=== PATIENT | female | born 1995 | race Caucasian/White ===

== ENCOUNTER 2020-03-18 20:32 | Inpatient (IN) | payer OTHER, BC, SELFPAY ==
[2020-03-18 20:38] VITALS: BP 120/93; PULSE 111; RESP 20; O2SAT 100
--- NOTE | 2020-03-18 20:57 | PC.NURSE ---
Spoke with poison control regarding the patient they recommended an EKG, APAP level and ASA. They suggested monitoring for IT SUPPORT SPECIALIST depression, seizures, agitation, slurred speech, respiratory depression, hypertension, prolonged QT. They stated the peak is in 2-6 hours and the half life is from 19-37 hours. They will fax paperwork.
[2020-03-18 21:11] LABS: Basophils Percent Auto 0.2 % (0.2-1.2); Hematocrit 41.7 % (37.0-47.0); Hemoglobin 13.6 g/dL (12.0-15.0); Immature Granulocyte Absolute 0.01 K/mm3 (0.00-0.031); Immature Granulocyte Percent A 0.2 % (0-0.5); Lymphocytes Absolute Auto 1.68 K/mm3 (0.9-3.2); Lymphocytes Percent Auto 26.3 % (18.3-44.2); Mean Corpuscular HGB Conc 32.6 g/dl (32-36); Mean Corpuscular Volume 88.9 fl (80-100); Mean Platelet Volume 9.2 fl (7.4-10.4); Monocytes Absolute Auto 0.5 K/mm3 (0.1-0.6); Monocytes Percent Auto 7.8 % (2.6-8.5); Neutrophils Absolute Auto 4.2 K/mm3 (1.3-6.7); Neutrophils Percent Auto 65.5 % (45.5-73.1); Platelet Count Result 290 k/mm3 (150-375); Red Blood Count 4.69 M/mm3 (4.2-5.4); Red Cell Distribution Width 13.2 % (11.5-14.5); White Blood Count 6.4 K/mm3 (4.5-10.0)
--- NOTE | 2020-03-18 21:13 | ECG_ITS ---
Measurements Intervals [place] Rate: 110 P: 52 TN: 117 QRS: 47 QRSD: 96 T: -29 QT: 247 QTc: 335 Interpretive Statements SINUS TACHYCARDIA WITH SHORT [place] INTERVAL INCOMPLETE RIGHT BUNDLE BRANCH BLOCK NONSPECIFIC ST & T-WAVE ABNORMALITY- ANTEROLAT/INF LEADS BASELINE ARTIFACT- I, II, AVR, AVF ABNORMAL ECG Electronically Signed On 03-19-2020 7:39:34 OPERATIONAL TEST MECHANIC by Derik aPz D.O.
[2020-03-18 21:25] LABS: Alanine Aminotransferase 12 U/L (4-35); Albumin Level 4.6 g/dL (3.5-5.1); Alkaline Phosphatase 79 U/L (38-126); Anion Gap 10 mmol/L (8-16); Aspartate Amino Transferase 19 U/L (14-36); Bilirubin,Total 0.2 mg/dL (0.2-1.3); Blood Urea Nitrogen 9 mg/dL (7-17); Calcium 9.4 mg/dL (8.4-10.2); Carbon Dioxide 23 mmol/L (22-30); Chloride 106 mmol/L (98-107); Estimated CRCL calculation 100 ml/min; Estimated Glomerular Filt Rate > 60; Glucose 89 mg/dL (65-105); Potassium 3.7 mmol/L (3.4-5.0); Sodium 139 mmol/L (137-145)
--- NOTE | 2020-03-18 21:40 | ED.PSYCH ---
HPI - Psych General Chief Complaint: Psychiatric Symptoms Stated Complaint: SI/ OD Time Seen by Provider: 03/18/20 21:27 History of Present Illness HPI Narrative: 24 yo female w/ h/ depression presents to the ED for an intentional overdose. She has been feeling more depressed for the past week. Today she decided to take 20 50 mg Clomipramine tablets at 1850 in an attempt to kill herself. On arrival to the ED she has no complaints. Related Data Home Medications Medication Instructions Recorded Confirmed Orilissa 150 mg PO DAILY 03/19/20 03/19/20 clomipramine 225 mg PO DAILY 03/19/20 03/19/20 desvenlafaxine succinate 150 mg PO DAILY 03/19/20 03/19/20 lorazepam 1 mg PO TID PRN 03/19/20 03/19/20 methylphenidate HCl [Concerta] 54 mg PO DAILY 03/19/20 03/19/20 midodrine 5 mg PO HS 03/19/20 03/19/20 midodrine 10 mg PO DAILY 03/19/20 03/19/20 norethindrone (contraceptive) 0.25 mg PO DAILY 03/19/20 03/19/20 propranolol 10 mg PO BID 03/19/20 03/19/20 quetiapine 200 mg PO HS 03/19/20 03/19/20 sertraline 100 mg PO HS 03/19/20 03/19/20 topiramate 100 mg PO BID 03/19/20 03/19/20 Allergies Allergy/AdvReac Type Severity Reaction Status Date / Time No Known Allergies Allergy Verified 03/19/20 00:07 Review of Systems Review of Systems: All systems reviewed & are unremarkable except as noted in HPI and below Constitutional: Constitutional: Denies fever(s) Cardiovascular: Cardiovascular: Denies chest pain Respiratory: Respiratory: Denies dyspnea Gastrointestinal: Gastrointestinal: Denies abdominal pain Musculoskeletal: Musculoskeletal: Denies back pain Neurologic: Reports dizziness Psychiatric: Psychiatric: Reports depression, Denies homicidal ideation and Reports suicidal ideation [facility] Past Medical History Medical History Depression Family History Family History Father Heart disease Social History Social History Smoking status: Never smoker Alcohol intake: unknown Substance use: never Substance use type: does not use Exam Const: General: healthy appearing, no acute distress and alert Orientation/consciousness: patient oriented x3 HENMT: Head: normal to inspection Eyes: Pupils: Equal, round and reactive pupils present EOM: EOMs intact bilaterally Neck: Neck: normal visual inspection and no lymphadenopathy Chest: Chest palpation & inspection: no tenderness Resp: Effort & Inspection: normal respiratory effort Auscultation: clear to auscultation bilaterally, no rales, no rhonchi and no wheezes Cardio: Jugular venous distension: no JVD Rate: tachycardic Rhythm: regular rhythm Heart sounds: no murmurs GI: Inspection: non-distended GI Palp: Yes Soft to palpation and No Tenderness to palpation present (GI) Skin: General skin exam: normal color Neuro: General: patient oriented x3, moves all extremities, no focal motor deficits and CN's II-XI intact bilaterally Cranial nerves: Yes Nystagmus not present Speech: normal speech Extrem: General: no edema Psych: Appearance: well kempt Affect: normal affect Course Vital Signs Vital signs: Vital Signs Pulse Rate 111 H 03/18/20 20:38 Respiratory Rate 20 03/18/20 20:38 Blood Pressure 120/93 H 03/18/20 20:38 Pulse Oximetry 100 03/18/20 20:38 Temperature 36.7 C 03/21/20 06:00 Pulse Rate 92 03/21/20 08:00 Respiratory Rate 21 H 03/21/20 06:00 Blood Pressure 117/73 03/21/20 06:00 Pulse Oximetry 100 03/21/20 06:00 MDM - Psych MDM Narrative Medical decision making narrative: SHe has been stable in the ED, but will require prolonged observation before she can be medically cleared. Differential Diagnosis Differential diagnosis: Likely suicidal ideation Medical Records Attestation: I reviewed the patient's medical records. Lab Data Attestation:
[2020-03-18 21:54] VITALS: BP 112/85; PULSE 101; RESP 21; O2SAT 100
[2020-03-18 22:02] LABS: Add Urine Microscopic? YES; Amorphous Sediment Urine Few; Appearance Urine Turbid (Clear); Bacteria Urine Trace /hpf; Bilirubin Urine Negative (Negative); Blood Urine Negative (Negative); Color Urine Yellow (Yellow); Glucose Urine UA Negative (Negative); Ketones Urine Negative (Negative); Leukocyte Esterase Ur Trace LEU/UL (Negative); Nitrate Urine Negative (Negative); Protein Urine Negative (Negative); Specific Grav Ur 1.018 (1.001-1.035); Squamous Epithelial Cell Urine Rare /hpf (Few); Urobilinogen Urine Negative mg/dL (<2.0)
[2020-03-18 22:06] LABS: Acetaminophen < 10 ug/mL (10-30); Ethanol < 10 mg/dL (<10); Salicylate < 1.0 mg/dL (2-20)
[2020-03-18] MEDS: SODIUM CHLORIDE 0.9% IV 1,000 ML 999 ML IV CONT (22:18)
[2020-03-18 22:21] VITALS: BP 128/91; PULSE 106; RESP 15; O2SAT 100
--- NOTE | 2020-03-18 22:54 | PC.NURSE ---
this rn spoke with poison control and gave them update
[2020-03-18 22:58] LABS: Amphetamine Screen Urine Negative (Negative); Barbiturate Screen Urine Negative (Negative); Benzodiazepines Screen Urine Negative (Negative); Cannabinoid Screen Urine Negative (Negative); Cocaine Screen Urine Negative (Negative); Methadone Screen Urine Negative (Negative); Opiate Screen Urine Negative (Negative); Phencyclidine Screen Urine Negative (Negative)
[2020-03-18 23:23] VITALS: BP 107/75; PULSE 94; RESP 23; O2SAT 100
[2020-03-18 23:32] VITALS: BP 104/71; PULSE 95; RESP 13; O2SAT 100
[2020-03-18 23:49] VITALS: BMI 31.1
[2020-03-18 23:50] VITALS: BP 112/78; PULSE 101; RESP 15; TEMP 36.1; O2SAT 100
--- NOTE | 2020-03-18 23:51 | PM.IMHP ---
H&P: HPI History of Present Illness Date/Time: 03/18/20 23:51 Chief complaint: Intentional overdose, SI Narrative: Adeline Holden is a 24 year old female who presented to the hospital with a history of an intentional overdose of her clomipramine around 7 pm. She states that she consumed #20 tabs of 50 mg of her TCA, clomipramine. She denies any nausea or vomiting tonight. She also denies any seizure like activity, shortness of breath, headache, chest pain, abdominal pain, dysuria, diarrhea, or rectal bleeding. She states that she has been depressed and that's why she wanted to hurt herself. She denies any previous suicidal ideation or attempts before. She was seen in our ER around 8:30 pm and was not given any charcoal for decontamination. Initial EKG demonstrated QRS duration of 96 ms and QTc of 312 ms. No other complaints. Review of Systems Review of Systems: All systems reviewed & are unremarkable except as noted in HPI and below PMFSH Past Medical History Medical History Depression Family History Family History Father Heart disease Social History Social History Smoking status: Never smoker Alcohol intake: unknown Substance use: never Substance use type: does not use Comments Past surgical history is reviewed and negative. Meds Home Medications and Allergies Home Medications Medication Instructions Recorded Confirmed Type clomipramine 225 mg PO DAILY 03/19/20 03/19/20 History desvenlafaxine succinate 150 mg PO DAILY 03/19/20 03/19/20 History elagolix [Orilissa] 150 mg PO DAILY 03/19/20 03/19/20 History lorazepam 1 mg PO TID PRN 03/19/20 03/19/20 History methylphenidate HCl [Concerta] 54 mg PO DAILY 03/19/20 03/19/20 History midodrine 5 mg PO HS 03/19/20 03/19/20 History midodrine 10 mg PO DAILY 03/19/20 03/19/20 History norethindrone (contraceptive) 0.25 mg PO DAILY 03/19/20 03/19/20 History propranolol 10 mg PO BID 03/19/20 03/19/20 History quetiapine 200 mg PO HS 03/19/20 03/19/20 History sertraline 100 mg PO HS 03/19/20 03/19/20 History topiramate 100 mg PO BID 03/19/20 03/19/20 History Allergies Allergy/AdvReac Type Severity Reaction Status Date / Time No Known Allergies Allergy Verified 03/19/20 00:07 Vital Signs Vital Signs - 24 hr 03/18/20 20:38 03/18/20 21:54 03/18/20 22:21 Temperature Pulse Rate 111 H 101 H 106 H Respiratory Rate 20 21 H 15 Blood Pressure 120/93 H 112/85 128/91 H Pulse Oximetry 100 100 100 03/18/20 23:23 03/18/20 23:32 03/18/20 23:50 Temperature 36.1 C L Pulse Rate 94 95 101 H Respiratory Rate 23 H 13 15 Blood Pressure 107/75 104/71 112/78 Pulse Oximetry 100 100 100 Exam Const: General: alert and awake Nutritional Appearance: well nourished Orientation/consciousness: patient oriented x3 HENMT: Head: normal to inspection General nose exam: Normal external nose present Face and sinus: normal facial exam Mouth: Yes Normal oral and palatal mucosa present and Yes oropharynx normal Eyes: Pupils: Equal, round and reactive pupils present EOM: EOMs intact bilaterally Neck: Neck: supple and no JVD Thyroid: thyroid normal Lymphatic: lymphadenopathy not noted Resp: Effort & Inspection: normal respiratory effort Auscultation: clear to auscultation bilaterally Cardio: Rate: regular rate Rhythm: regular rhythm Heart sounds: no murmurs GI: Inspection: normal to inspection Auscultation: normal bowel sounds Skin: General skin exam: normal color and no rashes or lesions noted Neuro: General: patient oriented x3 Cranial nerves: Yes CN's II-XII intact bilaterally and Yes Equal, round and reactive pupils present Speech: normal speech Motor exam (neuro): 5/5 motor strength present throughout Sensory Exam: normal sensation Extrem: General: normal to inspection and no edema Psych: Menta
--- NOTE | 2020-03-18 23:53 | ADMGEN ---
This patient, Adeline Holden, was admitted to Medical Room 254-01 on 03/18/2020 @0808. Patient/family oriented to hospital policies and general routines including ID bracelet, bed and alarms, visiting hours, pain management, procedures, bathroom and other care routines, personal items, smoking policy, room service/diet, and visiting hours. Information on how to activate the Rapid Response Team has been discussed. Patient/Family are encouraged to report perceived risks to care and to ask questions if they do not understand what they are told or what they should do.
[2020-03-19] VITALS (9 sets, daily range): BP systolic 107–116; BP diastolic 66–77; PULSE 87–101; RESP 14–20; TEMP 36.1–36.6; O2SAT 100
[2020-03-19] MEDS: SODIUM CHLORIDE 0.9% IV 1,000 ML 100 ML IV CONT ×3 (01:52→22:15)
--- NOTE | 2020-03-19 04:18 | ECG_ITS ---
Measurements Intervals [place] Rate: 94 P: 38 [place]: 119 QRS: 63 QRSD: 102 T: 16 QT: 383 QTc: 479 Interpretive Statements SINUS RHYTHM WITH SHORT [place] INTERVAL INCOMPLETE RIGHT BUNDLE BRANCH BLOCK NONSPECIFIC T-WAVE ABNORMALITY-ANT/INF LEADS BORDERLINE ECG Electronically Signed On 03-19-2020 7:42:30 LINER INSTALLER by Derik Paz D.O.
[2020-03-19] MEDS: SODIUM BICARBONATE 8.4% 50 MEQ/50 ML VIAL IV PUSH ×2 (05:26→05:38)
[2020-03-19 07:01] LABS: Anion Gap 5 mmol/L (8-16); Blood Urea Nitrogen 8 mg/dL (7-17); Calcium 8.2 mg/dL (8.4-10.2); Carbon Dioxide 26 mmol/L (22-30); Chloride 109 mmol/L (98-107); Estimated CRCL calculation 113 ml/min; Estimated Glomerular Filt Rate > 60; Glucose 93 mg/dL (65-105); Potassium 3.4 mmol/L (3.4-5.0); Sodium 140 mmol/L (137-145)
--- NOTE | 2020-03-19 12:07 | PM.IMPN ---
Progress Note: A&P Assessment and Plan (1) Intentional overdose of drug in tablet form: Code(s): T50.902A - Poisoning by unspecified drugs, medicaments and biological substances, intentional self-harm, initial encounter Status: Acute Assessment and Plan: The patient has intentionally overdosed on her TCA, clomipramine. telemetry, monitor EKG and specifically QRS duration. (2) Suicidal ideation: Code(s): R45.851 - Suicidal ideations Status: Acute Assessment and Plan: harm precautions. suicide precautions. One on One sitter. Crisis intervention tomorrow AM. (3) Depression: Qualifiers: Depression Type: unspecified Qualified Code(s): F32.9 - Major depressive disorder, single episode, unspecified Code(s): F32.9 - Major depressive disorder, single episode, unspecified Status: Chronic Assessment and Plan: Held everything except zoloft for patient. Subjective Date/time seen: 03/19/20 12:07 Interval history: Adeline Holden is a 24 year old female who presented to the hospital with a history of an intentional overdose of her clomipramine around 7 pm. She states that she consumed #20 tabs of 50 mg of her TCA, clomipramine. Pt has history of depression sees a psychiatrist in [place], Has been feeling down and was having Suicidal thoughts and took OD intentionally. No chest pain or SOB noted. No seizures noted, Continue tele and fluids today call crisis team tomorrow. Review of Systems Review of Systems: All systems reviewed & are unremarkable except as noted in HPI and below Exam Const: General: cooperative and healthy appearing; No in distress Nutritional Appearance: overweight Orientation/consciousness: oriented to person HENMT: Head: normal to inspection Resp: Effort & Inspection: no respiratory distress Auscultation: no rhonchi and no wheezes Cardio: Rate: regular rate Rhythm: regular rhythm GI: Inspection: normal to inspection GI Palp: No abdominal tenderness, No Guarding due to palpation present (GI) and No Hepatomegaly present Auscultation: normal bowel sounds Neuro: General: oriented to person Objective Data Vital Signs Vital Signs: Vital Signs - 24 hr 03/18/20 20:38 03/18/20 21:54 03/18/20 22:21 Temperature Pulse Rate 111 H 101 H 106 H Respiratory Rate 20 21 H 15 Blood Pressure 120/93 H 112/85 128/91 H Pulse Oximetry 100 100 100 03/18/20 23:23 03/18/20 23:32 03/18/20 23:50 Temperature 36.1 C L Pulse Rate 94 95 101 H Respiratory Rate 23 H 13 15 Blood Pressure 107/75 104/71 112/78 Pulse Oximetry 100 100 100 03/19/20 00:00 03/19/20 04:00 03/19/20 05:11 Temperature 36.1 C L Pulse Rate 98 90 90 Respiratory Rate 14 Blood Pressure 107/66 Pulse Oximetry 100 03/19/20 08:00 03/19/20 12:00 Temperature Pulse Rate 88 101 H Respiratory Rate 14 Blood Pressure Pulse Oximetry 100 Intake/Output Intake/Output: Intake & Output 03/16/20 03/17/20 03/18/20 03/19/20 23:59 23:59 23:59 23:59 Intake Total 290 Balance 290 Meds/Results Medications: Active Medications Generic Name Dose Route Start Last Admin Trade Name Freq PRN Reason Stop Dose Admin Sodium Chloride 1,000 mls @ 100 mls/hr 03/19/20 00:05 03/19/20 11:29 Normal Saline Iv IV CONT 100 mls/hr .Q10H [facility] Infusion Labs Labs: Laboratory Results - last 24 hr 03/18/20 03/18/20 03/18/20 20:59 20:59 20:59 WBC 6.4 RBC 4.69 Hgb 13.6 Hct 41.7 MCV 88.9 MCH 29.0 MCHC 32.6 RDW 13.2 Plt Count 290 MPV 9.2 Immature Gran % (Auto) 0.2 Neut % (Auto) 65.5 Lymph % (Auto) 26.3 [place] % (Auto) 7.8 Eos % (Auto) 0.0 Baso % (Auto) 0.2 Lymph # (Auto) 1.68 [place] # (Auto) 0.5 Eos # (Auto) 0.0 Baso # (Auto) 0.0 Abs Immat Gran (auto) 0.01 Absolute Neuts (auto) 4.2 Absolute Nucleated RBC 0.0 Nucleated RBC % 0.0 Sodium 139 Potassium 3.7 Chloride 106
[2020-03-19] MEDS: SERTRALINE HCL 50 MG TABLET 100 MG PO (20:34)
[2020-03-20] VITALS (10 sets, daily range): BP systolic 112–124; BP diastolic 77–78; PULSE 82–120; RESP 14–21; TEMP 35.9–36.8; O2SAT 97–100
[2020-03-20 05:20] LABS: Anion Gap 5 mmol/L (8-16); Blood Urea Nitrogen 8 mg/dL (7-17); Calcium 8.6 mg/dL (8.4-10.2); Carbon Dioxide 24 mmol/L (22-30); Chloride 108 mmol/L (98-107); Estimated CRCL calculation 113 ml/min; Estimated Glomerular Filt Rate > 60; Glucose 98 mg/dL (65-105); Potassium 3.8 mmol/L (3.4-5.0); Sodium 137 mmol/L (137-145)
[2020-03-20] MEDS: SODIUM CHLORIDE 0.9% IV 1,000 ML 100 ML IV CONT ×2 (08:21→18:38)
[2020-03-20] MEDS: hydrOXYzine pamoate 25 MG CAPSULE PO (09:18)
--- NOTE | 2020-03-20 11:45 | PM.IMPN ---
Progress Note: A&P Assessment and Plan (1) Intentional overdose of drug in tablet form: Code(s): T50.902A - Poisoning by unspecified drugs, medicaments and biological substances, intentional self-harm, initial encounter Status: Acute Assessment and Plan: 03/20/20 11:45 patient is a 24-year-old female with psychiatric illness and has been taking clomipramine 50mg/tab was given by her psychiatrist however patient became severely depressed and decided to end her life by taking 20 tabs of clomipramine (TCA) 03/18/20, patient took the medications about 7PM had change of heart and presented to ER for further evaluation, patient denied any associates symptoms of abdominal pain, nausea, vomiting or seizure, chest pain or palpitation, her EKG has been in normal range. Currently patient is clinically stable and has no complaint, patient is with a sitter, I believe patient will benefit going into inpatient psychiatry care, I called patient's psychiatrist spoke with his nurse practitioner and she also agrees the patient will benefit going into inpatient care, will have crisis team evaluate the patient and further recommendation to follow. (2) Depression: Qualifiers: Depression Type: unspecified Qualified Code(s): F32.9 - Major depressive disorder, single episode, unspecified Code(s): F32.9 - Major depressive disorder, single episode, unspecified Status: Chronic Assessment and Plan: Patient is seen by psychiatrist, plan is above (3) Suicidal ideation: Code(s): R45.851 - Suicidal ideations Status: Acute Assessment and Plan: Plan is above Subjective Date/time seen: 03/20/20 11:45 patient is a 24-year-old female with psychiatric illness and has been taking clomipramine 50mg/tab was given by her psychiatrist however patient became severely depressed and decided to end her life by taking 20 tabs of clomipramine (TCA) 03/18/20, patient took the medications about 7PM had change of heart and presented to ER for further evaluation, patient denied any associates symptoms of abdominal pain, nausea, vomiting or seizure, chest pain or palpitation, her EKG has been in normal range. Currently patient is clinically stable and has no complaint, patient is with a sitter, I believe patient will benefit going into inpatient psychiatry care, I called patient's psychiatrist spoke with his nurse practitioner and she also agrees the patient will benefit going into inpatient care, will have crisis team evaluate the patient and further recommendation to follow. Review of Systems Review of Systems: All systems reviewed & are unremarkable except as noted in HPI and below Exam Narrative: Exam Narrative: Patient appears depressed Patient is comfortable, NAD HEENT: eyes are clear and none icteric LUNGS:CTA HEART: RR S1S2 ABD: BS+, Soft and nontender Lower extremities: no edema SKIN: nonjaundiced Neuro: grossly intact. Objective Data Vital Signs Vital Signs: Vital Signs - 24 hr 03/19/20 12:00 03/19/20 14:39 03/19/20 16:00 Temperature 97.6 F Pulse Rate 101 H 101 H 94 Respiratory Rate 20 Blood Pressure 107/67 Pulse Oximetry 100 03/19/20 19:49 03/19/20 20:00 03/20/20 00:00 Temperature 98 F Pulse Rate 92 87 82 Respiratory Rate 16 Blood Pressure 116/77 Pulse Oximetry 100 03/20/20 04:00 03/20/20 05:36 03/20/20 08:00 Temperature 97.2 F L Pulse Rate 85 86 95 Respiratory Rate 14 Blood Pressure 117/77 Pulse Oximetry 100 03/20/20 08:01 03/20/20 08:27 Temperature 98.2 F Pulse Rate 90 104 H Respiratory Rate 20 20 Blood Pressure 112/77 Pulse Oximetry 100 100 Intake/Output Intake/Output: Intake & Output 03/17/20 03/18/20 03/19/20 03/20/20 23:59 23:59 23:59 23:59 Intake Total 3210 1400 Output Total 800 Balance 3210 600 Meds/Results Medications: Active Medications Generic Name Dose Route Start Last Admin Trade Name Freq PRN Reason
--- NOTE | 2020-03-20 14:04 | PC.NURSE ---
Spoke with [place] [facility], Ethel Balderrama, stated they anticipated no further problems with the amount of medication that she took. [place] [facility] Case #[id number]. This case is considered close.
--- NOTE | 2020-03-20 16:30 | PC.NURSE ---
Crisis Intervention Counselor assessed patient and stated that patient is no longer a threat to self and since patient has denied any intentions to harm self patient no longer needed to be on Suicide Precautions. A signed contract was signed and witnessed with Crisis Intervention Counselor and left at bedside.
[2020-03-20] MEDS: SERTRALINE HCL 50 MG TABLET 100 MG PO (21:14)
[2020-03-21] VITALS: PULSE 95
[2020-03-21 04:00] VITALS: PULSE 89
[2020-03-21] MEDS: SODIUM CHLORIDE 0.9% IV 1,000 ML 100 ML IV CONT (04:42)
[2020-03-21 06:00] VITALS: BP 117/73; PULSE 111; RESP 21; TEMP 36.7; O2SAT 100
[2020-03-21 08:00] VITALS: PULSE 92
--- NOTE | 2020-03-21 08:07 | PM.DS ---
DS: Admitting Diagnosis Admitting Diagnosis Admitting Diagnosis: Intentional overdose, SI DS: Summary Hospital Course Reason for hospitalization: Chief complaint: Intentional overdose, SI Narrative: Adeline Holden is a 24 year old female who presented to the hospital with a history of an intentional overdose of her clomipramine around 7 pm. She states that she consumed #20 tabs of 50 mg of her TCA, clomipramine. She denies any nausea or vomiting tonight. She also denies any seizure like activity, shortness of breath, headache, chest pain, abdominal pain, dysuria, diarrhea, or rectal bleeding. She states that she has been depressed and that's why she wanted to hurt herself. She denies any previous suicidal ideation or attempts before. She was seen in our ER around 8:30 pm and was not given any charcoal for decontamination. Initial EKG demonstrated QRS duration of 96 ms and QTc of 312 ms. No other complaints. Hospital Course: Patient was seen by crisis team yesterday on 03/20 and did not require inpatient psychiatry care, patient is clinically stable, patient has scheduled appointment with a psychiatrist this morning at 9:00 a.m., will discharge with her mother and patient will go to her appointment this morning, patient instructed if any symptoms get worse go to nearest emergency department Status at Discharge Functional status at discharge: independent ambulation Overall status at discharge: patient is back to baseline Time Spent with Patient Time attestation: Total time spent providing and/or coordinating discharge services: Patient was seen and examined at the time of the discharge Condition at discharge is stable Code status: Full code. Time spent preparing discharge summary, discharge medications, discussing discharge planning with porter sample case and patient is 35 minutes. Time spent: Greater than 30 minutes Exam Narrative: Exam Narrative: Patient is comfortable, NAD HEENT: eyes are clear and none icteric LUNGS:CTA HEART: RR S1S2 ABD: BS+, Soft and nontender Lower extremities: no edema SKIN: nonjaundiced Neuro: grossly intact. DS: Data Data Completed and Pending Labs on day of discharge: Labs from last 24 hours 03/21/20 04:46 SARS-CoV-2 RNA (RT-PCR) Pending Discharge Plan Discharge Attending physician on discharge: Mayelin Borja Consulting providers: Cristy Larry Rafe M. Discharging Clinician: Mayelin oBrja Patient Disposition: Home, Self-Care Activity: may shower and as tolerated Diet: regular Discharge Instructions: Patient was seen by crisis team yesterday on 03/20 and did not require inpatient psychiatry care, patient is clinically stable, patient has scheduled appointment with a psychiatrist this morning at 9:00 a.m., will discharge with her mother and patient will go to her appointment this morning, patient instructed if any symptoms get worse go to nearest emergency department Patient Instructions: Antibiotic Form Stand Alone Forms: General Discharge Information Follow-up/Referrals: Maryam,Molina Herman MD [Primary Care Provider] - Discharge Medications: Continued Orilissa 150 mg tablet 150 mg PO DAILY RF: 0 methylphenidate HCl [Concerta] 54 mg tablet extended release 24hr 54 mg PO DAILY RF: 0 propranolol 10 mg tablet 10 mg PO BID RF: 0 norethindrone (contraceptive) 0.35 mg tablet 0.25 mg PO DAILY RF: 0 topiramate 100 mg tablet 100 mg PO BID RF: 0 desvenlafaxine succinate 100 mg tablet extended release 24 hr 150 mg PO DAILY RF: 0 clomipramine 75 mg capsule 225 mg PO DAILY RF: 0 sertraline 100 mg tablet 100 mg PO HS RF: 0 quetiapine 100 mg tablet 200 mg PO HS RF: 0 lorazepam 1 mg tablet 1 mg PO TID PRN (Reason: Anxiety) RF: 0 midodrine 10 mg tablet 5 mg PO HS RF: 0 midodrine 10 mg tablet 10 mg PO DAILY RF: 0 Date of admission: 03/18/20 23:06 Primary Care Provider: Maryam,
[2020-03-21 18:52] LABS: SARS-CoV-2 RNA PCR Negative
== END 2020-03-21 08:30 | disposition home or self-care (01) | DRG 918 ==
LOC: ANHED 21:27 → ANH2MED 03-19 04:37
PROVIDERS: Admitting Provider Family Medicine; Emergency Provider Emergency Medicine; PCP Internal Medicine; Visit Provider Family Medicine
DX: T43.012A Poisoning by tricyclic antidepressants, intentional self-harm, initial encounter (principal); R45.851 Suicidal ideations; F32.9 Major depressive disorder, single episode, unspecified
CPT/HCPCS: 36415; 80048; 80053; 80307; 81001; 81025; 84443; 85025; 87635; 93005; 96360; 96361; 96374; 99285; A9270; C9803; G0378; J7030; U0003

== ENCOUNTER 2021-08-30 18:49 | Emergency (ER) | payer BC, SELFPAY ==
--- NOTE | ~2021-08-30 | XR_ITS ---
EXAMINATION: XR chest 2V Exam Date/Time: 08/30/2021 21:15 CDT HISTORY: SOB, LIGHT HEADED, NO CARDIAC HX Comparison: None available. RESULT: Lines, tubes, and devices: None. Lungs and pleura: Clear. Cardiomediastinal silhouette: Normal cardiomediastinal silhouette. Other: No acute osseous or upper abdominal finding. IMPRESSION: No acute cardiopulmonary process. Reviewed, dictated and finalized at location K.
[2021-08-30 18:53] VITALS: BP 136/84; PULSE 95; RESP 18; TEMP 36.7; O2SAT 100
--- NOTE | 2021-08-30 21:08 | ECG_ITS ---
Measurements Intervals [place] Rate: 84 P: 29 [place]: 119 QRS: 26 QRSD: 86 T: 5 QT: 361 QTc: 427 Interpretive Statements SINUS RHYTHM WITH SHORT [place] INTERVAL INCOMPLETE RIGHT BUNDLE BRANCH BLOCK BORDERLINE T WAVE ABNORMALITY- ANT/INF LEADS BASELINE ARTIFACT- III BORDERLINE ECG Electronically Signed On 08-31-2021 6:33:43 CDT by Derik Paz D.O.
--- NOTE | 2021-08-30 21:09 | ED.SOB ---
HPI - SOB/Dyspnea General Chief Complaint: Shortness of Breath/Dyspnea <Paige Merritt PA-C - Last Filed: 08/31/21 02:36> Stated Complaint: SOB <Paige Merritt PA-C - Last Filed: 08/31/21 02:36> Time Seen by Provider: 08/30/21 20:41 <Paige Merritt PA-C - Last Filed: 08/31/21 02:36> History of Present Illness HPI Narrative: Patient is a 25-year-old female with a history of POTS here for evaluation of shortness of breath for the past 2 days. Patient states she first noticed this sensation when she was driving, and she felt like she had a hard time catching her breath. Additionally notes some diffuse body aches for the past 2 days as well. 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 Denies fevers, chills, cough, chest pain, recent immobilization, syncope, family history of heart disease. Patient does use oral contraceptives. She follows with a sourcing associate at [facility] for her POTS. <Paige Merritt PA-C - Last Filed: 08/31/21 02:36> Related Data Home Medications: Home Medications Medication Instructions Recorded Confirmed Orilissa 150 mg PO DAILY 03/19/20 03/19/20 clomipramine 225 mg PO DAILY 03/19/20 03/19/20 desvenlafaxine succinate 150 mg PO DAILY 03/19/20 03/19/20 lorazepam 1 mg PO TID PRN 03/19/20 03/19/20 methylphenidate HCl [Concerta] 54 mg PO DAILY 03/19/20 03/19/20 midodrine 5 mg PO HS 03/19/20 03/19/20 midodrine 10 mg PO DAILY 03/19/20 03/19/20 norethindrone (contraceptive) 0.25 mg PO DAILY 03/19/20 03/19/20 propranolol 10 mg PO BID 03/19/20 03/19/20 quetiapine 200 mg PO HS 03/19/20 03/19/20 sertraline 100 mg PO HS 03/19/20 03/19/20 topiramate 100 mg PO BID 03/19/20 03/19/20 <Paige Merritt PA-C - Last Filed: 08/31/21 02:36> Allergies/Adverse Reactions: Allergies Allergy/AdvReac Type Severity Reaction Status Date / Time doxycycline Allergy Hives Verified 08/30/21 20:43 <Paige Merritt PA-C - Last Filed: 08/31/21 02:36> Review of Systems Review of Systems: Gen.: Reports body aches. Denies fevers or chills Eyes: Denies eye pain or visual change ENT: Denies congestion Respiratory: Reports shortness of breath. CV: Denies chest pain or palpitations GI: Denies abdominal pain nausea, emesis or diarrhea denies burning, urgency, frequency or hematuria Musculoskeletal: Denies back pain or muscle pain Neuro: Denies numbness, tingling, weakness or focal weakness Skin: Denies rash Except as documented, all other systems reviewed and negative <Paige Merritt PA-C - Last Filed: 08/31/21 02:36> All systems reviewed & are unremarkable except as noted in HPI and below <Paige Merritt PA-C - Last Filed: 08/31/21 02:36> PMFSH Past Medical History Medical History: Medical History Depression <Paige Merritt PA-C - Last Filed: 08/31/21 02:36> Family History Family History: Family History Father Heart disease <Paige Merritt PA-C - Last Filed: 08/31/21 02:36> Social History Social History: Social History Smoking status: Never smoker Alcohol intake: unknown Substance use: never Substance use type: does not use <Paige Merritt PA-C - Last Filed: 08/31/21 02:36> Exam Narrative: APPEARANCE: Well appearing, no pain in distress, well-nourished. Head: normocephalic and atraumatic. EYES: PERRLA/EOMI, conjunctivae clear NOSE: No nasal drainage EARS: External ear normal in appearance THROAT: Oropharynx is clear. Mucous membranes are moist. NECK: Supple. No adenopathy, no masses. RESPIRATORY: Airway patent, respirations nonlabored. Clear to auscultation bilaterally, no rales, rhonchi, wheezing. CARDIOVASCULAR: Regular rate and rhythm without murmurs, rubs, or gallops. ABDOMINAL: Normoactive bowel sounds. So
[2021-08-30 21:21] VITALS: BP 120/75; PULSE 82; RESP 16; O2SAT 100
[2021-08-30 21:44] LABS: Basophils Percent Auto 0.2 % (0.2-1.2); Eosinophils Absolute Auto 0.3 K/mm3 (0-0.3); Eosinophils Percent Auto 2.8 % (0-4.4); Hematocrit 41.5 % (37.0-47.0); Hemoglobin 13.1 g/dL (12.0-15.0); Immature Granulocyte Absolute 0.03 K/mm3 (0.00-0.031); Immature Granulocyte Percent A 0.3 % (0-0.5); Lymphocytes Absolute Auto 2.69 K/mm3 (0.9-3.2); Lymphocytes Percent Auto 28.6 % (18.3-44.2); Mean Corpuscular HGB Conc 31.6 g/dl (32-36); Mean Corpuscular Hemoglobin 28.5 pg (26-34); Mean Corpuscular Volume 90.4 fl (80-100); Mean Platelet Volume 9.4 fl (7.4-10.4); Monocytes Absolute Auto 0.9 K/mm3 (0.1-0.6); Monocytes Percent Auto 9.5 % (2.6-8.5); Neutrophils Absolute Auto 5.5 K/mm3 (1.3-6.7); Neutrophils Percent Auto 58.6 % (45.5-73.1); Platelet Count Result 345 k/mm3 (150-375); Red Blood Count 4.59 M/mm3 (4.2-5.4); White Blood Count 9.4 K/mm3 (4.5-10.0)
[2021-08-30 21:53] LABS: Alanine Aminotransferase 21 U/L (6-35); Albumin Level 4.4 g/dL (3.5-5.1); Alkaline Phosphatase 90 U/L (38-126); Anion Gap 8 mmol/L (8-16); Aspartate Amino Transferase 31 U/L (14-36); Bilirubin,Total 0.1 mg/dL (0.2-1.3); Blood Urea Nitrogen 10 mg/dL (7-17); Calcium 9.2 mg/dL (8.4-10.2); Carbon Dioxide 25 mmol/L (22-30); Chloride 103 mmol/L (98-107); Estimated CRCL calculation 136 ml/min; Estimated Glomerular Filt Rate > 60; Glucose 90 mg/dL (65-110); Potassium 4.1 mmol/L (3.4-5.0); Sodium 136 mmol/L (137-145)
[2021-08-30 22:04] LABS: D Dimer < 0.27 ug/mL (<0.48)
[2021-08-30 22:20] LABS: SARS-CoV-2 RNA PCR Negative
[2021-08-30 23:02] VITALS: BP 122/72; PULSE 86; RESP 18; O2SAT 100
== END 2021-08-30 23:03 | disposition home or self-care (01) ==
PROVIDERS: Physician Assistant; Emergency Provider Emergency Medicine; PCP Nurse Practitioner Family
DX: I49.8 Other specified cardiac arrhythmias (principal); Z20.822 Contact with and (suspected) exposure to COVID-19
CPT/HCPCS: 36415; 71046; 80053; 85025; 85380; 93005; 99283; C9803; U0003; U0005

== ENCOUNTER 2021-09-14 15:38 | Emergency (ER) | payer BC, SELFPAY ==
[2021-09-14 15:47] VITALS: BP 126/78; PULSE 91; RESP 16; TEMP 36.6; O2SAT 100
--- NOTE | 2021-09-14 15:54 | ED.SKABFB ---
HPI - Skin/Abscess/Foreign Bdy General Chief complaint: Skin/Abscess/Foreign Body Stated complaint: Rash Time Seen by Provider: 09/14/21 15:57 Source: patient, RN notes reviewed and old records reviewed Mode of arrival: ambulatory Limitations: no limitations History of Present Illness HPI narrative: 25 female with history of anxiety presents to the [facility] with concerns that her face was red upon waking up from a nap, flushing tight. No new foods, lotions, detergents. Has not taken anything but her normal allergy medications today. Also states that her arms were red. Has sweating underneath the N95 masks that she is wearing. No redness inflammation noted. No tongue or lip swelling. No hives noted MD complaint: rash Related Data Home Medications Medication Instructions Recorded Confirmed clomipramine 75 mg capsule 225 mg PO DAILY 03/19/20 09/14/21 elagolix 150 mg tablet (Orilissa) 150 mg PO DAILY 03/19/20 09/14/21 methylphenidate HCl 54 mg 54 mg PO DAILY 03/19/20 09/14/21 tablet,extended release 24 hr (Concerta) midodrine 10 mg tablet 5 mg PO HS 03/19/20 09/14/21 midodrine 10 mg tablet 10 mg PO BID 03/19/20 09/14/21 norethindrone (contraceptive) 0.35 0.25 mg PO DAILY 03/19/20 09/14/21 mg tablet sertraline 100 mg tablet 100 mg PO HS 03/19/20 09/14/21 topiramate 100 mg tablet 100 mg PO BID 03/19/20 09/14/21 gabapentin 100 mg capsule 1 cap PO DAILY 09/14/21 09/14/21 isotretinoin 40 mg capsule 1 cap PO DAILY 09/14/21 09/14/21 (Amnesteem) lisdexamfetamine 20 mg capsule 1 cap PO DAILY 09/14/21 09/14/21 (Vyvanse) montelukast 10 mg tablet 1 tablet PO DAILY 09/14/21 09/14/21 paroxetine HCl 20 mg tablet 1 tablet PO DAILY 09/14/21 09/14/21 propranolol 60 mg capsule,24 1 cap PO DAILY 09/14/21 09/14/21 hr,extended release quetiapine 25 mg tablet 1 tablet PO DAILY 09/14/21 09/14/21 Allergies Allergy/AdvReac Type Severity Reaction Status Date / Time doxycycline AdvReac Mild Hives Verified 09/14/21 16:11 Review of Systems Review of Systems: All systems reviewed & are unremarkable except as noted in HPI and below Constitutional: Constitutional: Reports no additional constitutional complaints, Denies chills, Denies fever(s), Denies headache(s) and Denies weakness Eyes: Eyes: Reports no additional eye complaints and Denies change in vision ENT: Reports system reviewed and no additional complaints, except as documented, Denies dysphagia, Denies dizziness, Denies headache(s), Denies nasal congestion and Denies sore throat Cardiovascular: Cardiovascular: Reports no additional cardiovascular complaints, Denies chest pain, Denies syncope and Denies dyspnea Respiratory: Respiratory: Reports no additional respiratory complaints, Denies chest congestion, Denies cough, Denies dyspnea and Denies wheezing Gastrointestinal: Gastrointestinal: Denies dysphagia Musculoskeletal: Musculoskeletal: Reports no additional musculoskeletal complaints and Denies numbness Integumentary/Breasts: Skin/Breast: Reports as per HPI and Reports erythema (Facial and forearms) Neurologic: Reports system reviewed and no additional complaints, except as documented, Denies dizziness, Denies syncope, Denies headache(s), Denies focal weakness, Denies numbness and Denies weakness Psychiatric: Psychiatric: Reports no additional psychiatric complaints Allergic/Immunologic: Allergic/Immunologic: Reports no additional allergic/immunologic complaints and Denies wheezing PMFSH Past Medical History Medical History (Updated 09/14/21 @ 16:14 by Mary Jane Peterson APRN) Depression POTS (postural orthostatic tachycardia syndrome) Family History Family History Father Heart disease Social History Social History Smoking status: Never smoker Alcohol intake: unknown Substance use: never Substance use type: does not use Comments At the ti
== END 2021-09-14 16:18 | disposition home or self-care (01) ==
PROVIDERS: Emergency Provider Nurse Practitioner; PCP Nurse Practitioner Family
DX: Z71.1 Person with feared health complaint in whom no diagnosis is made (principal); F32.A Depression, unspecified
CPT/HCPCS: 99211; G0463

== ENCOUNTER 2021-12-14 21:47 | Emergency (ER) | payer BC, SELFPAY ==
--- NOTE | 2021-12-14 22:07 | ECG_ITS ---
Measurements Intervals [place] Rate: 88 P: 61 VA: 119 QRS: 46 QRSD: 89 T: -14 QT: 361 QTc: 437 Interpretive Statements SINUS RHYTHM WITH SHORT VA INTERVAL INCOMPLETE RIGHT BUNDLE BRANCH BLOCK NONSPECIFIC ST & T-WAVE ABNORMALITY- ANTEROLAT/INF LEADS BASELINE ARTIFACT- II, III, AVF BORDERLINE ECG COMPARED TO ECG 08/30/2021 21:33:36 NO SIGNIFICANT CHANGE Electronically Signed On 12-15-2021 6:52:44 CDT by Derik Paz D.O.
[2021-12-14 22:15] VITALS: BP 121/81; PULSE 96; RESP 20; TEMP 37.2; O2SAT 100
[2021-12-14 22:31] LABS: Basophils Percent Auto 0.2 % (0.2-1.2); Eosinophils Absolute Auto 0.1 K/mm3 (0-0.3); Eosinophils Percent Auto 1.2 % (0-4.4); Hematocrit 40.1 % (37.0-47.0); Hemoglobin 12.9 g/dL (12.0-15.0); Immature Granulocyte Absolute 0.03 K/mm3 (0.00-0.031); Immature Granulocyte Percent A 0.3 % (0-0.5); Lymphocytes Percent Auto 30.5 % (18.3-44.2); Mean Corpuscular HGB Conc 32.2 g/dl (32-36); Mean Corpuscular Hemoglobin 29.5 pg (26-34); Mean Corpuscular Volume 91.8 fl (80-100); Mean Platelet Volume 9.6 fl (7.4-10.4); Monocytes Absolute Auto 0.6 K/mm3 (0.1-0.6); Monocytes Percent Auto 6.4 % (2.6-8.5); Neutrophils Absolute Auto 5.6 K/mm3 (1.3-6.7); Neutrophils Percent Auto 61.4 % (45.5-73.1); Platelet Count Result 330 k/mm3 (150-375); Red Blood Count 4.37 M/mm3 (4.2-5.4); Red Cell Distribution Width 13.3 % (11.5-14.5); White Blood Count 9.2 K/mm3 (4.5-10.0)
[2021-12-14 22:54] LABS: Alanine Aminotransferase 24 U/L (6-35); Albumin Level 4.5 g/dL (3.5-5.1); Alkaline Phosphatase 60 U/L (38-126); Anion Gap 4 mmol/L (8-16); Aspartate Amino Transferase 24 U/L (14-36); Bilirubin,Total 0.2 mg/dL (0.2-1.3); Blood Urea Nitrogen 11 mg/dL (7-17); Calcium 9.2 mg/dL (8.4-10.2); Carbon Dioxide 29 mmol/L (22-30); Chloride 100 mmol/L (98-107); Estimated CRCL calculation 111 ml/min; Estimated Glomerular Filt Rate > 60; Glucose 128 mg/dL (65-110); Potassium 3.6 mmol/L (3.4-5.0); Sodium 133 mmol/L (137-145)
[2021-12-15] VITALS (9 sets, daily range): BP systolic 105–121; BP diastolic 71–86; PULSE 60–81; RESP 11–19; O2SAT 100
[2021-12-15] MEDS: SODIUM CHLORIDE 0.9% IV 1,000 ML 999 ML IV CONT (02:54)
[2021-12-15] MEDS: KETOROLAC 30 MG/ML VIAL (*BKC) 15 MG IV PUSH (02:54)
[2021-12-15] MEDS: PROCHLORPERAZINE EDISYLATE 10 MG/2 ML VIAL IV PUSH (02:54)
[2021-12-15] MEDS: diphenhydrAMINE HCl INJ 50 MG/ML VIAL 25 MG IV PUSH (02:54)
--- NOTE | 2021-12-15 03:20 | ED.GENADULT ---
HPI - General Adult General Chief complaint: Syncope Stated complaint: Syncopal episode Time Seen by Provider: 12/15/21 02:09 History of Present Illness HPI narrative: Patient is a 26-year-old female who presents the emergency department with chief complaint of syncopal episode. The patient reports that she has history of POTS and has a syncopal episode every now and then. The patient states her last 1 was about a week ago patient reports that she had an episode today and then afterward she has been having a headache. The patient denies any focal neurological deficits reports that she has nausea with photophobia and a generalized headache. Related Data Home Medications Medication Instructions Recorded Confirmed clomipramine 75 mg capsule 225 mg PO DAILY 03/19/20 09/14/21 elagolix 150 mg tablet (Orilissa) 150 mg PO DAILY 03/19/20 09/14/21 methylphenidate HCl 54 mg 54 mg PO DAILY 03/19/20 09/14/21 tablet,extended release 24 hr (Concerta) midodrine 10 mg tablet 5 mg PO HS 03/19/20 09/14/21 midodrine 10 mg tablet 10 mg PO BID 03/19/20 09/14/21 norethindrone (contraceptive) 0.35 0.25 mg PO DAILY 03/19/20 09/14/21 mg tablet sertraline 100 mg tablet 100 mg PO HS 03/19/20 09/14/21 topiramate 100 mg tablet 100 mg PO BID 03/19/20 09/14/21 gabapentin 100 mg capsule 1 cap PO DAILY 09/14/21 09/14/21 isotretinoin 40 mg capsule 1 cap PO DAILY 09/14/21 09/14/21 (Amnesteem) lisdexamfetamine 20 mg capsule 1 cap PO DAILY 09/14/21 09/14/21 (Vyvanse) montelukast 10 mg tablet 1 tablet PO DAILY 09/14/21 09/14/21 paroxetine HCl 20 mg tablet 1 tablet PO DAILY 09/14/21 09/14/21 propranolol 60 mg capsule,24 1 cap PO DAILY 09/14/21 09/14/21 hr,extended release quetiapine 25 mg tablet 1 tablet PO DAILY 09/14/21 09/14/21 Allergies Allergy/AdvReac Type Severity Reaction Status Date / Time doxycycline AdvReac Mild Hives Verified 09/14/21 16:11 Review of Systems Review of Systems: A 10 system review of systems was completed on the patient and is negative except for what is stated in the HPI. Nursing and ancillary documentation was reviewed. [facility] Past Medical History Medical History Depression POTS (postural orthostatic tachycardia syndrome) Family History Family History Father Heart disease Social History Social History Smoking status: Never smoker Alcohol intake: unknown Substance use: never Substance use type: does not use Exam Narrative: GENERAL: Well-appearing, well-nourished, and in no acute distress. HEAD: Normocephalic, atraumatic. EYES: PERRLA and EOMI. ENT: Nares clear, no rhinorrhea or epistaxis. Mucous membranes moist. NECK: Supple. CHEST: Clear to auscultation. No respiratory distress. HEART: Regular rate and rhythm. No murmur heard. Normal peripheral pulses. ABDOMEN: Soft, nontender, nondistended, normal active bowel sounds. EXTREMITIES: Normal range of motion. No edema. SKIN: Warm, dry, no rash. NEURO: No focal deficits. Alert and oriented x3. PSYCH: Normal mood and affect. Course Course Emergency Course: EKG is sinus rhythm rate [address] elevation or ST depression Vital Signs Vital signs: Vital Signs Temperature 37.2 C 12/14/21 22:15 Pulse Rate 96 12/14/21 22:15 Respiratory Rate 20 12/14/21 22:15 Blood Pressure 121/81 12/14/21 22:15 Pulse Oximetry 100 12/14/21 22:15 Oxygen Delivery Room Air 12/14/21 22:15 Temperature 37.2 C 12/14/21 22:15 Pulse Rate 60 12/15/21 02:01 Respiratory Rate 19 12/15/21 02:01 Blood Pressure 109/77 12/15/21 02:01 Pulse Oximetry 100 12/15/21 02:01 Oxygen Delivery Room Air 12/15/21 01:20 Medical Decision Making Vital Signs Vital Signs: Vital Signs Temperature 37.2 C 12/14/21 22:15 Pulse Rate 96 12/14/21 22:15
== END 2021-12-15 03:38 | disposition home or self-care (01) ==
PROVIDERS: Emergency Provider Emergency Medicine; PCP Nurse Practitioner Family
DX: R55 Syncope and collapse (principal); R51.9 Headache, unspecified; I49.8 Other specified cardiac arrhythmias; F32.A Depression, unspecified; I45.10 Unspecified right bundle-branch block; R94.31 Abnormal electrocardiogram [ECG] [EKG]
CPT/HCPCS: 36415; 80053; 81025; 85025; 93005; 96361; 96374; 96375; 99284; J0780; J1200; J1885; J7030

== ENCOUNTER 2022-01-20 03:05 | Emergency (ER) | payer BC, SELFPAY ==
--- NOTE | ~2022-01-20 | CT_ITS ---
EXAMINATION: CT abdomen pelvis w con DATE: 01/20/2022 04:25 INDICATION: Lower abdominal pain. Nausea and vomiting. TECHNIQUE: Computed tomography (CT) of the abdomen and pelvis was performed with 100 cc Omnipaque 350 intravenous contrast. The dose-length product was 678.60 mGy-cm. Automated exposure control and iter ative reconstruction technique were employed. COMPARISON: None. FINDINGS: Lung bases are unremarkable. Heart size normal. No significant pleural or pericardial effus ion. The liver, spleen, pancreas, adrenal glands and kidneys are unremarkable. Gallbladder is present . No acute osseous abnormality. Nonobstructive bowel pattern. No significant vascular abnormality. No lymphadenopathy. No free air or free fluid. No evidence for diverticulitis. Normal low-lying appendi x. IMPRESSION: 1. No acute abdominal abnormality. Reviewed, dictated and finalized at location A.
[2022-01-20 03:18] VITALS: BP 111/70; PULSE 80; RESP 16; TEMP 36.6; O2SAT 100
--- NOTE | 2022-01-20 03:31 | ED.ABDPAIN ---
HPI - Abdominal Pain General Chief Complaint: Abdominal Pain Stated Complaint: ABD PAIN Time Seen by Provider: 01/20/22 03:09 History of Present Illness HPI narrative: This is a 26-year-old female with past medical history of depression, endometriosis, who presents emergency department complaining of lower abdominal pain. She describes the pain as sharp, 5 out of 10, associated with some nausea and one episode of nonbloody vomiting. She states pain does not radiate. She denies associated dysuria, abnormal vaginal discharge or recent trauma. Related Data Home Medications Medication Instructions Recorded Confirmed clomipramine 75 mg capsule 225 mg PO DAILY 03/19/20 09/14/21 elagolix 150 mg tablet (Orilissa) 150 mg PO DAILY 03/19/20 09/14/21 methylphenidate HCl 54 mg 54 mg PO DAILY 03/19/20 09/14/21 tablet,extended release 24 hr (Concerta) midodrine 10 mg tablet 5 mg PO HS 03/19/20 09/14/21 midodrine 10 mg tablet 10 mg PO BID 03/19/20 09/14/21 norethindrone (contraceptive) 0.35 0.25 mg PO DAILY 03/19/20 09/14/21 mg tablet sertraline 100 mg tablet 100 mg PO HS 03/19/20 09/14/21 topiramate 100 mg tablet 100 mg PO BID 03/19/20 09/14/21 gabapentin 100 mg capsule 1 cap PO DAILY 09/14/21 09/14/21 isotretinoin 40 mg capsule 1 cap PO DAILY 09/14/21 09/14/21 (Amnesteem) lisdexamfetamine 20 mg capsule 1 cap PO DAILY 09/14/21 09/14/21 (Vyvanse) montelukast 10 mg tablet 1 tablet PO DAILY 09/14/21 09/14/21 paroxetine HCl 20 mg tablet 1 tablet PO DAILY 09/14/21 09/14/21 propranolol 60 mg capsule,24 1 cap PO DAILY 09/14/21 09/14/21 hr,extended release quetiapine 25 mg tablet 1 tablet PO DAILY 09/14/21 09/14/21 Allergies Allergy/AdvReac Type Severity Reaction Status Date / Time doxycycline AdvReac Mild Hives Verified 01/20/22 03:40 Review of Systems Review of Systems: CONSTITUTIONAL: Denies fever, chills, or sweats. EYES: Denies visual changes, redness, or discharge. ENT: Denies rhinorrhea, congestion, sore throat, or otalgia. CARDIOVASCULAR: Denies chest pain, palpitations, or edema. RESPIRATORY: Denies cough or dyspnea. GASTROINTESTINAL: Abdominal pain, nausea, vomiting denies diarrhea. GENITOURINARY: Denies dysuria or hematuria. SKIN: Denies rash or itching. MUSCULOSKELETAL: Denies back pain, joint pain, or myalgia. NEUROLOGIC: Denies headache, numbness, dizziness, or weakness. PSYCHIATRIC: Denies anxiety or depression. [facility] Past Medical History Medical History Depression POTS (postural orthostatic tachycardia syndrome) Family History Family History Father Heart disease Social History Social History Smoking status: Never smoker Alcohol intake: unknown Substance use: never Substance use type: does not use Exam Narrative: GENERAL: Well-developed, well-nourished, and in no acute distress. Appears uncomfortable HEAD: Normocephalic, atraumatic. EYES: PERRLA and EOMI. ENT: Nares clear, no rhinorrhea or epistaxis. Mucous membranes moist. Oropharynx without tonsillar hypertrophy exudate or other lesions. NECK: Supple. No adenopathy or masses. No carotid bruits or JVD CHEST: Clear to auscultation. No respiratory distress. No wheezes rales or rhonchi HEART: Regular rate and rhythm. No murmur heard. Normal peripheral pulses. ABDOMEN: Soft, minimally tender to palpation in the bilateral lower abdominal quadrants without rebound, nondistended, normal active bowel sounds. No CVA tenderness to palpation EXTREMITIES: Normal range of motion. No edema. SKIN: Warm, dry, no rash. NEURO: No focal deficits. Alert and oriented x3. PSYCH: Normal mood and affect. Course Course Emergency Course: 07:05 - CT demonstrates mild proctitis and increased stool burden. Also demonstrates diverticulosis without diverticulitis or small [place]
[2022-01-20 03:39] LABS: Basophils Percent Auto 0.2 % (0.2-1.2); Eosinophils Absolute Auto 0.2 K/mm3 (0-0.3); Eosinophils Percent Auto 1.3 % (0-4.4); Hematocrit 36.9 % (37.0-47.0); Hemoglobin 11.9 g/dL (12.0-15.0); Immature Granulocyte Absolute 0.03 K/mm3 (0.00-0.031); Immature Granulocyte Percent A 0.3 % (0-0.5); Lymphocytes Absolute Auto 2.26 K/mm3 (0.9-3.2); Mean Corpuscular HGB Conc 32.2 g/dl (32-36); Mean Corpuscular Hemoglobin 29.5 pg (26-34); Mean Corpuscular Volume 91.3 fl (80-100); Mean Platelet Volume 9.4 fl (7.4-10.4); Monocytes Absolute Auto 0.7 K/mm3 (0.1-0.6); Neutrophils Absolute Auto 8.7 K/mm3 (1.3-6.7); Neutrophils Percent Auto 73.2 % (45.5-73.1); Platelet Count Result 337 k/mm3 (150-375); Red Blood Count 4.04 M/mm3 (4.2-5.4); Red Cell Distribution Width 13.3 % (11.5-14.5); White Blood Count 11.9 K/mm3 (4.5-10.0)
[2022-01-20 03:48] LABS: Add Urine Microscopic? YES; Appearance Urine Cloudy (Clear); Bacteria Urine Trace /hpf; Bilirubin Urine Negative (Negative); Blood Urine 2+ (Negative); Color Urine Amber (Yellow); Glucose Urine UA Negative (Negative); Ketones Urine Trace mg/dL (Negative); Leukocyte Esterase Ur Trace LEU/UL (Negative); Mucus Urine Few /lpf; Nitrate Urine Negative (Negative); Protein Urine 1+ mg/dL (Negative); Squamous Epithelial Cell Urine Many /hpf (Few); Urobilinogen Urine Negative mg/dL (<2.0)
[2022-01-20 03:57] LABS: Alanine Aminotransferase 15 U/L (6-35); Albumin Level 3.7 g/dL (3.5-5.1); Alkaline Phosphatase 49 U/L (38-126); Anion Gap 11 mmol/L (8-16); Aspartate Amino Transferase 19 U/L (14-36); Bilirubin,Total 0.2 mg/dL (0.2-1.3); Blood Urea Nitrogen 16 mg/dL (7-17); Calcium 8.8 mg/dL (8.4-10.2); Carbon Dioxide 24 mmol/L (22-30); Chloride 102 mmol/L (98-107); Estimated CRCL calculation 129 ml/min; Estimated Glomerular Filt Rate > 60; Glucose 122 mg/dL (65-110); Lipase 55 U/L (23-300); Potassium 3.6 mmol/L (3.4-5.0); Sodium 137 mmol/L (137-145); Specific Grav Ur 1.033 (1.001-1.035)
[2022-01-20] MEDS: KETOROLAC 30 MG/ML VIAL (*BKC) IV PUSH (05:49)
[2022-01-20] MEDS: BISACODYL 10 MG SUPPOSITORY RECTAL (05:50)
[2022-01-20] MEDS: PROCHLORPERAZINE EDISYLATE 10 MG/2 ML VIAL IV PUSH (05:50)
[2022-01-20] MEDS: SODIUM CHLORIDE 0.9% IV 100 ML 500 ML (05:51)
[2022-01-20 07:28] VITALS: BP 98/53; PULSE 74; RESP 18; O2SAT 98
== END 2022-01-20 07:31 | disposition home or self-care (01) ==
PROVIDERS: Emergency Provider Preventive Medicine Aerospace Medicine; PCP Nurse Practitioner Family
DX: K62.89 Other specified diseases of anus and rectum (principal); K59.00 Constipation, unspecified; F32.A Depression, unspecified; G90.A Postural orthostatic tachycardia syndrome [POTS]
CPT/HCPCS: 36415; 74177; 80053; 81001; 81025; 83690; 85025; 87086; 87088; 96361; 96365; 96366; 96375; 99284; A9270; J0131; J0780; J1885; Q9967

== ENCOUNTER 2022-03-20 20:30 | Emergency (ER) | payer BC, SELFPAY ==
[2022-03-20 20:34] VITALS: BP 121/84; PULSE 85; RESP 18; TEMP 36.8; O2SAT 99
--- NOTE | 2022-03-20 22:12 | ED.GENADULT ---
HPI - General Adult General Chief complaint: Unspecified Stated complaint: picc line check Time Seen by Provider: 03/20/22 21:16 Source: patient Mode of arrival: ambulatory Limitations: no limitations History of Present Illness HPI narrative: 26-year-old female with PICC line in being treated with IV fluids for POTS presents today with concerns for the need of having a PICC line dressing change. Patient states the suture broke through her dressing and she called her home health care nurse who told her that she should be seen. There is no redness, tenderness or drainage noted. Patient denies any pain. Patient denies any other concerns. Related Data Home Medications Medication Instructions Recorded Confirmed clomipramine 75 mg capsule 225 mg PO DAILY 03/19/20 09/14/21 elagolix 150 mg tablet (Orilissa) 150 mg PO DAILY 03/19/20 09/14/21 methylphenidate HCl 54 mg 54 mg PO DAILY 03/19/20 09/14/21 tablet,extended release 24 hr (Concerta) midodrine 10 mg tablet 5 mg PO HS 03/19/20 09/14/21 midodrine 10 mg tablet 10 mg PO BID 03/19/20 09/14/21 norethindrone (contraceptive) 0.35 0.25 mg PO DAILY 03/19/20 09/14/21 mg tablet sertraline 100 mg tablet 100 mg PO HS 03/19/20 09/14/21 topiramate 100 mg tablet 100 mg PO BID 03/19/20 09/14/21 gabapentin 100 mg capsule 1 cap PO DAILY 09/14/21 09/14/21 isotretinoin 40 mg capsule 1 cap PO DAILY 09/14/21 09/14/21 (Amnesteem) lisdexamfetamine 20 mg capsule 1 cap PO DAILY 09/14/21 09/14/21 (Vyvanse) montelukast 10 mg tablet 1 tablet PO DAILY 09/14/21 09/14/21 paroxetine HCl 20 mg tablet 1 tablet PO DAILY 09/14/21 09/14/21 propranolol 60 mg capsule,24 1 cap PO DAILY 09/14/21 09/14/21 hr,extended release quetiapine 25 mg tablet 1 tablet PO DAILY 09/14/21 09/14/21 Allergies Allergy/AdvReac Type Severity Reaction Status Date / Time doxycycline AdvReac Mild Hives Verified 01/20/22 03:40 Review of Systems Review of Systems: CONSTITUTIONAL: Denies fever, chills, or sweats. EYES: Denies visual changes, redness, or discharge. ENT: Denies rhinorrhea, congestion, sore throat, or otalgia. CARDIOVASCULAR: Denies chest pain, palpitations, or edema. RESPIRATORY: Denies cough or dyspnea. GASTROINTESTINAL: Denies abdominal pain, nausea, vomiting, or diarrhea. GENITOURINARY: Denies dysuria or hematuria. SKIN: Need dressing change for PICC line. Denies rash or itching. [facility] Past Medical History Medical History Depression POTS (postural orthostatic tachycardia syndrome) Family History Family History Father Heart disease Social History Social History Smoking status: Never smoker Alcohol intake: unknown Substance use: never Substance use type: does not use Exam Narrative: GENERAL: Well-appearing, well-nourished, and in no acute distress. HEAD: Normocephalic, atraumatic. EYES: PERRLA and EOMI. NECK: Supple. No adenopathy or masses. No carotid bruits or JVD CHEST: Clear to auscultation. No respiratory distress. No wheezes rales or rhonchi HEART: Regular rate and rhythm. No murmur heard. Normal peripheral pulses. ABDOMEN: Soft, nontender, nondistended, normal active bowel sounds. EXTREMITIES: Normal range of motion. No edema. SKIN: Warm, dry, no rash. Small hole noted in PICC line dressing. No erythema, drainage, swelling noted. NEURO: No focal deficits. Alert and oriented x3. PSYCH: Normal mood and affect.. Course Vital Signs Vital signs: Vital Signs Temperature 98.2 F 03/20/22 20:34 Pulse Rate 85 03/20/22 20:34 Respiratory Rate 18 03/20/22 20:34 Blood Pressure 121/84 03/20/22 20:34 Pulse Oximetry 99 03/20/22 20:34 Oxygen Delivery Room Air 03/20/22 20:34 Temperature 98.2 F 03/20/22 20:34 Pulse Rate 85 03/20/22 20:34 Respiratory Rate 18 03/20/22 20:34 Blood Press
== END 2022-03-20 22:33 | disposition home or self-care (01) ==
PROVIDERS: Emergency Provider Nurse Practitioner Family; PCP Nurse Practitioner Family
DX: Z48.00 Encounter for change or removal of nonsurgical wound dressing (principal); G90.A Postural orthostatic tachycardia syndrome [POTS]; F32.9 Major depressive disorder, single episode, unspecified
CPT/HCPCS: 99282

== ENCOUNTER 2022-08-06 14:23 | Emergency (ER) | payer BC, OTHER, SELFPAY ==
--- NOTE | ~2022-08-06 | XR_ITS ---
EXAMINATION: XR chest 1V portable Exam Date/Time: 08/06/2022 18:00 CDT HISTORY: syncope Comparison: 08/30/2021. RESULT: Lines, tubes, and devices: Right upper extremity PICC terminating at the cavoatrial junction. Lungs and pleura: Clear. Cardiomediastinal silhouette: Stable. Other: No acute osseous or upper abdominal finding. IMPRESSION: No acute cardiopulmonary process. Reviewed, dictated and finalized at location K.
[2022-08-06 14:26] VITALS: BP 121/82; PULSE 109; RESP 20; TEMP 36.4; O2SAT 100
--- NOTE | 2022-08-06 14:26 | ECG_ITS ---
Measurements Intervals [place] Rate: 96 P: 61 NH: 112 QRS: 46 QRSD: 81 T: -1 QT: 342 QTc: 434 Interpretive Statements SINUS RHYTHM WITH SHORT [place] INTERVAL POSSIBLE RIGHT VENTRICULAR CONDUCTION DELAY [RSR (QR) IN V1/V2] NONSPECIFIC ST & T-WAVE ABNORMALITY ABNORMAL ECG COMPARED TO ECG 12/14/2021 22:11:15 T-WAVE ABNORMALITY NOW PRESENT Electronically Signed On 08-07-2022 14:29:10 CDT by Molina Martinez M.D.
[2022-08-06 15:16] VITALS: BP 116/76; PULSE 87
[2022-08-06 15:17] VITALS: BP 116/81; PULSE 93
[2022-08-06 15:19] VITALS: BP 118/73; PULSE 112
[2022-08-06] MEDS: SODIUM CHLORIDE 0.9% IV 1,000 ML 999 ML IV CONT (16:15)
[2022-08-06 16:20] LABS: Basophils Percent Auto 0.3 % (0.2-1.2); Eosinophils Absolute Auto 0.1 K/mm3 (0-0.3); Eosinophils Percent Auto 1.4 % (0-4.4); Hematocrit 39.7 % (37.0-47.0); Hemoglobin 12.8 g/dL (12.0-15.0); Immature Granulocyte Absolute 0.03 K/mm3 (0.00-0.031); Immature Granulocyte Percent A 0.3 % (0-0.5); Lymphocytes Absolute Auto 2.36 K/mm3 (0.9-3.2); Lymphocytes Percent Auto 25.2 % (18.3-44.2); Mean Corpuscular HGB Conc 32.2 g/dl (32-36); Mean Corpuscular Hemoglobin 29.1 pg (26-34); Mean Corpuscular Volume 90.2 fl (80-100); Mean Platelet Volume 9.3 fl (7.4-10.4); Monocytes Absolute Auto 0.6 K/mm3 (0.1-0.6); Monocytes Percent Auto 6.2 % (2.6-8.5); Neutrophils Absolute Auto 6.3 K/mm3 (1.3-6.7); Neutrophils Percent Auto 66.6 % (45.5-73.1); Platelet Count Result 323 k/mm3 (150-375); Red Cell Distribution Width 13.1 % (11.5-14.5); White Blood Count 9.4 K/mm3 (4.5-10.0)
[2022-08-06 16:26] LABS: Alanine Aminotransferase 16 U/L (6-35); Albumin Level 4.1 g/dL (3.5-5.1); Alkaline Phosphatase 43 U/L (38-126); Anion Gap 6 mmol/L (8-16); Aspartate Amino Transferase 20 U/L (14-36); Bilirubin,Total 0.3 mg/dL (0.2-1.3); Blood Urea Nitrogen 10 mg/dL (7-17); Carbon Dioxide 27 mmol/L (22-30); Chloride 102 mmol/L (98-107); Estimated CRCL calculation 152 ml/min; Estimated Glomerular Filt Rate > 60; Glucose 85 mg/dL (65-110); Potassium 4.1 mmol/L (3.4-5.0); Sodium 135 mmol/L (137-145)
--- NOTE | 2022-08-06 16:30 | ED.SYNCOPE ---
HPI - Syncope General Chief Complaint: Syncope Stated Complaint: fainting Time Seen by Provider: 08/06/22 15:22 History of Present Illness HPI narrative: Patient is a 26-year-old female with a history of POTS presenting with syncope. Patient states that she woke up feeling somewhat nauseated. States that she got up out of bed very quickly and then fainted. States that she felt lightheaded before hand. States that this sometimes happens with her POTS. States that she will faint with quick positional changes. Currently, she states that she is still having some waves of nausea but she otherwise feels fine. No fevers or chills, chest pain, shortness of breath, palpitations, abdominal pain, diarrhea, leg swelling, dysuria. Related Data Home Medications Medication Instructions Recorded Confirmed clomipramine 75 mg capsule 225 mg PO DAILY 03/19/20 09/14/21 elagolix 150 mg tablet (Orilissa) 150 mg PO DAILY 03/19/20 09/14/21 methylphenidate HCl 54 mg 54 mg PO DAILY 03/19/20 09/14/21 tablet,extended release 24 hr (Concerta) midodrine 10 mg tablet 5 mg PO HS 03/19/20 09/14/21 midodrine 10 mg tablet 10 mg PO BID 03/19/20 09/14/21 norethindrone (contraceptive) 0.35 0.25 mg PO DAILY 03/19/20 09/14/21 mg tablet sertraline 100 mg tablet 100 mg PO HS 03/19/20 09/14/21 topiramate 100 mg tablet 100 mg PO BID 03/19/20 09/14/21 gabapentin 100 mg capsule 1 cap PO DAILY 09/14/21 09/14/21 isotretinoin 40 mg capsule 1 cap PO DAILY 09/14/21 09/14/21 (Amnesteem) lisdexamfetamine 20 mg capsule 1 cap PO DAILY 09/14/21 09/14/21 (Vyvanse) montelukast 10 mg tablet 1 tablet PO DAILY 09/14/21 09/14/21 paroxetine HCl 20 mg tablet 1 tablet PO DAILY 09/14/21 09/14/21 propranolol 60 mg capsule,24 1 cap PO DAILY 09/14/21 09/14/21 hr,extended release quetiapine 25 mg tablet 1 tablet PO DAILY 09/14/21 09/14/21 Allergies Allergy/AdvReac Type Severity Reaction Status Date / Time doxycycline AdvReac Mild Hives Verified 01/20/22 03:40 Review of Systems Review of Systems: All systems reviewed & are unremarkable except as noted in HPI and below PMFSH Past Medical History Medical History Depression POTS (postural orthostatic tachycardia syndrome) Family History Family History Father Heart disease Social History Social History Smoking status: Never smoker Alcohol intake: unknown Substance use: never Substance use type: does not use Exam Narrative: GENERAL: Well-appearing, well-nourished, and in no acute distress. HEAD: Normocephalic, atraumatic. EYES: PERRLA and EOMI. ENT: Nares clear, no rhinorrhea or epistaxis. Mucous membranes moist. NECK: Supple. CHEST: Clear to auscultation. No respiratory distress. HEART: Regular rate and rhythm. Normal peripheral pulses. ABDOMEN: Soft, nontender, nondistended EXTREMITIES: Normal range of motion. +PICC line in RUE with clean dressing SKIN: Warm, dry, no rash. NEURO: No focal deficits. Alert and oriented x3. PSYCH: Normal mood and affect. Course Vital Signs Vital signs: Vital Signs Temperature 97.5 F L 08/06/22 14:26 Pulse Rate 109 H 08/06/22 14:26 Respiratory Rate 20 08/06/22 14:26 Blood Pressure 121/82 08/06/22 14:26 Pulse Oximetry 100 08/06/22 14:26 Oxygen Delivery Room Air 08/06/22 14:26 Temperature 97.5 F L 08/06/22 14:26 Pulse Rate 94 08/06/22 20:40 Respiratory Rate 18 08/06/22 17:27 Blood Pressure 122/86 08/06/22 20:40 Pulse Oximetry 96 08/06/22 20:40 Oxygen Delivery Room Air 08/06/22 14:26 MDM - Syncope MDM Narrative Medical decision making narrative: Patient is a 26-year-old female presenting after a syncopal episode. Patient initially tachycardic, this had resolved by the time I evaluated her. Exam remarkable for the above. EKG per my i
[2022-08-06 17:27] VITALS: BP 122/86; PULSE 79; RESP 18; O2SAT 100
[2022-08-06] MEDS: ONDANSETRON HCL ODT 4 MG TABLET PO (20:34)
[2022-08-06 20:40] VITALS: BP 122/86; PULSE 94; O2SAT 96
== END 2022-08-06 20:41 | disposition home or self-care (01) ==
PROVIDERS: Emergency Provider Emergency Medicine; PCP Nurse Practitioner Family
DX: G90.A Postural orthostatic tachycardia syndrome [POTS] (principal); R42 Dizziness and giddiness; F32.A Depression, unspecified
CPT/HCPCS: 36415; 71045; 80053; 81025; 85025; 93005; 96360; 99283; A9270; J7030

== ENCOUNTER 2023-04-20 15:33 | Emergency (ER) | payer BC, OTHER, SELFPAY ==
[2023-04-20 15:50] VITALS: BP 99/57; PULSE 104; RESP 16; TEMP 36.9; O2SAT 100
--- NOTE | 2023-04-20 16:01 | ED.URI ---
HPI - URI/Sore Throat General Chief Complaint: Upper Respiratory Infection Stated Complaint: Sinus Time Seen by Provider: 04/20/23 16:09 Source: patient and RN notes reviewed Mode of arrival: ambulatory Limitations: no limitations History of Present Illness HPI Narrative: 27-year-old female presents concern for 3 week history of sinus congestion, drainage, headache, sore throat. She denies taking any medications for her symptoms. Denies fever, body aches, chills, sweats MD elicited complaint: sore throat and nasal congestion Related Data Home Medications Medication Instructions Recorded Confirmed clomipramine 75 mg capsule 150 mg PO DAILY 03/19/20 04/20/23 midodrine 10 mg tablet 5 mg PO HS 03/19/20 04/20/23 midodrine 10 mg tablet 10 mg PO BID 03/19/20 04/20/23 norethindrone (contraceptive) 0.35 0.25 mg PO DAILY 03/19/20 04/20/23 mg tablet gabapentin 100 mg capsule 3 cap PO TID 09/14/21 04/20/23 montelukast 10 mg tablet 1 tablet PO DAILY 09/14/21 04/20/23 cromolyn 100 mg/5 mL oral 200 mg PO DIRECTED 04/20/23 04/20/23 concentrate galcanezumab-gnlm 120 mg/mL 120 mg subcut DIRECTED 04/20/23 04/20/23 subcutaneous pen injector (Emgality Pen) nadolol 20 mg tablet 20 mg PO DIRECTED 04/20/23 04/20/23 sodium chloride 1,000 mg soluble 1,000 mg PO DIRECTED 04/20/23 04/20/23 tablet trazodone 100 mg tablet 100 mg PO DIRECTED 04/20/23 04/20/23 Allergies Allergy/AdvReac Type Severity Reaction Status Date / Time doxycycline AdvReac Mild Hives Verified 04/20/23 15:39 Review of Systems Review of Systems: CONSTITUTIONAL: Denies malaise, chills, sweats, or fever. EYES: Denies visual changes, redness, or discharge. ENT: Reports rhinorrhea, congestion, sinus pain, and sore throat. CARDIOVASCULAR: Denies chest pain, palpitations, or edema. RESPIRATORY: Reports cough. Denies dyspnea. GASTROINTESTINAL: Denies abdominal pain, nausea, vomiting, diarrhea SKIN: Denies rash or itching. MUSCULOSKELETAL: Denies myalgia. NEUROLOGIC: Denies headache. All systems reviewed & are unremarkable except as noted in HPI and below PMFSH Past Medical History Medical History Depression POTS (postural orthostatic tachycardia syndrome) Family History Family History Father Heart disease Social History Social History Smoking status: Never smoker Alcohol intake: unknown Substance use: never Substance use type: does not use Comments At time of signature, agree with nursing past medical, surgical, social and family history. There is no relevant family history pertinent to the presenting complaint Exam Narrative: GENERAL: Well-appearing, well-nourished, and in no acute distress. HEAD: Normocephalic EYES: PERRLA, conjunctivae clear ENT: Nares clear, turbinates edematous and erythematous. Mucous membranes moist. TM pearly dominguez with dull light reflex bilaterally; no tragal tenderness. Oropharynx not erythematous without lesions. Tonsils not enlarged and without exudate, no drooling, no hoarseness, no trismus, uvula midline. NECK: Supple. No lymphadenopathy CHEST: Clear to auscultation, breath sounds equal. No wheezing, rhonchi, rales, or stridor. No respiratory distress, speaks in full sentences. HEART: Regular rate and rhythm. No murmur heard. SKIN: Warm, dry, no rash. NEURO: Alert and oriented x3. PSYCH: Normal mood and affect Course Course Emergency Course: Patient is aware of diagnosis, understands and agrees to treatment plan. Anticipatory guidance given. Patient agrees to follow-up as directed and is aware of reasons to seek care at the emergency department. Portions of this record may have been created with voice recognition software Level of Care: Express Care Visit Vital Signs Vital signs: Vital Signs Temperature 98.4 F
== END 2023-04-20 16:18 | disposition home or self-care (01) ==
PROVIDERS: Emergency Provider Nurse Practitioner; PCP Nurse Practitioner Family
DX: J32.9 Chronic sinusitis, unspecified (principal); F32.A Depression, unspecified
CPT/HCPCS: 87081; 87880; 99213; G0463

== ENCOUNTER 2023-12-23 11:56 | Emergency (ER) | payer BC, SELFPAY ==
[2023-12-23] VITALS (10 sets, daily range): BP systolic 95–120; BP diastolic 38–82; PULSE 81–100; RESP 14–18; TEMP 36.9–37; O2SAT 100
--- NOTE | ~2023-12-23 | XR_ITS ---
EXAMINATION: XR chest 2V DATE: 12/23/2023 14:12 INDICATION: Syncope. Tachycardia. TECHNIQUE: PA and lateral views of the chest were obtained. COMPARISON: Chest radiograph dated 08/06/2022 FINDINGS: The lungs remain clear with no focal airspace opacities, pulmonary edema, pleural effusion or pneumot horax. The cardiomediastinal silhouette is normal. Visualized bones and soft tissues are unremarkable . IMPRESSION: 1. No acute cardiopulmonary disease. Reviewed, dictated and finalized at location B.
--- NOTE | 2023-12-23 12:04 | ECG_ITS ---
Test Date: 2023-12-23 12:07:17 Measurements Intervals [place] Rate: 106 P: 62 IA: 112 QRS: 57 QRSD: 84 T: -5 QT: 340 QTc: 453 Interpretive Statements SINUS TACHYCARDIA WITH SHORT IA INTERVAL INCOMPLETE RIGHT BUNDLE BRANCH BLOCK NONSPECIFIC ST & T-WAVE ABNORMALITY- ANTEROLAT/INF LEADS BASELINE ARTIFACT- I, II, III, AVR, AVL, AVF, V1 ABNORMAL ECG No previous ECG available for comparison Electronically Signed On 12-23-2023 12:09:05 CDT by Derik Paz D.O.
--- NOTE | 2023-12-23 13:24 | PC.NURSE ---
Patient has a documented history of POTS. Patient was getting weekly iv infusions for this and infusions were discontinued 4 weeks ago, when she got her last infusion. patient states that her symptoms started roughly a week after last infusion and have been getting progressively worse. patient states that historically she has had her symptoms coincide with illnesses, as well as sometimes just randomly. patient states that she has been feeling ill with congestion, and shortness of breath, and cold like symptoms .
[2023-12-23 14:12] LABS: Basophils Absolute Auto 0.1 K/mm3 (0.0-0.1); Basophils Percent Auto 0.6 % (0.2-1.2); Eosinophils Absolute Auto 0.2 K/mm3 (0-0.3); Eosinophils Percent Auto 2.2 % (0-4.4); Hematocrit 40.4 % (37.0-47.0); Hemoglobin 13.1 g/dL (12.0-15.0); Immature Granulocyte Absolute 0.03 K/mm3 (0.00-0.031); Immature Granulocyte Percent A 0.3 % (0-0.5); Lymphocytes Absolute Auto 1.93 K/mm3 (0.9-3.2); Lymphocytes Percent Auto 20.5 % (18.3-44.2); Mean Corpuscular HGB Conc 32.4 g/dl (32-36); Mean Corpuscular Hemoglobin 29.8 pg (26-34); Mean Platelet Volume 9.1 fl (7.4-10.4); Monocytes Absolute Auto 0.9 K/mm3 (0.1-0.6); Neutrophils Absolute Auto 6.2 K/mm3 (1.3-6.7); Neutrophils Percent Auto 66.4 % (45.5-73.1); Platelet Count Result 258 k/mm3 (150-375); Red Blood Count 4.39 M/mm3 (4.2-5.4); Red Cell Distribution Width 12.9 % (11.5-14.5); White Blood Count 9.4 K/mm3 (4.5-10.0)
[2023-12-23 14:22] LABS: Alanine Aminotransferase 14 U/L (6-35); Albumin Level 3.9 g/dL (3.5-5.1); Alkaline Phosphatase 61 U/L (38-126); Anion Gap 3 mmol/L (4-12); Aspartate Amino Transferase 26 U/L (14-36); Bilirubin,Total < 0.1 mg/dL (0.2-1.3); Blood Urea Nitrogen 11 mg/dL (7-17); Calcium 8.7 mg/dL (8.4-10.2); Carbon Dioxide 30 mmol/L (22-30); Chloride 101 mmol/L (98-107); Estimated CRCL calculation 125 ml/min; Estimated Glomerular Filt Rate > 60; Glucose 80 mg/dL (65-110); Potassium 4.2 mmol/L (3.4-5.0); Sodium 134 mmol/L (137-145)
[2023-12-23 14:32] LABS: D Dimer < 0.27 ug/mL (<0.48)
[2023-12-23 14:34] LABS: Troponin I < 0.012 ng/mL (0.000-0.034)
[2023-12-23 15:08] LABS: Add Urine Microscopic? YES; Appearance Urine Clear (Clear); Bacteria Urine None Seen /hpf; Bilirubin Urine Negative (Negative); Blood Urine Negative (Negative); Color Urine Yellow (Yellow); Glucose Urine UA Negative (Negative); Ketones Urine Trace mg/dL (Negative); Leukocyte Esterase Ur Trace LEU/UL (Negative); Nitrate Urine Negative (Negative); Non Pathogenic Casts 0-2; Protein Urine Negative (Negative); RBC Urine 0-2 /hpf (0-2); Specific Grav Ur 1.025 (1.001-1.035); Squamous Epithelial Cell Urine Occasional /hpf (Few); Urobilinogen Urine 0.2 mg/dL (<2.0); WBC Urine 0-5 /hpf (0-3); pH Urine 7.5 (5.0-9.0)
[2023-12-23 15:21] LABS: Glucose Point of Care 76 mg/dl (65-105)
--- NOTE | 2023-12-23 16:41 | ED.GENADULT ---
HPI - General Adult General Chief complaint: Syncope Stated complaint: syncope Time Seen by Provider: 12/23/23 13:37 History of Present Illness HPI narrative: Patient is a 28-year-old female who presents ER with multiple complaints. First complaint is syncope that occurred this morning. She has history of POTS. She has not had a hydration infusion recently. She also reports some mild discomfort to her left upper chest. No exertional chest pain. No fevers or chills or sweats. No hemoptysis bleeding history of DVT. She is not on control. Related Data Home Medications Medication Instructions Recorded Confirmed clomipramine 75 mg capsule 150 mg PO DAILY 03/19/20 04/20/23 midodrine 10 mg tablet 5 mg PO HS 03/19/20 04/20/23 midodrine 10 mg tablet 10 mg PO BID 03/19/20 04/20/23 norethindrone (contraceptive) 0.35 0.25 mg PO DAILY 03/19/20 04/20/23 mg tablet gabapentin 100 mg capsule 3 cap PO TID 09/14/21 04/20/23 montelukast 10 mg tablet 1 tablet PO DAILY 09/14/21 04/20/23 cromolyn 100 mg/5 mL oral 200 mg PO DIRECTED 04/20/23 04/20/23 concentrate galcanezumab-gnlm 120 mg/mL 120 mg subcut DIRECTED 04/20/23 04/20/23 subcutaneous pen injector (Emgality Pen) nadolol 20 mg tablet 20 mg PO DIRECTED 04/20/23 04/20/23 sodium chloride 1,000 mg soluble 1,000 mg PO DIRECTED 04/20/23 04/20/23 tablet trazodone 100 mg tablet 100 mg PO DIRECTED 04/20/23 04/20/23 Allergies Allergy/AdvReac Type Severity Reaction Status Date / Time doxycycline AdvReac Mild Hives Verified 04/20/23 15:39 Review of Systems Review of Systems: All systems reviewed & are unremarkable except as noted in HPI and below Constitutional: Constitutional: Reports no additional constitutional complaints ENT: Reports system reviewed and no additional complaints, except as documented Cardiovascular: Cardiovascular: Reports chest pain, Denies rapid heart rate and Denies radiating jaw, neck or arm pain Respiratory: Respiratory: Reports no additional respiratory complaints Integumentary/Breasts: Skin/Breast: Reports system reviewed and no additional complaints, except as docu PMFSH Past Medical History Medical History Depression POTS (postural orthostatic tachycardia syndrome) Family History Family History Father Heart disease Social History Social History Smoking status: Never smoker Alcohol intake: unknown Substance use: never Substance use type: does not use Exam Narrative: GENERAL: Well-appearing, well-nourished, and in no acute distress. HEAD: Normocephalic, atraumatic. ENT: N Mucous membranes moist. NECK: Supple. CHEST: Clear to auscultation. No respiratory distress. HEART: Regular rate and rhythm. Normal peripheral pulses. ABDOMEN: Soft, nontender, nondistended, normal active bowel sounds. EXTREMITIES: Normal range of motion. No edema. SKIN: Warm, dry, no rash. NEURO: No focal deficits. Alert and oriented x3. PSYCH: Normal mood and affect Course Course Emergency Course: D-dimer negative PE felt to be unlikely. Troponin negative as well. Patient not felt to have ACS. Patient hydrated. Orthostatics normal. Patient appropriate for discharge home. Vital Signs Vital signs: Vital Signs Temperature 98.6 F 12/23/23 12:00 Pulse Rate 100 12/23/23 12:00 Respiratory Rate 16 12/23/23 12:00 Blood Pressure 120/71 12/23/23 12:00 Pulse Oximetry 100 12/23/23 12:00 Oxygen Delivery Room Air 12/23/23 12:00 Temperature 98.6 F 12/23/23 12:00 Pulse Rate 81 12/23/23 14:48 Respiratory Rate 14 12/23/23 13:21 Blood Pressure 119/80 12/23/23 14:48 Pulse Oximetry 100 12/23/23 13:21 Oxygen Delivery Room Air 12/23/23 13:21 Medical Decision Making Vital Signs Vital Signs: Vital Signs Temp
[2023-12-23] MEDS: SODIUM CHLORIDE 0.9% IV 1,000 ML 999 ML IV CONT (16:58)
--- NOTE | 2023-12-23 18:10 | PC.NURSE ---
Patient iv is positional- iv still infusing. will document in MAR when it completes.
== END 2023-12-23 18:52 | disposition home or self-care (01) ==
PROVIDERS: Emergency Provider Emergency Medicine; PCP Nurse Practitioner Family
DX: G90.A Postural orthostatic tachycardia syndrome [POTS] (principal); R00.0 Tachycardia, unspecified; F32.A Depression, unspecified
CPT/HCPCS: 36415; 71046; 80053; 81001; 82948; 84484; 85025; 85380; 93005; 96360; 96361; 99284; J7030

== ENCOUNTER 2024-02-16 11:31 | Emergency (ER) | payer BC, SELFPAY ==
[2024-02-16 11:43] VITALS: BP 112/71; PULSE 67; RESP 16; TEMP 36.7; O2SAT 98
--- NOTE | 2024-02-16 11:43 | ED_ITS ---
HPI - General Adult General Chief complaint: Nausea/Vomiting/Diarrhea Stated complaint: dizzy,nausea,diarrhea,hard to focus Time Seen by Provider: 02/16/24 11:54 Source: patient, RN notes reviewed and old records reviewed Mode of arrival: ambulatory Limitations: no limitations History of Present Illness HPI narrative: 28-year-old female presents to the [facility] with complaints of dizziness, blurry vision, nausea, diarrhea, generalized weakness Patient with a history of POTS. States it has been going on for a couple of days. Denies any chores pain or shortness of breath. Nothing makes it worse. States that she has taken Zofran which helps a little bit. States that she is able to eat or drink. Discussed in great detail with patient her the concerns of her dizziness and blurry vision, discussed going to the emergency room which she is declining at this time. Discussed the concerns and risks which she verbalized understanding and if symptoms get worse she will go. Onset (ago): day(s) Treatments prior to arrival: other (Zofran) Related Data Home Medications Medication Instructions Recorded Confirmed midodrine 10 mg tablet 5 mg PO HS 03/19/20 02/16/24 gabapentin 100 mg capsule 3 cap PO TID 09/14/21 02/16/24 montelukast 10 mg tablet 1 tablet PO DAILY 09/14/21 02/16/24 nadolol 20 mg tablet 20 mg PO DIRECTED 04/20/23 02/16/24 sodium chloride 1,000 mg soluble 1,000 mg PO DIRECTED 04/20/23 02/16/24 tablet trazodone 100 mg tablet 100 mg PO DIRECTED 04/20/23 02/16/24 clomipramine 50 mg capsule 50 mg PO DAILY 02/16/24 02/16/24 clonazepam 0.5 mg tablet 0.5 mg PO DAILY 02/16/24 02/16/24 cromolyn 100 mg/5 mL oral See Rx Instructions .Route .COMPLEX 02/16/24 02/16/24 concentrate dexmethylphenidate 10 mg 10 mg PO DAILY 02/16/24 02/16/24 capsule,extended release [id number] fluvoxamine 25 mg tablet 25 mg PO DAILY 02/16/24 02/16/24 galcanezumab-gnlm 120 mg/mL See Rx Instructions .Route .COMPLEX 02/16/24 02/16/24 subcutaneous pen injector (Emgality Pen) lamotrigine 25 mg tablet 25 mg PO DAILY 02/16/24 02/16/24 pyridostigmine bromide 60 mg tablet 60 mg PO DAILY 02/16/24 02/16/24 Allergies Allergy/AdvReac Type Severity Reaction Status Date / Time doxycycline AdvReac Mild Hives Verified 02/16/24 11:34 Review of Systems Review of Systems: All systems reviewed & are unremarkable except as noted in HPI and below Constitutional: Constitutional: Reports as per HPI ENT: Reports system reviewed and no additional complaints, except as documented Cardiovascular: Cardiovascular: Reports no additional cardiovascular complaints, Denies chest pain and Denies dyspnea Respiratory: Respiratory: Reports no additional respiratory complaints, Denies chest congestion, Denies cough and Denies dyspnea Gastrointestinal: Gastrointestinal: Reports no additional gastrointestinal complaints, Denies abdominal pain, Denies nausea and Denies vomiting Musculoskeletal: Musculoskeletal: Reports no additional musculoskeletal complaints Integumentary/Breasts: Skin/Breast: Reports system reviewed and no additional complaints, except as docu Neurologic: Reports as per HPI PMFSH Past Medical History Medical History Depression POTS (postural orthostatic tachycardia syndrome) Family History Family History Father Heart disease Social History Social History Smoking status: Never smoker Alcohol intake: unknown Substance use: never Substance use type: does not use Comments At the time of my signature, I reviewed and agree with the nursing past medical, surgical, social, and family history. There is no relevant family history pertinent to the patient complaint. Exam Const: General: cooperative, healthy appearing, comfortable, no acute distress, well developed, alert and well nourished Nutritional Appearance: well nourished Orientation/consciousness: patient oriented x3 Limitations: no limitations HENMT: Head: normal to inspection Ears: hearing grossly normal bilaterally, external ears normal, TM's normal bilaterally, EAC's normal, mastoids normal and no periauricular adenopathy Face/Nose/Sinus: Normal external nose present, normal facial exam and face symmetric Face and sinus: normal facial exam and face symmetric Mouth: Yes Normal oral and palatal mucosa present, Yes lip normal and Yes tongue normal Throat: posterior oropharynx normal, uvula midline and no uvular edema Eyes: General: appearance normal, both eyes and all related structures Alignment and Position: alignment normal Periorbital: periorbital findings normal Eyelids: eyelids normal Conjunctivae: conjunctivae normal Neck: Neck: normal visual inspection, full ROM, no lymphadenopathy and no meningeal signs Chest: Chest palpation & inspection: normal inspection of the chest Resp: Effort & Inspection: normal respiratory effort and able to speak in complete sentences Auscultation: clear to auscultation bilaterally, no crackles, no rales, no rhonchi and no wheezes Cardio: Rate: regular rate Skin: General skin exam: normal color and no rashes or lesions noted Lesions: no lesions Rashes: no rashes Wounds: no wounds Neuro: General: patient oriented x3, gait normal, tone normal, moves all extremities, no meningeal signs and no focal motor deficits Cranial nerves: Yes Equal, round and reactive pupils present, Yes Nystagmus not present, Yes Normal facial strength present, Yes facial symmetry, Yes Midline tongue present, Yes Symmetric palate elevation present, Yes Ability to bilaterally rotate head present and Yes Ability to bilaterally elevate shoulders present Cognition (Neuro): normal cognition Speech: normal speech Gait exam (Neuro): Normal gait present Extrem: General: normal to inspection, full ROM, capillary refill normal and normal gait Psych: Appearance: grossly normal and well kempt Mental Status: mental status grossly normal Speech and movement: Normal speech and movement present and Clear speech present Affect: normal affect Attitude: cooperative Course Course Level of Care: Express Care Visit Vital Signs Vital signs: Vital Signs Temperature 98.0 F 02/16/24 11:43 Pulse Rate 67 02/16/24 11:43 Respiratory Rate 16 02/16/24 11:43 Blood Pressure 112/71 02/16/24 11:43 Pulse Oximetry 98 02/16/24 11:43 Oxygen Delivery Room Air 02/16/24 11:43 Temperature 98.0 F 02/16/24 11:55 Pulse Rate 67 02/16/24 11:55 Respiratory Rate 16 02/16/24 11:55 Blood Pressure 112/71 02/16/24 11:55 Pulse Oximetry 98 02/16/24 11:55 Oxygen Delivery Room Air 02/16/24 11:55 Reviewed Medical Decision Making MDM Narrative Medical decision making narrative: Patient sitting comfortably in exam room. Nontoxic, vitals stable. Patient in no acute distress Patient presents for symptoms of dizziness, blurry vision, nausea and reports generalized weakness. Patient's vitals are stable. No acute findings noted on exam. Discussed concerns of the dizziness blurry vision due to her history of POTS sending her to the ER which patient is declining at this time. Discussed risks of , uncontrolled pain, uncontrolled weakness, dehydration Patient still declining. Discussed that she can still go at any time which she verbalized understanding. Discharge instructions reviewed with patient, as well as provided in writing per nursing staff. The instructions also include specific and strict return/GO TO THE ER as well as f/u information. All questions have been answered, and the patient deny any further questions wit h discharge and discharge plan. Some parts of this dictation were generated by voice recognition software and may contain typographical and/or grammatical inaccuracies. Differential Diagnosis Differential Diagnosis: Dehydration, viral syndrome, pots, orthostatic hypotension. Medical Records Medical records reviewed: Yes I reviewed the external patient's medical records. Vital Signs Vital Signs: Vital Signs Temperature 98.0 F 02/16/24 11:43 Pulse Rate 67 02/16/24 11:43 Respiratory Rate 16 02/16/24 11:43 Blood Pressure 112/71 02/16/24 11:43 Pulse Oximetry 98 02/16/24 11:43 Oxygen Delivery Room Air 02/16/24 11:43 Temperature 98.0 F 02/16/24 11:55 Pulse Rate 67 02/16/24 11:55 Respiratory Rate 16 02/16/24 11:55 Blood Pressure 112/71 02/16/24 11:55 Pulse Oximetry 98 02/16/24 11:55 Oxygen Delivery Room Air 02/16/24 11:55 Reviewed Lab Data Lab results reviewed: Yes I reviewed the patient's lab results. Labs: Reviewed Critical Care Time Critical Care Time Critical Care Time: No Discharge Plan Discharge Clinical Impression: Dizziness, Blurred vision, bilateral Patient Disposition: Left Against Medical Advice Condition: Stable Instructions: Antibiotic Form Patient Language: Malagasy Prescriptions: No Action montelukast 10 mg tablet 1 tablet PO DAILY gabapentin 100 mg capsule 3 cap PO TID cromolyn 100 mg/5 mL concentrate See Rx Instructions .ROUTE .COMPLEX Rx Instructions: Rx lamotrigine 25 mg tablet 25 mg PO DAILY fluvoxamine 25 mg tablet 25 mg PO DAILY pyridostigmine bromide 60 mg tablet 60 mg PO DAILY clomipramine 50 mg capsule 50 mg PO DAILY dexmethylphenidate 10 mg capsule,ER biphasic 50-50 10 mg PO DAILY Emgality Pen 120 mg/mL pen injector See Rx Instructions .ROUTE .COMPLEX Rx Instructions: Rx clonazepam 0.5 mg tablet 0.5 mg PO DAILY nadolol 20 mg tablet 20 mg PO DIRECTED trazodone 100 mg tablet 100 mg PO DIRECTED sodium chloride 1,000 mg tablet,soluble 1,000 mg PO DIRECTED midodrine 10 mg tablet 5 mg PO HS Follow-up/Referrals: MITCHEL,BOB ROBERT [Primary Care Provider] -
[2024-02-16 11:55] VITALS: BP 112/71; PULSE 67; RESP 16; TEMP 36.7; O2SAT 98
== END 2024-02-16 12:06 | disposition left against medical advice (07) ==
PROVIDERS: Emergency Provider Nurse Practitioner; PCP Nurse Practitioner Family
DX: R42 Dizziness and giddiness (principal); H53.8 Other visual disturbances; F32.A Depression, unspecified; G90.A Postural orthostatic tachycardia syndrome [POTS]
CPT/HCPCS: 99211; G0463

== ENCOUNTER 2024-07-26 16:38 | Emergency (ER) | payer BC, SELFPAY ==
--- NOTE | ~2024-07-26 | CT_ITS ---
EXAMINATION: CT brain wo con DATE: 07/26/2024 17:01 INDICATION: Syncope w/ head trauma . TECHNIQUE: Computed tomography (CT) of the head was performed without intravenous contrast. The mA wa s adjusted according to patient size. Iterative reconstruction technique was employed. The dose-lengt h product was 605.33 mGy-cm. COMPARISON: None. FINDINGS: No acute intracranial hemorrhage or extra-axial fluid collection. No hydrocephalus, mass, or herniation. No acute ischemic infarct. Unremarkable dural venous sinus attenuation. No acute osseous abnormality. Small retention cyst/polyp in the left maxillary sinus, the remaining aerated spaces are clear. IMPRESSION: No acute intracranial process. Reviewed, dictated and finalized at location K.
[2024-07-26 16:41] VITALS: BP 135/67; PULSE 77; RESP 16; TEMP 36.8; O2SAT 99
--- OUTSIDE RECORDS SUMMARY | 2024-07-26 16:42 | XMS_ITS | Data Portability ---
Author Organization [facility] , [facility] Address [address] [place] [address] Assessment No assessment recorded. Plan of Treatment Reminders Order Date Submit Date Provider Last Modified By Organization Details Last Modified Time Details Appointments None recorded. Lab CBC w/ auto diff 2022 023 PORFIRIO [employer] Kareem, [address] [place], [address], 3 11:11:41 TSH, serum, reflex free T4 2022 023 [employer], [address] [place], [address], 3 11:22:02 Referral physical therapist referral - Patient states she thinks she is starting to experience improvement . Continue current managment 2021 022 leonard [facility] [place], [address], [place], [address], 2 15:28:19 Procedures None recorded. Surgeries None recorded. Imaging None recorded. Medication Orders Sprintec (28) 0.25 mg-0.035 mg tablet 2022 023 [id number], [address] [facility], [place], [place], [phone], 3 11:16:19 Sprintec (28) 0.25 mg-0.035 mg tablet 2021 022 [facility] #[id number], [address], [place], [phone], 09:34:28 Orilissa 200 mg tablet 2021 [email or web address] [facility] #[id number], [address], [place], [phone], 08:41:06 norethindro ne (contracept thelma) 0.35 mg tablet 2021 [facility] #[id number], [address], [place], [phone], 15:11:18 norethindro ne (contracept thelma) 0.35 mg tablet 2021 [facility] #[id number], [address], [place], [id number], 12:55:41 Patient TargetsNo targets recorded. Patient Instructions Encounter Date Encounter Id Patient Instructions Last Modified By Organization Details Last Modified Time 04/17/2021 [id number] learning about dietary guidelines awittler Not available 04/17/2021 12:55:33 eating healthy foods: care instructions awittler Not available 04/17/2021 12:55:32 Reason for Referral Physical Therapist Referral for Pelvic and perineal pain Patient states she thinks she is starting to experience improvement. Continue current managment Referring Physician: Paige Muniz, [employer], Encounter Date: 07/13/2021 Results Created Date Observation Date Name Description Value Unit Range Abnormal Flag Note LastModifiedBy Organization Detail LastModifiedTime 11/07/19 23 11/06/2022 CBC (INCL UDES DIFF/ PLT) WBC 7.6 thous and/u L 4.0 - 9.8 normal Not Available [address], [address], 11/06/2022 11:11:41 11/07/19 23 11/06/2022 CBC (INCL UDES DIFF/ PLT) RBC 4.5 antoinette on/uL 3.9 - 4.9 normal Not Available [address], [address], 11/06/2022 11:11:41 11/07/19 23 11/06/2022 CBC (INCL UDES DIFF/ PLT) hemoglobin 13.0 g/dL 11.8 - 14.8 normal Not Available [address], [address], 11/06/2022 11:11:41 11/07/19 23 11/06/2022 CBC (INCL UDES DIFF/ PLT) hematocrit 40.2 % 35.5 - 44.0 normal Not Available [address], [address], 11/06/2022 11:11:41 11/07/19 23 11/06/2022 CBC (INCL UDES DIFF/ PLT) MCV 88.7 fL 82.0 - 99.0 normal Not Available [address], [address], 11/06/2022 11:11:41 11/07/19 23 11/06/2022 CBC (INCL UDES DIFF/ PLT) MCH 28.7 pg 27.2 - 32.6 normal Not Available [address], [address], 11/06/2022 11:11:41 11/07/19 23 11/06/2022 CBC (INCL UDES DIFF/ PLT) MCHC 32.3 g/dL 31.5 - 35.5 normal Not Available [address], [address], 11/06/2022 11:11:41 11/07/19 23 11/06/2022 CBC (INCL UDES DIFF/ PLT) RDW-CV 13.0 % 11.5 - 14.5 normal Not Available [address], [address], 11/06/2022 11:11:41 11/07/19 23 11/06/2022 CBC (INCL UDES DIFF/ PLT) platelet 397 thous and/u L 140 - 350 high Not Available [address], [address], 11/06/2022 11:11:41 11/07/19 23 11/06/2022 CBC (INCL UDES DIFF/ PLT) MPV 10.1 fL 9.3 - 12.4 normal Not Available [address], [address], 11/06/2022 11:11:41 11/07/19 23 11/06/2022 CBC (INCL UDES DIFF/ PLT) absolute neutrophil 4.99 thous and/u L 1.90 - 7.00 normal Not Available [address], [address], 11/06/2022 11:11:41 11/07/19 23 11/06/2022 CBC (INCL UDES DIFF/ PLT) absolute lymphocyte 1.91 thous and/u L 0.70 - 4.50 normal Not Available [address], [address], 11/06/2022 11:11:41 11/07/19 23 11/06/2022 CBC (INCL UDES DIFF/ PLT) absolute monocyte 0.50 thous and/u L 0.10 - 1.30 normal Not Available [address], [address], 11/06/2022 11:11:41 11/07/19 23 11/06/2022 CBC (INCL UDES DIFF/ PLT) absolute eosinophil 0.16 thous and/u L <0.70 normal Not Available [address], [address], 11/06/2022 11:11:41 11/07/19 23 11/06/2022 CBC (INCL UDES DIFF/ PLT) absolute basophil 0.03 thous and/u L <0.20 normal Not Available [address], [address], 11/06/2022 11:11:41 11/07/19 23 11/06/2022 CBC (INCL UDES DIFF/ PLT) absolute immature granulocyte 0.01 thous and/u L <0.03 normal Not Available [address], [address], 11/06/2022 11:11:41 11/07/19 23 11/06/2022 TSH W/ REFLE X TSH 1.64 mIU/L 0.55 - 4.78 normal Refer ence Range Femal e aged 18-Ad ult: 0.55- 4.78 Pregn vasile Refer ence Range s First Trime ster 0.26- 2.66 Secon d Trime ster 0.55- 2.73 Third Trime ster 0.43- 2.91 Not Available [address], [address], 11/06/2022 11:22:02 Result Notes None recorded. Problems Name Problem SNOMED Code Status Onset Date Resolution Date Notes Provider Name and Address Organization Details Recorded Time Finding of menstrua l bleeding Completed 201706/13/2018 Excessiv e and frequent menstrua tion with regular cycle; Progress : Stable Added By: Cass Hair Add to Current Problems : NO ProblemS tatus: Resolve Menorrha hien; Location : None Progress : Stable Added By: Cass Hair Add to Current Problems : YES ProblemS tatus: Resolve Not Available [employer] 2 21:13:33 Acute vaginiti s [id number] Completed 202004/17/2021 Acute vaginiti s; Severity : Moderate Progress : Stable Added By: Shelia Jason i Add to Current Problems : YES ProblemS tatus: Current DUGLAS Fabian [address] [facility], [place], [address] , [facility] 2 10:34:17 Female genital organ symptoms [id number] Completed 201709/19/2018 Pelvic pain; Location : None Progress : Stable Added By: Deloris Soliman Add to Current Problems : YES ProblemS tatus: Resolve Not Available [facility] 2 21:13:28 Dysmenor flo [id number] Completed 201711/10/2019 Dysmenor flo; Location : None Progress : Stable Added By: Cass Hair Add to Current Problems : YES ProblemS tatus: Current Dysmenor flo; Progress : Stable Added By: Cass Hair Add to Current Problems : NO ProblemS tatus: Resolve Not Available [facility] 2 21:13:27 Pain in female genitali a Completed 201712/18/2019 Dysmenor flo, unspecif ied; Progress : Stable Added By: Cass Hair Add to Current Problems : NO ProblemS tatus: Resolve Not Available [facility] 2 21:13:30 Sampling of vagina for Papanico laou smear Completed 201912/18/2019 Encounte r for gynecolo gical examinat ion (general ) (routine ) without abnormal findings ; Progress : Stable Added By: Emely Fletcher Add to Current Problems : NO ProblemS tatus: Resolve Not Available [facility] 2 21:13:36 Endometr iosis (clinica l) [id number] Completed 201904/17/2021 Endometr iosis, unspecif ied; Severity : Moderate Progress : Stable Added By: Ni Merrill Add to Current Problems : YES ProblemS tatus: Current DUGLAS Fabian [address] [place], [address] , [employer] [facility] 2 10:34:14 Pelvic and perineal pain [id number] Active 2017 Pelvic and perineal pain; Severity : Moderate Progress : Stable Added By: Paige Muniz Add to Current Problems : YES ProblemS tatus: Current Paige Muniz MD [address] [place], [address] , [facility] 2 15:07:50 Procedur e Completed 202004/17/2021 Encounte r for other preproce dural examinat ion; Severity : Moderate Progress : Stable Added By: Paige Muniz Add to Current Problems : YES ProblemS tatus: Current DUGLAS Fabian [address] [place], [address] , [facility] [employer] [facility] 2 10:34:21 Procedur e on genitour inary system Completed 202004/17/2021 Encounte r for surgical aftercar e followin g surgery on the genitour inary system; Severity : Moderate Progress : Stable Added By: Paige Muniz Add to Current Problems : YES ProblemS tatus: Current DUGLAS Fabian [address] [place] [address], [address] , [facility] [employer] [facility] 2 10:34:24 Postoper ative care Completed 202004/17/2021 Encounte r for surgical aftercar e followin g surgery on the genitour inary system; Severity : Moderate Progress : Stable Added By: Paige Muniz Add to Current Problems : YES ProblemS tatus: Current DUGLAS Fabian [address] [place], [address] , [facility] [employer] [facility] 2 10:34:27 Screenin g for malignan t neoplasm of cervix Completed 201912/18/2019 Encounte r for screenin g for malignan t neoplasm of cervix; Progress : Stable Added By: Emely Fletcher Add to Current Problems : NO ProblemS tatus: Resolve Not Available [facility] 2 21:13:27 Problem Notes None recorded. Procedures Surgical History Date Name Laterality Status Provider Name and Address Organization Details Recorded Time 1 laparoscopy completed DULGAS Fabian [address] [place], [address], [employer] [facility] 04/16/2021 11:36:25 0 Date of Last Pap Smear completed DUGLAS Fabian [address] [facility], [place], [address], [facility] 04/16/2021 11:30:18 Imaging Results None recorded. Procedure Notes None recorded. Medical Equipment None Reported. Allergies Allergen ID Allergen Name Allergen Category Reaction Reaction Severity Criticality Documentation Date Start Date Code Code System Note Provider Name and Address Organization Details Recorded Time 839366 doxycycli ne Not available Not available Not available Not available 04/17/2021 3640 RxNorm Not Available Not Available Not Available Medications Name Sig Start Date Stop Date Status Note LastModified by Organization Details LastModified Time naltrexon e 2.5mg #609927 tablets active Not Available Not Available Not Available binaxnow cov kit home gustavo active Not Available Not Available Not Available quetiapin e 25 mg tablet active Not Available Not Available Not Available cyclobenz aprine 10 mg tablet take 1 tablet (10 mg) by oral route 3 times per day as needed for pain 11/30 completed Not Available Not Available Not Available cromolyn 100 mg/5 mL oral concentra te SQUEEZE CONTENTS OF 2 AMPULES AND STIR INTO A GLASS OF WATER TWICE DAILY 30 MINUTES BEFORE A MEAL AND AT BEDTIME active Not Available Not Available No t Available prednison e 10 mg tablet 04/17 completed Not Available Not Available Not Available trazodone 50 mg tablet active Not Available Not Available Not Available azithromy ade 250 mg tablet 04/17 completed Not Available Not Available Not Available clomipram ine 75 mg capsule active Not Available Not Available Not Available ibuprofen 800 mg tablet TAKE 1 TABLET BY MOUTH EVERY 8 HOURS NEEDED active Not Available Not Available No t Available fluconazo le 150 mg tablet take 1 tablet (150 mg) by oral route repeat in 72 hours 03/31 completed fluconaz ole 150 mg oral tablet RxNorm: [id number] Allow Substitu tion: True Refill Denied: No Edited by: Shelia Katz ) on 11/02/19 21 Stopped by: leroy cobb(Shelia Vergara ) on Not Available Not Available Not Available benzonata te 200 mg capsule TAKE ONE CAPSULE BY MOUTH THREE TIMES DAILY UNTIL ALL TAKEN active Not Available Not Available No t Available senna 8.6 mg tablet TAKE 1 TABLET BY MOUTH DAILY FOR CONSTIPA TION active Not Available Not Available No t Available ondansetr on HCl 4 mg tablet TAKE 1 TABLET BY MOUTH EVERY 8 HOURS NEEDED active Not Available Not Available No t Available prednison e 20 mg tablet TAKE 3 TABLETS BY MOUTH EVERY DAY FOR 5 DAYS active Not Available Not Available No t Available clonazepa m 0.5 mg tablet TAKE 1 TABLET BY MOUTH TWICE DAILY NEEDED FOR ANXIETY. MAY TAKE 1 ADDITION AL TABLET BY MOUTH UP TO 15 TIMES PER MONTH active Not Available Not Available No t Available propranol ol ER 60 mg capsule,2 4 hr,extend ed release active Not Available Not Available Not Available quetiapin e 200 mg tablet TAKE 1 TABLET BY MOUTH EVERY DAY 04/17 completed Not Available Not Available Not Available penicilli n V potassium 500 mg tablet TAKE 1 TABLET BY MOUTH FOUR TIMES DAILY 04/17 completed Not Available Not Available Not Available topiramat e 25 mg tablet 07/13 completed Not Available Not Available Not Available acetamino phen 300 mg-codein e 30 mg tablet TAKE 2 TABLET BY MOUTH EVERY 6 HOURS NEEDED FOR PAIN 11/30 completed Not Available Not Available Not Available sulfameth oxazole 800 mg-trimet hoprim 160 mg tablet TAKE 1 TABLET BY MOUTH TWICE DAILY WITH FOOD 04/17 completed Not Available Not Available Not Available doxycycli ne monohydra te 100 mg tablet TAKE 1 TABLET BY MOUTH TWICE DAILY FOR 20 DAYS 04/17 completed Not Available Not Available Not Available tramadol 50 mg tablet TAKE 1 TABLET BY MOUTH EVERY 6 HOURS 04/17 completed Not Available Not Available Not Available quetiapin e 100 mg tablet TAKE 1 TABLET BY MOUTH EVERY DAY 07/13 completed Not Available Not Available Not Available triamcino lone acetonide 0.1 % topical cream APPLY TOPICALL Y TO THE AFFECTED AREA TWICE DAILY FOR 7 DAYS 11/30 completed Not Available Not Available Not Available ondansetr on 8 mg disintegr ating tablet 04/17 completed Not Available Not Available Not Available ketorolac 10 mg tablet take 1 tablet (10 mg) by oral route every 4 hours as needed not to exceed 40 mg in 24hrs 03/31 completed ketorola c 10 mg oral tablet RxNorm: [id number] Allow Substitu tion: True Refill Denied: No Edited by: glynn (Brandee Pierce) on 11/05/19 Stopped by: glynn (Brandee Pierce) on Not Available Not Available Not Available nadolol 20 mg tablet TAKE 1 TABLET BY MOUTH TWICE DAILY active Not Available Not Available No t Available oxycodone -acetamin ophen 5 mg-325 mg tablet TAKE 1 TO 2 TABLETS BY MOUTH EVERY 4 HOURS NEEDED FOR PAIN OR ACUTE PAIN 04/17 completed Not Available Not Available Not Available propranol ol 10 mg tablet take 1 tablet (10 mg) by oral route 2 times per day 04/17 completed proprano loL 10 mg oral tablet RxNorm: 222717 Allow Substitu tion: False Refill Denied: No Refill DateOccu rred: 11/02/19 Edited by: Shelia Katz ) on 11/02/19 Stopped by: Shelia Katz ) on Not Available Not Available Not Available amoxicill in 875 mg tablet TAKE 1 TABLET BY MOUTH TWICE DAILY FOR 10 DAYS 11/05 completed Not Available Not Available Not Available trazodone 100 mg tablet active Not Available Not Available Not Available dicyclomi ne 20 mg tablet active Not Available Not Available Not Available benzonata te 100 mg capsule TAKE 1 CAPSULE BY MOUTH EVERY 8 HOURS NEEDED active Not Available Not Available No t Available rizatript an 10 mg disintegr ating tablet DISSOLVE 1 TABLET BY MOUTH NEEDED FOR MIGRIANE active Not Available Not Available No t Available Concerta 54 mg tablet,ex tended release take 1 tablet (54 mg) by oral route once daily in the morning 11/01 completed Concerta 54 mg oral Tablet, Extended Release 24 hr RxNorm: [id number] Allow Substitu tion: False Refill Denied: No Refill DateOccu rred: 11/10/19 Edited by: Devika White ) on 11/02/19 Stopped by: Devika White ) on 11/02/19 Not Available Not Available Not Available cephalexi n 500 mg capsule 04/17 completed Not Available Not Available Not Available paroxetin e 30 mg tablet TAKE 1 TABLET BY MOUTH EVERY DAY AT BEDTIME 04/17 completed Not Available Not Available Not Available paroxetin e 20 mg tablet TAKE 1 TABLET BY MOUTH EVERY DAY AT BEDTIME active Not Available Not Available No t Available dexametha sone 4 mg tablet 04/17 completed Not Available Not Available Not Available polymyxin B sulfate 10,000 unit-trim ethoprim 1 mg/mL eye drops INSTILL 1 DROP IN TO AFFECTED EYE EVERY 6 HOURS DIRECTED NEEDED FOR 7 DAYS active Not Available Not Available No t Available docusate sodium 100 mg capsule TAKE 1 CAPSULE BY MOUTH TWICE DAILY NEEDED FOR CONSTIPA TION active Not Available Not Available No t Available gabapenti n 300 mg capsule TAKE 1 CAPSULE BY MOUTH THREE TIMES DAILY active Not Available Not Available No t Available Lupron Depot 3.75 mg intramusc ular syringe kit Im injectio n every month for 6 months 08/18 completed Lupron Depot 3.75mg Injectio n Suspensi on RxNorm: [id number] Allow Substitu tion: True Refill Denied: No Not Available Not Available Not Available monteluka st 10 mg tablet TAKE 1 TABLET BY MOUTH EVERY DAY AT NIGHT active Not Available Not Available No t Available bisacodyl 5 mg tablet,de layed release TAKE 1 TABLET BY MOUTH EVERY NIGHT AT BEDTIME FOR 5 DAYS active Not Available Not Available No t Available mupirocin 2 % topical ointment APPLY TO WOUND DAILY 04/17 completed Not Available Not Available Not Available norethind josey acetate 5 mg tablet 1 p.o. qd 08/18 completed Norethin drone Acetate 5mg Tablet Allow Substitu tion: True Refill Denied: No Not Available Not Available Not Available gabapenti n 100 mg capsule active Not Available Not Available Not Available clomipram ine 50 mg capsule active Not Available Not Available Not Available ibuprofen 600 mg tablet 04/17 completed Not Available Not Available Not Available Ativan 0.5 mg tablet take 1 tablet (0.5 mg) by oral route 2 times per day 04/17 completed Ativan 0.5 mg oral tablet RxNorm: 782808 Allow Substitu tion: False Refill Denied: No Refill DateOccu rred: 11/02/19 21 Edited by: Shelia Katz ) on 11/02/19 21 Stopped by: leroy cobb(Shelia Vergara ) on Not Available Not Available Not Available methylpre dnisolone 4 mg tablets in a dose pack FOLLOW PACKAGE DIRECTIO NS 11/30 completed Not Available Not Available Not Available albuterol sulfate HFA 90 mcg/actua tion aerosol inhaler INHALE 2 PUFFS BY MOUTH EVERY 6 HOURS NEEDED FOR WHEEZING active Not Available Not Available No t Available paroxetin e 40 mg tablet TAKE 1 TABLET BY MOUTH EVERY DAY active Not Available Not Available No t Available norethind josey (contrace ptive) 0.35 mg tablet TAKE 1 TABLET BY MOUTH EVERY DAY active Not Available Not Available No t Available ondansetr on 4 mg disintegr ating tablet DISSOLVE 1 TABLET ON THE TONGUE EVERY 8 HOURS NEEDED FOR NAUSEA OR VOMITING active Not Available Not Available No t Available topiramat e 100 mg tablet 04/17 completed Not Available Not Available Not Available sertralin e 50 mg tablet TAKE 1 TABLET BY MOUTH EVERY DAY 04/17 completed Not Available Not Available Not Available fludrocor tisone 0.1 mg tablet active Not Available Not Available Not Available amoxicill in 875 mg-potass ium clavulana te 125 mg tablet TAKE 1 TABLET BY MOUTH TWICE DAILY FOR 10 DAYS 11/05 completed Not Available Not Available Not Available midodrine 10 mg tablet TAKE 1 TABLET BY MOUTH TWICE DAILY AND 0.5 TABLET BY MOUTH AT NIGHT active Not Available Not Available No t Available metaxalon e 800 mg tablet 04/17 completed Not Available Not Available Not Available Amnesteem 40 mg capsule TAKE 2 CAPSULES BY MOUTH DAILY FOR 30 DAYS 11/30 completed Not Available Not Available Not Available atomoxeti ne 25 mg capsule 04/17 completed Not Available Not Available Not Available isotretin oin 30 mg capsule TAKE 1 CAPSULE BY MOUTH DAILY active Not Available Not Available No t Available topiramat e 50 mg tablet 1 tab PO BID 07/13 completed Not Available Not Available Not Available nitrofura ntoin monohydra te/macroc rystals 100 mg capsule TAKE 1 CAPSULE BY MOUTH TWICE DAILY FOR 7 DAYS active Not Available Not Available No t Available Flovent HFA 110 mcg/actua tion aerosol inhaler INHALE 2 PUFFS BY MOUTH TWICE DAILY active Not Available Not Available No t Available dexmethyl phenidate ER 10 mg capsule,e xtended release biphasic5 0-50 TAKE 1 CAPSULE BY MOUTH ONCE DAILY active Not Available Not Available No t Available Zoloft 11/01 completed Zoloft RxNorm: 81448 Allow Substitu tion: False Refill Denied: No Refill DateOccu rred: 11/10/19 20 Edited by: Devika White ) on 11/02/19 21 Stopped by: jose alfredo (Devika Prince ) on 11/02/19 21 Not Available Not Available Not Available sumatript an PRN 11/09 completed Sumatrip de la rosa 100mg Tablet RxNorm: 203326 Allow Substitu tion: True Refill Denied: No Refill DateOccu rred: 09/12/19 18 Edited by: Emely Ware ) on 11/10/19 20 Stopped by: ian gonzalez(Emely Nagel ) on 11/10/19 20 Not Available Not Available Not Available clomipram ine 200mg 11/01 completed clomiPRA MINE RxNorm: 2597 Allow Substitu tion: False Refill Denied: No Refill DateOccu rred: 11/10/19 20 Edited by: Devika White ) on 11/02/19 21 Stopped by: Devika Whiet ) on 11/02/19 21 Not Available Not Available Not Available fluoxetin e 12/18 completed Fluoxeti ne 40mg Capsules Allow Substitu tion: True Refill Denied: No Refill DateOccu rred: 09/12/19 18 Edited by: lucius villegas(Thornt on, Cass ) on 12/19/19 18 Stopped by: lucius villegas(Thornt on, Cass ) on 12/19/19 18 Not Available Not Available Not Available midodrine 04/17 completed midodrin e RxNorm: 720451 Allow Substitu tion: False Refill Denied: No Refill DateOccu rred: 11/10/19 Edited by: wandy(Paige Oh) on 11/10/19 Stopped by: wandy(Paige Oh) on Not Available Not Available Not Available Cymbalta Take 2 capsule( s) by mouth daily 11/09 completed Cymbalta 60mg Capsules , Delayed Release RxNorm: 694458 Allow Substitu tion: True Refill Denied: No Refill DateOccu rred: 12/19/19 Edited by: ian lisa(Emely Nagel ) on 11/10/19 Stopped by: [email or web address] lisa(Emely Nagel ) on 11/10/19 Not Available Not Available Not Available atomoxeti ne 100 mg capsule TAKE 1 CAPSULE BY MOUTH EVERY DAY 04/17 completed Not Available Not Available Not Available Strattera 80 mg capsule take 1 capsule (80 mg) by oral route once daily 04/17 completed Stratter a 80 mg oral capsule RxNorm: 813953 Allow Substitu tion: False Refill Denied: No Refill DateOccu rred: 11/04/19 Edited by: glynn (Brandee Pierce) on 11/05/19 Stopped by: glynn (Brandee Pierce) on Not Available Not Available Not Available sodium chloride 1,000 mg soluble tablet active Not Available Not Available Not Available quetiapin e 50 mg tablet active Not Available Not Available Not Available Vyvanse 30 mg capsule active Not Available Not Available Not Available FeroSul 325 mg (65 mg iron) tablet TAKE 1 TABLET BY MOUTH TWICE DAILY WITH MEALS active Not Available Not Available No t Available Vyvanse 20 mg capsule active Not Available Not Available Not Available Pristiq 11/01 completed Pristiq RxNorm: 741103 Allow Substitu tion: False Refill Denied: No Refill DateOccu rred: 11/10/19 Edited by: Devika White ) on 11/02/19 Stopped by: Devika White ) on 11/02/19 Not Available Not Available Not Available LoSeasoni que 0.1 mg-20 mcg (84)/10 mcg (7) tablets,3 month dose pack Take 1 tablet(s ) by mouth daily as directed . 12/18 completed LoSeason ique Extended Cy Tablet RxNorm: 274721 Allow Substitu tion: True Refill Denied: No Not Available Not Available Not Available ProChambe r USE DIRECTED active Not Available Not Available No t Available Suprep Bowel Prep Kit 17.5 gram-3.13 gram-1.6 gram oral solution TAKE 177 ML BY MOUTH EVERY 12 HOURS FOR 1 DAY DIRECTED 07/13 completed Not Available Not Available Not Available Auvi-Q 0.3 mg/0.3 mL injection , auto-inje ctor INJECT 0.3 MG INTRAMUS CULARLY NEEDED FOR ANAPHYLA XIS active Not Available Not Available No t Available Estarylla 0.25 mg-0.035 mg tablet Take 1 tablet every day by oral route. active Not Available Not Available No t Available Rexulti 11/01 completed Rexulti RxNorm: 1274370 Allow Substitu tion: False Refill Denied: No Refill DateOccu rred: 11/10/19 Edited by: Devika White ) on 11/02/19 Stopped by: Devika White ) on 11/02/19 Not Available Not Available Not Available Drysol 20 % topical solution APPLY TOPICALL Y TO THE AFFECTED AREA EVERY NIGHT active Not Available Not Available No t Available Trintelli x 20 mg tablet TAKE 1 TABLET BY MOUTH EVERY MORNING 04/17 completed Not Available Not Available Not Available Orilissa 150 mg tablet take 1 tablet (150 mg) by oral route once daily at approxim ately the same time each day 04/17 completed Orilissa 150 mg oral tablet RxNorm: [id number] Allow Substitu tion: True Refill Denied: No Edited by: Paige Velasquez) on 12/18/19 Stopped by: Paige Velasquez) on Not Available Not Available Not Available Orilissa 200 mg tablet 11/09 completed Not Available Not Available Not Available Emgality Pen 120 mg/mL subcutane ous pen injector ADMINIST ER 1 ML UNDER THE SKIN EVERY 30 DAYS active Not Available Not Available No t Available Nurtec ODT 75 mg disintegr ating tablet TAKE 1 TABLET ON OR UNDER THE TONGUE ONCE A DAY NEEDED FOR MIGRAINE . MAX OF 1 TABLET (75 MG) IN 24 HOURS. active Not Available Not Available No t Available BinaxNOW COVID-19 Ag Self Test kit TEST DIRECTED active Not Available Not Available No t Available Paxlovid 300 mg (150 mg x 2)-100 mg tablets in a dose pack TK 2 NIRMATRE LVIR TS AND 1 RITONAVI R T TOGETHER PO BID FOR 5 DAYS BID FOR 5 DAYS active Not Available Not Available No t Available Vitals Date Recorded Body height Body mass index (BMI) Body weight Body temperature Systolic blood pressure Diastolic blood pressure Provider Name and Address Organization Details Last Updated DateTime 2 162.56 cm 35.6 kg/m2 46903.7 8 g 96.8 [degF] 122 mm[Hg] 78 mm[Hg] Idalia Shrestha [employer] 2 10:16:38 Date Recorded Body height Body mass index (BMI) Body weight Body temperature Systolic blood pressure Diastolic blood pressure Provider Name and Address Organization Details Last Updated DateTime 2 162.56 cm 35.3 kg/m2 67475.5 9 g 97.8 [degF] 122 mm[Hg] 80 mm[Hg] Meredith Prasad [employer] 2 14:47:47 Date Recorded Body height Body mass index (BMI) Body weight Systolic blood pressure Diastolic blood pressure Provider Name and Address Organization Details Last Updated DateTime 11/30/2021 162.56 cm 32.4 kg/m2 68634.52 g 122 mm[Hg] 76 mm[Hg] Ni Merrill [employer] 2 09:08:39 Date Recorded Body height Body mass index (BMI) Body weight Body temperature Systolic blood pressure Diastolic blood pressure Provider Name and Address Organization Details Last Updated DateTime 3 162.56 cm 32.7 kg/m2 27406.7 1 g 97.3 [degF] 128 mm[Hg] 62 mm[Hg] Neema Carrizales [employer] 3 11:04:26 Social History Question Answer Notes LastModified by [employer] Details LastModified Time Tobacco Smoking Status Never Smoker Dorothy Bonnermaddy [facility] 03/27/2021 14:17:37 What Is Your Level Of Alcohol Consumption? None Information not available 03/27/2021 Are You Blind Or Do You Have Difficulty Seeing? No Information not available 07/13/2021 Are You Deaf Or Do You Have Serious Difficulty Hearing? No Information not available 07/13/2021 What Type Of Diet Are You Following? REGULAR Information not available 04/17/2021 Do You Or Have You Ever Used E-cigarettes Or Vape? Never Used Electronic Cigarettes Information not available 04/17/2021 How Many Children Do You Have? 0 Information not available 03/27/2021 What Is Your Relationship Status? Single Information not available 03/27/2021 Are You Sexually Active? No Information not available 03/27/2021 Do You Use Any Illicit Or Recreational Drugs? No Information not available 03/27/2021 Do You Or Have You Ever Used Any Other Forms Of Tobacco Or Nicotine? No Information not available 03/27/2021 Sex: Female Functional Status Question Answer Note LastModified by [employer] Details LastModified Time What is your exercise level? Occasional Information not available 04/17/2021 Mental Status None recorded. Family History Relationship Description Onset Age of this Age Resolved Age Notes LastModified by Organization Details LastModified Time Father No current problems or disability Not available 03/27 14:17:08 Mother No current problems or disability Not available 03/27 14:17:08 Medical History Condition Response Depression Y Anxiety Disorder Y Endometriosis N Headaches/migraines Y Gynecological History Statement/Question Response Flow Moderate Date of LMP 04/13/2021 Most Recent Bone Density Date of Last Pap Smear 11/10/2019 Most Recent Mammogram Current Control Method BCPs Age at Menarche 16 Obstetrics History GPAL:G 0 P 0 0 0 0 Type Value Multiple Births 0 Full Term 0 Induced 0 Spontaneous 0 Premature 0 Living 0 Ectopics 0 Total 0 Past Encounters Encounter ID Performer Location Encounter Start Date Encounter Closed Date Diagnosis/Indication Diagnosis SNOMED-CT Code Diagnosis ICD10 Code Diagnosis Note [id number] Mel CorneliusTRUDYCEZAR [facility] [address] [place] [address] 04/17/2021 09:57:53 05/09/2021 13:39:35 Gynecologic examination 92699678 Z01.419 ASCCP guidelines reviewed with patient. Pap Hx: 10/2019 NILM. No pap collected today. Pt states understand ing and is amenable to POC. Chronic pe lvic pain of female 384334016 R10.2 Pt was to see pelvic floor PT and consider GI referral if pain was persistent . Colonscopy scheduled for 04/24/21. Pt has been seeing PT. Pt states PT has improved pain somewhat, but not as much as PT provider would have liked to have seen. Per Santos Muniz MD, pt to continue with Orilissa 200 mg daily until end of 10/2021; at that time pt will have been on medication X 2 years. Plan all further F/U with regard to pelvic pain with Dr. Muniz. Pt states understand ing of POC. Surveillan ce of oral contraception 435164177 Z30.41 Pt educated on risks Vs benefits of use, and reviewed ACHES symptoms. Importance of daily administra tion within the same 30 minute time frame reinforced to pt, and on use of condoms or abstinence if dosing schedule is interrupte d. Refills sent. Plan to F/U PRN or at next [employer]. [id number] Paige Muniz MD [address] [address] 07/13/2021 14:34:37 07/13/2021 15:16:54 Pelvic and perineal pain 451680892 R10.2 Patient started Orilissa in 10/2019. This will be likely the last refill for her pain. Continue physical therapy. Patient is going to [facility] in [place], [place]. [id number] Paige Muniz MD [address] [place] [address] 11/30/2021 08:51:41 11/30/2021 09:38:16 Pelvic and perineal pain 807368465 R10.2 Patient started Orilissa in 10/2019. She is on her last week of therapy. I have suggested she transition to a OCP or Depo Provera. Patient is hesitant to start Depo Provera because of the increased risk of weight gain. I have recommende d OCP, skipping placebos to avoid menstrual pain. Follow up in 3-6 months. [id number] HEYDI GOLDEN [facility] [address] [place] [address] 11/05/2022 10:30:59 11/05/2022 18:28:04 Surveillance of contraception [id number] Z30.40 Pt educated on risks Vs benefits of use, and reviewed ACHES symptoms. Importance of daily administra tion within the same 30 minute time frame reinforced to pt, and on use of condoms or abstinence if dosing schedule is interrupte d. Refills sent. Irregular periods 974806 07 N92.6 Adeline presents for irregular bleeding while on OCPs. Patient states she was on antibiotic s in June and has been spotting/b leeding since then. She has spotting every day and some days it is heavy enough for a tampon. Patient is unsure when she has actually had a cycle because of it. Pt currently taking Sprintec. Discuss with that type of OCPs she has to make sure to take at exactly the same time each day, or can have irregular bleeding. Discuss possibly change OCPs or switching to depo. POCCBCTSH Acute Bleeding Management :- Pill Taper: monophasic ANDREA with 30-35 mcg of EstrogenTa ke one tablet TID x 3 days or until bleeding subsides,t hen one tablet BID x 3-5 days,then one tablet daily until all active pills have been taken.Skip inactive pills and immediatel y start a new pack.-Medr oxyprogest erone acetate 20 mg PO TID x 7 days F/U in 3 months for re-evaluat ion. Health Concerns Section Related Observation LastModified by Organization Detai ls LastModified Time None Recorded Concern Status LastModified by Organization Details LastModified Time None Recorded Advance Directives Directive None Recorded Payers Encounter Date Sequence Insurance Name Policy Number Policy Vidales Covered Member ID Vidales Member ID Guarantor Name 04/17/2021 1 [place]EN[place] ADMINISTRATORS - N.[facility] [employer] [facility] PPO [id number] Mike Deleon Quirk [id number] 3 Adeline Deleon Quirk 07/13/2021 1 [place] ADMINISTRATORS - N.[facility] PPO [id number] Mike Deleon Quirk [id number] Adeline Adrienne Quirk 11/30/2021 1 [place] ADMINISTRATORS - N.[facility] [employer] [facility] PPO [id number] Mike Deleon Quirk [id number] Adeline Adrienne Quirk 11/05/2022 1 [place]ENEFIT ADMINISTRATORS - N.[facility] PPO [id number] Mike Deleon Quirk [id number] 3 Adeline Adrienne Quirk 11/05/2022 2 [facility] Mike Haleigh Quirk [id number] Adeline Donisirk Notes Date Note Type Note Provider Name and Address Organization Details Recorded Time 04/17/2021 text/html Pt states she is doing well. Pt reports being on Orilissa and POP for control of chronic pelvic pain and contraception. Pt is s/p exploratory lap in 12/2020, which was WNL. Pt is currently seeing pelvic floor PT. Pt notes she has noticed improvement with pelvic pain, but PT provider is concerned that not enough improvement has occurred. Pt does have colonoscopy scheduled for 04/24/21. Pt desires refills of Orilissa and POP at this time. Pt declines STD screening via culture and serum testing as she is not sexually active. Pt has no other concerns. DUGLAS Fabian [address] [facility], [place], [address], [facility] IV 04/17/2021 12:56:09 07/13/2021 text/html Pelvic Pain/PressureReport ed bypatient.Location: bilateral Onset/Timing:recurr ing Context:history of possible endometriosis Alleviating Factors:Orilissa, Physical therapyNotes:Eusebio t had colonoscopy in 04/[address] Puentes. Paige Muniz MD [address] [facility], [place], [address], [facility] [employer] IV 07/14/2021 10:19:25 11/30/2021 text/html Adeline here for f/u pelvic pain, patient states pain is less , gets occasionally. LMP 03/2021, she is on POPs. Patient has been on Orilissa for the max amount of time. She states that she is worried that her period will come back and she always has significant amounts of pain with it. Paige Muniz MD [facility], [place], [address], [facility] [employer] IV 11/30/2021 09:34:40 11/05/2022 text/html Patient presents for irregular bleeding on control. LMP unsure because she has been spotting/bleeding since June.. Patient denies any concerns for STDs. Patient is currently taking Sprintec. States that she is having irregular cycles. Pt states that she has been experiencing light to moderate bleeding since June of this year after taking an antibiotic. HEYDI GOLDEN [facility], [place], [address], [facility] [employer] IV 11/05/2022 11:22:09 OBGyn Episode No OBEpisode recorded.
--- OUTSIDE RECORDS SUMMARY | 2024-07-26 16:42 | XMS_ITS | Encounter Summary ---
Author Organization [facility] Address [address] [place] [address] Care Team Providers Care Mathematician Name Role Phone Destini Garcia Primary Care Provider [phone] Reason for Referral * Physical Medicine (Routine) - Closed Specialty Diagnoses / Procedures Referred By Gibson nguyễn Referred To Contact PHYSICAL THERAPY / [facility] Physical Therapy Diagnoses POTS (postural orthostatic tachycardia syndrome) Autonomic dysfunction Procedures OFFICE/OUTPT VISIT,NEW,LEVL III OFFICE/OUTPT VISIT,NEW,LEVL IV OFFICE/OUTPT VISIT,NEW,LEVL V OFFICE/OUTPT VISIT,EST,LEVL III OFFICE/OUTPT VISIT,EST,LEVL IV OFFICE/OUTPT VISIT,EST,LEVL V Nelly Stern PA [address] [facility] [address] [place] [id number] Phone: tel: fax: [facility] [address] [place] [address] Phone: tel: fax: Referral ID Status Reason Start Date Expiration Date V isits Requested Visits Authorized [id number] Closed Physical Therapy 12/20/2021 12/19/2022 12 12 Scheduling Instructions PLEASE CALL PATIENT TO SCHEDULE Encounter Details Date Type Department Care Team (Late st Contact Info) Description 12/07/2021 MyChart Message Enc [facility], [place] [place], [place] [id number] Nelly Stern PA [address] [facility] [address] [place], [place] [id number] Question Follow up Social History Tobacco Use Types Packs/Day Years Used Date Smoking Tobacco: Never Smokeless Tobacco: Never Alcohol Use Standard Drinks/Week Comments Not Currently 0 (1 standard drink = 0.6 oz pur e alcohol) rare AUDIT-C Answer Date Recorded Frequency of Alcohol Consumption Never 08/22/2018 Average Number of Drinks Not on file 019 Frequency of Binge Drinking Not on file 08/13 PHQ-2 Answer Date Recorded PHQ-2 Score - If the patient scores above 3, please move on to questions 3-9 2 03/02/2021 Comments No Sex and Gender Information Value Date Recorded Sex Assigned at Female 06/18/2024 10:56 AM THERAPIST'S ASSISTANT Legal Sex Female 7:31 PM CDT Gender Identity Female 04/07/2021 9:13 AM THERAPIST'S ASSISTANT Sexual Orientation Choose not to disclose 2024 8:31 AM CDT COVID-19 Exposure Response Date Recorded In the last 10 days, have yo u been in contact with someone who was confirmed or suspected to have Coronavirus/COVID-19? No / Unsure 12/05/2021 1:44 PM CDT documented as of this encounter Functional Status * RETIRED Are you deaf or do you have serious difficulty hearing Answer Date of Assessment Author Status No 02/12/2021 4:50 PM CDT Activ e * RETIRED Are you blind or do you have serious difficulty seeing, even when wearing glasses? Answer Date of Assessment Author Status No 02/12/2021 4:50 PM CDT Activ e * Do you have serious difficulty walking or climbing stairs? Answer Date of Assessment Author Status No 02/12/2021 4:50 PM CDT Mirian De León RN Active * Do you have difficulty dressing or bathing? Answer Date of Assessment Author Status No 02/12/2021 4:50 PM CDT Mirian De León RN Active * Because of a physical, mental, or emotional condition, do you have difficulty doing errands alone such as visiting a doctor's office or shopping? Answer Date of Assessment Author Status No 02/12/2021 4:50 PM CDT Mirian De León RN Active documented as of this encounter Mental Status * Because of a physical, mental, or emotional condition, do you have serious difficulty concentrating, remembering, or making decisions? Answer Entry Date Author Status No 02/12/2021 4:50 PM CDT Mirian De León RN Active documented in this encounter Progress Notes * Shabana Mullen - 12/19/2021 5:08 PM CDT Order put in * Carole Whatley RN - 12/08/2021 11:34 AM CDT [employer]Manage message sent to the patient that we will order PT. Message to the medical office secretary. * DAMIAN Irby - 12/08/2021 11:21 AM CDT Yes autonomic dysfunction/POTS * DAMIAN Irby - 12/08/2021 10:46 AM CDT I looked up codes for cardiac rehab and her Pots won't cover it. This is what uptodate recommends for exercise/condition for pots patients: Despite intolerance of exercise in the upright position, many patients are successful in beginning an exercise program in a semirecumbent position, such as with a recumbent bicycle, with a rowing machine, or in a swimming pool. Exercise rehabilitation for POTS should include lower extremity resistance strength training, which helps to reduce venous pooling [15]. Supervised training may be needed for patients who cannot adhere to an exercise program on their own or believe exercise to be too difficult [109]. An approach that has worked well starts with training sessions three to four times perweek for 30 to 40 minutes per session. During these sessions, exercise intensity is individualized to achieve 70 to 75 percent of maximal predicted heart rate. As fitness improves, patients should beable gradually to increase the duration, intensity, and frequency of exercise and advance to exercising in the upright posture [110]. The benefits of exercise in POTS have been demonstrated in small studies. In one study involving 31military recruits with symptoms of orthostatic intolerance, those assigned to an exercise regimen were less likely to report orthostatic symptoms at three months [111]. In another study, 19 patients with POTS assigned to a three-month exercise training program (consisting of 30- to 45-minute sessions two to four times weekly) showed improved cardiovascular responses to exercise, lower heart rates, and faster heart rate recovery after exercise compared with baseline [112]. Among 103 patients whocompleted a program of [id number] intensity progressive endurance training, 71 percent went into remission and no longer met the diagnostic criteria for POTS [110]. * DAMIAN Irby - 12/08/2021 10:29 AM CDT We can try to refer to her to physical therapy for autonomic dysfunction/POTS. I think the order isjust evaluate and treat. Or if not PT I wonder if she would qualify for cardiac rehab. * DAMIAN Irby - 12/07/2021 2:17 PM CDT Carole, I reviewed her message with Dr. Wallace who said due to her sweating and difficulty staying hydrated he would recommend referring to her endocrinology for her sweating issue. I asked him about PT andhe said lets wait until after she sees endocrine. Jaida Burnham documented in this encounter Plan of Treatment Upcoming Encounters Date Type Department Care Team (Late st Contact Info) Description 08/18/2024 1:20 PM CDT Office Visit [facility] [place] [address] [place] [address] Destini Garcia FNP [address] [place] [address] 09/29/2024 1:15 PM CDT Office Visit Jocelin Jones-O'Fallo n [facility], [facility] [address] [place] [address] Franky Wallace MD [facility] [place]. [facility] [address] [place], [place] [phone] Scheduled Referrals Name Type Priority Associated Diagnoses Orde r Schedule Ambulatory referral to Physical Therapy Referral Routine POTS (postural orthostatic tachycardia syndrome) Autonomic dysfunction Ordered: 12/20/2021 documented as of this encounter Goals Goal Patient Goal Type Associated Problems Recent Progress Patient-Stated? Author Patient will return to prior living situation and remain independent in ADLs upon discharge from [facility] General No Phyllis Law RN documented as of this encounter Visit Diagnoses Diagnosis POTS (postural orthostatic tachycardia syndrome)- Primary Tachycardia, unspecified Autonomic dysfunction Unspecified disorder of autonomic nervous system documented in this encounter Additional Health Concerns Assessment Noted Time PHQ-9 Depression Total Score: 2 03/02/20 21 2:17 PM THERAPIST'S ASSISTANT documented as of this encounter Care Teams Mathematician Relationship Specialty Start Date End Date Destini Garcia FNP [address] [place] [address] PCP - General Nurse Practitioner Family 11/21/20 documented as of this encounter
--- OUTSIDE RECORDS SUMMARY | 2024-07-26 16:42 | XMS_ITS | Encounter Summary ---
Author Organization [facility] Address [address] [place] [address] Phone Care Team Providers Care Strategic Partnership Representative Name Role Phone Dana Silva MD Unavailable [phone] Destini Garcia NP Primary Care Provider [phone] Encounter Details Date Type Department Care Team (Latest Contact Info) Description 06/19/2021 Orders Only [facility] Scanning, Provider Social History Tobacco Use Types Packs/Day Years Used Date Smoking Tobacco: Never Smokeless Tobacco: Never Alcohol Use Standard Drinks/Week Comments Yes 0 (1 standard drink = 0.6 oz pur e alcohol) less than 1 drink weekly AUDIT-C Answer Date Recorded Q1: How often do you have a drink containing alc ohol? Monthly or less 09/20/2020 Q2: How many drinks containi ng alcohol do you have on a typical day when you are drinking? 1 or 2 09/20/2020 Q3: How often do you have si x or more drinks on one occasion? Never 09/20/2020 PHQ-2 Answer Date Recorded PHQ-2 Total Score (If total score is 3 or more points, staff should administer the PHQ-9) 2 11/16/2020 Comments No Sex and Gender Information Value Date Recorded Sex Assigned at Not on file Legal Sex Female 11:29 AM CDT Gender Identity Female 07/12/2020 10:23 PM CDT Sexual Orientation Choose not to disclose 2022 7:16 AM CDT Occupation Industry Job Start Date Job End Date Student Not on file Not on file Not on file documented as of this encounter Plan of Treatment Not on file documented as of this encounter Procedures Procedure Name Priority Date/Time Associated Diagnosis Comments SCAN - LABS 06/19/2021 documented in this encounter Results * SCAN - LABS (06/19/2021) us Provider Scanning Final Result documented in this encounter Visit Diagnoses Not on filedocumented in this encounter Care Teams Strategic Partnership Representative Relationship Specialty Start Date End Date Destini Garcia [employer] [address] [place] [address] PCP - General Nurse Practitioner 06/02/21 Dana Silva MD Fellow Neurology 05/15/21 documented as of this encounter
--- OUTSIDE RECORDS SUMMARY | 2024-07-26 16:42 | XMS_ITS ---
Author Organization [facility] Address [address] [place] [address] Care Team Providers Care Clothes Drier Assembler Name Role Phone Destini Jackman Primary Care Provider Carlos Donnelly [phone] Dana Silva Unavailable Unavailable REASON FOR VISIT Mediation Social History Sex Assigned At : Social History Observation Description Sex Assigned At Female Encounters Encounter Location Date Provider Diagnosis [facility] [address] [facility] [address] [address] [place] [address] 07/13/2024 Carlos Loving Plan Of Treatment Next Appt Details Provider Name:Claribel barr, 12/22/2024 09:00:00 AM, [address] [facility], [address], [place], [address], Progress Notes * Adeline RAMIREZDOB:1995 (28 yo F)Acc No.[id number]:07/13/2024 Patient: Adeline MOURA :1995 A ge:28 Y S ex:Female Address:[address] [place] [address], [address], [place], [address] * true * Date: Generated for Printi ng/Faxing/eTransmitting on: 0 07/26/2024 04:42 PM CDT
--- OUTSIDE RECORDS SUMMARY | 2024-07-26 16:42 | XMS_ITS | Encounter Summary ---
Author Organization [facility] Facility Care Team Providers Care Basketball Referee Name Role Phone Molina Francisco MD Primary Care Provider + Dana Silva MD Unavailable +- [phone] Destini Garcia NP Primary Care Provider [phone] Encounter Details Date Type Department Care Team (Latest Contact Info) Description 02/25/2018 Orders Only [facility] CLINCONV ProviderCornell MD [address] [place] [address] Social History Tobacco Use Types Packs/Day Years Used Date Smoking Tobacco: Never Smokeless Tobacco: Never Alcohol Use Standard Drinks/Week Comments No 0 (1 standard drink = 0.6 oz pur e alcohol) Comments Unknown Sex and Gender Information Value Date Recorded Sex Assigned at Not on file Legal Sex Female 11:29 AM CDT Gender Identity Female 07/12/2020 10:23 PM CDT Sexual Orientation Choose not to disclose 2022 7:16 AM CDT documented as of this encounter Plan of Treatment Not on file documented as of this encounter Procedures Procedure Name Priority Date/Time Associated Diagnosis Comments CARDIOLOGY REPORT 02/28/2018 12: 00 AM TUMBLER PLATER documented in this encounter Results * CARDIOLOGY REPORT (02/28/2018 12:00 AM TUMBLER PLATER) Anatomical Region Laterality Modality Other Narrative 02/28/2018 12:00 AM TUMBLER PLATER Ordered by an unspecified provider. Historical Provider CV CARDIAC NÉSTOR TORRES Final Result documented in this encounter Visit Diagnoses Not on filedocumented in this encounter Additional Health Concerns Infection Onset Date Last Indicated Resolved Time COVID: Suspected 04/18/2020 04/18/2020 04/20/2020 4:44 AM TUMBLER PLATER COVID19 04/18/2020 04/18/2020 05/02/2020 3:07 AM TUMBLER PLATER COVID: Recovered Comment:Added based on recent COVID infection. 05/02/2020 05/02/2020 08/30/2020 3:05 AM CDT COVID: Suspected 10/07/2020 10/07/2020 10/08/2020 12:36 AM CDT COVID: Suspected 03/04/2021 03/04/2021 03/05/2021 5:34 AM TUMBLER PLATER documented as of this encounter Care Teams Basketball Referee Relationship Specialty Start Date End Date Molina Francisco MD [address] [place] [address] PCP - General Internal Medicine 12/06/17 06/01/21 Destini Garcia NP [address] [place] [id number] PCP - General Nurse Practitioner 06/02/21 Dana Silva MD [address] [place] [address] Fellow Neurology 05/15/21 documented as of this encounter
--- OUTSIDE RECORDS SUMMARY | 2024-07-26 16:42 | XMS_ITS | Encounter Summary ---
Author Organization [facility] Facility Care Team Providers Care Software Packager Name Role Phone Molina Francisco MD Primary Care Provider + Dana Silva MD Unavailable [phone]- [phone] Destini Garcia NP Primary Care Provider [phone] Encounter Details Date Type Department Care Team (Latest Contact Info) Description 01/27/2018 Orders Only [facility] CLINCONV ProviderCornell MD [address] [place] [address] Social History Tobacco Use Types Packs/Day Years Used Date Smoking Tobacco: Never Assessed Comments Unknown Sex and Gender Information Value [...] Priority Date/Time Associated Diagnosis Comments CARDIOLOGY REPORT 02/27/2018 12: 00 AM NET PROGRAMMER documented in this encounter Results * CARDIOLOGY REPORT (02/27/2018 12:00 AM NET PROGRAMMER) Anatomical Region Laterality Modality Other Narrative 02/27/2018 12:00 AM NET PROGRAMMER Ordered by an unspecified provider. Historical Provider CV CARDIAC SERVICES KALIN TORRES Final Result documented in this encounter Visit Diagnoses Not on filedocumented in this encounter Additional Health Concerns Infection Onset Date Last Indicated Resolved Time COVID: Suspected 04/18/2020 04/18/2020 04/20/2020 4:44 AM NET PROGRAMMER COVID19 04/18/2020 04/18/2020 05/02/2020 3:07 AM NET PROGRAMMER COVID: Recovered Comment:Added based on recent COVID infection. 05/02/2020 05/02/2020 08/30/2020 3:05 AM C DT COVID: Suspected 10/07/2020 10/07/2020 10/08/2020 12:36 AM CDT COVID: Suspected 03/04/2021 03/04/2021 03/05/2021 5:34 AM NET PROGRAMMER documented as of this encounter Care Teams Software Packager Relationship Specialty Start Date End Date Molina Francisco MD [address] [place] [address] PCP - General Internal Medicine 12/06/17 06/01/21 Destini Garcia NP [address] [place] [address] PCP - General Nurse Practitioner 06/02/21 Dana Silva MD [address] [place] [address] Fellow Neurology 05/15/21 documented as of this encounter
--- OUTSIDE RECORDS SUMMARY | 2024-07-26 16:42 | XMS_ITS | Encounter Summary ---
Author Organization [facility] Address [address] [place] [address] Care Team Providers Care Jewel Bearing Grinder Name Role Phone Jose Destini HEYDI Primary Care Provider [phone] Encounter Details Date Type Department Care Team (Late st Contact Info) Description 05/10/2022 Opptent Message Enc [facility] - [facility] [address] [facility], [address] [place] [phone] Dana Silva MD [address] [place] [address] Emgality Social History Tobacco Use Types Packs/Day Years Used Date Smoking Tobacco: Never Smokeless Tobacco: Never Alcohol Use Standard Drinks/Week Comments Not Currently 0 (1 standard drink = 0.6 oz pur e alcohol) rare AUDIT-C Answer Date Recorded Frequency of Alcohol Consumption Never 08/22/2018 Average Number of Drinks Not on file 019 Frequency of Binge Drinking Not on file 08/13 PHQ-2 Answer Date Recorded Patient Health Questionnaire-2 Score 4 04/25/2022 Comments No Sex and Gender Information Value Date Recorded Sex Assigned at Female 06/18/2024 10:56 AM EYE PHYSICIAN Legal Sex Female 7:31 PM CDT Gender Identity Female 04/07/2021 9:13 AM EYE PHYSICIAN Sexual Orientation Choose not to disclose 2024 8:31 AM CDT COVID-19 Exposure Response Date Recorded In the last 10 days, have yo u been in contact with someone who was confirmed or suspected to have Coronavirus/COVID-19? No / Unsure 05/03/2022 8:04 AM EYE PHYSICIAN documented as of this encounter Functional Status [...] León RN Active documented in this encounter Plan of Treatment Upcoming Encounters Date Type Department Care Team (Late st Contact Info) Description 08/18/2024 1:20 PM CDT Office Visit [facility] Family & Internal Medicine - [place] [id number] [place] [address] Destini Garcia FNP [address] [place] [address] 09/29/2024 1:15 PM CDT Office Visit [facility] [address] [place], [place] [id number] Franky Wallace MD [facility] [address] [place], [place] [id number] documented as of this encounter Goals Goal Patient Goal Type Associated Problems Recent Progress Patient-Stated? Author Patient will return to prior living situation and remain independent in ADLs upon discharge from hospital General Phyllis Nieto RN documented as of this encounter Visit Diagnoses Not on filedocumented in this encounter Additional Health Concerns Assessment Noted Time PHQ-9 Depression Total Score: 11 023 9:14 AM EYE PHYSICIAN documented as of this encounter Care Teams Jewel Bearing Grinder Relationship Specialty Start Date End Date Destini Garcia FNP [address] [place] [address] PCP - General Nurse Practitioner Family 11/21/20 documented as of this encounter
--- OUTSIDE RECORDS SUMMARY | 2024-07-26 16:42 | XMS_ITS | Patient Health Record ---
Author Organization [facility] Address [address] [place] [address] Care Team Providers Care Deputy Felony Clerk Name Role Phone Jose SOLIZ-Destini Meraz Primary Care Provider UnaCarlos Alexander Unavailable [phone] Dana Silva Unavailable Unavailable Calos Mckeon Unavailable [phone] Amarilis Albert Unavailable [phone] [facility], Provider Unavailable Unavailab le Allergies Allergen (clinical drug ingredient) Drug/Non Drug Allergy documented on EMR Reaction Allergy Type Onset Date Status doxycycline Doxycycline hives Drug Allergy Act thelma Results Component Value Reference Range Notes Spirometry Reviewed date:10/22/2023 11:13:08 AM Interpretation:Abnormal - FVL Performing Lab: Notes/Report: Abnormal - FVL SpiroPreBronchodilator_FVC 3.79 SpiroPostBronchodilator_FEF25_75 0 SpiroPreBronchodilator_FEF25_75 2.14 SpiroPreBronchodilator_FEV1 2.48 SpiroPrecentPredictionPost_FEF25_75 0 SpiroPrecentPredictionPost_FEV1 0 SpiroPrecentPredictionPost_FEV1_OVER_FVC 0 SpiroPrecentPredictionPost_FVC 0 SpiroPrecentPredictionPre_FEF25_75 53.1 SpiroPrecentPredictionPre_FEV1 72.7 SpiroPrecentPredictionPre_FEV1_OVER_FVC 75.4 SpiroPrecentPredictionPre_FVC 95.9 SpiroPredicted_FEF25_75 4.03 SpiroPreBronchodilator_FEV1_OVER_FVC 65.37 SpiroPreBronchodilator_PEF 2.71 SpiroPostBronchodilator_FVC 0 SpiroPostBronchodilator_FEV1 0 SpiroPostBronchodilator_FEV1_OVER_FVC 0 SpiroPostBronchodilator_PEF 0 SpiroPredicted_FVC 3.95 SpiroPredicted_FEV1 3.41 SpiroPredicted_FEV1_OVER_FVC 86.68 SpiroPredicted_PEF 6.7 Reason For Referral No Information Medications Medication SIG (Take, Route, Frequency, Duration) Notes Start Date End Date Status Arnuity Ellipta 100 MCG/ACT 1 puff(s) inhaled every 24 hours for 30 days 09/23/2023 Active Focalin 10 MG 1 tab(s) orally 2 times a day for 30 day(s) Active traZODone HCl 100 MG 1 by mouth at bedtime Active Cromolyn Sodium 100 MG/5ML 10ml Orally three times a day for 30 days Active Estarylla 0.25-35 MG-MCG TABLET 1 TABLET BY MOUTH DAILY SKIPPING ALL PLACEBOS Diagnosis Unavailable Active Sodium Chloride 1 GM as directed Active TRAZADONE 50MG 1 BY MOUTH AT BEDTIME *Please review for potential replacement for e-prescription and drug interaction check* Not-Taking Ferrous Sulfate 325 (65 Fe) MG 1 tab(s) orally bid Not-Taki ng Fluticasone Propionate 50 MCG/ACT 2 spray(s) in each nostril 2 times a day for 30 days 09/23/2023 Active Auvi-Q 0.3 MG/0.3ML as directed Injection as needed for 30 days Active Albuterol Sulfate HFA 108 (90 Base) MCG/ACT 2 puffs as needed Inhalation every 4 hrs for 30 days Active FAMOTIDINE 20 mg 2 tab(s) orally 2 times a day Active CETIRIZINE HYDROCHLORIDE 10 mg 2 tab(s) orally BID for 30 days Active Arnuity Ellipta 100 MCG/ACT 1 puff Inhalation Twice a day for 30 days Active Montelukast Sodium 10 MG 1 tablet Orally Once a day for 30 days Active FLUTICASONE NASAL 50 mcg/inh 2 spray(s) in each nostril 2 times a day for 30 days Active AEROCHAMBER MDI SPACER - MOUTHPIECE (ADULT) N/A As directed PO Per asthma action plan for 30 day(s) Active Auvi-Q 0.3 MG/0.3ML as directed intramuscularly once for 30 day(s) Active Montelukast Sodium 10 MG 1 tab(s) orally once a day, at night for 90 days Not-Taking Montelukast Sodium 10 MG 1 tab(s) orally once a day, at night for 90 days Active FLOVENT HFA CFC free 110 mcg/inh 2 puff(s) inhaled 2 times a day for 30 days Not-Taking Famotidine 20 MG 2 tab(s) orally 2 times a day Active VENTOLIN HFA 90 mcg/inh 2 puff(s) inhaled every 6 hours, PRN for 30 day(s) Not-Taking Cetirizine HCl 10 MG 2 tab(s) orally BID for 30 days Active AUVI -Q 0.3 mg as directed intramuscularly once for 30 day(s) Not-Taking clomiPRAMINE HCl 50 MG 1 cap(s) orally 2 times a day Not-Taking LaMICtal 25 MG 1 tab(s) orally 2 times a day Not-Taking Gabapentin 100 MG 1 cap(s) orally Qday Active Ondansetron HCl 4 MG 1 tab(s) orally every 8 hours Active Rizatriptan Benzoate 10 MG 1 tab(s) orally Qday, PRN Active clonazePAM 0.5 MG 1 tab(s) orally Qday, PRN Active Flovent HFA CFC FREE 110 MCG/INH 2 PUFF(S) INHALED 2 TIMES A DAY for 30 DAYS *Please review and pick correct strength-formula tion from Medispan options. If intended option is not shown, discontinue and re-order from Quick Search* Active Ventolin HFA 108 (90 Base) MCG/ACT 2 puff(s) inhaled every 6 hours, PRN for 30 day(s) Active Immunizations Vaccine Route Administration Date Status Comme nts COVID-19 (Moderna) Unknown 07/11/2020 Administered COVID-19 (Moderna) Unknown 04/30/2021 Administered Fluzone, quadrivalent, prese rvative free Unknown 02/13/2021 Administered Social History Tobacco Use: Social History Observation Description Date Details (start date - stop date) Never Smoker NA - NA Sex Assigned At : Social History Observation Description Sex Assigned At Female Smoking Smart Form: Question Answer Notes Are you a: never smoker Tobacco Control (Standard) Question Answer Notes Tobacco use: Nonsmoker AUDIT-C (Standard) Question Answer Notes Did you have a drink contain ing alcohol in the past year? Yes How often did you have a dri nk containing alcohol in the past year? Monthly or less (1 point) How many drinks did you have on a typical day when you were drinking in the past year? 1 or 2 drinks (0 point) How often did you have six o r more drinks on one occasion in the past year? Never (0 point) Points 1 Interpretation Negative Problems Problem Type SNOMED Code ICD Code Onset Dates Problem Status W/U Status Risk Notes Problem Eruption of skin (393441568) Rash and other nonspecific skin eruption (R21) Active confirmed Problem Anxiety disorder (894185621) Anxiety disorder, unspecified (F41.9) Active confirmed Problem Attention deficit hyperactivity disorder (506165812) Attention-deficit hyperactivity disorder, unspecified type (F90.9) Active confirmed Problem Restless legs syndrome (07731328) Restless legs syndrome (G25.81) Active confirmed Problem Migraine without aura (84140965) Migraine without aura, not intractable, with status migrainosus (G43.001) Active confirmed Problem Insomnia (903509797) Insomnia, unspecified (G47.00) Active confirmed Problem Cardiac arrhythmia (185946883) Other specified cardiac arrhythmias (I49.8) Active confirmed Problem Chronic rhinitis (33027314) Chronic rhinitis (J31.0) Active confirmed Problem Atopic neurodermatitis (557055061) Atopic neurodermatitis (L20.81) Active confirmed Problem Atopic dermatitis (89701137) Intrinsic (allergic) eczema (L20.84) Active confirmed Problem Atopic dermatitis (82417938) Other atopic dermatitis (L20.89) Active confirmed Problem Endometriosis (826398613) Endometriosis, unspecified (N80.9) Active confirmed Problem Tachycardia (7507042) Tachycardia, unspecified (R00.0) Active confirmed Problem Flushing (51329276) Flushing (R23.2) Active confirmed Problem Shortness of breath (770870422) Shortness of breath (R06.02) Active confirmed Problem Depression (555047351) Depression, unspecified (F32.A) Active confirmed Problem Chronic cough (61898325) Chronic cough (R05.3) Active confirmed Vital Signs Oximetry 96 % 07/22/2024 Blood pressure diastolic 86 mm Hg 07/22/2024 Height 65 in 07/22/2024 Blood pressure systolic 126 mm Hg 07/22/2024 Weight 199.4 lbs 07/22/2024 BMI 33.18 kg/m2 07/22/2024 Encounters Encounter Location Date Provider Diagnosis [address] [address] 09/28/2023 Provider [facility] Flushing R23.2 ; Shortness of breath R06.02 and Chronic rhinitis J31.0 [facility] [address] [place] [address] [place] [address] [address] 09/23/2023 Calos Greff Flushing R23.2 ; Vamshi h and other nonspecific skin eruption R21 ; Shortness of breath R06.02 ; Chronic cough R05.3 ; Chronic rhinitis J31.0 and Other specified abnormal immunological findings in serum R76.[address] [place] [address] [address] 10/22/2023 Calos Greff Flushing R23.2 ; Vamshi h and other nonspecific skin eruption R21 ; Shortness of breath R06.02 ; Chronic cough R05.3 ; Chronic rhinitis J31.0 and Other specified abnormal immunological findings in serum R76.[address] [place] [address] [address] 06/22/2024 Calos Greff Flushing R23.2 ; Vamshi h and other nonspecific skin eruption R21 ; Shortness of breath R06.02 ; Chronic cough R05.3 ; Chronic rhinitis J31.0 and Other specified abnormal immunological findings in serum R76.[address] [place] [address] [address] 07/22/2024 Amarilis Albert Flushing R23.2 ; Vamshi h and other nonspecific skin eruption R21 ; Shortness of breath R06.02 ; Chronic cough R05.3 ; Chronic rhinitis J31.0 ; Other specified abnormal immunological findings in serum R76.8 and Elevated blood-pressure reading, without diagnosis of hypertension R03.[address] [address] 07/22/2024 Carlos Loving [facility] [address] [place] [phone] 10/22/2023 Carlos Loving Shortness of breath R06.[address] [address] 07/13/2024 Carlos Loving Assessments Encounter Date Diagnosis (ICD Code) Assessment Notes Treatment Notes Treatment Clinical Notes Section Notes 09/23/2023 Rash and other nonspecific skin eruption (ICD-10 - R21) History of facial and extremity rash with redness and itching without drying and flaking, pictures do not show urticaria - continue to journal for triggers and continue with plan above - Can consider patch testing, but patient denies recurrence of rash since initial visit 09/23/2023 Flushing (ICD-10 - R23.2) Vague history of flushing and skin changes over the last several years, recently worsening. She has history of POTS and currently following with cardiology and neurology for migraines as well. - outside tryptase was elevated although no records to review at this time - per patient level was ~ 11. Unsure if this was baseline, as her symptoms of flushing/rash and nausea occurred nearly every day. She denies any hives with above flushing/below arm rash, pictures do not show hives. She denies any history of swelling/angioedem a or prior episodes of anaphylaxis. She has baseline nausea, idiopathic, without vomiting or diarrhea. No clinical indication of anaphylaxis, but there are concerns for mast cell activation. Updated tryptase with us was ~3, which is normal. This is reassuring that maybe prior tryptase level was in the setting of a questionable flare. All other labs, as above are WNL aside from slightly elevated plasma metanephrine level and then 24-hour urine elevated metanephrine level. Had evaluation with Endocrinology showing lower levels. There are still concerns for some mast cell activation, as added Cromolyn has improved her nausea symptoms. - Continue current medication regimen. Has seen ART Zhou who told her she likely has mast cell disease. Records returned showing elvated tryptase though no labs available to review. That said, she was referred to Dr. Murray by me though reprots insurance issues. At this point she would like to hold off on further evaluation. - We previosuly discussed need for bone marrow biopsy if she is wishing to have true clinical rule of out mast cell activation. Adeline would like to hold off for now as she feels this will not change her treatment. - Continue to carry AIE given concern for throat swelling in the setting of unknown exposure - no interval swelling. - Consider simplifying Zyrtec to 20 mg BID. Flushing still occuring but feels it is manageable. Xolair would be the likely next step in treatment. She currently feels episdoes are improving so would like to continue with current reigmen. Return in 1 month for E&M 09/28/2023 Flushing (ICD-10 - R23.2) 10/22/2023 Rash and other nonspecific skin eruption (ICD-10 - R21) History of facial and extremity rash with redness and itching without drying and flaking, pictures do not show urticaria - continue to journal for triggers and continue with plan abov 10/22/2023 Flushing (ICD-10 - R23.2) Vague history of flushing and skin changes over the last several years, recently worsening. She has history of POTS and currently following with cardiology and neurology for migraines as well. - outside tryptase was elevated although no numeric level ever obtainted - per patient level was ~ 11. Unsure if this was baseline, as her symptoms of flushing/rash and nausea was occurring nearly every day. She denies any hives with above flushing/below arm rash, pictures do not show hives. She denies any history of swelling/angioedem a or prior episodes of anaphylaxis. She has baseline nausea, without vomiting or diarrhea. No clinical indication of anaphylaxis, but there are concerns for mast cell activation. Updated tryptase with us was ~3, WNL. All other labs, as above are WNL aside from slightly elevated plasma metanephrine level and then 24-hour urine elevated metanephrine level. Had evaluation with Endocrinology showing lower levels. There are still concerns for mast cell activation, as added Cromolyn has improved her nausea symptoms. - Continue current medication regimen. Has seen Dr. Foote, GI who told her she likely has mast cell disease. She was previously referred to Dr. Oh, hematology by me though reports insurance issues. At this point she would like to hold off on further evaluation. - We previosuly discussed need for bone marrow biopsy if she is wishing to have true clinical rule of out mast cell activation. Adeline would like to hold off for now as she feels this will not change her treatment. - Continue to carry AIE given concern for throat swelling in the setting of unknown exposure - no interval swelling. - Consider simplifying Zyrtec to 20 mg BID. Flushing still occuring. [facility] be obtain while flushing epsidoe occurs as this is still occuring 2-3 times a week. Xolair would be the likely next step in treatment. She would like to continue with current reigmen for the time being. Plan to return in 3-4 months for E&M 10/22/2023 Shortness of breath (ICD-10 - R06.02) 06/22/2024 Rash and other nonspecific skin eruption (ICD-10 - R21) History of facial and extremity rash with redness and itching without drying and flaking, pictures do not show urticaria - continue to journal for triggers and continue with plan abov 06/22/2024 Flushing (ICD-10 - R23.2) Vague history of flushing and skin changes over the last several years, recently worsening. She has history of POTS and currently following with cardiology and neurology for migraines as well. - outside tryptase was elevated although no numeric level ever obtained - per patient level was ~ 11. Unsure if this was baseline, as her symptoms of flushing/rash and nausea was occurring nearly every day. She denies any hives with above flushing/below arm rash, pictures do not show hives. She denies any history of swelling/angioedem a or prior episodes of anaphylaxis. She has baseline nausea, without vomiting or diarrhea. No clinical indication of anaphylaxis, but there are concerns for mast cell activation. Updated tryptase with us was ~3, WNL. All other labs, as above are WNL aside from slightly elevated plasma metanephrine level and then 24-hour urine elevated metanephrine level. Had evaluation with Endocrinology showing lower levels. There are still concerns for mast cell activation, as added Cromolyn has improved her nausea symptoms. - Continue current medication regimen. Has seen ART Zhou who told her she likely has mast cell disease. She was previously referred to Dr. Murray, hematology by me though reports insurance issues. At this point she would like to hold off on further evaluation. - We previously discussed need for bone marrow biopsy if she is wishing to have true clinical rule of out mast cell activation. Adeline would like to hold off for now as she feels this will not change her treatment. - Continue to carry AIE given concern for throat swelling in the setting of unknown exposure - no interval swelling. - Episdoes only occuring a few times a month now. Plan to return in 3-4 months for E&M 07/22/2024 Rash and other nonspecific skin eruption (ICD-10 - R21) History of facial and extremity rash with redness and itching without drying and flaking, pictures do not show urticaria - continue to journal for triggers and continue with plan abov 07/22/2024 Flushing (ICD-10 - R23.2) Vague history of flushing and skin changes over the last several years, recently worsening. She has history of POTS and currently following with cardiology and neurology for migraines as well. - outside tryptase was elevated although no numeric level ever obtained - per patient level was ~ 11. Unsure if this was baseline, as her symptoms of flushing/rash and nausea was occurring nearly every day. She denies any hives with above flushing/below arm rash, pictures do not show hives. She denies any history of swelling/angioedem a or prior episodes of anaphylaxis. She has baseline nausea, without vomiting or diarrhea. No clinical indication of anaphylaxis, but there are concerns for mast cell activation. Updated tryptase with us was ~3, WNL. All other labs, as above are WNL aside from slightly elevated plasma metanephrine level and then 24-hour urine elevated metanephrine level. Had evaluation with Endocrinology showing lower levels. There are still concerns for mast cell activation, as added Cromolyn has improved her nausea symptoms. - Continue current medication regimen. Has seen ART Florez who told her she likely has mast cell disease. She was previously referred to Dr. Murray, hematology by me though reports insurance issues. At this point she would like to hold off on further evaluation. - Dr. Adams had bee prescribing Cromoyln Sodium for flushing and nausea since 2021. Per Adeline, it was denied and siggested it be filled through our office. As I am new to her case, I discussed with DAMIAN Mckeon, who is in agreement to attempt courtesy refill at this time as this has been beneficial. Ideally, recommend Dr. Adams continue to fill moving forward. - We previously discussed need for bone marrow biopsy if she is wishing to have true clinical rule of out mast cell activation. Adeline would like to hold off for now as she feels this will not change her treatment. - Continue to carry AIE given concern for throat swelling in the setting of unknown exposure - no interval swelling. - Episdoes only occuring a few times a month now. Plan to return in 3-4 months for E&M 07/22/2024 Shortness of breath (ICD-10 - R06.02) Adeline returns today reporting symptom improvement. Previously she was using her JORGE multiple times daily, now using JORGE 1-2 times per week, stating some weeks she does not use it at all. Prior spirometrystill with blunting on inhalation concerning for VCD. - Now off all inhaler with ACT = 25. She feels minimal benefit with VCD exercises. Plan to keep JORGE on hand and consider restarting VCD exercises. 06/22/2024 Shortness of breath (ICD-10 - R06.02) Adeline returns today reporting symptom improvement. Previously she was using her JORGE multiple times daily, now using JORGE 1-2 times per week, stating some weeks she does not use it at all. Prior spirometrystill with blunting on inhalation concerning for VCD. - Now off all inhaler with ACT = 25. She feels minimal benefit with VCD exercises. Plan to keep JORGE on hand and consider restarting VCD exercises. 10/22/2023 Shortness of breath (ICD-10 - R06.02) Adeline returns today reporting symptom improvement. Previously she was using her JORGE multiple times daily, now using JORGE 1-2 times per week, stating some weeks she does not use it at all. Last spirometry showed improved FVC and FEV1% though still with blunting on inhalation concerning for VCD. -Off daily inhalers with minimal issue. Minimally using VCD exercises - Started on Arnuity last visit given increased SOB to assess for benefit. She reports subjective improvement though still using JORGE 1-2 times a week without complete relief. Spirometry today shows decreased PEFR though admits to different technique than prior attempts. Still with blunting in inspiration. Prior spirometry with normal FEV1% and FVC. She feels minimal benefit with VCD exercises. Plan on evaluation at [facility]. Referral sent today. Continue Arnuity 09/28/2023 Shortness of breath (ICD-10 - R06.02) 09/23/2023 Shortness of breath (ICD-10 - R06.02) Adeline returns today reporting symptom improvement. Previously she was using her JORGE multiple times daily, now using JORGE 1-2 times per week, stating some weeks she does not use it at all. Last spirometry showed improved FVC and FEV1% though still with blunting on inhalation concerning for VCD. -Off daily inhalers with minimal issue. Minimally using VCD exercises - Again dvised using VCD exercises. Given increase ins SOB episdoes, plan to trial Arnuity. Plan to return in 1 month for repeat spiromtery. Would consider evaluation at [facility] if SOB persists 09/23/2023 Chronic cough (ICD-10 - R05.3) as above 10/22/2023 Chronic cough (ICD-10 - R05.3) as above 06/22/2024 Chronic cough (ICD-10 - R05.3) as above 07/22/2024 Chronic cough (ICD-10 - R05.3) as above 07/22/2024 Chronic rhinitis (ICD-10 - J31.0) ImmunoCaps negative, as SPT was could not be done d/t antihistamine use at initial visit - Consider SPT when able to hold antihistamines given concern for cat allergy 06/22/2024 Chronic rhinitis (ICD-10 - J31.0) ImmunoCaps negative, as SPT was could not be done d/t antihistamine use at initial visit - Consider SPT when able to hold antihistamines given concern for cat allergy 09/28/2023 Chronic rhinitis (ICD-10 - J31.0) 10/22/2023 Chronic rhinitis (ICD-10 - J31.0) ImmunoCaps negative, as SPT was could not be done d/t antihistamine use at initial visit - Consider SPT when able to hold antihistamines given concern for cat allergy 09/23/2023 Chronic rhinitis (ICD-10 - J31.0) ImmunoCaps negative, as SPT was could not be done d/t antihistamine use at initial visit - Consider SPT when able to hold antihistamines given concern for cat allergy - Plan to start Flonase today 09/23/2023 Other specified abnormal immunological findings in serum (ICD-10 - R76.8) Elevated metanephrine levels in plasma with elevated levels of 24-hour urine metanephrine levels - per patient, repeat levels with Endocrinology were lower. Also reported ruling out Louisburg's syndrome with Endocrinology as well. Told no need for further f/u 10/22/2023 Other specified abnormal immunological findings in serum (ICD-10 - R76.8) Elevated metanephrine levels in plasma with elevated levels of 24-hour urine metanephrine levels - per patient, repeat levels with Endocrinology were lower. Also reported ruling out Louisburg's syndrome with Endocrinology as well. Told no need for further f/u 06/22/2024 Other specified abnormal immunological findings in serum (ICD-10 - R76.8) Elevated metanephrine levels in plasma with elevated levels of 24-hour urine metanephrine levels - per patient, repeat levels with Endocrinology were lower. Also reported ruling out Louisburg's syndrome with Endocrinology as well. Told no need for further f/u 07/22/2024 Other specified abnormal immunological findings in serum (ICD-10 - R76.8) Elevated metanephrine levels in plasma with elevated levels of 24-hour urine metanephrine levels - per patient, repeat levels with Endocrinology were lower. Also reported ruling out Marques's syndrome with Endocrinology as well. Told no need for further f/u 07/22/2024 Elevated blood-pressure reading, without diagnosis of hypertension (ICD-10 - R03.0) BP elevated today without symptoms of urgency or emergency. Continue serial checks and follow-up with PCP 09/23/2023 Other 10/22/2023 Other 06/22/2024 Other 07/22/2024 Other Plan Of Treatment Pending Test Test Name Order Date TRYPTASE 10/22/2023 Next Appt Details Provider Name:Claribel barr, 12/22/2024 09:00:00 AM, [address], [address], [place], [address], Insurance Providers Payer Name Payer Address Payer Phone Subscriber Number Group Number Insured Name Patient Relationship to Insured Coverage Start Date Coverage End Date PRADIP OGLESBY ([place]) [id number] Robert [place] [id number] Adeline Holden Self - patient is the insured 5 [employer] [address] [address] [place] [address] [id number] Mike Holden Child - Insured has Financial Responsibility 4 Medical (General) History Medical History History ICD Code Endometriosis, unspecified N80.9 Depression, unspecified F32.A Anxiety disorder, unspecified F41.9 Insomnia, unspecified G47.00 Attention-deficit hyperactivity disorder , unspecified type F90.9 Restless legs syndrome G25.81 Migraine without aura, not intractable, with status migrainosus G43.001 Other specified cardiac arrhythmias I49. 8 Tachycardia, unspecified R00.0 Postural orthostatic tachycardia syndrom e [POTS] G90.A Surgical History Surgery Date(Month/Year) Pelvic Laparoscopy 12/21/2020 Colonoscopy 04/24/2021 [place] teeth removal 11/22/2020 Hospitalization History Reason Date(Month/Year) Vasovagal 11/07/2022 Hospitalization for postural orthostatic tachycardia syndrome 02/12/2021
--- OUTSIDE RECORDS SUMMARY | 2024-07-26 16:42 | XMS_ITS | Encounter Summary ---
Author Organization [facility] Address [address] [place] [address] Care Team Providers Care Fowl Blood Tester Name Role Phone Destini Garcia HEYDI Primary Care Provider [phone] Encounter Details Date Type Department Care Team (Late st Contact Info) Description 10/28/2022 Hoppit Message Enc [facility] THREE [facility], [facility] [address] [place], [place] [id number] Franky Wallace MD Three [facility]. [facility] [address] [place], [place] [phone] Medications Social History Tobacco Use Types Packs/Day Years [...] Sex Assigned at Female 06/18/2024 10:56 AM AREA RELIEF PILOT Legal Sex Female 7:31 PM CDT Gender Identity Female 04/07/2021 9:13 AM AREA RELIEF PILOT Sexual Orientation Choose not to disclose 2024 8:31 AM CDT documented as of this encounter Functional [...] documented in this encounter Progress Notes * Carole Whatley RN - 10/30/2022 11:23 AM CDT Rx sent to the pharmacy - Nadolol, Sodium chloride and midodrine. documented in this encounter Plan of Treatment Upcoming Encounters Date Type Department Care Team (Late st Contact Info) Description 08/18/2024 1:20 PM CDT Office Visit [facility] Family & Internal Medicine - [place] [id number] [place] [address] Destini Garcia FNP [address] [place] [address] 09/29/2024 1:15 PM CDT Office Visit [facility], [facility] [address] [place] [address] Franky Wallace MD [facility]. [facility] [address] [place] [address] documented as of this encounter Goals Goal Patient Goal Type Associated Problems Recent Progress Patient-Stated? Author Patient will return to prior living situation and remain independent in ADLs upon discharge from [facility] Phyllis Law RN documented as of this encounter Visit Diagnoses Diagnosis POTS (postural orthostatic tachycardia syndrome) Tachycardia, unspecified Syncope, unspecified syncope type documented in this encounter Additional Health Concerns Assessment Noted Time PHQ-9 Depression Total Score: 11 023 9:14 AM AREA RELIEF PILOT documented as of this encounter Care Teams Fowl Blood Tester Relationship Specialty Start Date End Date Destini Garcia FNP [address] [place] [address] PCP - General Nurse Practitioner Family 11/21/20 documented as of this encounter
--- OUTSIDE RECORDS SUMMARY | 2024-07-26 16:42 | XMS_ITS | Encounter Summary ---
Author Organization [facility] Address [address] [place] [address] Care Team Providers Care Oracle Manufacturing Consultant Name Role Phone Jillduy Destini HEYDI Primary Care Provider [phone] Encounter Details Date Type Department Care Team (Late st Contact Info) Description 05/04/2022 TellFihart Message Enc [facility] Medical Group Multispecialty Care - [facility] [address] [facility], [address] [place] [address] Dana Silva MD [address] [place] [address] PA for Emgality Social History Tobacco Use Types Packs/Day [...] Sex Assigned at Female 06/18/2024 10:56 AM PAYROLL AND BENEFITS ASSISTANT Legal Sex Female 7:31 PM CDT Gender Identity Female 04/07/2021 9:13 AM PAYROLL AND BENEFITS ASSISTANT Sexual Orientation Choose not to disclose 2024 8:31 AM CDT COVID-19 Exposure Response Date Recorded In the last 10 days, have yo u been in contact with someone who was confirmed or suspected to have Coronavirus/COVID-19? No / Unsure 05/03/2022 8:04 AM PAYROLL AND BENEFITS ASSISTANT documented as of this encounter Functional Status [...] Description 08/18/2024 1:20 PM CDT Office Visit [facility] Family & Internal Medicine - [place] [address] [place] [address] Destini Garcia FNP [address] [place] [address] 09/29/2024 1:15 PM CDT Office Visit [facility] THREE [facility], [facility] [address] [place], [place] [phone] Franky Wallace MD [facility]. [facility] [address] [place] [address] documented as of this encounter Goals Goal Patient Goal Type Associated Problems Recent Progress Patient-Stated? Author Patient will return to prior living situation and remain independent in ADLs upon discharge from [facility] General No Phyllis Law RN documented as of this encounter Visit Diagnoses Not on filedocumented in this encounter Additional Health Concerns Assessment Noted Time PHQ-9 Depression Total Score: 11 023 9:14 AM PAYROLL AND BENEFITS ASSISTANT documented as of this encounter Care Teams Oracle Manufacturing Consultant Relationship Specialty Start Date End Date Destini Garcia FNP [address] [place] [address] PCP - General Nurse Practitioner Family 11/21/20 documented as of this encounter
--- OUTSIDE RECORDS SUMMARY | 2024-07-26 16:42 | XMS_ITS | Encounter Summary ---
Author Organization [facility] Facility Care Team Providers Care Supervisor Brew House Name Role Phone Molina Francisco MD Primary Care Provider + Dana Silva MD Unavailable [phone] Destini Garcia NP Primary Care Provider [phone] Encounter Details Date Type Department Care Team (Latest Contact Info) Description 02/19/2018 Orders Only [facility] CLINCONV ProviderCornell MD [address] [place] [address] Social History Tobacco Use Types Packs/Day [...] Date/Time Associated Diagnosis Comments SCAN - LABS 02/19/2018 12:00 AM CAMOUFLAGE SPECIALIST documented in this encounter Results * SCAN - LABS (02/19/2018 12:00 AM CAMOUFLAGE SPECIALIST) Narrative 02/19/2018 12:00 AM CAMOUFLAGE SPECIALIST Ordered by an unspecified provider. Historical Provider Final Res ult documented in this encounter Visit Diagnoses Not on filedocumented in this encounter Additional Health Concerns Infection Onset Date Last Indicated Resolved Time COVID: Suspected 04/18/2020 04/18/2020 04/20/2020 4:44 AM CAMOUFLAGE SPECIALIST COVID19 04/18/2020 04/18/2020 05/02/2020 3:07 AM CAMOUFLAGE SPECIALIST COVID: Recovered Comment:Added based on recent COVID infection. 05/02/2020 05/02/2020 08/30/2020 3:05 AM C DT COVID: Suspected 10/07/2020 10/07/2020 10/08/2020 12:36 AM CDT COVID: Suspected 03/04/2021 03/04/2021 03/05/2021 5:34 AM CAMOUFLAGE SPECIALIST documented as of this encounter Care Teams Supervisor Brew House Relationship Specialty Start Date End Date Molina Francisco MD [address] [place] [address] PCP - General Internal Medicine 12/06/17 06/01/21 Destini Garcia NP [address] [place] [address] PCP - General Nurse Practitioner 06/02/21 Dana Silva MD [address] [place] [address] Fellow Neurology 05/15/21 documented as of this encounter
--- OUTSIDE RECORDS SUMMARY | 2024-07-26 16:42 | XMS_ITS | Encounter Summary ---
Author Organization [facility] Facility Care Team Providers Care Lacing Cutter Name Role Phone Molina Francisco MD Primary Care Provider + Dana Silva MD Unavailable [phone] Destini Garcia NP Primary Care Provider [phone] Encounter Details Date Type Department Care Team (Latest Contact Info) Description 01/25/2018 Orders Only [facility] CLINCONV Provider, MD Cornell [address] [place] [address] Social History Tobacco Use Types Packs/Day [...] Date/Time Associated Diagnosis Comments SCAN - LABS 02/27/2018 12:00 AM GROUNDSKEEPING MAINTENANCE WORKER CARDIOLOGY REPORT 02/27/2018 12: 00 AM GROUNDSKEEPING MAINTENANCE WORKER documented in this encounter Results * SCAN - LABS (02/27/2018 12:00 AM GROUNDSKEEPING MAINTENANCE WORKER) Narrative 02/27/2018 12:00 AM GROUNDSKEEPING MAINTENANCE WORKER Ordered by an unspecified provider. Historical Provider Final Res ult * CARDIOLOGY REPORT (02/27/2018 12:00 AM GROUNDSKEEPING MAINTENANCE WORKER) Anatomical Region Laterality Modality Other Narrative 02/27/2018 12:00 AM GROUNDSKEEPING MAINTENANCE WORKER Ordered by an unspecified provider. us Historical Provider [facility] KALIN TORRES Final Result documented in this encounter Visit Diagnoses Not on filedocumented in this encounter Additional Health Concerns Infection Onset Date Last Indicated Resolved Time COVID: Suspected 04/18/2020 04/18/2020 04/20/2020 4:44 AM GROUNDSKEEPING MAINTENANCE WORKER COVID19 04/18/2020 04/18/2020 05/02/2020 3:07 AM GROUNDSKEEPING MAINTENANCE WORKER COVID: Recovered Comment:Added based on recent COVID infection. 05/02/2020 05/02/2020 08/30/2020 3:05 AM C DT COVID: Suspected 10/07/2020 10/07/2020 10/08/2020 12:36 AM CDT COVID: Suspected 03/04/2021 03/04/2021 03/05/2021 5:34 AM GROUNDSKEEPING MAINTENANCE WORKER documented as of this encounter Care Teams Lacing Cutter Relationship Specialty Start Date End Date Molina Francisco MD [address] [place] [address] PCP - General Internal Medicine 12/06/17 06/01/21 Destini Garcia NP [address] [place] [address] PCP - General Nurse Practitioner 06/02/21 Dana Silva MD [address] [place] [address] Fellow Neurology 05/15/21 documented as of this encounter
--- OUTSIDE RECORDS SUMMARY | 2024-07-26 16:42 | XMS_ITS | Encounter Summary ---
Author Organization [facility] Address [address] [place] [address] Care Team Providers Care Pullman Car Repairer Name Role Phone JillDestini gordillo HEYDI Primary Care Provider [phone] Encounter Details Date Type Department Care Team (Late st Contact Info) Description 12/13/2020 Prep for Procedure [facility] [address] Paige Muniz MD [address] [place] [address] Social History Tobacco Use Types Packs/Day Years Used Date Smoking Tobacco: Never Smokeless Tobacco: Never Alcohol Use Standard Drinks/Week Comments Not Currently 0 (1 standard drink = 0.6 oz pur e alcohol) AUDIT-C Answer Date Recorded Frequency of Alcohol Consumption Never 08/22/2018 Average Number of Drinks Not on file 019 Frequency of Binge Drinking Not on file 08/13 PHQ-2 Answer Date Recorded PHQ-2 Score - If the patient scores above 3, please move on to questions 3-9 6 11/21/2020 Comments No Sex and Gender Information Value Date Recorded Sex Assigned at Female 06/18/2024 10:56 AM UNIT MANAGER RN Legal Sex Female 7:31 PM CDT Gender Identity Female 04/07/2021 9:13 AM UNIT MANAGER RN Sexual Orientation Choose not to disclose 2024 8:31 AM CDT COVID-19 Exposure Response Date Recorded In the last month, have you been in contact with someone who was confirmed or suspected to have Coronavirus / COVID-19? No / Unsure 12/06/2020 7:44 PM CDT documented as of this encounter Plan of Treatment Upcoming Encounters Date Type Department Care Team (Late st Contact Info) Description 08/18/2024 1:20 PM CDT Office Visit [facility] Family & Internal Medicine - [place] [address] [place] [address] Destini Garcia FNP [address] [place] [address] 09/29/2024 1:15 PM CDT Office Visit [facility], [facility] [address] [place], [place] [phone] Franky Wallace MD Three [facility]. [facility] [address] [place], [place] [phone] documented as of this encounter Results * TYPE & SCREEN (12/20/2020 9:13 AM CDT) ABO/RH B POSITIVE 12/20/2020 10:28 AM CDT [facility] ANTIBODY SCREEN NEGATIVE 12/20/2020 10:28 AM CDT [facility] SAMPLE EXPIRATION 12/24/2020,2 359 12/21/2020 9:47 AM CDT [facility] COMMENT NO HISTORY OF TRANSFUSIONS , OR ANTIBODIES, NEW SPECIMEN NOT NEEDED 12/21/2020 9:47 AM CDT [facility] 12/20/2020 9:13 AM CDT us Paige Muniz MD BLOOD BANK TEST ORDERABLES Final Result [facility] [address] [place] [address], * CBC W/DIFF AUTOMATED (12/20/2020 9:13 AM CDT) [facility] WBC 9.1 4.5 - 11.0 x10'3/uL 12/20/2020 9:43 AM CDT [facility] RBC 4.47 4.20 - 5.40 x10'6/uL 12/20/2020 9:43 AM CDT [facility] HGB 12.9 12.0 - 16.0 G/DL 12/20/2020 9:43 AM CDT [facility] HCT 40.1 38.0 - 48.0 % 12/20/2020 9:43 AM CDT [facility] MCV 89.7 81.0 - 99.0 FL 12/20/2020 9:43 AM CDT [facility] MCH 28.9 27.0 - 31.0 PG 12/20/2020 9:43 AM CDT [facility] MCHC 32.2 32.0 - 36.0 G/DL 12/20/2020 9:43 AM CDT [facility] RDW 13.7 11.5 - 14.5 % 12/20/2020 9:43 AM CDT [facility] PLT 353 130 - 400 x10'3/uL 12/20/2020 9:43 AM CDT [facility] MPV 9.5 9.3 - 12.2 FL 12/20/2020 9:43 AM CDT [facility] DIFFERENTIAL TYPE AUTOMATED DIFFERENTIAL 12/20/2020 9:43 AM CDT [facility] NEUTROPHILS % 65.5 % 12/20/2020 9:43 AM CDT [facility] LYMPHOCYTES % 24.7 % 12/20/2020 9:43 AM CDT [facility] MONOCYTES % 8.8 % 12/20/2020 9:43 AM CDT [facility] EOSINOPHILS 0.6 % 12/20/2020 9:43 AM CDT [facility] BASOPHILS 0.2 % 12/20/2020 9:43 AM CDT [facility] IMMATURE GRANS % 0.2 % 12/21/19 9:43 AM CDT [facility] ABS. NEUTROPHILS TOTAL 5.95 1.80 - 7.70 x10'3/uL 12/20/2020 9:43 AM CDT [facility] ABS. LYMPHOCYTES 2.24 1.00 - 4.80 x10'3/uL 12/20/2020 9:43 AM CDT [facility] ABS. MONOCYTES 0.80 0.24 - 0.86 x10'3/uL 12/20/2020 9:43 AM CDT [facility] ABS. EOSINOPHILS 0.05 0.04 - 0.36 x10'3/uL 12/20/2020 9:43 AM CDT [facility] ABS. BASOPHILS 0.02 0.01 - 0.08 x10'3/uL 12/20/2020 9:43 AM CDT [facility] ABS. IMMATURE GRANULOCYTES 0.02 0.00 - 0.49 x10'3/uL 12/20/2020 9:43 AM CDT [facility] 12/20/2020 9:13 AM CDT us Paige Muniz MD LABORATORY Final Result [facility] [address] [place] [address], [place] [phone] documented in this encounter Visit Diagnoses Diagnosis Preop examination- Primary Preoperative examination, unspecified Pelvic pain documented in this encounter Additional Health Concerns Assessment Noted Time PHQ-9 Depression Total Score: 23 021 9:30 AM CDT documented as of this encounter Care Teams Pullman Car Repairer Relationship Specialty Start Date End Date Destini Garcia FNP [address] [place] [address] PCP - General Nurse Practitioner Family 11/21/20 documented as of this encounter
--- OUTSIDE RECORDS SUMMARY | 2024-07-26 16:42 | XMS_ITS ---
Author Organization [facility] Address [address] [place] [address] Care Team Providers Care Liquid Flavor Compounder Name Role Phone Destini Jackman Primary Care Provider Carlos Donnelly Unavailable [phone] Dana Silva Unavailable Unavailable Amarilis Albert Unavailable [phone] Allergies Allergen (clinical drug ingredient) Drug/Non Drug Allergy documented on EMR Reaction Allergy Type Onset Date Status doxycycline Doxycycline hives Drug Allergy Act thelma REASON FOR VISIT Flushing and nausea, continues on 20 mg Zyrtec BID, BID 40 mg Pepcid, and Singulair, Breakthrough clearly improved; approx q other week. Continues Cromolyn with improvement. Seen by Dr. Adams whosaid she likely has mast cell disease. Records only with elevated tryptase. Was referred to though reports insurance issue. Repeat Tryptase WNL., Cough and SOB, Noted signs of VCD on priorspirometry of which she is using exercises with benefit. Now off all inhalers though has JORGE on hand, Chronic rhinitis & hypertrophy of nasal turbinates follow-up, ImmunoCaps negative, unable tocome off antihistamines at this time, [facility], with abnormal sweattest results and noted autonomic neuropathy Medications Medication SIG (Take, Route, Frequency, Duration) Notes Start Date End Date Status traZODone HCl 100 MG 1 by mouth at bedtime Active Estarylla 0.25-35 MG-MCG TABLET 1 TABLET BY MOUTH DAILY SKIPPING ALL PLACEBOS Diagnosis Unavailable Active Sodium Chloride 1 GM as directed Active Gabapentin 100 MG 1 cap(s) orally Qday Active Ondansetron HCl 4 MG 1 tab(s) orally every 8 hours Active Auvi-Q 0.3 MG/0.3ML as directed intramuscularly once for 30 day(s) Active Rizatriptan Benzoate 10 MG 1 tab(s) orally Qday, PRN Active clonazePAM 0.5 MG 1 tab(s) orally Qday, PRN Active Flovent HFA CFC FREE 110 MCG/INH 2 PUFF(S) INHALED 2 TIMES A DAY for 30 DAYS *Please review and pick correct strength-formula tion from Globili options. If intended option is not shown, discontinue and re-order from Quick Search* Active Ventolin HFA 108 (90 Base) MCG/ACT 2 puff(s) inhaled every 6 hours, PRN for 30 day(s) Active Montelukast Sodium 10 MG 1 tab(s) orally once a day, at night for 90 days Active Auvi-Q 0.3 MG/0.3ML as directed Injection as needed for 30 days Active Famotidine 20 MG 2 tab(s) orally 2 times a day Active Albuterol Sulfate HFA 108 (90 Base) MCG/ACT 2 puffs as needed Inhalation every 4 hrs for 30 days Active Cetirizine HCl 10 MG 2 tab(s) orally BID for 30 days Active Montelukast Sodium 10 MG 1 tab(s) orally once a day, at night for 90 days Not-Taking FLOVENT HFA CFC free 110 mcg/inh 2 puff(s) inhaled 2 times a day for 30 days Not-Taking VENTOLIN HFA 90 mcg/inh 2 puff(s) inhaled every 6 hours, PRN for 30 day(s) Not-Taking Arnuity Ellipta 100 MCG/ACT 1 puff Inhalation Twice a day for 30 days Active Montelukast Sodium 10 MG 1 tablet Orally Once a day for 30 days Active Cromolyn Sodium 100 MG/5ML 10ml Orally three times a day for 30 days Active AUVI -Q 0.3 mg as directed intramuscularly once for 30 day(s) Not-Taking clomiPRAMINE HCl 50 MG 1 cap(s) orally 2 times a day Not-Taking FLUTICASONE NASAL 50 mcg/inh 2 spray(s) in each nostril 2 times a day for 30 days Active AEROCHAMBER MDI SPACER - MOUTHPIECE (ADULT) N/A As directed PO Per asthma action plan for 30 day(s) Active LaMICtal 25 MG 1 tab(s) orally 2 times a day Not-Taking FAMOTIDINE 20 mg 2 tab(s) orally 2 times a day Active CETIRIZINE HYDROCHLORIDE 10 mg 2 tab(s) orally BID for 30 days Active TRAZADONE 50MG 1 BY MOUTH AT BEDTIME *Please review for potential replacement for e-prescription and drug interaction check* Not-Taking Ferrous Sulfate 325 (65 Fe) MG 1 tab(s) orally bid Not-Taki ng Arnuity Ellipta 100 MCG/ACT 1 puff(s) inhaled every 24 hours for 30 days 09/23/2023 Active Focalin 10 MG 1 tab(s) orally 2 times a day for 30 day(s) Active Fluticasone Propionate 50 MCG/ACT 2 spray(s) in each nostril 2 times a day for 30 days 09/23/2023 Active Social History Tobacco Use: Social History Observation [...] Never (0 point) Points 1 Interpretation Negative Vital Signs Blood pressure systolic 126 mm Hg 07/23/19 25 Blood pressure diastolic 86 mm Hg 025 Height 65 in 07/22/2024 Weight 199.4 lbs 07/22/2024 BMI 33.18 kg/m2 07/22/2024 Oximetry 96 % 07/22/2024 Encounters Encounter Location Date Provider Diagnosis [facility] [address] [address] 07/22/2024 Amarilis Albert Flushing R23.2 ; Vamshi h and other nonspecific skin eruption R21 ; Shortness of breath R06.02 ; Chronic cough R05.3 ; Chronic rhinitis J31.0 ; Other specified abnormal immunological findings in serum R76.8 and Elevated blood-pressure reading, without diagnosis of hypertension R03.0 Assessments Encounter Date Diagnosis (ICD Code) Assessment Notes Treatment Notes Treatment Clinical Notes Section Notes 07/22/2024 Flushing (ICD-10 - R23.2) Vague history [...] Continue current medication regimen. Has seen Dr. Adams, GI who told her she likely has [...] triggers and continue with plan abov 07/22/2024 Shortness of breath (ICD-10 - R06.02) [...] on hand and consider restarting VCD exercises. 07/22/2024 Chronic cough (ICD-10 - R05.3) as above 07/22/2024 Chronic rhinitis (ICD-10 - J31.0) ImmunoCaps negative, as SPT was could not be done d/t antihistamine use at initial visit - Consider SPT when able to hold antihistamines given concern for cat allergy 07/22/2024 Other specified abnormal immunological findings in serum (ICD-10 - R76.8) Elevated metanephrine levels in plasma with elevated levels of 24-hour urine metanephrine levels - per patient, repeat levels with Endocrinology were lower. Also reported ruling out Durham's syndrome with Endocrinology as well. Told no need for further f/u 07/22/2024 Elevated blood-pressure reading, without diagnosis of hypertension (ICD-10 - R03.0) BP elevated today without symptoms of urgency or emergency. Continue serial checks and follow-up with PCP 07/22/2024 Other Plan Of Treatment Medication Medication Name Sig Start Date Stop Date Notes Auvi-Q 0.3 MG/0.3ML as directed Injectio n as needed for 30 days Albuterol Sulfate HFA 108 (9 0 Base) MCG/ACT 2 puffs as needed Inhalation every 4 hrs for 30 days Arnuity Ellipta 100 MCG/ACT 1 puff Inhal ation Twice a day for 30 days Montelukast Sodium 10 MG 1 tablet Orally Once a day for 30 days Cromolyn Sodium 100 MG/5ML 10ml Orally t hree times a day for 30 days FLUTICASONE NASAL 50 mcg/inh 2 spray(s) in each nostril 2 times a day for 30 days AEROCHAMBER MDI SPACER - MOUTHPIECE (ADULT) N/A As directed PO Per asthma action plan for 30 day(s) FAMOTIDINE 20 mg 2 tab(s) orally 2 ti mes a day CETIRIZINE HYDROCHLORIDE 10 mg 2 tab(s) orally BID for 30 days Treatment Notes Assessment Notes Flushing Vague history of flushing and skin changes [...] show hives. She denies any history of swelling/angioedema or prior episodes of anaphylaxis. She has [...] Continue current medication regimen. Has seen Dr. Adams, GI who told her she likely has [...] to return in 3-4 months for E&M Rash and other nonspecific skin eruption History of facial and extremity rash with redness and itching without drying and flaking, pictures do not show urticaria - continue to journal for triggers and continue with plan abov Shortness of breath Adeline returns today reporting symptom improvement. Previously [...] on hand and consider restarting VCD exercises. Chronic cough as above Chronic rhinitis ImmunoCaps negative, as SPT was could not be done d/t antihistamine use at initial visit - Consider SPT when able to hold antihistamines given concern for cat allergy Other specified abnormal imm unological findings in serum Elevated metanephrine levels in plasma with elevated levels of 24-hour urine metanephrine levels - per patient, repeat levels with Endocrinology were lower. Also reported ruling out Durham's syndrome with Endocrinology as well. Told no need for further f/u Elevated blood-pressure read ing, without diagnosis of hypertension BP elevated today without symptoms of urgency or emergency. Continue serial checks and follow-up with PCP Next Appt Details Follow Up: 4 Weeks,3 Months, Reason: Evaluation and Management Provider Name:Claribel barr, 12/22/2024 09:00:00 AM, [facility] [address], [place], [address], Progress Notes * Adeline HOLDENDOB:1995 (28 yo F)Acc No.[id number]:07/22/2024 Progress Notes Patient: Adeline MOURA Provider: KATIE Garcia :1995 A ge:28 Y S ex:Female Date:07/22/2024 Address:[address] [place], [facility] Pcp:CHARLENE Leonardo Subjective: * Chief Complaints: * F lushing and nausea, continues on 20 mg Zyrtec BID, BID 40 mg Pepcid, and Singulair, Breakthrough clearly improved; approx q other week. Continues Cromolyn with improvement. Seen by Dr. Adams who said she likely has mast cell disease. Records only with elevated tryptase. Was referred to Dr. Murray though reports insurance issue. Repeat Tryptase WNL.Cough and SOB, Noted signs of VCD on prior spirometry of which she is using exercises with benefit. Now off all inhalers though has JORGE on handChronic rhinitis & hypertrophy of nasal turbinates follow-up, ImmunoCaps negative, unable to come off antihistamines at this timeEMG and sweat test with [facility], with abnormal sweat test results and noted autonomic neuropathy * HPI: * Introduction: I had the pleasure of seeing Monica Holden, 28-year-old female with a PMH of POTS, depression/anxiety, ADHD, RLS, and migraines who returns in consultation with Dr. Silva (neurology) for interval evaluation and management. She is new to me, last evaluated by DAMIAN Mckeon 1 month ago. Adeline continues on Zyrtec 20 mg BID daily, Pepcid 40 mg BID, and nightly 10 mg Singulair for facial flushing. She also uses Cromolyn TID since 2021 which has been been an a dded benefit. In need of refills as new insurance denied claim from Dr. Adams. Still denies hives with flushing. She continues seeing Dr. Adams who told her she likely has mast cell disease. Records showed elevated tryptase though lab was not available to review. No prior bone biopsy. She was referred to Dr. Murray but unable to be seen due to reproted denial by insurance. Overall feels antihistamines have been greatly beneficial. Will have flushing a few times a week but resolves as soon as it starts. She again denies i nterval swelling. Adeline king lso sees Neurology and reports diagnosis of autonomic neuropathy. She has seen Endocrinology who repeated metanephrine levels which were lower than previous labs ordered. Repeat tryptase level was normal. Currently with mild flushing a few time a month. S he continues to follow with cardiology for active treatment of POTS: overall with improvemetn. Previously was using JORGE several times daily though has recently increased back to 2-3 time a week. Feels this only partially works with use. P rior spirometry with evidence of VCD. She is currently on Arunity with subjective benefit. She suspects her POTS is contrubuting to her SOB. Is trying VCD exercises with minimal difference noted. Now off all inhalers though keeps JORGE on hand. ACT = 25 today. Historically with years of random episodes of temperature intolerances as well skin discolorations which led to initial tryptase workup (~11 per patient). Also with weird colors on legs that come and go. No pictures to review. On cheeks, rash is like a sunburn with burning and itching, denies drying and flaking. Rash would come for a couple of hours, mainly waking with it in morning, and then it would disappear on own. Return in later afternoon really bad. Previous pictures show redness to forehead, cheeks and chin. No raised areas. Rash on arms is described as bumpy and red, with more itching. Previous pictures do not suggest hives. Seen in Urgent care for rash, 06/05/21, prescribed Medrol-dose pack but denies relief of symptoms at that time. No prior swelling/angioedema. No prior episodes concerning for anaphylaxis. No prior use of epinephrine. ImmunoCaps obtained at initial visit, with no detectable allergens. That said, she reports of runny nose and congestion exacerbated by cats. Of note, she also reports prior episode of throat swelling but thought to be related to cat exposure, as she was around cats at that time. Symptoms resolved with Benadryl.Today, she reports no fevers, chills, night sweats or other constitutional symptoms. * ROS: A LLERGY: Positive p er the HPI and history, otherwise unremarkable.?runny nose Y es. s cratchy throat Y es. i tchy eyes Y es. e ar fullness?Yes. s inus congestion Y es. S PECIAL SENSES: Positve for n one. c ataracts N o. g laucoma?No. l oss of hearing N o. i tching in ears N o. r inging in ears Y es.?loss of balance N o. l oss of smell N o. d ry eyes Y es. e xcessive tearing N o. i tching eyes Y es. l oss of taste N o. c onjunctivitis N o.?ear infections N o. C ONSTITUTIONAL: weight gain N o. l oss of appetite Y es. f ever?No. w eakness Y es. w eight loss N o. f atigue Y es. n ight sweats?No. P ositive for n one. E NT: cold N o. c ough Y es. e pistaxis N o. h earing loss N o. c hange in voice N o. s ore throat Y es. r inging in ears?Yes. s inus pain N o. P ositive p er the HPI and history, otherwise unremarkable. R ESPIRATORY: shortness of breath Y es. c hest pain N o. c hest congestion N o. c ough Y es. P ositive p er the HPI and history, otherwise unremakable. O PHTHALMOLOGY: diminished vision N o. e ye irritation Y es. d rainage from eyes N o. b lurring of vision N o. s easonal eye sx N o. P ositive for p er the HPI and history, othewise unremarkable. i tching Y es. s ensitivity to light Y es. d ischarge N o. w atering N o. s welling of the eyelids N o. r edness Y es. E NDOCRINOLOGY: fatigue Y es. p olydipsia N o. p olyuria N o. w eight loss N o. s leep disturbance Y es. c old intolerance Y es. h eat intolerance Y es. d iabetes Y es. P ositive for n one. C ARDIOLOGY: chest pain N o. p alpitations Y es. l eg edema?No. d izziness Y es. s hortness of breath Y es. P ositive for n one.? G ASTROENTEROLOGY: dysphagia N o. a bdominal pain Y es. n ausea?Yes. v omiting Y es. c onstipation Y es. d iarrhea Y es. b lood in stool N o. i ndigestion Y es. h emorrhoids Y es. P ositive for n one. U ROLOGY: difficulty urinating N o. b lood in urine N o. f requent urination N o. u rinary incontinence N o. r ecurrent UTI N o. P ositive for n one. D ERMATOLOGY: rash Y es. m ole N o. l umps N o. d ry or sensitive skin Y es. h geri (urticaria) N o. a cne Y es. s kin cancer?No. P ositive for p er the HPI and history, otherwise unremakable. N EUROLOGY: headache Y es. t ingling numbness Y es. s eizures N o. i nsomnia Y es. m tyree loss N o. d izziness Y es. g ait abnormality N o. P ositive for n one. H EMATOLOGY/LYMPH: Positive for n one. M USCULOSKELETAL: joint swelling N o. j oint pain Y es. l eg cramps Y es. j oint stiffness Y es. s ciatica N o. o steoporosis N o. f racture N o. c arpal tunnel N o. g out N o. P ositive for n one. ? P SYCHOLOGY: high stress level Y es. d epression Y es. s leep disturbances Y es. s uicidal ideation Y es. e ating disorder Y es. m ental or physical abuse Y es. a nxiety Y es. P ositive for n one. F EMALE REPRODUCTIVE: heavy periods Y es. h ot flashes Y es. a bnormal vaginal discharge N o. s exually active N o. i nfertility N o. f requent yeat infections Y es. p elvic pain Y es. b reast pain N o. n ipple discharge No. A re you ? N o. A re you planning on a future pregancy? N o. ? A ll other review of systems per the HPI and history, othwise unremarkable. * Medical History: * Surgical History: P elvic Laparoscopy 12/21/2020olonoscopy 04/24/2021Wisdom teeth removal 11/22/2020 * Hospitalization/Major Diagno stic Procedure: H ospitalization for postural orthostatic tachycardia syndrome 02/12/2021Vasovagal 11/07/2022 * Family History: F ather: alive, Yes. M other: alive, Yes. P aternal Grand Father: No. P aternal Grand Mother: Yes. M aternal Grand Father: Yes. M aternal Grand Mother: Yes. S iblings: Yes. C hildren: No. There is no other family history of cancer, CF, diabetes, emphysema or heart disease. * Social History: M arital Status What is your marital status? s anisa S moking Have you ever smoked tobacco: n ever smoked Additional Findings: Tobacco Non-User C urrent non-smoker Are you a : n ever smoker S moking Smart Form Are you a: n ever smoker D etails on consumption of certain products? Do you regularly consume products with aspartame; Equal or NutraSweet? Y es Do you regularly consume products with artificial coloring??No Have you ever noticed worsening of your rash with these food items? N o E xercise What kind(s) of exercise do you perform regularly? w alking,age-appropriate participation in physical activites How often do you perform this exercise? d aily A re any of the following personal care products containing fragrance, dye or preservatives used regularly? Shampoo: Y es Conditioner: Y es Soap: Y es Laundry Detergent: Y es Fabric Softener: N o Deodorant: Y es Perfume, cologne, after shave: Y es Air freshners or other scented products: Y es Hair coloring dyes or rinses: N o Other: N o O ccupation Are you currenly employed? 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 number of years?1 Do you believe that your current or previous occupation has any bearing on your illness? N o How much work have you missed due to breathing difficulty within the past year? 1 week Please describe the effect of your illness on your job p oor concentration,loss of work,loss of income Do you have any pending or planned legal action against your current or former employer which pertains to your medical illness? N o Do you anticipate that your evaluation will be used in any legal action against your current employer or former employer? N o Have you had any job with high exposure to fumes, chemicals, dust or other noxious substances? N o Are you currently a student? Y es How much school have you missed due to breathing difficulty within the past year? 1 week Please describe the effect of your illness on your school performance: p oor concentration,poor performance E nvironmental History Living environment: a partment Where is the home located? c [place] How long have you lived there? 0 -1 years How many people live in the home? 4 H ome description Basement: N o Any water damage in basement? N o Smokers in the home? N o Smokers outside the home? N o Air Conditioning? Y es Central Air? Y es Forced air heating? Y es Gas or electric? e lectric Fireplace? N o Wood burning stove? N o Do you vacuum the home? Y es Air purification systems? N o Pillow and mattress dust-proof encasings? Y es Do you use a humidifier? N o Do you own any pets? Y es What kind(s)? (click all that apply) d og Where do your pets sleep? b edroom,anywhere in the house Fabric softeners used? N o Plants in the home? N o Is there carpeting in your bedroom? Y es Do you have [id number] carpeting? Y es What material(s) are used to manufacture your bedding and pillow? o ther Do you sleep with quilts or blankets or a duvet? Y es How many dogs? 1 T obacco Control (Standard) Tobacco use: N onsmoker A MARK ANTHONY-C (Standard) Did you have a drink containing alcohol in the past year? Y es How often did you have a drink containing alcohol in the past year? M onthly or less (1 point) How many drinks did you have on a typical day when you were drinking in the past year? 1 or 2 drinks (0 point) How often did you have six or more drinks on one occasion in the past year? N ever (0 point) Points 1 Interpretation N egative * Medications: T akingCromolyn Sodium 100 MG/5ML Concentrate as directed Orally three times a day AEROCHAMBER MDI SPACER - MOUTHPIECE (ADULT) N/A Spacer for MDI use As directed PO Per asthma action plan Arnuity Ellipta 100 MCG/ACT Aerosol Powder Breath Activated 1 puff Inhalation Twice a day Cetirizine HCl 10 MG Tablet 2 tab(s) orally BID Famotidine 20 MG Tablet 2 tab(s) orally 2 times a day Montelukast Sodium 10 MG Tablet 1 tab(s) orally once a day, at night Auvi-Q 0.3 MG/0.3ML Solution Auto-injector as directed intramuscularly once Ventolin HFA 108 (90 Base) MCG/ACT Aerosol Solution 2 puff(s) inhaled every 6 hours, PRN Flovent HFA CFC FREE 110 MCG/INH AEROSOL 2 PUFF(S) INHALED 2 TIMES A DAY , Notes to Pharmacist: *Please review and pick correct strength-formulation from Globili options. If intended option is not shown, discontinue and re-order from Quick Search*clonazePAM 0.5 MG Tablet 1 tab(s) orally Qday, PRN Rizatriptan Benzoate 10 MG Tablet 1 tab(s) orally Qday, PRN Ondansetron HCl 4 MG Tablet 1 tab(s) orally every 8 hours Gabapentin 100 MG Capsule 1 cap(s) orally Qday Sodium Chloride 1 GM Tablet as directed Estarylla 0.25-35 MG-MCG Tablet TABLET 1 TABLET BY MOUTH DAILY SKIPPING ALL PLACEBOS Diagnosis Unavailable traZODone HCl 100 MG Tablet 1 by mouth at bedtime Focalin 10 MG Tablet 1 tab(s) orally 2 times a day Arnuity Ellipta 100 MCG/ACT Aerosol Powder Breath Activated 1 puff(s) inhaled every 24 hours Fluticasone Propionate 50 MCG/ACT Suspension 2 spray(s) in each nostril 2 times a day Albuterol Sulfate HFA 108 (90 Base) MCG/ACT Aerosol Solution 2 puffs as needed Inhalation every 4 hrs Auvi-Q 0.3 MG/0.3ML Solution Auto-injector as directed Injection as needed Taking Cromolyn Sodium 100 MG/5ML Concentrate as directed Orally three times a day Taking AEROCHAMBER MDI SPACER - MOUTHPIECE (ADULT) N/A Spacer for MDI use As directed PO Per asthma action plan Taking Arnuity Ellipta 100 MCG/ACT Aerosol Powder Breath Activated 1 puff Inhalation Twice a day Taking Cetirizine HCl 10 MG Tablet 2 tab(s) orally BID Taking Famotidine 20 MG Tablet 2 tab(s) orally 2 times a day Taking Montelukast Sodium 10 MG Tablet 1 tab(s) orally once a day, at night Taking Auvi-Q 0.3 MG/0.3ML Solution Auto-injector as directed intramuscularly once Taking Ventolin HFA 108 (90 Base) MCG/ACT Aerosol Solution 2 puff(s) inhaled every 6 hours, PRN Taking Flovent HFA CFC FREE 110 MCG/INH AEROSOL 2 PUFF(S) INHALED 2 TIMES A DAY , Notes to Pharmacist: *Please review and pick correct strength-formulation from Globili options. If intended option is not shown, discontinue and re-order from Quick Search*Taking clonazePAM 0.5 MG Tablet 1 tab(s) orally Qday, PRN Taking Rizatriptan Benzoate 10 MG Tablet 1 tab(s) orally Qday, PRN Taking Ondansetron HCl 4 MG Tablet 1 tab(s) orally every 8 hours Taking Gabapentin 100 MG Capsule 1 cap(s) orally Qday Taking Sodium Chloride 1 GM Tablet as directed Taking Estarylla 0.25-35 MG-MCG Tablet TABLET 1 TABLET BY MOUTH DAILY SKIPPING ALL PLACEBOS Diagnosis Unavailable Taking traZODone HCl 100 MG Tablet 1 by mouth at bedtime Taking Focalin 10 MG Tablet 1 tab(s) orally 2 times a day Taking Arnuity Ellipta 100 MCG/ACT Aerosol Powder Breath Activated 1 puff(s) inhaled every 24 hours Taking Fluticasone Propionate 50 MCG/ACT Suspension 2 spray(s) in each nostril 2 times a day Taking Albuterol Sulfate HFA 108 (90 Base) MCG/ACT Aerosol Solution 2 puffs as needed Inhalation every 4 hrs Taking Auvi-Q 0.3 MG/0.3ML Solution Auto-injector as directed Injection as needed Not-Taking/PRNFerrous Sulfate 325 (65 Fe) MG Tablet 1 tab(s) orally bid TRAZADONE 50MG 1 BY MOUTH AT BEDTIME , Notes to Pharmacist: *Please review for potential replacement for e-prescription and drug interaction check*LaMICtal 25 MG Tablet 1 tab(s) orally 2 times a day clomiPRAMINE HCl 50 MG Capsule 1 cap(s) orally 2 times a day AUVI -Q 0.3 mg kit as directed intramuscularly once VENTOLIN HFA 90 mcg/inh aerosol 2 puff(s) inhaled every 6 hours, PRN FLOVENT HFA CFC free 110 mcg/inh aerosol 2 puff(s) inhaled 2 times a day Montelukast Sodium 10 MG Tablet 1 tab(s) orally once a day, at night Medication List reviewed and reconciled with the patientNot-Taking/PRN Ferrous Sulfate 325 (65 Fe) MG Tablet 1 tab(s) orally bid Not-Taking/PRN TRAZADONE 50MG 1 BY MOUTH AT BEDTIME , Notes to Pharmacist: *Please review for potential replacement for e-prescription and drug interaction check*Not-Taking/PRN LaMICtal 25 MG Tablet 1 tab(s) orally 2 times a day Not-Taking/PRN clomiPRAMINE HCl 50 MG Capsule 1 cap(s) orally 2 times a day Not-Taking/PRN AUVI -Q 0.3 mg kit as directed intramuscularly once Not- Taking/PRN VENTOLIN HFA 90 mcg/inh aerosol 2 puff(s) inhaled every 6 hours, PRN Not- Taking/PRN FLOVENT HFA CFC free 110 mcg/inh aerosol 2 puff(s) inhaled 2 times a day Not-Taking/PRN Montelukast Sodium 10 MG Tablet 1 tab(s) orally once a day, at night Medication List reviewed and reconciled with the patient * Allergies: D oxycycline: hivesno[Allergies Verified] Objective: * Vitals: B P:126/86mm Hg, HR:92/min, Pulse Oximetry:96%, ACT:25, CU-Q2oL: 23, UAS7: 0, Ht: 65 in, Wt: 199.4 lbs, BMI:33.18Index. * Examination: G eneral examination: General appearance: p leasant, well-developed, well-nourished, in no apparent distress, speaking in full sentences. HEENT: c onjunctiva are normal bilaterally, TMs without evidence of acute infection, turbinates 2+ swollen and pale inferiorly bilaterally, clear rhinorrhea is present, no polyps noted, no septal perforation, posterior oropharynx is clear without exudates, erythema on pharyngeal wall, no exudates, no tongue swelling, and uvula is midline. Oral cavity: n ormal, no lesions. Breasts : n ot performed. Heart: R RR, S1-S2, no murmurs, no rubs, no gallops. Lungs: c lear to auscultation in all lung kennedy, no wheezes, no crackles, no rhonchi. Neurologic exam: u nremarkable. Skin: n ormal, no visible rash, dermatographism, urticaria, angioedema. Back: n ormal. Extremities: n ormal ROM, no clubbing, no cyanosis, no edema. Genitalia: n ot performed. Assessment: * Assessment: 1. F lushing - R23.2 (Primary) 2 . R miguel and other nonspecific skin eruption - R21 3 . S hortness of breath - R06.02 4 . C hronic cough - R05.3 5 . C hronic rhinitis - J31.0 6 . O ther specified abnormal immunological findings in serum - R76.8 7 . E levated blood-pressure reading, without diagnosis of hypertension - R03.0 Plan: * Treatment: 2. R miguel and other nonspecific skin eruption Notes: History of facial and extremity rash with redness and itching without drying and flaking, pictures do not show urticaria - continue to journal for triggers and continue with plan abov 3. S hortness of breath Continue AEROCHAMBER MDI SPACER - MOUTHPIECE (ADULT) Spacer for MDI use, N/A, As directed, PO, Per asthma action plan, 30 day(s), 1, Refills 11; H old Arnuity Ellipta Aerosol Powder Breath Activated, 100 MCG/ACT, 1 puff, Inhalation, Twice a day, 30 days, 1, Refills 3; C ontinue Albuterol Sulfate HFA Aerosol Solution, 108 (90 Base) MCG/ACT, 2 puffs as needed, Inhalation, every 4 hrs, 30 days, 1, Refills 0. Notes: Adeline returns today reporting symptom improvement. Previously [...] on hand and consider restarting VCD exercises. 4. C hronic cough Notes: as above 5. C hronic rhinitis Continue FLUTICASONE NASAL spray, 50 mcg/inh, 2 spray(s), in each nostril, 2 times a day, 30 days, 1, Refills 0. Notes: ImmunoCaps negative, as SPT was could not be done d/t antihistamine use at initial visit - Consider SPT when able to hold antihistamines given concern for cat allergy 6. O ther specified abnormal immunological findings in serum Notes: Elevated metanephrine levels in plasma with elevated levels of 24-hour urine metanephrine levels - per patient, repeat levels with Endocrinology were lower. Also reported ruling out Durham's syndrome with Endocrinology as well. Told no need for further f/u 7. E levated blood-pressure reading, without diagnosis of hypertension Notes: BP elevated today without symptoms of urgency or emergency. Continue serial checks and follow-up with PCP * Procedure Codes: G 8427 DOC MEDS VERIFIED W/PT OR [id number] PT-FOCUSED HLTH RISK ASSMT * Preventive Medicine: Counseling: D iet a s tolerated. E xercise C ontinue activity as usual. M edication instruction: W atc for side effects of prescribed medications, Singulair (montelukast: serious neuropsychiatric events have been reported in patients; monitor for neuropsychiatric symptoms, Injectable epinephrine education and instruction w/ discussion of signs and symptoms of anaphylaxis and reasons to seek urgent or emergent care. E ducation: O ur staff spent an additional 30 minutes in direct contact with the patient educating them on their current diagnoses and proper treatment and prevention of symptoms and the proper use of medications. P atient education material sent to portal? Y es C are goal follow up plan BMI management provided Y es Above Normal BMI Follow-up W eight monitoring B P Management: PRE-HYPERTENSIVE FOLLOW-UP PLAN: F ollow-up 1 month REFERRAL TO ALTERNATIVE / PRIMARY CARE PROVIDER: R eferral to general physician Screenings: F all Risk Fall Risk Assessment: T wo or more falls without injury in the past year Plan of Care: D ocumented Type of fall plan of care: B alance, strength and gait training or instruction provided * Follow Up: 4 Weeks,3 Months (Reason: Evaluation and Management) * Billing Information: * Visit Code: 50954 Office Visit, Est Pt., Level 4. Modifiers: 25 * Procedure Codes: G8427 DOC MEDS VERIFIED W/[place]. [address] PT-FOCUSED HLTH RISK ASSMT. * Sign off status: Completed true * Provider: KATIE Garcia Date: 0 07/22/2024 Generated for Ariane vanegas/Kandi/eTransmitting on: 0 07/26/2024 04:42 PM CDT History and Physical Notes * HPI (History of Present Illness) Category Sub-Category Detail Notes Category Not es *Introduction I had the pleasure o f seeing Adeline Holden, 28-year-old female with a PMH of POTS, depression/anxiety, ADHD, RLS, and migraines who returns in consultation with Dr. Silva (neurology) for interval evaluation and management. She is new to me, last evaluated by DAMIAN Mckeon 1 month ago. Adeline continues on Zyrtec 20 mg BID daily, Pepcid 40 mg BID, and nightly 10 mg Singulair for facial flushing. She also uses Cromolyn TID since 2021 which has been been an added benefit. In need of refills as new insurance denied claim from Dr. Adams. Still denies hives with flushing. She continues seeing Dr. Adams who told her she likely has mast cell disease. Records showed elevated tryptase though lab was not available to review. No prior bone biopsy. She was referred to Dr. Murray but unable to be seen due to reproted denial by insurance. Overall feels antihistamines have been greatly beneficial. Will have flushing a few times a week but resolves as soon as it starts. She again denies interval swelling. Adeline also sees Neurology and reports diagnosis of autonomic neuropathy. She has seen Endocrinology who repeated metanephrine levels which were lower than previous labs ordered. Repeat tryptase level was normal. Currently with mild flushing a few time a month. She continues to follow with cardiology for active treatment of POTS: overall with improvemetn. Previously was using JORGE several times daily though has recently increased back to 2-3 time a week. Feels this only partially works with use. Prior spirometry with evidence of VCD. She is currently on Arunity with subjective benefit. She suspects her POTS is contrubuting to her SOB. Is trying VCD exercises with minimal difference noted. Now off all inhalers though keeps JORGE on hand. ACT = 25 today. Historically with years of random episodes of temperature intolerances as well skin discolorations which led to initial tryptase workup (~11 per patient). Also with weird colors on legs that come and go. No pictures to review. On cheeks, rash is like a sunburn with burning and itching, denies drying and flaking. Rash would come for a couple of hours, mainly waking with it in morning, and then it would disappear on own. Return in later afternoon really bad. Previous pictures show redness to forehead, cheeks and chin. No raised areas. Rash on arms is described as bumpy and red, with more itching. Previous pictures do not suggest hives. Seen in Urgent care for rash, 06/05/21, prescribed Medrol-dose pack but denies relief of symptoms at that time. No prior swelling/angioedema. No prior episodes concerning for anaphylaxis. No prior use of epinephrine. ImmunoCaps obtained at initial visit, with no detectable allergens. That said, she reports of runny nose and congestion exacerbated by cats. Of note, she also reports prior episode of throat swelling but thought to be related to cat exposure, as she was around cats at that time. Symptoms resolved with Benadryl.Today, she reports no fevers, chills, night sweats or other constitutional symptoms Examination Category Sub-Category Detail Notes Category Not es General examination HEENT: conjunctiva are normal bilaterally, TMs without evidence of acute infection, turbinates 2+ swollen and pale inferiorly bilaterally, clear rhinorrhea is present, no polyps noted, no septal perforation, posterior oropharynx is clear without exudates, erythema on pharyngeal wall, no exudates, no tongue swelling, and uvula is midline Heart: RRR, S1-S2, no murmu rs, no rubs, no gallops Lungs: clear to auscultatio n in all lung kennedy, no wheezes, no crackles, no rhonchi Extremities: normal ROM, no clubb ing, no cyanosis, no edema General appearance: pleasant, well-devel oped, well-nourished, in no apparent distress, speaking in full sentences Skin: normal, no visible r miguel, dermatographism, urticaria, angioedema Neurologic exam: unremarkable Oral cavity: normal, no lesions Breasts : not performed Back: normal Genitalia: not performed
--- OUTSIDE RECORDS SUMMARY | 2024-07-26 16:43 | XMS_ITS | Clinical Summary ---
Author Organization [facility] Address [address] [place] [address] Care Team Providers Care Presentation Designer Name Role Phone Dana Silva MD Unavailable [phone] eDstini Garcia NP Primary Care Provider [phone] Allergies Active Allergy Reactions Criticality Noted Date Comments Adhesive Itching Low 04/24/2022 Requires skin prep before dressings are placed. Doxycycline Hives,Itching,Rash Medium 01/11/[address]IOR [employer] JUDGE (MAXALT-SUPERIOR [employer] JUDGE) 10 mg disintegrating tabletIndications :Migraine Take 1 tablet (10 mg total) by mouth as needed for migraine 9 tablet 1 020 Active albuterol HFA (PROVENTIL HFA,VENTOLIN HFA,PROAIR HFA) 90 mcg/actuation inhalerIndication s:allergies Inhale 2 puffs every 6 (six) hours as needed for wheezing 1 each 1 021 Active Additional Information Patient not taking.Reported on 05/06/2024 Emgality Pen 120 mg/mL pen injectorIndicatio ns:episodic cluster headache Inject 120 mg under the skin every 30 (thirty) days 022 Active montelukast (SINGULAIR) 10 mg tabletIndications :Seasonal Allergic Rhinitis Take 1 tablet (10 mg total) by mouth nightly 022 Active SODIUM BICARBONATE ORALIndications:l ow na Take 1 g by mouth 2 (two) times a day Active midodrine (PROAMATINE) 10 mg tabletIndications :Symptomatic Orthostatic Hypotension Take 1 tablet (10 mg total) by mouth 2 (two) times a day Active ondansetron ODT (ZOFRAN-ODT) 4 mg disintegrating tabletIndications :Acute Gastroenteritis-r elated Vomiting in Pediatrics Take 1 tablet (4 mg total) by mouth every 8 (eight) hours as needed for nausea or vomiting Active cromolyn (GASTROCROM) 100 mg/5 mL solutionIndicatio ns:Gastrointestin al Food Allergy Take 10 mL (200 mg total) by mouth 2 (two) times a day 022 Active cetirizine (ZyrTEC) 10 mg tabletIndications :Seasonal Allergic Rhinitis Take 1 tablet (10 mg total) by mouth daily Patient taking 2 tablets daily Active famotidine (PEPCID) 40 mg tabletIndications :Heartburn,Heartb urn Prevention Take 1 tablet (40 mg total) by mouth 2 (two) times a day Active midodrine (PROAMATINE) 5 mg tabletIndications :Symptomatic Orthostatic Hypotension Take 1 tablet (5 mg total) by mouth nightly Active naltrexone (LOW DOSE) 2.5 mg capsuleIndication s:pain Take 1 capsule (2.5 mg total) by mouth nightly Active dicyclomine (BENTYL) 20 mg tabletIndications :Irritable Bowel Syndrome Take 1 tablet (20 mg total) by mouth every 6 (six) hours PRN 023 Active docusate sodium (COLACE) 100 mg capsuleIndication s:constipation Take 1 capsule (100 mg total) by mouth 2 (two) times a day as needed for constipation 023 Active Estarylla 0.25-35 mg-mcg per tabletIndications : Contraception TABLET 1 TABLET BY MOUTH DAILY SKIPPING ALL PLACEBOS 023 Active sodium chloride 1,000 mg tabletIndications :Hyponatremia Take 1 tablet (1 g total) by mouth 2 (two) times a day 023 Active sodium chloride 0.9% (Normal Saline Flush) injectionIndicati ons:IV PATENCY Infuse 10 mL into a venous catheter daily as needed for line care Active heparin sod,porcine/0.9 % NaCl (HEPARIN FLUSH IV)Indications:LI NECARE Infuse 50 Units into a venous catheter daily as needed (LINECARE). Indications: LINECARE Active traZODone (DESYREL) 100 mg tabletIndications :major depressive disorder TAKE 1 TABLET(100 MG) BY MOUTH EVERY NIGHT 30 tablet Active prochlorperazine (COMPAZINE) 10 mg tabletIndications :Nausea and Vomiting Take 0.5 mg by mouth every 6 (six) hours as needed for nausea. take 0.5 tablets every 6 hours as needed for nausea Indications: nausea and vomiting Active lamoTRIgine (LaMICtal) 100 mg tablet Take 1 tablet (100 mg total) by mouth daily 30 tablet 2024 Active fluvoxaMINE (LUVOX) 50 mg tablet Take 1 tablet (50 mg total) by mouth nightly 30 tablet 2025 Active gabapentin (NEURONTIN) 600 mg tabletIndications :Neuropathic Pain Take 1 tablet (600 mg total) by mouth 2 (two) times a day AND 0.5 tablets (300 mg total) daily after lunch. 225 capsule 3 Active ARIPiprazole (ABILIFY) 5 mg tablet Take 1 tablet (5 mg total) by mouth daily 30 tablet 025 2025 Active dexmethylphenidat e XR (Focalin XR) 10 mg 24 hr capsuleIndication s:Attention-Defic it Hyperactivity Disorder Take 1 capsule (10 mg total) by mouth daily 30 capsule 025 2024 Active dexmethylphenidat e XR (Focalin XR) 10 mg 24 hr capsuleIndication s:Attention-Defic it Hyperactivity Disorder Take 1 capsule (10 mg total) by mouth daily 30 capsule 025 2024 Active dexmethylphenidat e XR (Focalin XR) 10 mg 24 hr capsuleIndication s:Attention-Defic it Hyperactivity Disorder Take 1 capsule (10 mg total) by mouth daily 30 capsule 025 2024 Active clonazePAM (KlonoPIN) 0.5 mg tabletIndications :Panic Disorder Take 1 tablet (0.5 mg total) by mouth 2 (two) times a day as needed for anxiety 60 tablet 5 025 Active clonazePAM (KlonoPIN) 0.5 mg tabletIndications :Panic Disorder TAKE 1 TABLET BY MOUTH TWICE DAILY NEEDED FOR ANXIETY. 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 Praise provided. Relates that anxiety and depression have improved - and that has been helpful + has been able to cope with situations better. Assessment & Plan (04/23/2022 1:31 PM [employer]): Chronic condition, currently stable. None at this time. Briefly discussed rationale today. See notes. Continue to see therapist. Continue to monitor. Assessment & Plan (03/09/2022 9:08 AM [employer]): Chronic condition, currently stable. Does not endorse any active nonsuicidal self-injurious behaviors. Does not endorse any active suicidal ideation. Continue with therapy. Continue to monitor. Reference: NSSI and suicidal behaviours have often been found to co-occur in both community and psychiatric populations. Moreover, a growing body of literature suggests that NSSI may be an especially important risk factor for suicidal behaviour. Biju et al found NSSI to be more strongly associated with a history of suicide attempts than other established risk factors for suicide, such as depression, anxiety, impulsivity, and BPD. Further, there is accumulating longitudinal evidence that NSSI is a strong predictor of future suicide attempts, even stronger than a history of past suicide attempts. Biju BAUTISTA, Nate HILL, Shea HILL. Nonsuicidal self-injury: what we know, and what we need to know. Can J Psychiatry. 2014 Nov;59(11):565-8. doi: 10.1177/[id number]. PMID: 01068737; PMCID: AZJ5826786. Assessment & Plan (01/15/2022 11:36 AM CDT): Last cut last week. Was trying to restrict - ate and got mad about it. Continue to see therapist. Assessment & Plan (12/13/2021 9:28 AM CDT): Chronic condition, persistent symptoms, continue with therapy. Continue to monitor. [place] 10/03/2021 Obesity due to excess calories 10/03/2021 ADHD 08/01/2021 Trauma in childhood 07/31/2021 Assessment & Plan (06/22/2022 8:44 AM [employer]): Continue therapy - weekly still - focused on trauma. Reports that her therapist has suggested cPTSD. Has been going back in time and going through traumatic events focusing on each individual trauma as it comes about in the discussion. Assessment & Plan (07/31/2021 9:27 AM CDT): Working on these issues in therapy. Insomnia 06/19/2021 Assessment & Plan (03/16/2024 6:25 AM [employer]): Chronic condition, currently stable. Focus on sleep hygiene. Improving sleep hygiene is jeronimo to promoting better quality sleep. A few tips are noted below: Stick to a consistent sleep schedule by going to bed and waking up at the same time every day, even on weekends. Create a relaxing bedtime routine to signal to your body that it's time to wind down. Make sure the sleep environment is conducive to rest - keep the room dark, quiet, and at a comfortable temperature. Avoid stimulants like caffeine, nicotine, and electronics close to bedtime. Get regular exercise during the day, but avoid vigorous exercise close to bedtime. Limit exposure to screens and bright lights in the evening, as they can interfere with your body's natural sleep-wake cycle. Avoid heavy meals, alcohol, and large amounts of liquids before bedtime. Practice relaxation techniques like deep breathing, meditation, or gentle stretching to calm the mind and body before sleep. Changes to management noted as follows: None Monitor at interval. Assessment & Plan (12/26/2023 4:17 PM CDT): Chronic condition, currently stable. Advised the patient to focus on sleep hygiene. The patient does not report any worsening sleep-related difficulties at this time. Supportive, insight-oriented counseling provided. No change to treatment regimen at this time. Assessment & Plan (09/23/2023 4:06 PM CDT): Chronic condition, currently stable. Advised the patient to focus on sleep hygiene. The patient does not report any worsening sleep-related difficulties at this time. Supportive, insight-oriented counseling provided. No change to treatment regimen at this time. Assessment & Plan (06/16/2023 11:46 AM [employer]): Chronic condition, currently stable. Advised the patient to focus on sleep hygiene. The patient does not report any worsening sleep-related difficulties at this time. Supportive, insight-oriented counseling provided. No change to treatment regimen at this time. Assessment & Plan (04/11/2023 7:12 PM [employer]): Chronic condition, currently stable. Advised the patient to focus on sleep hygiene. The patient does not report any worsening sleep-related difficulties at this time. Supportive, insight-oriented counseling provided. No change to treatment regimen at this time. Assessment & Plan (02/22/2023 9:27 AM [employer]): Chronic condition, currently stable. Advised the patient to focus on sleep hygiene. The patient does not report any worsening sleep-related difficulties at this time. Supportive, insight-oriented counseling provided. No change to treatment regimen at this time. Assessment & Plan (12/08/2022 2:24 PM CDT): Chronic condition, currently stable. Advised the patient to focus on sleep hygiene. The patient does not report any worsening sleep-related difficulties at this time. Supportive, insight-oriented counseling provided. No change to treatment regimen at this time. Assessment & Plan (11/13/2022 1:53 PM CDT): Chronic, persistent. Continue current management. Continue to monitor. Assessment & Plan (08/06/2022 9:40 AM CDT): Chronic, persistent. Reports that it is not or miss, but I am sleeping. Try to increase sleep and add structure - bed time closer to 10 PM. Continue to monitor. Assessment & Plan (06/22/2022 8:45 AM [employer]): Chronic condition, currently stable. Rates as fair - waking up a few times per night - but usually able to fall back asleep. Advised the patient to focus on sleep hygiene. The patient does not report any worsening sleep-related difficulties at this time. Supportive, insight-oriented counseling provided. No change to treatment regimen at this time. Assessment & Plan (04/23/2022 1:32 PM [employer]): Chronic condition, currently stable. Advised the patient to focus on sleep hygiene. The patient does not report any worsening sleep-related difficulties at this time. Supportive, insight-oriented counseling provided. No longer taking Seroquel. Trazodone effective. No change to treatment regimen at this time. Assessment & Plan (03/09/2022 9:09 AM [employer]): Chronic condition, currently stable. Continue to focus on sleep hygiene. Recommend that the patient obtain 7 hours of sleep per night. The patient does not endorse any worsening sleep-related difficulties at this time. Continue current management. Continue to monitor. Assessment & Plan (01/15/2022 4:51 PM CDT): Chronic, persistent. Has had difficulty quitting Seroquel. Trial of trazodone 50 to 100 mg HS p.r.n.. Monitor at interval. Assessment & Plan (11/09/2021 1:53 PM CDT): Chronic, stable. No change to treatment. Assessment & Plan (07/31/2021 9:23 AM CDT): Chronic condition, currently stable. Advised the patient to focus on sleep hygiene. The patient does not report any worsening sleep-related difficulties at this time. Supportive, insight-oriented counseling provided. Chronic cough 04/06/2021 Viral upper respiratory tract infection 03/04/20 Assessment & Plan (03/04/2021 10:35 AM [employer]): -send for covid testing -albuterol inhaler to use for shortness of breath and wheezing every 4 hours as needed -dexamethasone 4 mg 1 daily for 7 days to decrease inflammation and make breathing easier -drink plenty of fluids. -Treat your viral symptoms with things such as DayQuil/NyQuil. Ibuprofen for pain. Acne vulgaris 03/03/2021 Skin lesion of breast 02/16/2021 Recurrent syncope 02/12/2021 Blood in stool 01/25/2021 Chronic abdominal pain 01/25/2021 Chronic idiopathic constipation 01/25/2021 ADHD, adult residual type 12/14/2020 Assessment & Plan (05/11/2024 5:23 AM [employer]): Chronic, persistent symptoms of inattention, distractibility, inability to complete tasks on time, disorganization, failure to give close attention to details/careless mistakes, difficulty sustaining attention in tasks, loses items, forgetful in daily activities, and is easily distracted by extraneous stimuli. There is clear evidence of clinically significant impairment in social, academic, and/or occupational functioning. The patient reports overall efficacy with the current medication regimen. The patient reports taking all medications as prescribed. The patient does not report any side effects from these medications. Risk of long-term cardiovascular complications discussed with the patient at length including increased likelihood of changes to the structure and function being of the heart and cardiovascular system. The patient verbalized an understanding and expressed a desire to continue with current medication management. Compensatory strategies discussed for dealing with the ongoing symptoms of ADHD including the importance of structure, planning, and organization. Continue treatment with the following medications: Focalin XR 10 mg daily and Focalin IR 5 mg Q 1300 Refills provided to the patient Continue to monitor at interval as discussed. Assessment & Plan (03/16/2024 6:25 AM [employer]): Chronic, persistent symptoms of inattention, distractibility, inability to complete tasks on time, disorganization, failure to give close attention to details/careless mistakes, difficulty sustaining attention in tasks, loses items, forgetful in daily activities, and is easily distracted by extraneous stimuli. There is clear evidence of clinically significant impairment in social, academic, and/or occupational functioning. The patient reports overall efficacy with the current medication regimen. The patient reports taking all medications as prescribed. The patient does not report any side effects from these medications. Risk of long-term cardiovascular complications discussed with the patient at length including increased likelihood of changes to the structure and function being of the heart and cardiovascular system. The patient verbalized an understanding and expressed a desire to continue with current medication management. Compensatory strategies discussed for dealing with the ongoing symptoms of ADHD including the importance of structure, planning, and organization. Continue treatment with the following medications: Focalin XR 10 mg daily and Focalin IR 5 mg Q 1300 Refills provided to the patient Continue to monitor at interval as discussed. Assessment & Plan (12/26/2023 4:17 PM CDT): Chronic, persistent symptoms of inattention, distractibility, inability to complete tasks on time, disorganization, failure to give close attention to details/careless mistakes, difficulty sustaining attention in tasks, loses items, forgetful in daily activities, and is easily distracted by extraneous stimuli. There is clear evidence of clinically significant impairment in social, academic, and/or occupational functioning. The patient reports overall efficacy with the current medication regimen. The patient reports taking all medications as prescribed. The patient does not report any side effects from these medications. Risk of long-term cardiovascular complications discussed with the patient at length including increased likelihood of changes to the structure and function being of the heart and cardiovascular system. The patient verbalized an understanding and expressed a desire to continue with current medication management. Compensatory strategies discussed for dealing with the ongoing symptoms of ADHD including the importance of structure, planning, and organization. Continue treatment with the following medications: Focalin XR 10 mg daily and Focalin IR 5 mg Q 1300 Refills provided to the patient Continue to monitor at interval as discussed. Assessment & Plan (09/23/2023 4:06 PM CDT): Chronic, persistent symptoms of inattention, distractibility, inability to complete tasks on time, disorganization, failure to give close attention to details/careless mistakes, difficulty sustaining attention in tasks, loses items, forgetful in daily activities, and is easily distracted by extraneous stimuli. There is clear evidence of clinically significant impairment in social, academic, and/or occupational functioning. The patient reports overall efficacy with the current medication regimen. The patient reports taking all medications as prescribed. The patient does not report any side effects from these medications. Risk of long-term cardiovascular complications discussed with the patient at length including increased likelihood of changes to the structure and function being of the heart and cardiovascular system. The patient verbalized an understanding and expressed a desire to continue with current medication management. Compensatory strategies discussed for dealing with the ongoing symptoms of ADHD including the importance of structure, planning, and organization. Continue treatment with the following medications: Focalin XR 10 mg daily and Focalin IR 5 mg Q 1300 Refills provided to the patient Continue to monitor at interval as discussed. Assessment & Plan (08/05/2023 3:03 PM CDT): Chronic, persistent symptoms of inattention, distractibility, inability to complete tasks on time, disorganization, failure to give close attention to details/careless mistakes, difficulty sustaining attention in tasks, loses items, forgetful in daily activities, and is easily distracted by extraneous stimuli. There is clear evidence of clinically significant impairment in social, academic, and/or occupational functioning. The patient reports overall efficacy with the current medication regimen. The patient reports taking all medications as prescribed. The patient does not report any side effects from these medications. Risk of long-term cardiovascular complications discussed with the patient at length including increased likelihood of changes to the structure and function being of the heart and cardiovascular system. The patient verbalized an understanding and expressed a desire to continue with current medication management. Compensatory strategies discussed for dealing with the ongoing symptoms of ADHD including the importance of structure, planning, and organization. Continue treatment with the following medications: Focalin XR 10 mg daily and Focalin IR 5 mg Q 1300 Refills provided to the patient Continue to monitor at interval as discussed. Assessment & Plan (06/16/2023 11:46 AM [employer]): Chronic, persistent symptoms of inattention, distractibility, inability to complete tasks on time, disorganization, failure to give close attention to details/careless mistakes, difficulty sustaining attention in tasks, loses items, forgetful in daily activities, and is easily distracted by extraneous stimuli. There is clear evidence of clinically significant impairment in social, academic, and/or occupational functioning. The patient reports overall efficacy with the current medication regimen. The patient reports taking all medications as prescribed. The patient does not report any side effects from these medications. Risk of long-term cardiovascular complications discussed with the patient at length including increased likelihood of changes to the structure and function being of the heart and cardiovascular system. The patient verbalized an understanding and expressed a desire to continue with current medication management. Compensatory strategies discussed for dealing with the ongoing symptoms of ADHD including the importance of structure, planning, and organization. Continue treatment with the following medications: Focalin XR 10 mg daily and Focalin IR 5 mg Q 1300 Refills provided to the patient Continue to monitor at interval as discussed. Assessment & Plan (04/11/2023 2:12 PM [employer]): Chronic, persistent symptoms of inattention, distractibility, inability to complete tasks on time, disorganization, failure to give close attention to details/careless mistakes, difficulty sustaining attention in tasks, loses items, forgetful in daily activities, and is easily distracted by extraneous stimuli. There is clear evidence of clinically significant impairment in social, academic, and/or occupational functioning. The patient reports overall efficacy with the current medication regimen. The patient reports taking all medications as prescribed. The patient does not report any side effects from these medications. Risk of long-term cardiovascular complications discussed with the patient at length including increased likelihood of changes to the structure and function being of the heart and cardiovascular system. The patient verbalized an understanding and expressed a desire to continue with current medication management. Compensatory strategies discussed for dealing with the ongoing symptoms of ADHD including the importance of structure, planning, and organization. Continue treatment with the following medications: Focalin XR 10 mg daily and Focalin IR 5 mg Q 1300 Refills provided to the patient Continue to monitor at interval as discussed. Assessment & Plan (02/22/2023 9:14 AM [employer]): Chronic, persistent symptoms of inattention, distractibility, inability to complete tasks on time, disorganization, failure to give close attention to details/careless mistakes, difficulty sustaining attention in tasks, loses items, forgetful in daily activities, and is easily distracted by extraneous stimuli. There is clear evidence of clinically significant impairment in social, academic, and/or occupational functioning. The patient reports overall efficacy with the current medication regimen. The patient reports taking all medications as prescribed. The patient does not report any side effects from these medications. Risk of long-term cardiovascular complications discussed with the patient at length including increased likelihood of changes to the structure and function being of the heart and cardiovascular system. The patient verbalized an understanding and expressed a desire to continue with current medication management. Compensatory strategies discussed for dealing with the ongoing symptoms of ADHD including the importance of structure, planning, and organization. Continue treatment with the following medications: Focalin XR 10 mg daily Refills provided to the patient Continue to monitor at interval as discussed. Assessment & Plan (12/08/2022 2:24 PM CDT): Chronic, persistent symptoms of inattention, distractibility, inability to complete tasks on time, disorganization, failure to give close attention to details/careless mistakes, difficulty sustaining attention in tasks, loses items, forgetful in daily activities, and is easily distracted by extraneous stimuli. There is clear evidence of clinically significant impairment in social, academic, and/or occupational functioning. The patient reports overall efficacy with the current medication regimen. The patient reports taking all medications as prescribed. The patient does not report any side effects from these medications. Risk of long-term cardiovascular complications discussed with the patient at length including increased likelihood of changes to the structure and function being of the heart and cardiovascular system. The patient verbalized an understanding and expressed a desire to continue with current medication management. Compensatory strategies discussed for dealing with the ongoing symptoms of ADHD including the importance of structure, planning, and organization. Continue treatment with the following medications: Focalin XR 10 mg daily Refills provided to the patient Continue to monitor at interval as discussed. Assessment & Plan (11/13/2022 1:54 PM CDT): Chronic, persistent symptoms of inattention, distractibility, inability to complete tasks on time, disorganization, failure to give close attention to details/careless mistakes, difficulty sustaining attention in tasks, loses items, forgetful in daily activities, and is easily distracted by extraneous stimuli. There is clear evidence of clinically significant impairment in social, academic, and/or occupational functioning. Continue treatment with the following medications: Discontinue Vyvanse 30 mg QAM Start Ritalin LA 20 mg q.a.m. Refills provided to the patient. Continue to monitor at interval as discussed. Assessment & Plan (08/06/2022 9:44 AM CDT): Chronic, persistent symptoms of inattention, distractibility, inability to complete tasks on time, disorganization, failure to give close attention to details/careless mistakes, difficulty sustaining attention in tasks, loses items, forgetful in daily activities, and is easily distracted by extraneous stimuli. There is clear evidence of clinically significant impairment in social, academic, and/or occupational functioning. Continue treatment with the following medications: Vyvanse 30 mg QAM Refills provided to the patient. Continue to monitor at interval as discussed. Assessment & Plan (06/22/2022 8:47 AM BACK T[employer]): Chronic, persistent symptoms of inattention, distractibility, inability to complete tasks on time, disorganization, failure to give close attention to details/careless mistakes, difficulty sustaining attention in tasks, loses items, forgetful in daily activities, and is easily distracted by extraneous stimuli. There is clear evidence of clinically significant impairment in social, academic, and/or occupational functioning. The patient reports overall efficacy with the current medication regimen. The patient reports taking all medications as prescribed. The patient does not report any side effects from these medications. Risk of long-term cardiovascular complications discussed with the patient at length including increased likelihood of changes to the structure and function being of the heart and cardiovascular system. The patient verbalized an understanding and expressed a desire to continue with current medication management. Compensatory strategies discussed for dealing with the ongoing symptoms of ADHD including the importance of structure, planning, and organization. Continue treatment with the following medications: Vyvanse 30 mg Q AM Refills provided to the patient. Continue to monitor at interval as discussed. Assessment & Plan (04/23/2022 2:18 PM BACK T[employer]): Chronic, persistent symptoms of inattention, distractibility, inability to complete tasks on time, disorganization, failure to give close attention to details/careless mistakes, difficulty sustaining attention in tasks, loses items, forgetful in daily activities, and is easily distracted by extraneous stimuli. There is clear evidence of clinically significant impairment in social, academic, and/or occupational functioning. The patient reports overall efficacy with the current medication regimen. The patient reports taking all medications as prescribed. The patient does not report any side effects from these medications. Risk of long-term cardiovascular complications discussed with the patient at length including increased likelihood of changes to the structure and function being of the heart and cardiovascular system. The patient verbalized an understanding and expressed a desire to continue with current medication management. Compensatory strategies discussed for dealing with the ongoing symptoms of ADHD including the importance of structure, planning, and organization. Continue treatment with the following medications: Vyvanse 30 mg daily. She reports that the benefits outweighs the risks. Refills provided to the patient. Continue to monitor at interval as discussed. Assessment & Plan (03/09/2022 9:10 AM [employer]): Chronic, persistent symptoms of inattention, distractibility, inability to complete tasks on time, disorganization, failure to give close attention to details/careless mistakes, difficulty sustaining attention in tasks, loses items, forgetful in daily activities, and is easily distracted by extraneous stimuli. There is clear evidence of clinically significant impairment in social, academic, and/or occupational functioning. The patient reports overall efficacy with the current medication regimen. The patient does not endorse any increasing syncopal episodes. She does indicate that she feels the benefit of using this medication outweighs the risk including these episodes. The patient reports taking all medications as prescribed. The patient does not report any side effects from these medications. Risk of long-term cardiovascular complications discussed with the patient at length including increased likelihood of changes to the structure and function being of the heart and cardiovascular system. The patient verbalized an understanding and expressed a desire to continue with current medication management. Compensatory strategies discussed for dealing with the ongoing symptoms of ADHD including the importance of structure, planning, and organization. Continue treatment with the following medications: Vyvanse 30 mg every morning Refills provided to the patient. See orders. Continue to monitor at interval as discussed. Assessment & Plan (01/15/2022 4:49 PM CDT): Chronic, persistent symptoms of inattention, distractibility, inability to complete tasks on time, disorganization, failure to give close attention to details/careless mistakes, difficulty sustaining attention in tasks, loses items, forgetful in daily activities, and is easily distracted by extraneous stimuli. There is clear evidence of clinically significant impairment in social, academic, and/or occupational functioning. The patient reports overall efficacy with the current medication regimen. The patient reports taking all medications as prescribed. The patient does not report any side effects from these medications. Risk of long-term cardiovascular complications discussed with the patient at length including increased likelihood of changes to the structure and function being of the heart and cardiovascular system. The patient verbalized an understanding and expressed a desire to continue with current medication management. Compensatory strategies discussed for dealing with the ongoing symptoms of ADHD including the importance of structure, planning, and organization. Continue treatment with the following medications: Vyvanse Refills provided to the patient Continue to monitor at interval as discussed. Assessment & Plan (12/13/2021 9:31 AM CDT): Chronic, persistent symptoms of inattention, distractibility, inability to complete tasks on time, disorganization, failure to give close attention to details/careless mistakes, difficulty sustaining attention in tasks, loses items, forgetful in daily activities, and is easily distracted by extraneous stimuli. There is clear evidence of clinically significant impairment in social, academic, and/or occupational functioning. The patient reports overall efficacy with the current medication regimen. The patient reports taking all medications as prescribed. The patient does not report any side effects from these medications. Risk of long-term cardiovascular complications discussed with the patient at length including increased likelihood of changes to the structure and function being of the heart and cardiovascular system. The patient verbalized an understanding and expressed a desire to continue with current medication management. Compensatory strategies discussed for dealing with the ongoing symptoms of ADHD including the importance of structure, planning, and organization. Continue treatment with the following medications: Increase Vyvanse from 20 to 30 mg daily Advised to stop Vyvanse immediately if any autonomic symptoms develop. Refills provided to the patient Follow-up in one month. Assessment & Plan (11/09/2021 1:54 PM CDT): Chronic, persistent symptoms of inattention, distractibility, inability to complete tasks on time, disorganization, failure to give close attention to details/careless mistakes, difficulty sustaining attention in tasks, loses items, forgetful in daily activities, and is easily distracted by extraneous stimuli. There is clear evidence of clinically significant impairment in social, academic, and/or occupational functioning. The patient reports overall efficacy with the current medication regimen. The patient reports taking all medications as prescribed. The patient does not report any side effects from these medications. Risk of long-term cardiovascular complications discussed with the patient at length including increased likelihood of changes to the structure and function being of the heart and cardiovascular system. The patient verbalized an understanding and expressed a desire to continue with current medication management. Compensatory strategies discussed for dealing with the ongoing symptoms of ADHD including the importance of structure, planning, and organization. Continue treatment with the following medications: Vyvanse 20 mg daily-the patient indicates that despite the other issues she does not feel it is related to this medication and feels the benefits outweigh the risk of continuing it. Refills provided to the patient Continue to monitor at interval as discussed. Assessment & Plan (09/27/2021 3:41 PM CDT): Chronic, stable. No changes. Assessment & Plan (08/31/2021 9:55 AM CDT): Chronic, persistent symptoms, but functioning at baseline. No change to management. Assessment & Plan (07/31/2021 9:23 AM CDT): Chronic, persistent symptoms of inattention, distractibility, inability to complete tasks on time, disorganization, failure to give close attention to details/careless mistakes, difficulty sustaining attention in tasks, loses items, forgetful in daily activities, and is easily distracted by extraneous stimuli. There is clear evidence of clinically significant impairment in social, academic, and/or occupational functioning. The patient reports overall efficacy with the current medication regimen. The patient reports taking all medications as prescribed. The patient does not report any side effects from these medications. Risk of long-term cardiovascular complications discussed with the patient at length including increased likelihood of changes to the structure and function being of the heart and cardiovascular system. The patient verbalized an understanding and expressed a desire to continue with current medication management. Compensatory strategies discussed for dealing with the ongoing symptoms of ADHD including the importance of structure, planning, and organization. Continue treatment with the following medications: Vyvanse 20 mg daily Refills provided to the patient. Continue to monitor at interval as discussed. Assessment & Plan (06/19/2021 11:01 AM [employer]): Chronic, persistent symptoms of inattention, distractibility, inability to complete tasks on time, disorganization, failure to give close attention to details/careless mistakes, difficulty sustaining attention in tasks, loses items, forgetful in daily activities, and is easily distracted by extraneous stimuli. There is clear evidence of clinically significant impairment in social, academic, and/or occupational functioning. The patient reports overall efficacy with the current medication regimen. The patient reports taking all medications as prescribed. The patient does not report any side effects from these medications. Risk of long-term cardiovascular complications discussed with the patient at length including increased likelihood of changes to the structure and function being of the heart and cardiovascular system. The patient verbalized an understanding and expressed a desire to continue with current medication management. Compensatory strategies discussed for dealing with the ongoing symptoms of ADHD including the importance of structure, planning, and organization. Continue treatment with the following medications: Vyvanse 20 mg daily Continue to monitor at interval as discussed. Not having any major symptoms related to Vyvanse at this time- risk versus benefit discussed-wishes to continue as prescribed. Assessment & Plan (05/19/2021 11:22 AM [employer]): Chronic, persistent symptoms of inattention, distractibility, inability to complete tasks on time, disorganization, failure to give close attention to details/careless mistakes, difficulty sustaining attention in tasks, loses items, forgetful in daily activities, and is easily distracted by extraneous stimuli. There is clear evidence of clinically significant impairment in social, academic, and/or occupational functioning. The patient reports overall efficacy with the current medication regimen. The patient reports taking all medications as prescribed. The patient does not report any side effects from these medications. Risk of long-term cardiovascular complications discussed with the patient at length including increased likelihood of changes to the structure and function being of the heart and cardiovascular system. The patient verbalized an understanding and expressed a desire to continue with current medication management. Compensatory strategies discussed for dealing with the ongoing symptoms of ADHD including the importance of structure, planning, and organization. Continue treatment with the following medications: Discontinue Concerta - never took this - restart Vyvanse. Refills provided to the patient. Continue to monitor at interval as discussed. Assessment & Plan (05/09/2021 1:44 PM [employer]): Acute, persistent, but having some symptoms that may be related Vyvanse. Discussed at length. Agreed to decrease the dose. Assessment & Plan (04/10/2021 12:41 PM [employer]): Chronic, persistent, but Vyvanse seems to help. Insurance deductible cost high - Discontinue Vyvanse - anticipated cost. Plan to switch to Concerta ER 18 mg daily. Assessment & Plan (04/23/2021 1:23 PM [employer]): Chronic, persistent. Complaining of some palpitations. Communicated with cogeneration operator. Decrease Vyvanse to 20 mg daily Assessment & Plan (02/09/2021 8:44 AM CDT): Chronic, stable. No medication changes at this time. Continue to monitor at interval. Assessment & Plan (01/12/2021 9:36 AM CDT): Chronic, persistent. Vyvanse helping with school work and frustration. Anxiety was better initially - now has increased. Continue Vyvanse 30 mg daily for now. Continue to monitor. Assessment & Plan (12/15/2020 8:35 AM CDT): Chronic, persistent symptoms of inattention, distractibility, inability to complete tasks on time, disorganization, failure to give close attention to details/careless mistakes, difficulty sustaining attention in tasks, loses items, forgetful in daily activities, and is easily distracted by extraneous stimuli. There is clear evidence of clinically significant impairment in social, academic, and/or occupational functioning. [place] no longer providing affect to the degree that it had been previously. Has started school again and symptoms have become problematic. Discussed switching to stimulant medication versus other treatment options including augmentation with other medication. Patient preference for stimulant medication. Has previously been treated with Concerta-eventually stopped working. The patient does not report any side effects from these medications. Risk of long-term cardiovascular complications discussed with the patient at length including increased likelihood of changes to the structure and function being of the heart and cardiovascular system. The patient verbalized an understanding and expressed a desire to continue with current medication management. Compensatory strategies discussed for dealing with the ongoing symptoms of ADHD including the importance of structure, planning, and organization. Continue treatment with the following medications: Vyvanse 30 mg daily Refills provided to the patient. Continue to monitor at interval as discussed. ADHD, adult residual type 12/14/2020 Overview (12/06/2023): Last Assessment & Plan: Chronic, persistent symptoms of inattention, distractibility, inability to complete tasks on time, disorganization, failure to give close attention to details/careless mistakes, difficulty sustaining attention in tasks, loses items, forgetful in daily activities, and is easily distracted by extraneous stimuli. There is clear evidence of clinically significant impairment in social, academic, and/or occupational functioning. Continue treatment with the following medications: Vyvanse 30 mg QAM Refills provided to the patient. Continue to monitor at interval as discussed. PCOS (polycystic ovarian syndrome) 12/07/2020 Body image disorder 11/23/2020 Abnormal finding on EKG 11/16/2020 Assessment & Plan (11/16/2020 5:59 PM CDT): Atrial fibrillation with occasional ventricular ectopic beats, sent to ER via ambulance for further evaluation. Racing heart beat 11/16/2020 Assessment & Plan (11/16/2020 6:00 PM CDT): Sent to ER via ambulance for further evaluation, see EKG. Nausea 11/16/2020 Assessment & Plan (11/16/2020 6:00 PM CDT): Sent to ER via ambulance for further evaluation, see EKG. Lightheadedness 11/16/2020 Assessment & Plan (11/16/2020 6:00 PM CDT): Sent to ER via ambulance for further evaluation, see EKG. Shortness of breath 11/16/2020 Assessment & Plan (11/16/2020 6:00 PM CDT): Sent to ER via ambulance for further evaluation, see EKG. Acute vaginitis 11/01/2020 Overview (12/06/2023): Acute vaginitis; Severity: Moderate Progress: Stable Added By: Shelia Kelly Add to Current Problems: YES ProblemStatus: Current Arthralgia 09/29/2020 Assessment & Plan (09/29/2020 4:31 PM CDT): Chronic, stable-ordered CBC, ESR, LUIS, and rheumatoid factor. Can take Tylenol as directed as needed. Recommended follow-up with PCP if symptoms are not improving, are worsening, or new symptoms develop. Weakness 09/29/2020 Assessment & Plan (11/16/2020 6:00 PM CDT): Sent to ER via ambulance for further evaluation, see EKG. Assessment & Plan (09/29/2020 4:24 PM CDT): Chronic, stable-ordered CBC, ESR, LUIS, and rheumatoid factor. Recommended follow-up with PCP if symptoms are not improving, are worsening, or new symptoms develop. Attention and concentration deficit 09/29/2020 Assessment & Plan (09/29/2020 4:31 PM CDT): Chronic,stable-started Strattera today, prescribed by psychiatrist. Recommended follow-up with psychiatrist or PCP if symptoms are not improving, are worsening, or new symptoms develop. Dizziness 09/29/2020 Assessment & Plan (09/29/2020 4:29 PM CDT): Chronic, possibly related to POTS-continued on midodrine, should stay hydrated throughout the day, drinking fluids frequently and avoid alcohol and caffeine. PT may be helpful in managing symptoms. Other irritable bowel syndrome 09/20/2020 Assessment & Plan (09/20/2020 11:36 AM CDT): Mild, new onset 2 months ago. No signs of colitis. Discussed with patient to lose weight. Come back if symptoms will worsen. Acute bilateral low back pain without sciatica 0 08/10/2020 Assessment & Plan (08/10/2020 7:34 AM CDT): Developed before fall due to syncope. No neurological deficits. Continue physical therapy. Palpitations 05/09/2020 Assessment & Plan (09/20/2020 11:33 AM CDT): Well controlled on propranolol. Pulse is good today 72. Assessment & Plan (05/26/2020 1:58 PM [employer]): Check echo in 3 week event monitor Assessment & Plan (05/09/2020 2:36 PM [employer]): Sinus tachycardia. More frequent episodes affecting daily function. Will try to increase propranolol, 10 mg 2 tans in am and 1 tab at night. Monitor BP, if will be more lightheaded go back to original dose of 10 mg twice a day. COVID-19 virus infection 04/21/2020 Assessment & Plan (05/09/2020 3:29 PM [employer]): Having shortness of breath since acquiring it 3 weeks ago. No respiratory distress, coughing or wheezing. Will check x-ray to rule out possible pneumonia. Will do short-term, low-dose prednisone to alleviate symptoms. Assessment & Plan (04/21/2020 5:52 PM [employer]): Acute, positive test on 04/18/2020. Symptoms include shortness of breath-no visible respiratory distress via telemedicine, fatigue, myalgias and 1 episode of fever. Mild at this point in time. Push fluids. Get plenty of rest. If symptoms worsen, go to ER. Polypharmacy 04/09/2020 Assessment & Plan (04/09/2020 2:43 PM [employer]): Unfortunately, her medication regimen is complex and includes several of the same kinds of medications-and particular 3 antidepressants. While it may be difficult to reduce her overall number of medications due to the likelihood of increased complaints with doing so, I think it is necessary at this point to try to do so. See additional problems regarding this matter. Previous known suicide attempt 03/30/2020 Wellness examination 03/30/2020 Assessment & Plan (09/20/2020 11:31 AM CDT): Patient is stable overall. Advised to lose weight. Had labs done this year, blood sugar and thyroid function were normal. Patient had normal Pap I year ago. Sees signals analyst. Persistent depressive disorder 03/30/2020 Assessment & Plan (05/11/2024 5:23 AM [employer]): Acute on chronic, persistent. Depressive symptoms are partially controlled on current medication regimen. Tolerating medications without any reported side effects. The patient denies active suicidal and homicidal ideation. The following changes were made at today's appointment: See below Reevaluate treatment/symptoms at interval per scheduled appointment. Assessment & Plan (03/16/2024 6:25 AM [employer]): Acute on chronic, persistent. Depressive symptoms are partially controlled on current medication regimen. Tolerating medications without any reported side effects. The patient denies active suicidal and homicidal ideation. The following changes were made at today's appointment: See below Reevaluate treatment/symptoms at interval per scheduled appointment. Assessment & Plan (01/27/2024 12:47 AM CDT): Chronic, persistent. Depressive symptoms are reasonably well controlled on current medication regimen. Tolerating medications without any reported side effects. The patient denies active suicidal and homicidal ideation. The following changes were made at today's appointment: See below Reevaluate treatment/symptoms at interval per scheduled appointment. Assessment & Plan (12/26/2023 4:17 PM CDT): Chronic, persistent. Depressive symptoms are reasonably well controlled on current medication regimen. Tolerating medications without any reported side effects. The patient denies active suicidal and homicidal ideation. The following changes were made at today's appointment: none Reevaluate treatment/symptoms at interval per scheduled appointment. Assessment & Plan (09/23/2023 4:06 PM CDT): Chronic, persistent. Depressive symptoms are reasonably well controlled on current medication regimen. Tolerating medications without any reported side effects. The patient denies active suicidal and homicidal ideation. The following changes were made at today's appointment: none Reevaluate treatment/symptoms at interval per scheduled appointment. Assessment & Plan (08/19/2023 5:31 AM CDT): Acute on chronic, persistent. Depressive symptoms are less than optimally controlled on current medication regimen. Tolerating medications without any reported side effects. The patient denies active suicidal and homicidal ideation. The following changes were made at today's appointment: Increase lamotrigine to 50 mg daily. Reevaluate treatment/symptoms at interval per scheduled appointment. Assessment & Plan (06/16/2023 11:46 AM [employer]): Acute on chronic, persistent. Depressive symptoms are less than optimally controlled on current medication regimen. Tolerating medications without any reported side effects. The patient denies active suicidal and homicidal ideation. The following changes were made at today's appointment: Trial of lamotrigine 25 mg daily Reevaluate treatment/symptoms at interval per scheduled appointment. Assessment & Plan (04/11/2023 1:55 PM [employer]): Acute on chronic, persistent. Depressive symptoms are less than optimally controlled on current medication regimen. 11/01/2022: Depression rated 5/10 on a scale 0 to 10 with 0 being none and 10 being severe. 12/07/2022: Depression rated 6/10 on a scale of 0 to 10 with 0 being none and 10 being severe. 02/04/2023: Depression - 8/10 04/11/2023: depression - 8/10 Tolerating medications without any reported side effects. The patient denies active suicidal and homicidal ideation. The following changes were made at today's appointment: increase clomipramine to 100 mg HS Reevaluate treatment/symptoms at interval per scheduled appointment. Assessment & Plan (02/22/2023 9:26 AM [employer]): Acute on chronic, persistent. Depressive symptoms are less than optimally controlled on current medication regimen. 11/01/2022: Depression rated 5/10 on a scale 0 to 10 with 0 being none and 10 being severe. 12/07/2022: Depression rated 6/10 on a scale of 0 to 10 with 0 being none and 10 being severe. 02/04/2023: Depression - 8/10 Tolerating medications without any reported side effects. The patient denies active suicidal and homicidal ideation. The following changes were made at today's appointment: increase clomipramine to 100 mg HS Reevaluate treatment/symptoms at interval per scheduled appointment. Assessment & Plan (02/22/2023 9:14 AM [employer]): Chronic, persistent. Depressive symptoms are reasonably well controlled on current medication regimen. 11/01/2022: Depression rated 5/10 on a scale 0 to 10 with 0 being none and 10 being severe. 12/07/2022: Depression rated 6/10 on a scale of 0 to 10 with 0 being none and 10 being severe. 02/22/2023: Depression - 5-6/10 Tolerating medications without any reported side effects. The patient denies active suicidal and homicidal ideation. The following changes were made at today's appointment: none Reevaluate treatment/symptoms at interval per scheduled appointment. Assessment & Plan (12/08/2022 2:26 PM CDT): Chronic, persistent. Depressive symptoms are reasonably well controlled on current medication regimen. 11/01/2022: Depression rated 5/10 on a scale 0 to 10 with 0 being none and 10 being severe. 12/07/2022: Depression rated 6/10 on a scale of 0 to 10 with 0 being none and 10 being severe. Tolerating medications without any reported side effects. The patient denies active suicidal and homicidal ideation. The following changes were made at today's appointment: none Reevaluate treatment/symptoms at interval per scheduled appointment. Assessment & Plan (11/13/2022 1:52 PM CDT): Chronic, persistent. Depressive symptoms are reasonably well controlled on current medication regimen. Rates 5/10 at this time. Tolerating medications without any reported side effects. The patient denies active suicidal and homicidal ideation. The following changes were made at today's appointment: none Reevaluate treatment/symptoms at interval per scheduled appointment. Assessment & Plan (08/06/2022 9:40 AM CDT): Chronic, persistent. Depressive symptoms are reasonably well controlled on current medication regimen. Rates 5/10 at this time. Tolerating medications without any reported side effects. The patient denies active suicidal and homicidal ideation. The following changes were made at today's appointment: none Reevaluate treatment/symptoms at interval per scheduled appointment. Assessment & Plan (06/22/2022 8:42 AM [employer]): Chronic, stable. Depressive symptoms are well controlled on current medication regimen. Feels she has been feeling better since not living with her parents - able to work on things gained through therapy. Tolerating medications without any reported side effects. The patient denies active suicidal and homicidal ideation. The following changes were made at today's appointment: none Reevaluate treatment/symptoms at interval per scheduled appointment. Assessment & Plan (04/23/2022 2:18 PM [employer]): Chronic, stable. Depressive symptoms are reasonably well controlled on current medication regimen. Tolerating medications without any reported side effects. The patient denies active suicidal and homicidal ideation. The following changes were made at today's appointment: none Reevaluate treatment/symptoms at interval per scheduled appointment. Assessment & Plan (03/09/2022 9:12 AM [employer]): Chronic condition, persistent symptoms, but functioning at or close to baseline at this time. She does not endorse any worsening symptoms of depression. Symptoms are reasonably well controlled on current medication regimen. The patient does not endorse any active suicidal ideation. Medication changes today: None Ongoing management to be provided as discussed and at interval as planned. Assessment & Plan (01/15/2022 4:50 PM CDT): Chronic condition, persistent symptoms, but functioning at or close to baseline at this time. Symptoms are reasonably well controlled on current medication regimen. The patient does not endorse any active suicidal ideation. Medication changes today: Discontinued Paxil Discontinuing Seroquel Ongoing management to be provided as discussed and at interval as planned. Assessment & Plan (12/13/2021 9:29 AM CDT): Chronic condition, persistent symptoms, but functioning at or close to baseline at this time. Symptoms are reasonably well controlled on current medication regimen. The patient does not endorse any active suicidal ideation. Medication changes today: None. Ongoing management to be provided as discussed and at interval as planned. Assessment & Plan (11/09/2021 1:54 PM CDT): Chronic condition, persistent symptoms, but functioning at or close to baseline at this time. Symptoms are reasonably well controlled on current medication regimen. The patient does not endorse any active suicidal ideation. Medication changes today: None Ongoing management to be provided as discussed and at interval as planned. Assessment & Plan (09/27/2021 3:41 PM CDT): Chronic, persistent. Baseline. No changes. Assessment & Plan (08/31/2021 9:57 AM CDT): Chronic, stable. Denies any active suicidal ideation. Decrease Paxil to 20 mg daily. Start Clomipramine 50 mg HS. Assessment & Plan (07/31/2021 9:23 AM CDT): Chronic, stable. Depressive symptoms are well controlled on current medication regimen. Tolerating medications without any reported side effects. The patient denies active suicidal and homicidal ideation. The following changes were made at today's appointment: None Reevaluate treatment/symptoms at interval per scheduled appointment. Assessment & Plan (06/19/2021 11:01 AM [employer]): Chronic, persistent, but functioning at or close to baseline at this time. Depressive symptoms are reasonably well controlled on current medication regimen. The patient reports tolerance for medication regimen without any notable side effects. The patient does not endorse any active suicidal ideation. She has chronic suicidal ideation and pre morbid thoughts of . Continue with therapy. The following changes were made at today's appointment: None. Will continue to monitor treatment and re-evaluate at next interval as discussed. Assessment & Plan (05/19/2021 11:22 AM [employer]): Chronic, stable. Depressive symptoms are well controlled on current medication regimen. Tolerating medications without any reported side effects. The patient denies active suicidal and homicidal ideation. The following changes were made at today's appointment: none Reevaluate treatment/symptoms at interval per scheduled appointment. Assessment & Plan (05/09/2021 1:44 PM [employer]): Chronic, stable. Denies any active suicidal ideation. No change from standpoint of treatment of depression. Assessment & Plan (05/04/2021 9:01 AM [employer]): Chronic, persistent. Denies any active suicidal ideation. Continue current management. Continue to monitor. Assessment & Plan (04/23/2021 1:24 PM [employer]): Chronic, stable. Depressive symptoms are reasonably well controlled on current medication regimen. Tolerating medications without any reported side effects. The patient denies active suicidal and homicidal ideation. The following changes were made at today's appointment: None. Reevaluate treatment/symptoms at interval per scheduled appointment. Assessment & Plan (04/10/2021 1:33 PM [employer]): Chronic, persistent, but functioning at or close to baseline at this time.. Denies any active suicidal ideation. No medication changes at this time. Continue to monitor at interval. Assessment & Plan (01/12/2021 9:41 AM CDT): Chronic, persistent, denies any active suicidal ideation. Intrusive and quick passing suicidal ideation. Safety plan implemented - sister is usual go-to, but not getting along. Some weird dynamic with her and her parents. She is like adal adal with my mom. Friend: Cora - used to be her neighbor. Grew up together. Crisis line [facility] at [phone] ([phone]) Assessment & Plan (12/15/2020 8:35 AM CDT): Chronic, stable. Depressive symptoms are well controlled on current medication regimen. Tolerating medications without any reported side effects. The patient denies active suicidal and homicidal ideation. The following changes were made at today's appointment: None. Reevaluate treatment/symptoms at interval per scheduled appointment. Assessment & Plan (12/01/2020 8:51 PM CDT): Chronic, persistent. The patient does not report any current suicidal or homicidal ideation. The patient does not report any auditory or visual hallucinations. The patient does not report any paranoid ideation. The patient does not report any symptoms of hypomania or makeda. Assessment & Plan (04/21/2020 5:52 PM [employer]): Chronic, stable with medication changes. Denies any active suicidal ideation. With polypharmacy, will reduce medications further. See orders below. Continue to monitor. Assessment & Plan (04/09/2020 2:44 PM [employer]): Chronic, persistent, but functioning at or close to baseline at this point from that standpoint. Chronic suicidal ideation-but denies any plan, means, or intent. Pristiq dose decreased due to polypharmacy. Will try to discontinue in future if tolerates and has no major negative consequence. Continue to monitor. Close follow-up warranted. Endometriosis 12/18/2019 Overview (12/06/2023): Endometriosis, unspecified; Severity: Moderate Progress: Stable Added By: Ni Merrill Add to Current Problems: YES ProblemStatus: Current BMI 33.0-33.9,adult 04/22/2019 Assessment & Plan (09/20/2020 11:32 AM CDT): BMI Follow-up includes: nutrition counseling. Stress weight loss Chronic fatigue 10/08/2018 Assessment & Plan (09/29/2020 4:30 PM CDT): Chronic, worsening, with recent normal free T4 and TSH-ordered CBC, ESR, LUIS, and rheumatoid factor. Recommended follow-up with PCP if symptoms are not improving, are worsening, or new symptoms develop. Assessment & Plan (09/20/2020 10:21 AM CDT): Stable. No particular cause found. Possibly due depression. Assessment & Plan (10/08/2018 1:49 PM CDT): Patient's weight is stable and CBC has been stable. Most likely related to Rexulti and seroquel. 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 No new episodes. Continue Topamax. Assessment & Plan (04/23/2019 3:07 PM [employer]): Continue Topamax Assessment & Plan (08/28/2018 1:50 PM CDT): Pt is planning to see neurologist, Dr. Bates. Pt also sees [facility], will discuss with her to stop lithium as possible reason for it. POTS (postural orthostatic tachycardia syndrome) 08/08/2018 Assessment & Plan (09/20/2020 11:35 AM CDT): Stable on midodrine. Syncope episodes are less frequent, down from 6-7 a month to 3-4. Previously event monitor and echo were normal. Assessment & Plan (08/10/2020 7:33 AM CDT): Cont with periodic syncopal episodes. Feels more lightheaded and hypotensive in am. Will try to increase evening dose of midodrine, now 10 mg tid. Cont monitoring BP tid, call back if will be elevated over 140/80. Keep hydrated at all times. Assessment & Plan (07/13/2020 11:50 AM CDT): Tolerating higher dose of propranolol. Instructed to try to wean off midodrine. Currently taking continue crease afternoon dose to 5 as she occasionally misses it without problems. In then decreased to 5 mg t.i.d. as tolerates Assessment & Plan (07/06/2020 10:03 AM CDT): With periodic flair ups. Worse for 2 mo. Main issues are palpitations with pulse up to 160 and lightheadedness. Will increase morning dose of propranolol from 20 mg to 30 mg, cont 10 mg in pm. Cont midodrine at present dose.I advised pt to check BP daily, if will go bellow 100/60 take extra tablet of midodrine a day. Assessment & Plan (11/04/2019 11:31 AM CDT): Multifactorial. Continue midodrine current dose. Encouraged exercise. Assessment & Plan (09/24/2019 4:21 PM CDT): Patient discontinued midodrine and Florinef to months ago. Has worsening in presyncope and syncope. She agreed to restart at least midodrine. If needed will restart Florinef. Assessment & Plan (04/22/2019 11:31 AM [employer]): Stable on midodrine and Florinef Assessment & Plan (10/07/2018 1:56 PM CDT): Stable on midodrine and Florinef Assessment & Plan (08/28/2018 1:52 PM CDT): Continue midodrine continue Florinef. Stop propranolol if blood pressure drops bellow 80/60 or worsening in lightheadedness. Assessment & Plan (08/20/2018 9:48 AM CDT): Continue midodrine continue Florinef. Echo showed no significant structural heart disease. EKG okay. Exercise. And increase salt intake. No edema Gastroesophageal reflux disease 08/08/2018 Assessment & Plan (09/20/2020 10:23 AM CDT): Stable on diet alone. Spells of trembling 08/05/2018 Assessment & Plan (09/20/2020 11:35 AM CDT): Stable tremors. Continue observing. Assessment & Plan (03/30/2020 10:53 AM [employer]): Chronic and worsening. Upon review of her med list, it appeared that she had some degree of tremors prior to starting all her psychiatric med except for Topamax she is on for migraines. She is on Topamax for about 3 years and tremors started about 2 years ago. Her psychiatric medicines has been changed and it seems did not affect tremors overall. I discussed with patient to possibly decrease dose of Topamax and hold if possible. Her migraines right now do not bother her and it could be acceptable to do that. Patient advised to decrease Topamax. She is on 50 mg in a.m. and 100 mg at night. I advised her to decrease evening does down to 50 mg for 1 week. If no changes in migraines, decrease further to 50 mg a day. Call back with updates on tremors. Assessment & Plan (08/08/2018 11:14 AM CDT): Very possible to be contributed by kayce. I discussed with pt to decrease it from 100 mg to 50 mg a day. She has thi with [facility] in 3 days. I advised pt to discuss and d/c seroquel. Pt stated depression lately is not bad. She is on effexor 150 mg for that too. Assessment & Plan (08/05/2018 4:13 AM CDT): New twitching episodes without injury -observed by this provider and Neurology without change in alertness and no urinary or stool incontinence, no biting, and no postictal phase. -neurology reports twitching and pelvic thrusts also with responsiveness, without incontinence, no biting and no postictal phase -reportedly she has had extensive workup in the past and we will need outside records please see above -EEG ordered per Neurology -per Neurology she can follow up with them outpatient Migraines 08/05/2018 Assessment & Plan (09/20/2020 10:23 AM CDT): Stable on topamax. Pt sees neurologist. Assessment & Plan (04/22/2019 11:28 AM [employer]): Stable on Topamax Assessment & Plan (08/05/2018 4:15 AM CDT): Continue topiramate 25 mg b.i.d. Personality disorder, unspecified 02/21/2018 Severe episode of recurrent major depressive disorder, without psychotic features 02/06/2018 Assessment & Plan (09/20/2020 10:25 AM CDT): Presently active. No suicidal thoughts. Cont care with psychiatrist. Assessment & Plan (03/30/2020 10:48 AM [employer]): Recent history of suicidal attempt with overdose of clomipramine. Patient was admitted to [facility] 03/18-03/21. Currently attending outpatient treatment at [facility]. Sees psychiatrist, . Denied suicidal thoughts today. I encouraged patient to continue medical treatment and psychiatric care. Assessment & Plan (04/22/2019 11:31 AM [employer]): Stable on Rexulti, venlafaxine, Seroquel, and clomipramine Assessment & Plan (10/08/2018 1:39 PM CDT): Stable on Rexulti, venlafaxine, Seroquel, and lithium. Being followed by psychiatrist Assessment & Plan (08/08/2018 3:45 PM CDT): Improving. Patient sees psychiatric nurse practitioner on regular basis. PHAN (generalized anxiety disorder) 02/06/2018 Assessment & Plan (05/11/2024 5:23 AM [employer]): Chronic condition with persistent symptoms. Medication changes today: See below Insight-oriented, supportive counseling provided. Continued management as discussed Assessment & Plan (03/16/2024 6:25 AM [employer]): Chronic condition with persistent symptoms. Medication changes today: See below Insight-oriented, supportive counseling provided. Continued management as discussed Assessment & Plan (01/27/2024 12:47 AM CDT): Chronic condition with persistent symptoms. Medication changes today: See below Insight-oriented, supportive counseling provided. Continued management as discussed Assessment & Plan (12/26/2023 4:17 PM CDT): Chronic condition with persistent symptoms. Medication changes today: None Insight-oriented, supportive counseling provided. Continued management as discussed Assessment & Plan (09/23/2023 4:06 PM CDT): Chronic condition with persistent symptoms. Medication changes today: None Insight-oriented, supportive counseling provided. Continued management as discussed Assessment & Plan (08/05/2023 3:03 PM CDT): Chronic condition with persistent symptoms. +confounded by stress related to finances, housing, school, work Medication changes today: None Insight-oriented, supportive counseling provided. Continued management as discussed Assessment & Plan (06/16/2023 11:45 AM [employer]): Chronic condition with persistent symptoms. +confounded by stress related to finances, housing, school, work Medication changes today: None Insight-oriented, supportive counseling provided. Continued management as discussed Assessment & Plan (04/11/2023 2:11 PM [employer]): Chronic condition with persistent symptoms. 04/11/2023: anxiety 12/23 Medication changes today: Clomipramine 150 mg HS Insight-oriented, supportive counseling provided. Continued management as discussed Assessment & Plan (02/22/2023 9:24 AM [employer]): Chronic condition with persistent symptoms. Better overall - since last appointment. Medication changes today: None Insight-oriented, supportive counseling provided. Continued management as discussed Assessment & Plan (02/22/2023 9:13 AM [employer]): Chronic condition with persistent symptoms. Better overall - since last appointment. Medication changes today: None Insight-oriented, supportive counseling provided. Continued management as discussed Assessment & Plan (12/08/2022 2:24 PM CDT): Chronic condition with persistent symptoms. Medication changes today: None Insight-oriented, supportive counseling provided. Continued management as discussed Assessment & Plan (11/13/2022 1:53 PM CDT): Chronic condition with persistent symptoms. Medication changes today: None Insight-oriented, supportive counseling provided. Continued management as discussed Assessment & Plan (08/06/2022 9:32 AM CDT): Acute on chronic, persistent. +panic attacks Increase Clomipramine and clonazepam as discussed. Continue to monitor. Assessment & Plan (06/22/2022 8:43 AM [employer]): Chronic condition with persistent, but more stable symptoms. Medication changes today: none Insight-oriented, supportive counseling provided. Continued management as discussed Assessment & Plan (04/23/2022 2:19 PM [employer]): Chronic condition with persistent symptoms. She appears to be functioning at baseline at this time. Medication changes today: none Insight-oriented, supportive counseling provided. Continued management as discussed Assessment & Plan (03/09/2022 9:12 AM [employer]): Chronic condition with persistent symptoms. The patient appears to be functioning at baseline at this time. Medication changes today: None Insight-oriented, supportive counseling provided. Continued management as discussed Assessment & Plan (01/15/2022 4:50 PM CDT): Chronic condition with persistent symptoms. Medication changes today: Paxil stopped by the patient-removed from medication list/discontinued. Insight-oriented, supportive counseling provided. Continued management as discussed Assessment & Plan (12/13/2021 9:30 AM CDT): Chronic condition with persistent symptoms. Anxiety increased since starting school. Medication changes today: None Insight-oriented, supportive counseling provided. Continued management as discussed Assessment & Plan (09/27/2021 3:45 PM CDT): Chronic, persistent. Continue current management. Assessment & Plan (08/31/2021 9:58 AM CDT): Chronic, persistent. Cross titrating Paxil and Clomipramine. Monitor at interval as discussed. Assessment & Plan (07/31/2021 9:24 AM CDT): Chronic condition, currently stable. The patient does not report any worsening anxiety at this time. Medication changes today: None Supportive, insight-oriented counseling provided. Continue to see therapist. Ongoing monitoring of treatment will be provided. The patient has been advised to contact the office for any concerns between now and next scheduled appointment. The patient verbalized an understanding of the plan developed today and agreed to follow up as recommended. Assessment & Plan (06/19/2021 11:01 AM [employer]): Chronic condition, persistent but stable symptoms. Medication changes today: None Continue management as discussed. Support provided. Assessment & Plan (05/19/2021 11:22 AM [employer]): Chronic condition, currently stable. The patient does not report any worsening anxiety at this time. Medication changes today: None Supportive, insight-oriented counseling provided. Ongoing monitoring of treatment will be provided. The patient has been advised to contact the office for any concerns between now and next scheduled appointment. The patient verbalized an understanding of the plan developed today and agreed to follow up as recommended. Assessment & Plan (05/09/2021 1:44 PM [employer]): Chronic, stable. No change to treatment. Assessment & Plan (05/04/2021 9:00 AM [employer]): Chronic condition, persistent but stable symptoms. Medication changes today: None Continue management as discussed. Support provided. Assessment & Plan (04/23/2021 1:25 PM [employer]): Chronic condition, persistent but stable symptoms. Medication changes today: None Continue management as discussed. Support provided. Assessment & Plan (04/10/2021 1:34 PM [employer]): Chronic condition, persistent but stable symptoms. Medication changes today: None Continue management as discussed. Support provided. Assessment & Plan (01/12/2021 9:53 AM CDT): Chronic, persistent. Confounded by trauma therapy. Knows that she needs to work through this, but causing increased anxiety. Assessment & Plan (12/15/2020 8:35 AM CDT): Chronic condition, persistent but stable symptoms. Medication changes today: None Continue management as discussed. Support provided. Assessment & Plan (12/01/2020 8:52 PM CDT): Chronic condition, persistent but stable symptoms. Medication changes today: None Continue management as discussed. Support provided. Assessment & Plan (09/20/2020 10:22 AM CDT): Stable on paxil Assessment & Plan (04/21/2020 5:53 PM [employer]): Chronic, persistent, but functioning at or close to baseline. See orders. Assessment & Plan (04/09/2020 2:44 PM [employer]): Chronic, persistent, agreed to increased frequency of benzodiazepine-but do not wish to maintain at this level for very long period of time. May use hydroxyzine for moderate anxiety. Continue to monitor. Continued admission to the intensive outpatient treatment program. Needs to rely on skills for dealing with anxiety. Encouraged her to utilize exercise. Assessment & Plan (04/22/2019 11:32 AM [employer]): Stable on clonazepam Pelvic pain 12/18/2017 Female genital symptoms 12/18/2017 Overview (12/06/2023): Pelvic pain; Location: None Progress: Stable Added By: Deloris Soliman Add to Current Problems: YES ProblemStatus: Resolve Pelvic and perineal pain 12/18/2017 Overview (12/06/2023): Pelvic and perineal pain; Severity: Moderate Progress: Stable Added By: Paige Muniz Add to Current Problems: YES ProblemStatus: Current Pain of female genitalia 11/12/2017 Overview (12/06/2023): Dysmenorrhea, unspecified; Progress: Stable Added By: Cass Hair Add to Current Problems: NO ProblemStatus: Resolve Dysmenorrhea 11/12/2017 Overview (12/06/2023): Dysmenorrhea; Location: None Progress: Stable Added By: Cass Hair Add to Current Problems: YES ProblemStatus: Current Dysmenorrhea; Progress: Stable Added By: Cass Hair Add to Current Problems: NO ProblemStatus: Resolve Resolved Problems Problem Noted Date Diagnosed Date Resolved Date MDD (major depressive disord er), recurrent, in partial remission 08/05/2018 08/08/2018 Assessment & Plan (08/05/2018 4:15 AM CDT): Patient has had 6 hospitalizations in the last 5-6 months for suicidal ideation -she was seen by Psychiatry in the emergency room -per psychiatry she has chronic acute moderate risk for harm -by history she appears to have stressors and poor coping mechanisms possibly contributing to Chief complaints -per Psychiatry follow-up with her own provider no changes in medications made -presently on Seroquel 100 mg q.h.s., Effexor 300 mg q.day, Klonopin 0.5 mg t.i.d. P.r.n. Assessment & Plan (08/05/2018 1:21 AM CDT): Ms. Ramirez is a 22YO single, domiciled, employed [employer] with history of depression, anxiety, panic attacks, self-harm behaviors, unspecified eating disorder, and syncopal episodes now presenting with new seizure like activity. Psychiatry consulted for input of if seizure-like activity may be due to psychiatric illness. The patient has had mood symptoms of low mood, anhedonia, poor motivation, poor sleep and appetite, hopelessness, worthlessness, and chronic SI starting in January 2018, possibly in s/o psychosocial stressors. She has never had a SA but has had several parasuicidal gestures (holding pills in her hand but calling a friend, etc). Anxiety symptoms include excessive worry about multiple things that is difficult to control and gives physical symptoms of muscle tension, sleeplessness, and feeling on edge; likely meets criteria for PHAN. Panic attacks consist of sudden onset fear, tachycardia, trouble breathing, impending doom, shaking that last for only a few minutes. She does not appear to be concerned with future attacks. She also has h/o restrictive eating patterns and at one point was only taking in 300-400 lance/day, which was the start of her syncopal episodes, but these have persisted despite returning to normal eating, no other binging/purging/compensation behaviors. She has no h/o manic, psychotic, OCD, PTSD, phobia, or substance use symptoms. Some symptoms of cluster B personality including self-harm, chronic SI, poor self-image/sense of self, but few others. She presented to the ED today after a syncopal episode which then became seizure-like activity of intermittent jerking of limbs, thrusting of pelvis, and possibly 1-2 full body shaking events. Neurology was consulted and feels this is not consistent with a primary seizure DO. On exam the patient is calm, cooperative, appropriate with normal reactivity and no evidence of SI or self- harm intent. Ddx for her presentation includes seizure DO vs physical manifestations of psychiatric DO such as depression or anxiety (though she has been doing well x4 weeks with few acutely active symptoms) vs possible other medical/medication induced shaking. At this time she is not appropriate for inpatient psychiatric admission. Risk factors: the patient is chronically and acutely moderate risk of harm. RF: past h/o SI, h/o depression, possible currently new/undiagnosed medical condition. PF: supportive family, no active SI/HI, no active substance use, no access to firearms, psychiatric care established, future planning, access to care, willingness to seek help. Plan: 1. Patient may discharge from psychiatry perspective. 2. This MD will not change medications at this time, encouraged patient to follow up with her Psychiatrist on Saturday. Per neurology note the patient can follow up with them regarding neuro symptoms. 3. Reasons to return to the ED, including SI/HI/AVH or worsening self-harm, were covered. Patient voiced understanding. Plan discussed with ED team. Please call psychiatry with questions. Thank you for the consult. Eating disorder, unspecified 02/21/2018 09/20/2020 Elevated cortisol level 02/18/2018 06/0 11/2020 Syncope 02/18/2018 09/20/2020 Assessment & Plan (08/10/2020 7:37 AM CDT): Due to POTS. Patient was evaluated by cogeneration operator, 48 hour Holter and echo were unremarkable. Will increase midodrine, stress well hydration at all times. Assessment & Plan (05/26/2020 2:35 PM [employer]): Likely some component of POTS. Check 48 hour Holter and echo. Increase salt intake. Will hold off starting Corlanor at this time given other medications of potential for interaction Assessment & Plan (11/04/2019 11:31 AM CDT): History of POTS. Prior echo and event monitors unremarkable. EKG unremarkable. Will resume propranolol. Encouraged to stay well hydrated which has been a component a lightheaded spells of home. Assessment & Plan (09/24/2019 3:26 PM CDT): Recurrent. Patient has autonomic insufficiency. Did better when was on Florinef and midodrine. Patient discontinued both on her own 2 months ago, did not want to be on too many medicines. Since then having increased presyncope with recent syncope episode landing patient in ER. I discussed with her to restart at least midodrine, patient agreed. If still will continue with presyncope episodes will need to restart Florinef as well. Assessment & Plan (02/23/2019 10:50 AM [employer]): Autonomic insufficiency. Continue Florinef and midodrine. Encouraged exercise. Assessment & Plan (08/05/2018 4:11 AM CDT): Chronic and recurring she does follow with a cogeneration operator -there is some suggestion of lone tachycardia and possible prolonged QT intervals -admitted for 2nd opinion -placed on telemetry -will need records from [facility], PCP, cogeneration operator, and mental health provider -continue Florinef and midodrine -discontinuation of meclizine -encourage blood pressure cuff with heart rate monitor for evaluation of future episodes -at this time she is no longer allowed to drive, work heavy equipment, climb to heights, or cook in the kitchen with heat or sharp objects Dysmenorrhea 12/06/2017 09/20/2020 Migraine with aura and witho ut status migrainosus, not intractable 03/13/2017 04/22/2019 Assessment & Plan (10/07/2018 1:57 PM CDT): Continue Topamax, propranolol Assessment & Plan (08/28/2018 1:43 PM CDT): Worsening, cont topamax, I will start fioricet. I have concerns about propranolol considering h/o severe ortho hypotension requiring midodrine. I advised pt to stop it if feeling more lightheaded. Encounters Date Type Department Care Team Description 07/22/2024 11:00 AM CDT Telemedicine [address] [phone] Kevin Sanabria MD 07/06/[address] [phone] Kevin Sanabria MD Med Refill (Focalin xr) 05/31/2024 Orders Only [address] [phone] Kevin Sanabria MD 05/06/2024 8:00 AM [employer] Office Visit [facility] [address] [facility] [address] [place] [address] [place] [phone] Cleopatra Red NP Autonomic dysfunction (Primary Dx); POTS (postural orthostatic tachycardia syndrome) 04/27/2024 3:15 PM [employer] Telemedicine [address] [phone] Kevin Sanabria MD Persistent depressive disorder (Primary Dx); PHAN (generalized anxiety disorder); ADHD, adult residual type from Last 3 Months Immunizations Immunization Administration Dates Next Due Influenza, Quadrivalent, Spl it, Preservative Free, Intramuscular 01/27/2020,01/01/2019,01/26/2018 Influenza, Trivalent, IM (MDV) 02/06/2017 Influenza, Trivalent, Preser vative Free, Intramuscular 05/13/2017 Influenza, Unspecified 01/26/2018 Meningococcal MCV4P (Menactra) 10/06/2015 Moderna SARS-CoV-2 Monovalen t Vaccination (12+ YRS) 07/11/2020,06/13/2020 Tdap 09/17/2017,10/05/2008 Surgical History Surgery Date Site/Laterality Comments US ABDOMEN COMPLETE W LIVER DOPPLER (C) 11/28/2017 Right WISDOM TOOTH EXTRACTION IR PICC LINE PLACEMENT > 5 YEARS 02/27/2022 N/A LAPAROSCOPY 12/22/2019 to rule out/in endometriosis IR PICC LINE PLACEMENT > 5 YEARS 12/06/2022 N/A EXCHANGE PICC LINE 06/13/2023 Left Medical History Medical History Date Comments Anxiety Migraine Allergic rhinitis Major depressive disorder, recurrent, mild Dysmenorrhea Tachycardia POTS (postural orthostatic tachycardia syndrome) GERD (gastroesophageal reflux disease) IBS (irritable bowel syndrome) Family History Medical History Relation Name Comments No Known Problems Brother Troy Heart disease Father Hyperlipidemia Father Hypertension Father Cancer Maternal Grandfather Multiple myeloma Maternal Grandmother No Known Problems Mother Coronary artery disease Paternal Grandfather Anxiety disorder Sister Amarilis POTS Sister Amarilis PTSD Sister Amarilis Thyroid disease Sister Amarilis Relation Name Status Comments Brother Troy Alive Father Alive Maternal Grandfather Maternal Grandmother Alive Mother Alive Paternal Grandfather Paternal Grandmother Alive Sister Amarilis Alive Social History Tobacco Use Types Packs/Day Years Used Date Smoking Tobacco: Never Smokeless Tobacco: Never Tobacco Cessation:Counseling Given: No Alcohol Use Standard Drinks/Week Comments Yes 0 (1 standard drink = 0.6 oz pur e alcohol) less than 1 drink weekly OASIS [id number]: Social Isolation Answer Da te Recorded Frequency of experiencing loneliness or isolatio n Never 10/10/2023 AUDIT-C Answer Date Recorded Q1: How often do you have a drink containing alcohol? Never 06/13/2023 Q2: How many drinks containi ng alcohol do you have on a typical day when you are drinking? Patient does not drink Q3: How often do you have si x or more drinks on one occasion? Never 06/13/2023 PHQ-2 Answer Date Recorded PHQ-2 Total Score (If total score is 3 or more points, staff should administer the PHQ-9) 2 11/16/2020 Personal Safety Answer Date Recorded Have you ever been in or are you currently in a harmful physical or emotional relationship or is someone making you feel afraid or unsafe? Denies 06/13/2023 Comments No Sex and Gender Information Value Date Recorded Sex Assigned at Not on file Legal Sex Female 11:29 AM CDT Gender Identity Female 07/12/2020 10:23 PM CDT Sexual Orientation Choose not to disclose 2022 7:16 AM CDT Occupation Industry Job Start Date Job End Date Student Not on file Not on file Not on file Obstetrics History Last Filed Vital Signs Vital Sign Reading Time Taken Comments Blood Pressure 128/82 05/06/2024 7:54 AM [employer] Pulse 82 05/06/2024 7:54 AM [employer] Temperature 36.2 C (97.1 F) 11/29/2023 8:00 AM CDT Respiratory Rate 18 11/29/2023 8:00 AM CDT Oxygen Saturation 100% 11/29/2023 8:00 AM CDT Inhaled Oxygen Concentration - - Weight 87.5 kg (193 lb) 05/06/2024 7:54 AM [employer] Height 162.6 cm (5' 4 ) 05/06/2024 7:54 AM [employer] Body Mass Index 33.13 05/06/2024 7:54 AM [employer] Plan of Treatment Health Maintenance Due Date Last Done Comments Cervical Cancer Screening 1997 Hepatitis C Screening 1997 Varicella Vaccines (1 of 2 - 13+ 2-dose series) 2010 HPV Vaccines (1 - 3-dose series) 2012 Hepatitis B Screening 10/03/2015 Regular Well Visit/Exam 18-64 09/20/2021 09/20/2020 Depression Screening 11/16/2021 11/16/2020, 05/09/2020, 05/09/2020 Covid-19 Vaccine ( season) 2023 07/11/2020, 06/13/2020 Influenza Vaccine (Season Ended) 2024 02/04/2022, 02/13/2021, 01/27/2020, Additional history exists DTaP/Tdap/Td Vaccine (3 - Td or Tdap) 09/18/2027 09/17/2017, 10/05/2008 Pneumococcal vaccine <65 Aged Out No longer eligible based on patient's age to complete this topic Insurance [facility] HMO/PPO Address: [address] [employer] CHOICE Advance Directives For more information, please contact: [phone] * Full Code (Latest Code Status on File) Date Activated Date Inactivated Comments 12/06/2022 8:32 AM 12/07/2022 5:22 AM * Full Code Date Activated Date Inactivated Comments 02/27/2022 12:43 PM 02/28/2022 5:26 AM * Full Code Date Activated Date Inactivated Comments 08/05/2018 4:43 AM 08/06/2018 12:56 AM Care Teams Presentation Designer Relationship Specialty Start Date End Date Destini Garcia NP [address] [place] [id number] PCP - General Nurse Practitioner 06/02/21 Dana Silva MD Fellow Neurology 05/15/21
--- OUTSIDE RECORDS SUMMARY | 2024-07-26 16:43 | XMS_ITS | Referral Summary ---
Author Organization [facility] Address [address] [place] [id number] Care Team Providers Care Interface Control Officer Name Role Phone Dana Silva MD Unavailable [phone]- [phone] Destini Garcia NP Primary Care Provider [phone] Encounters Date Type Department Care Team Description 07/22/2024 11:00 AM CDT Telemedicine [address] [phone] Kevin Sanabria MD 07/06/[address] [address] Kevin Sanabria MD Med Refill (Focalin xr) 05/31/2024 Orders Only [address] [phone] Kevin Sanabria MD 05/06/2024 8:00 AM WEBSPHERE DEVELOPER Office Visit [facility] [address] [facility] [facility] 6[address] [place] [address] [place] [address] Cleopatra Red NP Autonomic dysfunction (Primary Dx); POTS (postural orthostatic tachycardia syndrome) 04/27/2024 3:15 PM WEBSPHERE DEVELOPER Telemedicine [address] [address] Kevin Sanabria MD Persistent depressive disorder (Primary Dx); PHAN (generalized anxiety disorder); ADHD, adult residual type from Last 3 Months Allergies Active Allergy Reactions Criticality Noted Date Comments Adhesive Itching Low 04/24/2022 Requires skin prep before dressings are placed. Doxycycline Hives,Itching,Rash Medium 01/11/2021 Medications rizatriptan PLATFORM SUPERVISOR (MAXALT-PLATFORM SUPERVISOR) 10 mg disintegrating tabletIndications :Migraine Take 1 tablet (10 mg total) by mouth as needed for migraine 9 tablet 1 Active albuterol HFA (PROVENTIL HFA,VENTOLIN HFA,PROAIR HFA) 90 mcg/actuation inhalerIndication s:allergies Inhale 2 puffs every 6 (six) hours as needed for wheezing 1 each 1 Active Additional Information Patient not taking.Reported on 05/06/2024 Emgality Pen 120 mg/mL pen injectorIndicatio ns:episodic cluster headache Inject 120 mg under the skin every 30 (thirty) days Active montelukast (SINGULAIR) 10 mg tabletIndications :Seasonal Allergic Rhinitis Take 1 tablet (10 mg total) by mouth nightly Active SODIUM BICARBONATE ORALIndications:l ow na Take [...] mouth 2 (two) times a day Active cetirizine (ZyrTEC) 10 mg tabletIndications :Seasonal [...] times a day as needed for constipation Active Estarylla 0.25-35 mg-mcg per tabletIndications : [...] mg total) by mouth nightly 30 tablet 025 2025 Active gabapentin (NEURONTIN) 600 mg tabletIndications :Neuropathic Pain Take 1 tablet (600 mg total) by mouth 2 (two) times a day AND 0.5 tablets (300 mg total) daily after lunch. 225 capsule 3 025 Active ARIPiprazole (ABILIFY) 5 mg tablet Take 1 tablet (5 mg total) by mouth daily 30 tablet 11 025 2025 Active dexmethylphenidat e XR (Focalin [...] as needed for anxiety 60 tablet 5 Active clonazePAM (KlonoPIN) 0.5 mg tabletIndications :Panic [...] 12/13/2021 Assessment & Plan (06/22/2022 8:41 AM WEBSPHERE DEVELOPER): No episodes of self-harm in > 6 mos. Praise provided. Relates that anxiety and depression have improved - and that has been helpful + has been able to cope with situations better. Assessment & Plan (04/23/2022 1:31 PM WEBSPHERE DEVELOPER): Chronic condition, currently stable. None at this time. Briefly discussed rationale today. See notes. Continue to see therapist. Continue to monitor. Assessment & Plan (03/09/2022 9:08 AM WEBSPHERE DEVELOPER): Chronic condition, currently stable. Does not endorse [...] suicide attempts. Biju BAUTISTA, Nate HILL, Shea BY. Nonsuicidal self-injury: what we know, and what we need to know. Can J Psychiatry. 2014 Nov;59(11):565-8. doi: 10.1177/409942899686060151. PMID: 50416153; PMCID: [id number]. Assessment & Plan (01/15/2022 11:36 AM CDT): Last cut last week. Was trying to restrict - ate and got mad about it. Continue to see therapist. Assessment & Plan (12/13/2021 9:28 AM CDT): Chronic condition, persistent symptoms, continue with therapy. Continue to monitor. [place] 10/03/2021 Obesity due to excess calories 10/03/2021 ADHD 08/01/2021 Trauma in childhood 07/31/2021 Assessment & Plan (06/22/2022 8:44 AM WEBSPHERE DEVELOPER): Continue therapy - weekly still - focused on trauma. Reports that her therapist has suggested cPTSD. Has been going back in time and going through traumatic events focusing on each individual trauma as it comes about in the discussion. Assessment & Plan (07/31/2021 9:27 AM CDT): Working on these issues in therapy. Insomnia 06/19/2021 Assessment & Plan (03/16/2024 6:25 AM WEBSPHERE DEVELOPER): Chronic condition, currently stable. Focus on sleep [...] time. Assessment & Plan (06/16/2023 11:46 AM WEBSPHERE DEVELOPER): Chronic condition, currently stable. Advised the patient to focus on sleep hygiene. The patient does not report any worsening sleep-related difficulties at this time. Supportive, insight-oriented counseling provided. No change to treatment regimen at this time. Assessment & Plan (04/11/2023 7:12 PM WEBSPHERE DEVELOPER): Chronic condition, currently stable. Advised the patient to focus on sleep hygiene. The patient does not report any worsening sleep-related difficulties at this time. Supportive, insight-oriented counseling provided. No change to treatment regimen at this time. Assessment & Plan (02/22/2023 9:27 AM WEBSPHERE DEVELOPER): Chronic condition, currently stable. Advised the patient [...] monitor. Assessment & Plan (06/22/2022 8:45 AM WEBSPHERE DEVELOPER): Chronic condition, currently stable. Rates as fair - waking up a few times per night - but usually able to fall back asleep. Advised the patient to focus on sleep hygiene. The patient does not report any worsening sleep-related difficulties at this time. Supportive, insight-oriented counseling provided. No change to treatment regimen at this time. Assessment & Plan (04/23/2022 1:32 PM WEBSPHERE DEVELOPER): Chronic condition, currently stable. Advised the patient to focus on sleep hygiene. The patient does not report any worsening sleep-related difficulties at this time. Supportive, insight-oriented counseling provided. No longer taking Seroquel. Trazodone effective. No change to treatment regimen at this time. Assessment & Plan (03/09/2022 9:09 AM WEBSPHERE DEVELOPER): Chronic condition, currently stable. Continue to focus [...] 03/04/20 Assessment & Plan (03/04/2021 10:35 AM WEBSPHERE DEVELOPER): -send for covid testing -albuterol inhaler to [...] 12/14/2020 Assessment & Plan (05/11/2024 5:23 AM WEBSPHERE DEVELOPER): Chronic, persistent symptoms of inattention, distractibility, inability [...] discussed. Assessment & Plan (03/16/2024 6:25 AM WEBSPHERE DEVELOPER): Chronic, persistent symptoms of inattention, distractibility, inability [...] discussed. Assessment & Plan (06/16/2023 11:46 AM WEBSPHERE DEVELOPER): Chronic, persistent symptoms of inattention, distractibility, inability [...] discussed. Assessment & Plan (04/11/2023 2:12 PM WEBSPHERE DEVELOPER): Chronic, persistent symptoms of inattention, distractibility, inability [...] discussed. Assessment & Plan (02/22/2023 9:14 AM WEBSPHERE DEVELOPER): Chronic, persistent symptoms of inattention, distractibility, inability [...] discussed. Assessment & Plan (06/22/2022 8:47 AM WEBSPHERE DEVELOPER): Chronic, persistent symptoms of inattention, distractibility, inability [...] discussed. Assessment & Plan (04/23/2022 2:18 PM WEBSPHERE DEVELOPER): Chronic, persistent symptoms of inattention, distractibility, inability [...] discussed. Assessment & Plan (03/09/2022 9:10 AM WEBSPHERE DEVELOPER): Chronic, persistent symptoms of inattention, distractibility, inability [...] discussed. Assessment & Plan (06/19/2021 11:01 AM WEBSPHERE DEVELOPER): Chronic, persistent symptoms of inattention, distractibility, inability [...] prescribed. Assessment & Plan (05/19/2021 11:22 AM WEBSPHERE DEVELOPER): Chronic, persistent symptoms of inattention, distractibility, inability [...] discussed. Assessment & Plan (05/09/2021 1:44 PM WEBSPHERE DEVELOPER): Acute, persistent, but having some symptoms that may be related Vyvanse. Discussed at length. Agreed to decrease the dose. Assessment & Plan (04/10/2021 12:41 PM WEBSPHERE DEVELOPER): Chronic, persistent, but Vyvanse seems to help. Insurance deductible cost high - Discontinue Vyvanse - anticipated cost. Plan to switch to Concerta ER 18 mg daily. Assessment & Plan (04/23/2021 1:23 PM WEBSPHERE DEVELOPER): Chronic, persistent. Complaining of some palpitations. Communicated with oil pipe inspector helper. Decrease Vyvanse to 20 mg daily Assessment [...] impairment in social, academic, and/or occupational functioning. Strattera no longer providing affect to the degree [...] 72. Assessment & Plan (05/26/2020 1:58 PM WEBSPHERE DEVELOPER): Check echo in 3 week event monitor Assessment & Plan (05/09/2020 2:36 PM WEBSPHERE DEVELOPER): Sinus tachycardia. More frequent episodes affecting daily function. Will try to increase propranolol, 10 mg 2 tans in am and 1 tab at night. Monitor BP, if will be more lightheaded go back to original dose of 10 mg twice a day. COVID-19 virus infection 04/21/2020 Assessment & Plan (05/09/2020 3:29 PM WEBSPHERE DEVELOPER): Having shortness of breath since acquiring it 3 weeks ago. No respiratory distress, coughing or wheezing. Will check x-ray to rule out possible pneumonia. Will do short-term, low-dose prednisone to alleviate symptoms. Assessment & Plan (04/21/2020 5:52 PM WEBSPHERE DEVELOPER): Acute, positive test on 04/18/2020. Symptoms include shortness of breath-no visible respiratory distress via telemedicine, fatigue, myalgias and 1 episode of fever. Mild at this point in time. Push fluids. Get plenty of rest. If symptoms worsen, go to ER. Polypharmacy 04/09/2020 Assessment & Plan (04/09/2020 2:43 PM WEBSPHERE DEVELOPER): Unfortunately, her medication regimen is complex and [...] had normal Pap I year ago. Sees pie baker. Persistent depressive disorder 03/30/2020 Assessment & Plan (05/11/2024 5:23 AM WEBSPHERE DEVELOPER): Acute on chronic, persistent. Depressive symptoms are partially controlled on current medication regimen. Tolerating medications without any reported side effects. The patient denies active suicidal and homicidal ideation. The following changes were made at today's appointment: See below Reevaluate treatment/symptoms at interval per scheduled appointment. Assessment & Plan (03/16/2024 6:25 AM WEBSPHERE DEVELOPER): Acute on chronic, persistent. Depressive symptoms are [...] appointment. Assessment & Plan (06/16/2023 11:46 AM WEBSPHERE DEVELOPER): Acute on chronic, persistent. Depressive symptoms are less than optimally controlled on current medication regimen. Tolerating medications without any reported side effects. The patient denies active suicidal and homicidal ideation. The following changes were made at today's appointment: Trial of lamotrigine 25 mg daily Reevaluate treatment/symptoms at interval per scheduled appointment. Assessment & Plan (04/11/2023 1:55 PM WEBSPHERE DEVELOPER): Acute on chronic, persistent. Depressive symptoms are [...] appointment. Assessment & Plan (02/22/2023 9:26 AM WEBSPHERE DEVELOPER): Acute on chronic, persistent. Depressive symptoms are [...] appointment. Assessment & Plan (02/22/2023 9:14 AM WEBSPHERE DEVELOPER): Chronic, persistent. Depressive symptoms are reasonably well [...] appointment. Assessment & Plan (06/22/2022 8:42 AM WEBSPHERE DEVELOPER): Chronic, stable. Depressive symptoms are well controlled [...] appointment. Assessment & Plan (04/23/2022 2:18 PM WEBSPHERE DEVELOPER): Chronic, stable. Depressive symptoms are reasonably well controlled on current medication regimen. Tolerating medications without any reported side effects. The patient denies active suicidal and homicidal ideation. The following changes were made at today's appointment: none Reevaluate treatment/symptoms at interval per scheduled appointment. Assessment & Plan (03/09/2022 9:12 AM WEBSPHERE DEVELOPER): Chronic condition, persistent symptoms, but functioning at [...] appointment. Assessment & Plan (06/19/2021 11:01 AM WEBSPHERE DEVELOPER): Chronic, persistent, but functioning at or close [...] discussed. Assessment & Plan (05/19/2021 11:22 AM WEBSPHERE DEVELOPER): Chronic, stable. Depressive symptoms are well controlled on current medication regimen. Tolerating medications without any reported side effects. The patient denies active suicidal and homicidal ideation. The following changes were made at today's appointment: none Reevaluate treatment/symptoms at interval per scheduled appointment. Assessment & Plan (05/09/2021 1:44 PM WEBSPHERE DEVELOPER): Chronic, stable. Denies any active suicidal ideation. No change from standpoint of treatment of depression. Assessment & Plan (05/04/2021 9:01 AM WEBSPHERE DEVELOPER): Chronic, persistent. Denies any active suicidal ideation. Continue current management. Continue to monitor. Assessment & Plan (04/23/2021 1:24 PM WEBSPHERE DEVELOPER): Chronic, stable. Depressive symptoms are reasonably well controlled on current medication regimen. Tolerating medications without any reported side effects. The patient denies active suicidal and homicidal ideation. The following changes were made at today's appointment: None. Reevaluate treatment/symptoms at interval per scheduled appointment. Assessment & Plan (04/10/2021 1:33 PM WEBSPHERE DEVELOPER): Chronic, persistent, but functioning at or close [...] Grew up together. Crisis line [facility] at [phone] ([phone]) Assessment & Plan (12/15/2020 8:35 AM CDT): [...] makeda. Assessment & Plan (04/21/2020 5:52 PM WEBSPHERE DEVELOPER): Chronic, stable with medication changes. Denies any active suicidal ideation. With polypharmacy, will reduce medications further. See orders below. Continue to monitor. Assessment & Plan (04/09/2020 2:44 PM WEBSPHERE DEVELOPER): Chronic, persistent, but functioning at or close [...] Topamax. Assessment & Plan (04/23/2019 3:07 PM WEBSPHERE DEVELOPER): Continue Topamax Assessment & Plan (08/28/2018 1:50 PM CDT): Pt is planning to see neurologist, Dr. Bates. Pt also sees psychiatric assistant, will discuss with her to stop lithium [...] try to wean off midodrine. Currently taking 10/10/5 continue crease afternoon dose to 5 as [...] Florinef. Assessment & Plan (04/22/2019 11:31 AM WEBSPHERE DEVELOPER): Stable on midodrine and Florinef Assessment & [...] observing. Assessment & Plan (03/30/2020 10:53 AM WEBSPHERE DEVELOPER): Chronic and worsening. Upon review of her [...] CDT): Very possible to be contributed by seroquel. I discussed with pt to decrease it from 100 mg to 50 mg a day. She has thi with psychiatric assistant in 3 days. I advised pt to [...] neurologist. Assessment & Plan (04/22/2019 11:28 AM WEBSPHERE DEVELOPER): Stable on Topamax Assessment & Plan (08/05/2018 4:15 AM CDT): Continue topiramate 25 mg b.i.d. Personality disorder, unspecified 02/21/2018 Severe episode of recurrent major depressive disorder, without psychotic features 02/06/2018 Assessment & Plan (09/20/2020 10:25 AM CDT): Presently active. No suicidal thoughts. Cont care with psychiatrist. Assessment & Plan (03/30/2020 10:48 AM WEBSPHERE DEVELOPER): Recent history of suicidal attempt with overdose of clomipramine. Patient was admitted to [facility] 03/18-03/21. Currently attending outpatient treatment at [facility]. Sees psychiatrist, . Denied suicidal thoughts today. I encouraged patient to continue medical treatment and psychiatric care. Assessment & Plan (04/22/2019 11:31 AM WEBSPHERE DEVELOPER): Stable on Rexulti, venlafaxine, Seroquel, and clomipramine Assessment & Plan (10/08/2018 1:39 PM CDT): Stable on Rexulti, venlafaxine, Seroquel, and lithium. Being followed by psychiatrist Assessment & Plan (08/08/2018 3:45 PM CDT): Improving. Patient sees psychiatric nurse practitioner on regular basis. PHAN (generalized anxiety disorder) 02/06/2018 Assessment & Plan (05/11/2024 5:23 AM WEBSPHERE DEVELOPER): Chronic condition with persistent symptoms. Medication changes today: See below Insight-oriented, supportive counseling provided. Continued management as discussed Assessment & Plan (03/16/2024 6:25 AM WEBSPHERE DEVELOPER): Chronic condition with persistent symptoms. Medication changes [...] discussed Assessment & Plan (06/16/2023 11:45 AM WEBSPHERE DEVELOPER): Chronic condition with persistent symptoms. +confounded by stress related to finances, housing, school, work Medication changes today: None Insight-oriented, supportive counseling provided. Continued management as discussed Assessment & Plan (04/11/2023 2:11 PM WEBSPHERE DEVELOPER): Chronic condition with persistent symptoms. 04/11/2023: anxiety 12/23 Medication changes today: Clomipramine 150 mg HS Insight-oriented, supportive counseling provided. Continued management as discussed Assessment & Plan (02/22/2023 9:24 AM WEBSPHERE DEVELOPER): Chronic condition with persistent symptoms. Better overall - since last appointment. Medication changes today: None Insight-oriented, supportive counseling provided. Continued management as discussed Assessment & Plan (02/22/2023 9:13 AM WEBSPHERE DEVELOPER): Chronic condition with persistent symptoms. Better overall [...] monitor. Assessment & Plan (06/22/2022 8:43 AM WEBSPHERE DEVELOPER): Chronic condition with persistent, but more stable symptoms. Medication changes today: none Insight-oriented, supportive counseling provided. Continued management as discussed Assessment & Plan (04/23/2022 2:19 PM WEBSPHERE DEVELOPER): Chronic condition with persistent symptoms. She appears to be functioning at baseline at this time. Medication changes today: none Insight-oriented, supportive counseling provided. Continued management as discussed Assessment & Plan (03/09/2022 9:12 AM WEBSPHERE DEVELOPER): Chronic condition with persistent symptoms. The patient [...] recommended. Assessment & Plan (06/19/2021 11:01 AM WEBSPHERE DEVELOPER): Chronic condition, persistent but stable symptoms. Medication changes today: None Continue management as discussed. Support provided. Assessment & Plan (05/19/2021 11:22 AM WEBSPHERE DEVELOPER): Chronic condition, currently stable. The patient does [...] recommended. Assessment & Plan (05/09/2021 1:44 PM WEBSPHERE DEVELOPER): Chronic, stable. No change to treatment. Assessment & Plan (05/04/2021 9:00 AM WEBSPHERE DEVELOPER): Chronic condition, persistent but stable symptoms. Medication changes today: None Continue management as discussed. Support provided. Assessment & Plan (04/23/2021 1:25 PM WEBSPHERE DEVELOPER): Chronic condition, persistent but stable symptoms. Medication changes today: None Continue management as discussed. Support provided. Assessment & Plan (04/10/2021 1:34 PM WEBSPHERE DEVELOPER): Chronic condition, persistent but stable symptoms. Medication [...] paxil Assessment & Plan (04/21/2020 5:53 PM WEBSPHERE DEVELOPER): Chronic, persistent, but functioning at or close to baseline. See orders. Assessment & Plan (04/09/2020 2:44 PM WEBSPHERE DEVELOPER): Chronic, persistent, agreed to increased frequency of benzodiazepine-but do not wish to maintain at this level for very long period of time. May use hydroxyzine for moderate anxiety. Continue to monitor. Continued admission to the intensive outpatient treatment program. Needs to rely on skills for dealing with anxiety. Encouraged her to utilize exercise. Assessment & Plan (04/22/2019 11:32 AM WEBSPHERE DEVELOPER): Stable on clonazepam Pelvic pain 12/18/2017 Female [...] Due to POTS. Patient was evaluated by oil pipe inspector helper, 48 hour Holter and echo were unremarkable. Will increase midodrine, stress well hydration at all times. Assessment & Plan (05/26/2020 2:35 PM WEBSPHERE DEVELOPER): Likely some component of POTS. Check 48 [...] well. Assessment & Plan (02/23/2019 10:50 AM WEBSPHERE DEVELOPER): Autonomic insufficiency. Continue Florinef and midodrine. Encouraged exercise. Assessment & Plan (08/05/2018 4:11 AM CDT): Chronic and recurring she does follow with a oil pipe inspector helper -there is some suggestion of lone tachycardia and possible prolonged QT intervals -admitted for 2nd opinion -placed on telemetry -will need records from [facility], PCP, oil pipe inspector helper, and mental health provider -continue Florinef and [...] to stop it if feeling more lightheaded. Immunizations Immunization Administration Dates Next Due Influenza, Quadrivalent, Spl it, Preservative Free, Intramuscular 01/27/2020,01/01/2019,01/26/2018 Influenza, Trivalent, IM (MDV) 02/06/2017 Influenza, Trivalent, Preser vative Free, Intramuscular 05/13/2017 Influenza, Unspecified 01/26/2018 Meningococcal MCV4P (Menactra) 10/06/2015 Moderna SARS-CoV-2 Monovalen t Vaccination (12+ YRS) 07/11/2020,06/13/2020 Tdap 09/17/2017,10/05/2008 Social History Tobacco Use Types Packs/Day Years [...] file Not on file Not on file Last Filed Vital Signs Vital Sign Reading Time Taken Comments Blood Pressure 128/82 05/06/2024 7:54 AM WEBSPHERE DEVELOPER Pulse 82 05/06/2024 7:54 AM WEBSPHERE DEVELOPER Temperature 36.2 C (97.1 F) 11/29/2023 8:00 AM CDT Respiratory Rate 18 11/29/2023 8:00 AM CDT Oxygen Saturation 100% 11/29/2023 8:00 AM CDT Inhaled Oxygen Concentration - - Weight 87.5 kg (193 lb) 05/06/2024 7:54 AM WEBSPHERE DEVELOPER Height 162.6 cm (5' 4 ) 05/06/2024 7:54 AM WEBSPHERE DEVELOPER Body Mass Index 33.13 05/06/2024 7:54 AM WEBSPHERE DEVELOPER Plan of Treatment Not on file Insurance [facility] H[facility]PPO Address: [address] [facility] PPO [employer] ACCESS CHOICE Advance Directives For more information, please contact: [phone] * Full Code (Latest Code Status on File) Date Activated Date Inactivated Comments 12/06/2022 8:32 AM 12/07/2022 5:22 AM * Full Code Date Activated Date Inactivated Comments 02/27/2022 12:43 PM 02/28/2022 5:26 AM * Full Code Date Activated Date Inactivated Comments 08/05/2018 4:43 AM 08/06/2018 12:56 AM Care Teams Interface Control Officer Relationship Specialty Start Date End Date Destini Garcia NP [address] [place] [address] [id number] PCP - General Nurse Practitioner 06/02/21 Dana Silva MD Fellow Neurology 05/15/21
--- OUTSIDE RECORDS SUMMARY | 2024-07-26 16:43 | XMS_ITS | Encounter Summary ---
Author Organization [facility] Address [address] [place] [address] Care Team Providers Care Mobile Marketing Manager Name Role Phone Destini Garcia HEYDI Primary Care Provider [phone] Reason for Visit * Reason Onset Date Comments Information 07/21/2021 Encounter Details Date Type Department Care Team (Late st Contact Info) Description 07/21/2021 FAGUO Message Enc [facility] THREE [facility], [facility] [address] [place], [place] [id number] Franky Wallace MD Three [facility]. [facility] [address] [place] [address] Order Social History Tobacco Use Types Packs/Day Years [...] Sex Assigned at Female 06/18/2024 10:56 AM WHEAT WASHER Legal Sex Female 7:31 PM CDT Gender Identity Female 04/07/2021 9:13 AM WHEAT WASHER Sexual Orientation Choose not to disclose 2024 8:31 AM CDT COVID-19 Exposure Response Date Recorded In the last 10 days, have trey dow been in contact with someone who was confirmed or suspected to have Coronavirus/COVID-19? No / Unsure 07/21/2021 10:31 AM CDT documented as of this encounter [...] Date Author Status No 02/12/2021 4:50 PM MARYAT Mirian De León RN Active documented in this encounter Progress Notes * Carole Whatley RN - 07/25/2021 10:23 AM CDT I received a message from Nisha SAAVEDRA) asking for clarification on an order. I informed Nisha thatthe patient can have therapy every other week times two for a total of two sessions then it is over. Nisha asked for a new order to be faxed to their department. Corydon notified and will send a new order. * Shabana Mullen - 07/25/2021 9:47 AM CDT New order faxed to [phone] * Carole Whatley RN - 07/21/2021 1:51 PM CDT Just two more sessions. Above message from Dr. Wallace. Message to the executive secretary social welfare. * Carole Whatley RN - 07/21/2021 11:45 AM CDT I received a phone call from the patient stating that she had a recent appt with Dr. Wallace and discussed continuing the fluids for another month. I reviewed Dr. Wallace's note - she will need her midline changed soon, but explained that we need to decrease the frequency of IV infusions to every other week for the next month then discontinue them an the central catheters. I informed the patient that I will notify Dr. Wallace and the PA. The patient verbalized understanding and had no further questions. Message to Dr. Wallace and Jaida SALGADO. * Carole Whatley RN - 07/21/2021 11:32 AM CDT I sent a Obsorbt message to the patient that IV therapy was ordered for one month - a letter was sent to the infusion center last month. Message to Jaida SALGADO. documented in this encounter Plan of Treatment Upcoming Encounters Date Type Department Care Team (Late st Contact Info) Description 08/18/2024 1:20 PM CDT Office Visit [facility] Medical [facility] Family & Internal Medicine - [address] [phone] Destini Garcia FNP [address] [place] [address] 09/29/2024 1:15 PM CDT Office Visit [facility] THREE [facility], [facility] [address] [place] [address] Franky Wallace MD Three [facility]. [facility] [address] [place] [address] documented as of this encounter Goals Goal [...] Total Score: 2 03/02/20 21 2:17 PM WHEAT WASHER documented as of this encounter Care Teams Mobile Marketing Manager Relationship Specialty Start Date End Date Destini Garcia FNP [facility] [place] [address] PCP - General Nurse Practitioner Family 11/21/20 documented as of this encounter
--- OUTSIDE RECORDS SUMMARY | 2024-07-26 16:43 | XMS_ITS | Encounter Summary ---
Author Organization [facility] Address [address] [place] [address] Care Team Providers Care Cloth Folder Hand Name Role Phone Jose Destini HEYDI Primary Care Provider [phone] Encounter Details Date Type Department Care Team (Late st Contact Info) Description 03/20/2021 Therapy Plan [facility] Infusion Services [place], [place] [phone] Franky Wallace MD Three [facility]. [facility] [address] [place], [place] [phone] Social History Tobacco Use Types Packs/Day Years [...] Sex Assigned at Female 06/18/2024 10:56 AM LEATHER COVERER Legal Sex Female 7:31 PM CDT Gender Identity Female 04/07/2021 9:13 AM LEATHER COVERER Sexual Orientation Choose not to disclose 2024 8:31 AM CDT COVID-19 Exposure Response Date Recorded In the last month, have you been in contact with someone who was confirmed or suspected to have Coronavirus / COVID-19? No / Unsure 03/22/2021 10:16 AM LEATHER COVERER documented as of this encounter Functional Status [...] Description 08/18/2024 1:20 PM CDT Office Visit [facility] Family & Internal Medicine - [place] [place] [address] Destini Garcia FNP [address] [place] [address] 09/29/2024 1:15 PM CDT Office Visit [facility] THREE [facility], [facility] [address] [place], [place] [phone] Franky Wallace MD Three [facility]. [facility] [address] [place], [place] [phone] documented as of this encounter Goals Goal Patient Goal Type Associated Problems Recent Progress Patient-Stated? Author Patient will return to prior living situation and remain independent in ADLs upon discharge from [facility] Phyllis Law RN documented as of this encounter Visit Diagnoses Diagnosis Syncope, unspecified syncope type- Primary POTS (postural orthostatic tachycardia syndrome) Tachycardia, unspecified documented in this encounter Additional Health Concerns Assessment Noted Time PHQ-9 Depression Total Score: 2 03/02/20 21 2:17 PM LEATHER COVERER documented as of this encounter Care Teams Cloth Folder Hand Relationship Specialty Start Date End Date Destini Garcia FNP [address] [place] [address] PCP - General Nurse Practitioner Family 11/21/20 documented as of this encounter
--- OUTSIDE RECORDS SUMMARY | 2024-07-26 16:43 | XMS_ITS | Encounter Summary ---
Author Organization [facility] Address [address] [place] [address] Care Team Providers Care Nuclear Fuel Enrichment Technician Name Role Phone Jose Destini HEYDI Primary Care Provider [phone] Encounter Details Date Type Department Care Team (Late st Contact Info) Description 06/20/2021 MyChart Message Enc [facility] Multispecialty Care - [facility] 3 [facility], [address] [place] [phone] Dana Silva MD [address] [place] [address] Emgality Social History Tobacco Use Types Packs/Day [...] Sex Assigned at Female 06/18/2024 10:56 AM MULTIPLE SCLEROSIS NURSE Legal Sex Female 7:31 PM CDT Gender Identity Female 04/07/2021 9:13 AM MULTIPLE SCLEROSIS NURSE Sexual Orientation Choose not to disclose 2024 8:31 AM CDT COVID-19 Exposure Response Date Recorded In the last 10 days, have trey u been in contact with someone who was confirmed or suspected to have Coronavirus/COVID-19? No / Unsure 06/23/2021 8:41 AM MULTIPLE SCLEROSIS NURSE documented as of this encounter Functional Status [...] Description 08/18/2024 1:20 PM CDT Office Visit [facility] Family & Internal Medicine - [address] [phone] Destini Garcia [address] [address] 09/29/2024 1:15 PM CDT Office Visit [facility], [facility] [address] [place] [address] [facility] [address] [place] [address] documented as of this encounter Goals Goal Patient Goal Type Associated Problems Recent Progress Patient-Stated? Author Patient will return to prior living situation and remain independent in ADLs upon discharge from [facility] Phyllis Nieto RN documented as of this encounter Visit Diagnoses Not on filedocumented in this encounter Additional Health Concerns Assessment Noted Time PHQ-9 Depression Total Score: 2 03/02/20 21 2:17 PM MULTIPLE SCLEROSIS NURSE documented as of this encounter Care Teams Nuclear Fuel Enrichment Technician Relationship Specialty Start Date End Date Destini Garcia FNP [address] [place] [address] PCP - General Nurse Practitioner Family 11/21/20 documented as of this encounter
--- OUTSIDE RECORDS SUMMARY | 2024-07-26 16:43 | XMS_ITS | Encounter Summary ---
Author Organization [facility] Address [address] [place] [address] Care Team Providers Care Needle Molder Name Role Phone Destini Garcia HEYDI Primary Care Provider [phone] Encounter Details Date Type Department Care Team (Late st Contact Info) Description 08/12/2023 [employer] Message Enc [facility] THREE [facility], [facility] [address] [place], [place] [phone] Franky Wallace MD Three [facility]. [facility] [address] [place], [place] [phone] Refill Nadolol Social History Tobacco Use Types Packs/Day Years [...] Answer Date Recorded Patient Health Questionnaire-2 Score 0 03/26/2023 Comments No Sex and Gender Information Value Date Recorded Sex Assigned at Female 06/18/2024 10:56 AM GARBAGE STOKER Legal Sex Female 7:31 PM CDT Gender Identity Female 04/07/2021 9:13 AM GARBAGE STOKER Sexual Orientation Choose not to disclose 2024 [...] HOSPITAL Medical Group Family & Internal Medicine [id number] [place] [address] [facility] [place] [address] 09/29/2024 1:15 PM CDT Office Visit [facility] THREE [facility], [facility] [address] [place], [place] [phone] Franky Wallace MD [facility]. [facility] [address] [place], [place] [phone] documented as of this encounter Goals Goal Patient Goal Type Associated Problems Recent Progress Patient-Stated? Author Patient will return to prior living situation and remain independent in ADLs upon [facility] General No Thanh, Phyllis K, RN documented as of this encounter Visit Diagnoses Not on filedocumented in this encounter Additional Health Concerns Assessment Noted Time PHQ-9 Depression Total Score: 11 023 9:14 AM GARBAGE STOKER documented as of this encounter Care Teams Needle Molder Relationship Specialty Start Date End Date Destini Garcia FNP [address] [place] [address] PCP - General Nurse Practitioner Family 11/21/20 documented as of this encounter
--- OUTSIDE RECORDS SUMMARY | 2024-07-26 16:43 | XMS_ITS | Clinical Summary ---
Author Organization [facility] Address [address] [place] [address] Care Team Providers Care Ambulance Paramedic Name Role Phone Destini Garcia Primary Care Provider [phone] Allergies Active Allergy Reactions Criticality Noted Date Comments Doxycycline Monohydrate Hives,Itching,Rash,R edness Low 01/11/2021 Tape Itching Low 04/24/2022 Requires skin prep before dressings are placed. Medications clonazePAM 0.5 MG tablet Take 1 tablet (0.5 mg total) by mouth 2 (two) times daily. 11/24/19 21 Active ibuprofen 800 MG tabletIndications: Pelvic pain Take 1 tablet (800 mg total) by mouth every 8 (eight) hours as needed for Pain. 30 tablet 12/22/19 21 Active montelukast 10 MG tablet Take 1 tablet (10 mg total) by mouth nightly. 06/15/19 22 Active Cetirizine HCl (ZYRTEC ALLERGY) 10 MG Cap Take 10 mg by mouth 2 (two) times daily. Active EPINEPHrine 0.3 MG/0.3ML injection Auvi-Q 0.3 mg/0.3 mL injection, auto-injector USE DIRECTED Active famotidine 20 MG tablet Take 2 tablets (40 mg total) by mouth 2 (two) times daily. Active ESTARYLLA 0.25-35 MG-MCG tablet TABLET 1 TABLET BY MOUTH DAILY SKIPPING ALL PLACEBOS 12/01/19 22 Active Cromolyn Sodium 100 MG/5ML Conc cromolyn 100 mg/5 mL oral concentrate TAKE 10 ML BY MOUTH TWICE DAILY BEFORE BREAKFAST AND SUPPER 11/28/19 22 Active albuterol sulfate HFA 108 (90 Base) MCG/ACT inhaler 2 puffs every 6 (six) hours as needed. 04/12/20 22 Active docusate sodium (COLACE) 100 MG capsuleIndications :Chronic idiopathic constipation Take 1 capsule (100 mg total) by mouth 2 (two) times daily as needed for Constipation. 60 capsule 2 05/03/19 23 Active dicyclomine (BENTYL) 20 MG tabletIndications: Abdominal cramping Take 1/2 tablet (10MG) 4 times a day before meals and at bedtime as needed for diarrhea and cramping 120 tablet 1 05/11/19 23 Active dexmethylphenidate XR (FOCALIN XR) 10 MG 24 hr capsule Take 1 capsule (10 mg total) by mouth daily. Active traZODone (DESYREL) 100 MG tablet Take 1 tablet (100 mg total) by mouth nightly at bedtime. 01/25/20 23 Active Naltrexone HCl, Pain, (NALTREX OR) Take 5 mg by mouth daily. 07/24/19 24 Active cyclobenzaprine (FLEXERIL) 10 MG tabletIndications: PCOS (polycystic ovarian syndrome),Pelvic pain Take 1 tablet (10 mg total) by mouth 3 (three) times daily as needed for Muscle Spasms. 30 tablet 2 08/20/19 24 Active Galcanezumab-gnlm (EMGALITY) 120 MG/ML Solution Auto-injectorIndic ations:Other migraine without status migrainosus, not intractable Inject 1 mL as directed every 30 (thirty) days. 1 mL 11 08/20/19 24 Active dexmethylphenidate (FOCALIN) 5 MG tablet Take 1 tablet (5 mg total) by mouth. 08/17/19 24 Active folic acid (FOLVITE) 1 MG tabletIndications: Folic acid deficiency Take 1 tablet (1 mg total) by mouth daily. 30 tablet 11 09/23/19 24 Active pyridostigmine (MESTINON) 60 MG tablet TAKE 1/2 TO 1 TABLET BY MOUTH THREE TIMES DAILY 02/04/20 24 Active prochlorperazine (COMPAZINE) 10 MG tablet Take 0.5 mg by mouth. Active fluvoxaMINE (LUVOX) 25 MG tablet Take 1 tablet (25 mg total) by mouth daily. 01/16/20 24 025 Active sodium chloride 1 GM tablet Take 1 tablet (1 g total) by mouth 3 (three) times daily. 180 tablet 2 02/13/20 24 Active rizatriptan (MAXALT-FOREST BOTANY INSTRUCTOR) 10 MG disintegrating tabletIndications: Migraine without aura, not intractable, without status migrainosus Take 1 tablet (10 mg total) by mouth 2 (two) times daily as needed for Migraine. 9 tablet 5 03/16/20 24 Active gabapentin (NEURONTIN) 300 MG capsuleIndications :Vestibular migraine Take 2 capsules (600 mg total) by mouth 2 (two) times a day. 360 capsule 3 03/31/20 24 025 Active lamoTRIgine (LAMICTAL) 100 MG tablet Take 1 tablet (100 mg total) by mouth daily. 03/02/20 24 025 Active ivabradine (CORLANOR) 5 MG tabletIndications: POTS (postural orthostatic tachycardia syndrome) Take 1 tablet (5 mg total) by mouth 2 (two) times daily with meals. 60 tablet 5 03/31/20 24 Active Additional Information Patient taking differently: 2.5 mgOral 2 times daily with meals, Reported on 04/07/2024 ondansetron (ZOFRAN-ODT) 4 MG disintegrating tabletIndications: Other migraine without status migrainosus, not intractable DISSOLVE 1 TABLET ON TOP OF TONGUE THEN SWALLOW WITH SALIVA EVERY 12 HOURS NEEDED FOR FORNAUSEA AND VOMITING 20 tablet 3 04/09/20 24 Active midodrine (PROAMATINE) 10 MG tabletIndications: POTS (postural orthostatic tachycardia syndrome),Syncope, unspecified syncope type TAKE 1 TABLET BY MOUTH EVERY MORNING, 1 TABLET EVERY AFTERNOON AND 1/2 TABLET EVERY EVENING 225 tablet 1 07/18/19 25 Active midodrine (PROAMATINE) 10 MG tabletIndications: POTS (postural orthostatic tachycardia syndrome),Syncope, unspecified syncope type TAKE 1 TABLET BY MOUTH EVERY MORNING, 1 TABLET EVERY AFTERNOON AND 1/2 TABLET EVERY EVENING 225 tablet 1 02/13/20 24 025 Discontin ued(Reord er) Active Problems Problem Noted Date Diagnosed Date Vitamin D deficiency, unspecified 09/23/2023 Folic acid deficiency 09/23/2023 Nonsuicidal self-harm ([facility]) 12/14/19 22 Overview (04/25/2022): Last Assessment & Plan: Chronic condition, currently stable. None at this time. Briefly discussed rationale today. See notes. Continue to see therapist. Continue to monitor. Insomnia 06/19/2021 Overview (04/25/2022): Last Assessment & Plan: Chronic condition, currently stable. Advised the patient to focus on sleep hygiene. The patient does not report any worsening sleep-related difficulties at this time. Supportive, insight-oriented counseling provided. No longer taking Seroquel. Trazodone effective. No change to treatment regimen at this time. Chronic cough 04/06/2021 Acne vulgaris 03/03/2021 Skin lesion of breast 02/16/2021 LOC (loss of consciousness) ([facility]) Dizziness 02/16/2021 Recurrent syncope 02/12/2021 Chronic abdominal pain 01/25/2021 Blood in stool 01/25/2021 Chronic idiopathic constipation 01/25/2021 Pelvic pain 12/21/2020 ADHD, adult residual type 12/14/2020 Overview (08/21/2022): Last Assessment & Plan: Chronic, persistent symptoms [...] as discussed. PCOS (polycystic ovarian syndrome) 12/07/2020 Syncope, unspecified syncope type 11/23/2020 Body image disorder 11/23/2020 Class 1 obesity due to exces s calories with serious comorbidity and body mass index (BMI) of 34.0 to 34.9 in adult 11/23/2020 Orthostatic hypotension 11/21/2020 Abnormal finding on EKG 11/16/2020 Overview (11/21/2020): Last Assessment & Plan: Atrial fibrillation with occasional ventricular ectopic beats, sent to ER via ambulance for further evaluation. Acute vaginitis 11/01/2020 Overview (02/04/2023): Acute vaginitis; Severity: Moderate Progress: Stable Added By: Shelia Kelly Add to Current Problems: YES ProblemStatus: Current Pain in joint 09/29/2020 Overview (11/21/2020): Last Assessment & Plan: Chronic, stable-ordered CBC, ESR, LUIS, and rheumatoid factor. Can take Tylenol as directed as needed. Recommended follow-up with PCP if symptoms are not improving, are worsening, or new symptoms develop. Other irritable bowel syndrome 09/20/2020 Overview (11/21/2020): Last Assessment & Plan: Mild, new onset 2 months ago. No signs of colitis. Discussed with patient to lose weight. Come back if symptoms will worsen. Palpitations 05/09/2020 Overview (11/21/2020): Last Assessment & Plan: Well controlled on propranolol. Pulse is good today 72. COVID-19 virus infection 04/21/2020 Overview (11/21/2020): Last Assessment & Plan: Having shortness of breath since acquiring it 3 weeks ago. No respiratory distress, coughing or wheezing. Will check x-ray to rule out possible pneumonia. Will do short-term, low-dose prednisone to alleviate symptoms. Polypharmacy 04/09/2020 Overview (11/21/2020): Last Assessment & Plan: Unfortunately, her medication regimen is complex and [...] this matter. Previous known suicide attempt 03/30/2020 Endometriosis 12/18/2019 Overview (02/04/2023): Endometriosis, unspecified; Severity: Moderate Progress: Stable Added By: Ni Merrill Add to Current Problems: YES ProblemStatus: Current Chronic fatigue 10/08/2018 Overview (11/21/2020): Last Assessment & Plan: Chronic, worsening, with recent normal free T4 and TSH-ordered CBC, ESR, LUIS, and rheumatoid factor. Recommended follow-up with PCP if symptoms are not improving, are worsening, or new symptoms develop. Gastroesophageal reflux disease 08/08/2018 Overview (11/21/2020): Last Assessment & Plan: Stable on diet alone. Migraine headache 08/05/2018 Overview (11/21/2020): Last Assessment & Plan: Stable on topamax. Pt sees neurologist. POTS (postural orthostatic tachycardia syndrome) 07/02/2018 Overview (11/21/2020): Last Assessment & Plan: Stable on midodrine. Syncope episodes are less frequent, down from 6-7 a month to 3-4. Previously event monitor and echo were normal. Eating disorder, unspecified 02/21/2018 PHAN (generalized anxiety disorder) 02/06/2018 Overview (11/21/2020): Last Assessment & Plan: Stable on paxil Severe episode of recurrent major depressive disorder, without psychotic features (CMS/HCC HHS/HCC) 02/06/2018 Overview (11/21/2020): Last Assessment & Plan: Presently active. No suicidal thoughts. Cont care with psychiatrist. Pelvic and perineal pain 12/18/2017 Overview (02/04/2023): Pelvic and perineal pain; Severity: Moderate Progress: Stable Added By: Paige Muniz Add to Current Problems: YES ProblemStatus: Current Dysmenorrhea 11/12/2017 Overview (02/04/2023): Dysmenorrhea; Location: None Progress: Stable Added By: Cass Hair Add to Current Problems: YES ProblemStatus: Current Dysmenorrhea; Progress: Stable Added By: Cass Hair Add to Current Problems: NO ProblemStatus: Resolve Pain of female genitalia 11/12/2017 Overview (02/04/2023): Dysmenorrhea, unspecified; Progress: Stable Added By: Cass Hair Add to Current Problems: NO ProblemStatus: Resolve Resolved Problems Problem Noted Date Diagnosed Date Resolved Date ADHD 08/01/2021 08/21/2022 Nausea 11/16/2020 11/23/2020 Overview (11/21/2020): Last Assessment & Plan: Sent to ER via ambulance for further evaluation, see EKG. Dizziness 09/29/2020 11/23/2020 Overview (11/21/2020): Last Assessment & Plan: Sent to ER via ambulance for further evaluation, see EKG. Last Assessment & Plan: Chronic, possibly related to POTS-continued on midodrine, should stay hydrated throughout the day, drinking fluids frequently and avoid alcohol and caffeine. PT may be helpful in managing symptoms. Attention and concentration deficit 09/29/2020 08/21/2022 Overview (11/21/2020): Last Assessment & Plan: Chronic,stable-started Strattera today, prescribed by psychiatrist. Recommended follow-up with psychiatrist or PCP if symptoms are not improving, are worsening, or new symptoms develop. Persistent depressive disorder 03/30/2020 11/23/2020 Overview (11/21/2020): Last Assessment & Plan: Chronic, stable with medication changes. Denies any active suicidal ideation. With polypharmacy, will reduce medications further. See orders below. Continue to monitor. 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 No new episodes. Continue Topamax. Personality disorder, unspec ified ([facility]) 02/21/2018 07/31/2023 MDD (major depressive disorder) 09/14/2015 11/23/2020 Encounters Date Type Department Care Team Description 07/17/2024 Telephone [facility], [facility] [address] [place] [address] Jeanie Su CMA Prior Authorization (midodrine) 07/16/2024 MyCbunkersofa Message Enc [facility], [facility] [address] [place] [address] Nelly Stern PA Midodrine 06/18/2024 Misc Documentation [facility]pec[facility] - [address], [address] [place] [address] Alyssa Quintero MD 06/17/2024 MyChart [facility] - [address] [place] [phone] Alyssa Quintero MD Emgality 06/10/2024 Orders Only [facility] Multispecialty Care - [facility] [address] [facility], [address] [place] [phone] Alyssa Quintero MD 06/05/2024 MyChart Message Enc [facility], [facility] [address] [place] [address] Nelly Stern PA Corlanor PA 06/01/2024 MyChart [facility] [address] [facility], [address] [place] [address] Alyssa Quintero MD Emgality Prior Auth with New insurance 06/01/2024 [facility] [address] [facility], [address] [place] [phone] Alyssa Quintero MD from Last 3 Months Immunizations Immunization Administration Dates Next Due Fluzone 6 Months+ Quad (0.5 mL Prefilled Syringe) 02/13/2021 HPV GARDASIL 9-VALENT 11/22/2022,08/21/2022,11/0 07/2020 Influenza (Generic) 01/01/2019,05/13/2017,2016 Influenza Adult (Generic) 02/04/2022,,01/27/2020,2018,01/26/2018,02/06/2017 MODERNA COVID-19 (12+) MRNA, LNP-S, PF, 100 MCG/ 0.5 ML DOSE 07/11/2020,06/13/2020 Menactra 10/06/2015 Tdap (Generic) 09/17/2017,10/05/2008 Family History Medical History Relation Comments Hypertension Father Cancer Maternal Grandmother brian huber yloma No Known Problems Mother Heart Disease Paternal Grandfather Relation Status Comments Father Alive Maternal Grandmother Mother Alive Paternal Grandfather Social History Tobacco Use Types Packs/Day Years Used Date Smoking Tobacco: Never Smokeless Tobacco: Never Tobacco Cessation:Counseling Given: Not Answered Alcohol Use Standard Drinks/Week Comments Not Currently 0 (1 standard drink = 0.6 oz pure alcohol) May have a drink socially once a month or so AUDIT-C Answer Date Recorded Frequency of Alcohol Consumption Never 08/22/2018 Average Number of Drinks Not on file 019 Frequency of Binge Drinking Not on file 08/13 PHQ-2 Answer Date Recorded Patient Health Questionnaire-2 Score 0 03/31/2024 Comments No Sex and Gender Information Value Date Recorded Sex Assigned at Female 06/18/2024 10:56 AM CORNICE UPHOLSTERER Legal Sex Female 7:31 PM CDT Gender Identity Female 04/07/2021 9:13 AM CORNICE UPHOLSTERER Sexual Orientation Choose not to disclose 2024 8:31 AM CDT Last Filed Vital Signs Vital Sign Reading Time Taken Comments Blood Pressure 104/64 04/07/2024 9:14 AM CORNICE UPHOLSTERER Pulse 74 04/07/2024 9:14 AM CORNICE UPHOLSTERER Temperature 36.7 C (98.1 F) 04/07/2024 9:14 AM CORNICE UPHOLSTERER Respiratory Rate 14 04/07/2024 9:14 AM CORNICE UPHOLSTERER Oxygen Saturation 98% 04/07/2024 9:14 AM CORNICE UPHOLSTERER Inhaled Oxygen Concentration - - Weight 87.5 kg (193 lb) 04/07/2024 9:14 AM CORNICE UPHOLSTERER Height 162.6 cm (5' 4 ) 04/07/2024 9:14 AM CORNICE UPHOLSTERER Body Mass Index 33.13 04/07/2024 9:14 AM CORNICE UPHOLSTERER Plan of Treatment Upcoming Encounters Date Type Department Care Team (Late st Contact Info) Description 08/18/2024 1:20 PM CDT Office Visit [facility] Family [facility] Internal Medicine - [address] [phone] Destini Garcia FNP [address] [place] [phone] 09/29/2024 1:15 PM CDT Office Visit [facility], [facility] [address] [place], [place] [phone] Franky Wallace MD Three [facility]. [facility] [address] [place], [place] [id number] Health Maintenance Due Date Last Done Comments Cervical Cancer Screening Pap Smear (Age 21 to 29) Every 3 Years 1997 Cervical Cancer Screening 1997 Hepatitis C 10/03/2015 Hepatitis B Vaccines (1 of 3 - 19+ 3-dose series) 2016 PHQ-2 (Physician [place]) 04/15/2024 03/31/2024 Annual Physical 04/07/2025 04/07/2024 COVID-19 Vaccine ( season) 2025 02/04/2022, 04/30/2021, 07/11/2020, Additional history exists Postponed from 12/15/2023 (Patient Refused) DTaP, Tdap and Td Vaccines (3 - Td or Tdap) 09/18/2027 09/17/2017, 10/05/2008 Meningococcal Vaccine Completed 10/06/2015 HPV Vaccines Completed 11/22/2022, 0512/2022, 02/16/2021 Meningococcal B Vaccine Aged Out No l onger eligible based on patient's age to complete this topic Pneumococcal Vaccine: Pediatrics (0 to 5 Years) and At-Risk Patients (6 to 49 Years) Aged Out No longer eligible based on patient's age to complete this topic RSV Immunizations Under 20 Months Aged Out No longer eligible based on patient's age to complete this topic Goals Goal Patient Goal Type Associated Problems Recent Progress Patient-Stated? Author Patient will return to prior living situation and remain independent in ADLs upon discharge from hospital General Phyllis Nieto, RN Insurance [facility] Advance Directives * Full Code (Latest Code Status on File) Date Activated Date Inactivated Comments 02/12/2021 6:05 PM 02/13/2021 5:30 PM Care Teams Ambulance Paramedic Relationship Specialty Start Date End Date Destini Garcia FNP [address] [place] [phone] PCP - General Nurse Practitioner Family 11/21/20
--- OUTSIDE RECORDS SUMMARY | 2024-07-26 16:43 | XMS_ITS | Encounter Summary ---
Author Organization [facility] Address [address] [place] [address] Care Team Providers Care Contact Lens Polisher Name Role Phone Jose Destini HEYDI Primary Care Provider [phone] Encounter Details Date Type Department Care Team (Late st Contact Info) Description 06/01/2024 MyChart Message Enc [facility] Multispecialty Care - [facility] [address] [facility], [address] [place] [phone] Alyssa Quintero MD [address] [place], [place] [phone] Emgality Prior Auth with New insurance Social History Tobacco Use Types Packs/Day Years [...] Sex Assigned at Female 06/18/2024 10:56 AM MATH AND SCIENCE DIVISION CHAIR Legal Sex Female 7:31 PM CDT Gender Identity Female 04/07/2021 9:13 AM MATH AND SCIENCE DIVISION CHAIR Sexual Orientation Choose not to disclose 2024 [...] Description 08/18/2024 1:20 PM CDT Office Visit [facility] Family & Internal Medicine [address] [phone] Destini Garcia FNP [address] [place] [phone] 09/29/2024 1:15 PM CDT Office Visit [facility] [address] [place], [place] [phone] Franky Wallace MD [facility]. [facility] [address] [place] [address] documented as of this encounter Goals Goal Patient Goal Type Associated Problems Recent Progress Patient-Stated? Author Patient will return to prior living situation and remain independent in ADLs upon discharge from hospital General Phyllis Nieto RN documented as of this encounter Visit Diagnoses Not on filedocumented in this encounter Additional Health Concerns Assessment Noted Time PHQ-9 Depression Total Score: 16 024 3:20 PM CDT documented as of this encounter Care Teams Contact Lens Polisher Relationship Specialty Start Date End Date Destini Garcia FNP [address] [place] [phone] PCP - General Nurse Practitioner Family 11/21/20 documented as of this encounter
--- OUTSIDE RECORDS SUMMARY | 2024-07-26 16:43 | XMS_ITS | Clinical Summary ---
Author Organization [facility] Address [address] [place] [address] Phone Care Team Providers Care Grazing Aide Name Role Phone Molina Francisco MD Primary Care Provider [phone] Allergies No known active allergies Medications midodrine (PROAMATINE) 10 mg TabletIndicatio ns:low bp Take 10 mg by mouth 2 times daily 8 am and noon. Active LORazepam (ATIVAN) 1 mg tablet Take 1 mg by mouth see administration instructions. PRN seizure & anxiety 11/18/19 20 Active Orilissa 150 mg Tablet Take 150 mg by mouth daily in the morning. 12/18/19 20 Active norethindrone, Contraceptive, 0.35 mg Tablet Take 0.35 mg by mouth daily. 12/09/19 20 Active propranoloL (INDERAL) 10 mg tablet Take 10 mg by mouth 2 times daily. 11/11/19 20 Active QUEtiapine (SEROquel) 100 mg tablet Take 100 mg by mouth daily at bedtime. 12/25/19 20 Active PARoxetine HCl (PAXIL) 40 mg tablet 09/29/19 21 Active atomoxetine (STRATTERA) 25 mg capsule 09/29/19 21 Active topiramate (TOPAMAX) 50 mg tabletIndicatio ns:Intractable migraine without aura and without status migrainosus Take 2 Tablets (100 mg) by mouth 2 times daily. 60 Tablet 6 10/07/19 21 Active ondansetron (ZOFRAN ODT) 4 mg Tablet, Rapid Dissolve Take 1 Tablet (4 mg) by mouth every 12 hours as needed for Nausea/Emesis. Dissolve tablet on top of tongue, then swallow with saliva. 15 Tablet 3 10/07/19 21 Active Active Problems Problem Noted Date Diagnosed Date Eating disorder, unspecified 02/21/2018 Personality disorder, unspecified 02/21/2018 Severe episode of recurrent major depressive disorder, without psychotic features 02/06/2018 PHAN (generalized anxiety disorder) 02/06/2018 Orthostatic hypotension Gastroesophageal reflux disease Routine general medical exam ination at a health care facility Social History Tobacco Use Types Packs/Day Years Used Date Smoking Tobacco: Never Smokeless Tobacco: Never Tobacco Cessation:Counseling Given: No Comments:not a user Alcohol Use Standard Drinks/Week Comments No 0 (1 standard drink = 0.6 oz pur e alcohol) Comments No Sex and Gender Information Value Date Recorded Sex Assigned at Not on file Legal Sex Female 1:21 PM CDT Gender Identity Not on file Sexual Orientation Not on file 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 Not on file Not on file Last Filed Vital Signs Vital Sign Reading Time Taken Comments Blood Pressure 120/78 10/06/2020 2:50 PM CDT Pulse 102 10/06/2020 2:50 PM CDT Temperature 36.7 C (98 F) 06/25/2018 9:33 AM CDT Respiratory Rate 16 06/25/2018 9:33 AM CDT Oxygen Saturation 98% 10/06/2020 2:50 PM CDT Inhaled Oxygen Concentration - - Weight 88.5 kg (195 lb) 10/06/2020 2:50 PM CDT Height 162.6 cm (5' 4 ) 10/06/2020 2:50 PM CDT Body Mass Index 33.47 10/06/2020 2:50 PM CDT Plan of Treatment Health Maintenance Due Date Last Done Comments HPV VACCINES (1 - 3-dose series) 2012 HEPATITIS B VACCINES (1 of 3 - 19+ 3-dose series) 2016 CERVICAL CANCER SCREENING 2018 HPV/Cotest (-) 2018 PAP SMEAR 2018 INFLUENZA VACCINE (#1) 2023 , 01/01/2019, 01/26/2018, Additional history exists COVID-19 Vaccine (3 - 2023-2 5 season) 2023 07/11/2020, 06/13/2020 DTAP/TDAP/TD VACCINES (3 - T d or Tdap) 09/18/2027 09/17/2017, 10/05/2008 Insurance [employer] BLUE ACCESS/TRUE BLUE PPO [employer] BLUE ACCESS/TRUE BLUE PPO Advance Directives For more information, please contact: [phone] Documents on File Type Date Recorded Patient House Carpenter Helper Expl anation Authorization to Represent 01/05/2020 2:51 PM Authorization to Represent * Full Code (Latest Code Status on File) Date Activated Date Inactivated Comments 06/17/2018 5:27 PM 06/25/2018 4:46 PM * Full Code Date Activated Date Inactivated Comments 02/22/2018 4:38 PM 02/24/2018 7:26 PM * Full Code Date Activated Date Inactivated Comments 02/20/2018 11:28 PM 02/22/2018 3:58 PM * Full Code Date Activated Date Inactivated Comments 02/06/2018 12:30 PM 02/08/2018 7:24 PM Care Teams Grazing Aide Relationship Specialty Start Date End Date Molina Francisco MD [address] [place] [address] PCP - General Internal Medicine 02/05/18
--- OUTSIDE RECORDS SUMMARY | 2024-07-26 16:43 | XMS_ITS ---
Author Organization [facility] Address [address] [place] [address] Care Team Providers Care Manager Field Investigations Name Role Phone Destini Jackman Primary Care Provider Carlos Donnelly [phone] Dana Silva Unavailable Unavailable REASON FOR VISIT Refills Social History Sex Assigned At : Social History Observation Description Sex Assigned At Female Encounters Encounter Location Date Provider Diagnosis [facility] [address] [place] [address] 07/22/2024 Carlos Loving Plan Of Treatment Next Appt Details Provider Name:Claribel barr, 12/22/2024 09:00:00 AM, [address] [facility], [address], [address], Progress Notes * Adeline RAMIREZDOB:1995 (28 yo F)Acc No.[id number]:07/22/2024 Patient: Abelardo MOURAley :1995 A ge:28 Y S ex:Female Address:[address], [place], [address] * * Date:
--- OUTSIDE RECORDS SUMMARY | 2024-07-26 16:43 | XMS_ITS | Encounter Summary ---
Author Organization [facility] Address [address] [place] [address] Care Team Providers Care Employment Legal Assistant Name Role Phone Jillduy Destini HEYDI Primary Care Provider [phone] Encounter Details Date Type Department Care Team (Latest Contact Info) Description 03/20/2021 Trendratingt Message Enc [facility] Multispecialty Care - [facility] [address] [facility] [place] [address] Jf Puentes MD 3 [facility] [address] [place], [place] [phone] Colonoscopy scheduled Social History Tobacco Use Types Packs/Day Years [...] Sex Assigned at Female 06/18/2024 10:56 AM TIBCO DEVELOPER Legal Sex Female 7:31 PM CDT Gender Identity Female 04/07/2021 9:13 AM TIBCO DEVELOPER Sexual Orientation Choose not to disclose 2024 8:31 AM CDT COVID-19 Exposure Response Date Recorded In the last month, have you been in contact with someone who was confirmed or suspected to have Coronavirus / COVID-19? No / Unsure 03/22/2021 10:16 AM TIBCO DEVELOPER documented as of this encounter Functional Status [...] Description 08/18/2024 1:20 PM CDT Office Visit [facility] Family & Internal Medicine - [address] [address] [address] [address] 09/29/2024 1:15 PM CDT Office Visit [facility] [address] [address] Franky Wallace MD [facility] [address] [place] [address] documented as of this encounter Goals Goal Patient Goal Type Associated Problems Recent Progress Patient-Stated? Author Patient will return to prior living situation and remain independent in ADLs upon discharge from [facility] General No Phyllis Law RN documented as of this encounter Visit Diagnoses Not on filedocumented in this encounter Additional Health Concerns Assessment Noted Time PHQ-9 Depression Total Score: 2 03/02/20 21 2:17 PM TIBCO DEVELOPER documented as of this encounter Care Teams Employment Legal Assistant Relationship Specialty Start Date End Date Destini Garcia FNP [address] [place] [address] PCP - General Nurse Practitioner Family 11/21/20 documented as of this encounter
--- OUTSIDE RECORDS SUMMARY | 2024-07-26 16:43 | XMS_ITS | Encounter Summary ---
Author Organization [facility] Address [address] [place] [address] Care Team Providers Care Oil Field Roustabout Name Role Phone Destini Garcia HEYDI Primary Care Provider [phone] Encounter Details Date Type Department Care Team (Late st Contact Info) Description 08/18/2023 MyChart Message Enc [facility] - [facility] [address] [facility], [address] [place] [address] Alyssa Quintero MD [address] [place] [address] Emgality Refill Social History Tobacco Use Types Packs/Day Years [...] Sex Assigned at Female 06/18/2024 10:56 AM RESPIRATORY TECHNICIAN Legal Sex Female 7:31 PM CDT Gender Identity Female 04/07/2021 9:13 AM RESPIRATORY TECHNICIAN Sexual Orientation Choose not to disclose 2024 [...] Description 08/18/2024 1:20 PM CDT Office Visit [facility] Family & Internal Medicine [address] [address] Destini Garcia [address] [address] 09/29/2024 1:15 PM CDT Office Visit [facility] [address] [place], [place] [phone] Franky Wallace MD [facility] [address] [place], [place] [phone] documented as of this encounter Goals Goal Patient Goal Type Associated Problems Recent Progress Patient-Stated? Author Patient will return to prior living situation and remain independent in ADLs upon discharge from hospital General No Phyllis Law, RN documented as of this encounter Visit Diagnoses Not on filedocumented in this encounter Additional Health Concerns Assessment Noted Time PHQ-9 Depression Total Score: 11 023 9:14 AM RESPIRATORY TECHNICIAN documented as of this encounter Care Teams Oil Field Roustabout Relationship Specialty Start Date End Date Destini Garcia FNP [address] [place] [address] PCP - General Nurse Practitioner Family 11/21/20 documented as of this encounter
--- OUTSIDE RECORDS SUMMARY | 2024-07-26 16:43 | XMS_ITS | Clinical Summary ---
Author Organization [facility] Address [address] [place] [address] Care Team Providers Care Clay Processing Factory Worker Name Role Phone Destini Garcia APRMAGNE Primary Care Provider [phone] Source Comments [facility],non-owned Affiliates and Associated Physician Practices is amultiple site organization consisting of ambulatory clinics and hospital sitesin [place], [place], [place] and [place]. This disclosure is being madepursuant to the Care Everywhere program and may not contain all information available regarding this patient. Last updated 18.[facility] Allergies Active Allergy Reactions Criticality Noted Date Comments Doxycycline Other,Itching,Rash,U nknown, Skin Reactions Medium 01/11/2021 Skin Adhesives Rash Medium 05/01/2022 Itchy raised rash Medications * Be aware that medications may not be up to date on this document. Alwaysverify current medications with the patient. clonazePAM (KLONOPIN) 0.5 MG tablet Take 1 (one) tablet by mouth 2 times daily as needed 1 Active cyclobenzaprine (FLEXERIL) 10 MG tablet 1 (one) tablet nightly as needed 1 Active FEROSUL 325 (65 Fe) MG tablet Take 1 (one) tablet by mouth 2 times daily with morning and evening meal 2 Active gabapentin (NEURONTIN) 100 MG capsule 3 (three) capsules at bedtime 2 Active EMGALITY 120 MG/ML auto-injector pen every 30 days 2 Active lisdexamfetamin e (VYVANSE) 20 MG capsule 30 mg once daily 1 Active midodrine (PROAMATINE) 10 MG tablet 1 (one) tablet as directed 10 mg BID and 5 mg HS 2 Active montelukast (SINGULAIR) 10 MG tablet 1 (one) tablet once daily 2 Active ondansetron, disintegrating, (ZOFRAN ODT) 4 MG tablet as needed 1 Active rizatriptan, disintegrating, (MAXALT OPERATIONS ARCHITECT) 10 MG tablet as directed 2 Active sodium chloride 1 GM tablet 2 times daily 2 Active famotidine (PEPCID) 20 MG tablet Take 2 (two) tablets by mouth 2 times daily Active cetirizine (ZYRTEC ALLERGY) 10 MG gel capsule Take 1 (one) capsule by mouth 2 times daily Active EPINEPHrine (EPIPEN) 0.3 MG/0.3ML auto-injector pen as directed Active norgestimate-et hinyl estradiol (Estarylla) 0.25-35 MG-MCG tablet Estarylla 0.25 mg-35 mcg tablet TABLET 1 TABLET BY MOUTH DAILY SKIPPING ALL PLACEBOS Active senna (Senokot) 8.6 MG tablet TAKE 1 TABLET BY MOUTH DAILY FOR CONSTIPATION 2 Active sodium bicarbonate 0.25 mEq/ml pediatric IV syringe Take 1 g by mouth 2 times daily Active fludrocortisone (Florinef) 0.1 MG tablet 3 Active Cromolyn Sodium 100 MG/5MLIndicatio ns:Mast cell activation (HCC) Take 10 mL by mouth 2 times daily, before breakfast and supper 600 mL 2 3 Active nadolol (Corgard) 20 MG tabletIndicatio ns:Syncope, unspecified syncope type Take 1 (one) tablet by mouth 2 times daily 40 tablet 3 Active Active Problems Problem Noted Date Diagnosed Date 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 Depression 08/01/2021 PHAN (generalized anxiety disorder) 08/01/2021 ADHD 08/01/2021 POTS (postural orthostatic tachycardia syndrome) 08/01/2021 Migraines 08/01/2021 Syncope 08/01/2021 COVID-19 04/15/2020 Family History Medical History Relation Name Comments Other Father HTN,Sleep apnea ,Heart problems Other Sister PTSD,POTS,GI Is sues Relation Name Status Comments Brother Alive Father Alive Mother Alive Sister Alive Social History Tobacco Use Types Packs/Day Years Used Date Smoking Tobacco: Never Smokeless Tobacco: Never Tobacco Cessation:Counseling Given: Not Answered Alcohol Use Standard Drinks/Week Comments Not Currently 0 (1 standard drink = 0.6 oz pur e alcohol) Rarely Comments No Sex and Gender Information Value Date Recorded Sex Assigned at Female 07/28/2021 11:21 PM CDT Legal Sex Female 4:13 PM SALES TEACHER Gender Identity Female 07/28/2021 11:21 PM CDT Sexual Orientation Bisexual 07/28/2021 11 :21 PM CDT 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 Not on file Not on file Not on file Last Filed Vital Signs Vital Sign Reading Time Taken Comments Blood Pressure 115/91 05/01/2022 9:35 AM SALES TEACHER Pulse 93 05/01/2022 9:35 AM SALES TEACHER Temperature 36.8 C (98.3 F) 02/22/2016 4:26 PM SALES TEACHER Respiratory Rate 20 02/22/2016 4:26 PM SALES TEACHER Oxygen Saturation 99% 05/01/2022 9:29 AM SALES TEACHER Inhaled Oxygen Concentration - - Weight 87.5 kg (193 lb) 05/01/2022 9:29 AM SALES TEACHER Height 162.6 cm (5' 4 ) 05/01/2022 9:29 AM SALES TEACHER Body Mass Index 33.13 05/01/2022 9:29 AM SALES TEACHER Plan of Treatment Health Maintenance Due Date Last Done Comments PAP SMEAR 1997 HIV SCREENING 2012 HPV VACCINE (1 - 3-dose series) 2012 HEPATITIS C SCREENING 09/28/2015 DTAP/TDAP/TD VACCINES (1 - Tdap) 2016 HEPATITIS B VACCINE (1 of 3 - 19+ 3-dose series) 2016 COVID-19 VACCINE (3 - season) 2023 07/11/2020, 06/13/2020 DEPRESSION SCREENING 04/15/2024 INFLUENZA VACCINE (Season Ended) 2024 02/13/2021, 01/27/2020, 01/01/2019, Additional history exists ZOSTER VACCINE (1 of 2) 10/03/2047 HIB VACCINE Aged Out No longer eligi ble based on patient's age to complete this topic MENINGOCOCCAL (Group B) VACCINE SHARED DECISION-MAKING Aged Out No longer eligible based on patient's age to complete this topic MENINGOCOCCAL GROUPS A/C/Y/W VACCINE Aged Out No longer eligible based on patient's age to complete this topic PNEUMOCOCCAL VACCINE Aged Out No long er eligible based on patient's age to complete this topic Insurance [facility] Care Teams Clay Processing Factory Worker Relationship Specialty Start Date End Date Destini Garcia APRN-MAGDY [address] [place] [address] PCP - General Nurse Practitioner 09/05/21
--- NOTE | 2024-07-26 16:58 | ED.GENADULT ---
HPI - General Adult General Chief complaint: Syncope Stated complaint: Syncope Time Seen by Provider: 07/26/24 16:49 History of Present Illness HPI narrative: This is a 28-year-old female with a history of POTS, anxiety and bipolar disorder presenting for syncopal event. Patient syncopized 3 hours prior to arrival. Is unclear if she hit her head or not. She has had a headache since then. She was seen in urgent care where EKG, laboratory studies and IV fluids were given to the patient. There was some concern about an intracranial hemorrhage she was sent to our hospital for evaluation. Patient is not having neurologic deficits confusion or persistent vomiting. She does not use blood thinners. Related Data Home Medications ?Medication ?Instructions ?Recorded ?Confirmed ?Last Taken ?Type midodrine 10 mg tablet 5 mg PO HS 03/19/20 02/16/24 Unknown History gabapentin 100 mg capsule 3 cap PO TID 09/14/21 02/16/24 Unknown History montelukast 10 mg tablet 1 tablet PO DAILY 09/14/21 02/16/24 Unknown History nadolol 20 mg tablet 20 mg PO DIRECTED 04/20/23 02/16/24 Unknown History sodium chloride 1,000 mg soluble 1,000 mg PO DIRECTED 04/20/23 02/16/24 Unknown History tablet trazodone 100 mg tablet 100 mg PO DIRECTED 04/20/23 02/16/24 Unknown History clomipramine 50 mg capsule 50 mg PO DAILY 02/16/24 02/16/24 Unknown History clonazepam 0.5 mg tablet 0.5 mg PO DAILY 02/16/24 02/16/24 Unknown History cromolyn 100 mg/5 mL oral See Rx Instructions .Route .COMPLEX 02/16/24 02/16/24 Unknown History concentrate dexmethylphenidate 10 mg 10 mg PO DAILY 02/16/24 02/16/24 Unknown History capsule,extended release [id number] fluvoxamine 25 mg tablet 25 mg PO DAILY 02/16/24 02/16/24 Unknown History galcanezumab-gnlm 120 mg/mL See Rx Instructions .Route .COMPLEX 02/16/24 02/16/24 Unknown History subcutaneous pen injector (Emgality Pen) lamotrigine 25 mg tablet 25 mg PO DAILY 02/16/24 02/16/24 Unknown History pyridostigmine bromide 60 mg tablet 60 mg PO DAILY 02/16/24 02/16/24 Unknown History Allergies Allergy/AdvReac Type Severity Reaction Status Date / Time doxycycline AdvReac Mild Hives Verified 07/26/24 16:39 [facility] Past Medical History Medical History POTS (postural orthostatic tachycardia syndrome) Depression Family History Family History Father Heart disease Social History Social History Smoking status: Never smoker Alcohol intake: unknown Substance use: never Substance use type: does not use Exam Narrative: APPEARANCE: No apparent distress. Head: atraumatic. EYES: EOMI, MARANDA NOSE: Atraumatic NECK: Trachea midline RESPIRATORY: No increased rate of breathing CTAB CARDIOVASCULAR: RRR, ABDOMINAL: Non-distended MUSCULOSKELETAl: No obvious deformities NEURO: Alert. Cranial nerves 2-12 grossly intact. Sensation light touch, motor function cerebellar function intact for 4 extremities. Gait exam was normal. SKIN:: Warm, dry. Normal color PSYCHIATRIC: Normal affect Course Vital Signs Vital signs: Vital Signs Temperature 98.2 F 07/26/24 16:41 Pulse Rate 77 07/26/24 16:41 Respiratory Rate 16 07/26/24 16:41 Blood Pressure 135/67 07/26/24 16:41 Pulse Oximetry 99 07/26/24 16:41 Temperature 98.2 F 07/26/24 16:41 Pulse Rate 77 07/26/24 16:41 Respiratory Rate 16 07/26/24 16:41 Blood Pressure 135/67 07/26/24 16:41 Pulse Oximetry 99 07/26/24 16:41 Medical Decision Making [facility] Narrative Medical decision making narrative: -Course: 28-year-old presenting after syncopal event. Sent from the urgent care for CT of her head. This was negative. EKG and lab work performed at the urgent care and while I cannot see them I asked the patient she has a repeat image was declined. She would like to be discharged. Patient discharged with return precautions. Vital Signs Vital Signs: Vital Signs Temperature 98.2 F 07/26/24 16:41 Pulse Rate 77 07/26/24 16:41 Respiratory Rate 16 07/26/24 16:41 Blood Pressure 135/67 07/26/24 16:41 Pulse Oximetry 99 07/26/24 16:41 Temperature 98.2 F 07/26/24 16:41 Pulse Rate 77 07/26/24 16:41 Respiratory Rate 16 07/26/24 16:41 Blood Pressure 135/67 07/26/24 16:41 Pulse Oximetry 99 07/26/24 16:41 Discharge Plan Discharge Clinical Impression: Syncope Patient Disposition: Home Condition: Stable Instructions: Antibiotic Form, Syncope (DC) Additional Instructions: Please follow-up with your primary care physician for further management. Please drink plenty of fluids. Return if you develop new or worsening symptoms. Patient Language: Qatari Prescriptions: No Action montelukast 10 mg tablet 1 tablet PO DAILY gabapentin 100 mg capsule 3 cap PO TID cromolyn 100 mg/5 mL concentrate See Rx Instructions .ROUTE .COMPLEX Rx Instructions: Rx lamotrigine 25 mg tablet 25 mg PO DAILY fluvoxamine 25 mg tablet 25 mg PO DAILY pyridostigmine bromide 60 mg tablet 60 mg PO DAILY clomipramine 50 mg capsule 50 mg PO DAILY dexmethylphenidate 10 mg capsule,ER biphasic 50-50 10 mg PO DAILY Emgality Pen 120 mg/mL pen injector See Rx Instructions .ROUTE .COMPLEX Rx Instructions: Rx clonazepam 0.5 mg tablet 0.5 mg PO DAILY nadolol 20 mg tablet 20 mg PO DIRECTED trazodone 100 mg tablet 100 mg PO DIRECTED sodium chloride 1,000 mg tablet,soluble 1,000 mg PO DIRECTED midodrine 10 mg tablet 5 mg PO HS Follow-up/Referrals: MITCHEL,BOB ROBERT [Primary Care Provider] -
--- OUTSIDE RECORDS SUMMARY | 2024-07-26 17:12 | XMS_ITS | Encounter Summary ---
Author Organization [facility] Address [address] [place] [address] Care Team Providers Care Contestant Coordinator Name Role Phone Destini Garcia HEYDI Primary Care Provider [phone] Encounter Details Date Type Department Care Team (Late st Contact Info) Description 10/28/2022 ShunWang Technology Message Enc [facility], [facility] [address] [place], [place] [phone] Franky Wallace MD Three [facility]. [facility] [address] [place], [place] [id number] Medications Social History Tobacco Use Types Packs/Day [...] Sex Assigned at Female 06/18/2024 10:56 AM CLERK CHECKER Legal Sex Female 7:31 PM CDT Gender Identity Female 04/07/2021 9:13 AM CLERK CHECKER Sexual Orientation Choose not to disclose 2024 [...] Description 08/18/2024 1:20 PM CDT Office Visit [facility] Family & Internal Medicine - [place] [address] [place] [address] Destini Garcia FNP [address] [place] [address] 09/29/2024 1:15 PM CDT Office Visit [facility], [facility] [address] [place] [address] [facility]. [facility] [address] [place] [address] documented as of this encounter Goals Goal Patient Goal Type Associated Problems Recent Progress Patient-Stated? Author Patient will return to prior living situation and remain independent in ADLs upon discharge from [facility] Phyllis Law RN documented as of this encounter Visit Diagnoses Diagnosis POTS (postural orthostatic tachycardia syndrome) Tachycardia, unspecified Syncope, unspecified syncope type documented in this encounter Additional Health Concerns Assessment Noted Time PHQ-9 Depression Total Score: 11 023 9:14 AM CLERK CHECKER documented as of this encounter Care Teams Contestant Coordinator Relationship Specialty Start Date End Date Destini Garcia FNP [address] [place] [address] PCP - General Nurse Practitioner Family 11/21/20 documented as of this encounter
--- OUTSIDE RECORDS SUMMARY | 2024-07-26 17:12 | XMS_ITS | Encounter Summary ---
Author Organization [facility] Address [address] [place] [address] Care Team Providers Care Civil Engineering Draftsperson Name Role Phone Jose Destini HEYDI Primary Care Provider [phone] Encounter Details Date Type Department Care Team (Late st Contact Info) Description 05/10/2022 MapMyIDt Message Enc [facility] Multispecialty Care - [facility] [address] [facility] [address] [facility], [address] [place] [phone] Dana Silva MD [address] [place] [address] Emgality Social History Tobacco Use Types Packs/Day [...] Sex Assigned at Female 06/18/2024 10:56 AM BOILING TUB OPERATOR Legal Sex Female 7:31 PM CDT Gender Identity Female 04/07/2021 9:13 AM BOILING TUB OPERATOR Sexual Orientation Choose not to disclose 2024 8:31 AM CDT COVID-19 Exposure Response Date Recorded In the last 10 days, have yo u been in contact with someone who was confirmed or suspected to have Coronavirus/COVID-19? No / Unsure 05/03/2022 8:04 AM BOILING TUB OPERATOR documented as of this encounter Functional Status [...] Medical Group Family & Internal Medicine - [place] [address] [place] [address] Destini Garcia FNP [address] [place] [address] 09/29/2024 1:15 PM CDT Office Visit [facility], [facility] [address] [place], [place] [phone] Franky Wallace MD [facility]. [facility] [address] [place], [place] [id number] documented as of this encounter Goals Goal Patient Goal Type Associated Problems Recent Progress Patient-Stated? Author Patient will return to prior living situation and remain independent in ADLs upon discharge from hospital General Phyllis Nieto RN documented as of this encounter Visit Diagnoses Not on filedocumented in this encounter Additional Health Concerns Assessment Noted Time PHQ-9 Depression Total Score: 11 023 9:14 AM BOILING TUB OPERATOR documented as of this encounter Care Teams Civil Engineering Draftsperson Relationship Specialty Start Date End Date Destini Garcia FNP [address] [place] [address] PCP - General Nurse Practitioner Family 11/21/20 documented as of this encounter
--- OUTSIDE RECORDS SUMMARY | 2024-07-26 17:12 | XMS_ITS | Encounter Summary ---
Author Organization [facility] Care Team Providers Care Angio Technologist Name Role Phone Molina Franicsco MD Primary Care Provider + Dana Silva MD Unavailable [phone] Destini Garcia NP Primary Care Provider [phone] Encounter Details Date Type Department Care Team (Latest Contact Info) Description 02/19/2018 Orders Only [facility] CLINCONV ProviderCornell MD [address] [place] [address] Social History Tobacco Use Types Packs/Day [...] Comments SCAN - LABS 02/19/2018 12:00 AM MANAGER PROGRESSIVE CARE documented in this encounter Results * SCAN - LABS (02/19/2018 12:00 AM MANAGER PROGRESSIVE CARE) Narrative 02/19/2018 12:00 AM MANAGER PROGRESSIVE CARE Ordered by an unspecified provider. Historical Provider Final Res ult documented in this encounter Visit Diagnoses Not on filedocumented in this encounter Additional Health Concerns Infection Onset Date Last Indicated Resolved Time COVID: Suspected 04/18/2020 04/18/2020 04/20/2020 4:44 AM MANAGER PROGRESSIVE CARE COVID19 04/18/2020 04/18/2020 05/02/2020 3:07 AM MANAGER PROGRESSIVE CARE COVID: Recovered Comment:Added based on recent COVID infection. 05/02/2020 05/02/2020 08/30/2020 3:05 AM C DT COVID: Suspected 10/07/2020 10/07/2020 10/08/2020 12:36 AM CDT COVID: Suspected 03/04/2021 03/04/2021 03/05/2021 5:34 AM MANAGER PROGRESSIVE CARE documented as of this encounter Care Teams Angio Technologist Relationship Specialty Start Date End Date Molina Francisco MD [address] [place] [address] PCP - General Internal Medicine 12/06/17 06/01/21 Destini Garcia NP [address] [place] [address] PCP - General Nurse Practitioner 06/02/21 Dana Silva MD [address] [place] [address] Fellow Neurology 05/15/21 documented as of this encounter
--- OUTSIDE RECORDS SUMMARY | 2024-07-26 17:12 | XMS_ITS | Encounter Summary ---
Author Organization [facility] Address [address] [place] [address] Care Team Providers Care Asset Protection Representative Name Role Phone Jillduy Destini HEYDI Primary Care Provider Encounter Details Date Type Department Care Team (Late st Contact Info) Description 05/04/2022 Yeswarehart Message Enc [facility] Medical Group Multispecialty Care - [facility] [address] [facility], [address] [place] [address] Dana Silva MD [address] [place] [address] PA for Emgality Social History Tobacco Use [...] Sex Assigned at Female 06/18/2024 10:56 AM DIRECTOR OF CORPORATE REAL ESTATE Legal Sex Female 7:31 PM CDT Gender Identity Female 04/07/2021 9:13 AM DIRECTOR OF CORPORATE REAL ESTATE Sexual Orientation Choose not to disclose 2024 8:31 AM CDT COVID-19 Exposure Response Date Recorded In the last 10 days, have yo u been in contact with someone who was confirmed or suspected to have Coronavirus/COVID-19? No / Unsure 05/03/2022 8:04 AM DIRECTOR OF CORPORATE REAL ESTATE documented as of this encounter Functional Status [...] Description 08/18/2024 1:20 PM CDT Office Visit [facility] Medical Group Family & Internal Medicine - [place] [address] [place] [address] Destini Garcia FNP [address] [place] [address] 09/29/2024 1:15 PM CDT Office Visit [facility] THREE [facility], MAXX [address] [place], [place] [phone] Franky Wallace MD [facility]. [address] [place] [address] documented as of this encounter Goals Goal Patient Goal Type Associated Problems Recent Progress Patient-Stated? Author Patient will return to prior living situation and remain independent in ADLs upon discharge from [facility] General No Phyllis Law RN documented as of this encounter Visit Diagnoses Not on filedocumented in this encounter Additional Health Concerns Assessment Noted Time PHQ-9 Depression Total Score: 11 023 9:14 AM DIRECTOR OF CORPORATE REAL ESTATE documented as of this encounter Care Teams Asset Protection Representative Relationship Specialty Start Date End Date Destini Garcai FNP [address] [place] [address] PCP - General Nurse Practitioner Family 11/21/20 documented as of this encounter
--- OUTSIDE RECORDS SUMMARY | 2024-07-26 17:12 | XMS_ITS | Encounter Summary ---
Author Organization [facility] Facility Care Team Providers Care Motor Vehicle Dispatcher Name Role Phone Molina Francisco MD Primary Care Provider + Dana Silva MD Unavailable [phone]- [phone] Destini Garcia NP Primary Care Provider [phone] Encounter Details Date Type Department Care Team (Latest Contact Info) Description 02/25/2018 Orders Only [facility] CLINCONV ProviderCornell MD [address] [place] [address] Social History Tobacco Use Types Packs/Day [...] Comments CARDIOLOGY REPORT 02/28/2018 12: 00 AM PHARMACOLOGY PROFESSOR documented in this encounter Results * CARDIOLOGY REPORT (02/28/2018 12:00 AM PHARMACOLOGY PROFESSOR) Anatomical Region Laterality Modality Other Narrative 02/28/2018 12:00 AM PHARMACOLOGY PROFESSOR Ordered by an unspecified provider. Historical Provider CV CARDIAC NÉSTOR TORRES Final Result documented in this encounter Visit Diagnoses Not on filedocumented in this encounter Additional Health Concerns Infection Onset Date Last Indicated Resolved Time COVID: Suspected 04/18/2020 04/18/2020 04/20/2020 4:44 AM PHARMACOLOGY PROFESSOR COVID19 04/18/2020 04/18/2020 05/02/2020 3:07 AM PHARMACOLOGY PROFESSOR COVID: Recovered Comment:Added based on recent COVID infection. 05/02/2020 05/02/2020 08/30/2020 3:05 AM CDT COVID: Suspected 10/07/2020 10/07/2020 10/08/2020 12:36 AM CDT COVID: Suspected 03/04/2021 03/04/2021 03/05/2021 5:34 AM PHARMACOLOGY PROFESSOR documented as of this encounter Care Teams Motor Vehicle Dispatcher Relationship Specialty Start Date End Date Molina Francisco MD [address] [place] [address] PCP - General Internal Medicine 12/06/17 06/01/21 Destini Garcia NP [address] [place] [address] PCP - General Nurse Practitioner 06/02/21 Dana Silva MD [address] [place] [address] Fellow Neurology 05/15/21 documented as of this encounter
--- OUTSIDE RECORDS SUMMARY | 2024-07-26 17:12 | XMS_ITS | Encounter Summary ---
Author Organization [facility] Address [address] [place] [address] Care Team Providers Care Business Area Director Name Role Phone JillDestini gordillo HEYDI Primary Care Provider [phone] Encounter Details Date Type Department Care Team (Late st Contact Info) Description 12/13/2020 Prep for Procedure [facility] [place] [address] Paige Muniz MD [address] [place] [address] Social History Tobacco Use Types [...] Sex Assigned at Female 06/18/2024 10:56 AM PROPERTY INSURANCE AGENT Legal Sex Female 7:31 PM CDT Gender Identity Female 04/07/2021 9:13 AM PROPERTY INSURANCE AGENT Sexual Orientation Choose not to disclose 2024 [...] Description 08/18/2024 1:20 PM CDT Office Visit [facility] Medical Group Family & Internal Medicine - [place] [address] [place] [address] Destini Garcia FNP [address] [place] [address] 09/29/2024 1:15 PM CDT Office Visit [facility] THREE [facility], [facility] [address] [place], [place] [phone] Franky Wallace MD Three [facility]. [place] [address] [place], [place] [phone] documented as of this encounter Results * TYPE & SCREEN (12/20/2020 9:13 AM CDT) ABO/RH B POSITIVE 12/20/2020 10:28 AM CDT [facility] ANTIBODY SCREEN NEGATIVE 12/20/2020 10:28 AM CDT [facility] SAMPLE EXPIRATION 12/24/2020,2 359 12/21/2020 9:47 AM CDT [facility] COMMENT NO HISTORY OF TRANSFUSIONS , OR ANTIBODIES, NEW SPECIMEN NOT NEEDED 12/21/2020 9:47 AM CDT [facility] 12/20/2020 9:13 AM CDT us Paige Muniz MD BLOOD BANK TEST ORDERABLES Final Result [facility] [address] [place] [address], * CBC W/DIFF AUTOMATED (12/20/2020 9:13 AM CDT) [facility] WBC 9.1 4.5 - 11.0 x10'3/uL 12/20/2020 9:43 AM CDT [facility] RBC 4.47 4.20 - 5.40 x10'6/uL 12/20/2020 9:43 AM CDT [facility] HGB 12.9 12.0 - 16.0 G/DL 12/20/2020 9:43 AM CDT [facility] HCT 40.1 38.0 - 48.0 % 12/20/2020 9:43 AM CDT [facility] MCV 89.7 81.0 - 99.0 FL 12/20/2020 9:43 AM CDT [facility] MCH 28.9 27.0 - 31.0 PG 12/20/2020 9:43 AM CDT [facility] MCHC 32.2 32.0 - 36.0 G/DL 12/20/2020 9:43 AM CDT [facility] RDW 13.7 11.5 - 14.5 % 12/20/2020 9:43 AM CDT [facility] PLT 353 130 - 400 x10'3/uL 12/20/2020 9:43 AM CDT [facility] MPV 9.5 9.3 - 12.2 FL 12/20/2020 9:43 AM CDT [facility] DIFFERENTIAL TYPE AUTOMATED DIFFERENTIAL 12/20/2020 9:43 AM CDT [facility] NEUTROPHILS % 65.5 % 12/20/2020 9:43 AM CDT [facility] LYMPHOCYTES % 24.7 % 12/20/2020 9:43 AM CDT [facility] MONOCYTES % 8.8 % 12/20/2020 9:43 AM CDT [facility] EOSINOPHILS 0.6 % 12/20/2020 9:43 AM CDT [facility] BASOPHILS 0.2 % 12/20/2020 9:43 AM CDT [facility] IMMATURE GRANS % 0.2 % 12/21/19 9:43 AM CDT [facility] ABS. NEUTROPHILS TOTAL 5.95 1.80 - 7.70 x10'3/uL 12/20/2020 9:43 AM CDT [facility] ABS. LYMPHOCYTES 2.24 1.00 - 4.80 x10'3/uL 12/20/2020 9:43 AM CDT [facility] ABS. MONOCYTES 0.80 0.24 - 0.86 x10'3/uL 12/20/2020 9:43 AM CDT [facility] ABS. EOSINOPHILS 0.05 0.04 - 0.36 x10'3/uL 12/20/2020 9:43 AM CDT [facility] ABS. BASOPHILS 0.02 0.01 - 0.08 x10'3/uL 12/20/2020 9:43 AM CDT [facility] ABS. IMMATURE GRANULOCYTES 0.02 0.00 - 0.49 x10'3/uL 12/20/2020 9:43 AM CDT [facility] 12/20/2020 9:13 AM CDT us Paige Muniz MD LABORATORY Final Result [facility] [address] [place] [address], [place] [phone] documented in this encounter Visit Diagnoses Diagnosis Preop examination- Primary Preoperative examination, unspecified Pelvic pain documented in this encounter Additional Health Concerns Assessment Noted Time PHQ-9 Depression Total Score: 23 021 9:30 AM CDT documented as of this encounter Care Teams Business Area Director Relationship Specialty Start Date End Date Destini Garcia FNP [address] [place] [address] PCP - General Nurse Practitioner Family 11/21/20 documented as of this encounter
--- OUTSIDE RECORDS SUMMARY | 2024-07-26 17:12 | XMS_ITS | Encounter Summary ---
Author Organization [facility] Facility Care Team Providers Care Engine Installer Name Role Phone Molina Francisco MD Primary Care Provider + Dana Silva MD Unavailable [phone]- [phone] Destini Garcia NP Primary Care Provider [phone] Encounter Details Date Type Department Care Team (Latest Contact Info) Description 01/27/2018 Orders Only [facility] CLINCONV ProviderCornell MD [address] [place] [address] Social History Tobacco Use Types Packs/Day [...] Comments CARDIOLOGY REPORT 02/27/2018 12: 00 AM RESIDENT CARE PROVIDER documented in this encounter Results * CARDIOLOGY REPORT (02/27/2018 12:00 AM RESIDENT CARE PROVIDER) Anatomical Region Laterality Modality Other Narrative 02/27/2018 12:00 AM RESIDENT CARE PROVIDER Ordered by an unspecified provider. Historical Provider CV CARDIAC SERVICES KALIN TORRES Final Result documented in this encounter Visit Diagnoses Not on filedocumented in this encounter Additional Health Concerns Infection Onset Date Last Indicated Resolved Time COVID: Suspected 04/18/2020 04/18/2020 04/20/2020 4:44 AM RESIDENT CARE PROVIDER COVID19 04/18/2020 04/18/2020 05/02/2020 3:07 AM RESIDENT CARE PROVIDER COVID: Recovered Comment:Added based on recent COVID infection. 05/02/2020 05/02/2020 08/30/2020 3:05 AM C DT COVID: Suspected 10/07/2020 10/07/2020 10/08/2020 12:36 AM CDT COVID: Suspected 03/04/2021 03/04/2021 03/05/2021 5:34 AM RESIDENT CARE PROVIDER documented as of this encounter Care Teams Engine Installer Relationship Specialty Start Date End Date Molina Francisco MD [address] [place] [address] PCP - General Internal Medicine 12/06/17 06/01/21 Destini Garcia NP [address] [place] [address] PCP - General Nurse Practitioner 06/02/21 Dana Silva MD [address] [place] [address] Fellow Neurology 05/15/21 documented as of this encounter
--- OUTSIDE RECORDS SUMMARY | 2024-07-26 17:12 | XMS_ITS | Encounter Summary ---
Author Organization [facility] Address [address] [place] [address] Care Team Providers Care Manager Golf Name Role Phone Destini Garcia Primary Care Provider [phone] Reason for Referral * Physical Medicine (Routine) - Closed Specialty Diagnoses / Procedures Referred By Gibson nguyễn Referred To Contact PHYSICAL THERAPY / [facility] Physical Therapy Diagnoses POTS (postural orthostatic tachycardia syndrome) Autonomic dysfunction Procedures OFFICE/OUTPT VISIT,NEW,LEVL III OFFICE/OUTPT VISIT,NEW,LEVL IV OFFICE/OUTPT VISIT,NEW,LEVL V OFFICE/OUTPT VISIT,EST,LEVL III OFFICE/OUTPT VISIT,EST,LEVL IV OFFICE/OUTPT VISIT,EST,LEVL V Nelly Stern PA [address] [facility] [address] [place] [id number] Phone: tel: fax: [facility] Physical Therapy [address] [place] [address] Phone: tel: fax: Referral ID Status Reason Start Date Expiration Date V isits Requested Visits Authorized [id number] Closed Physical Therapy 12/20/2021 12/19/2022 12 12 Scheduling Instructions PLEASE CALL PATIENT TO SCHEDULE Encounter Details Date Type Department Care Team (Late st Contact Info) Description 12/07/2021 MyChart Message Enc [facility], JARON [address] [place], [place] [phone] Nelly Stern PA 3 [facility] [address] [place], [place] [phone] Question Follow up Social History Tobacco Use [...] Sex Assigned at Female 06/18/2024 10:56 AM CURRENCY MACHINE OPERATOR Legal Sex Female 7:31 PM CDT Gender Identity Female 04/07/2021 9:13 AM CURRENCY MACHINE OPERATOR Sexual Orientation Choose not to disclose [...] Whatley RN - 12/08/2021 11:34 AM CDT [employer] message sent to the patient that we will order PT. Message to the weigh machine operator. * DAMIAN Irby - 12/08/2021 11:21 AM [...] Among 103 patients whocompleted a program of qyjg-[id number] intensity progressive endurance training, 71 percent went [...] Description 08/18/2024 1:20 PM CDT Office Visit [facility] Medical Group Family & Internal Medicine - [place] [address] [place] [address] Destini Garcia FNP [address] [place] [address] 09/29/2024 1:15 PM CDT Office Visit [facility] THREE [facility], [facility] [address] [place] [address] Franky Wallace MD Three [facility]. [facility] [address] [place], [place] [phone] Scheduled Referrals Name Type Priority Associated Diagnoses Orde r Schedule Ambulatory referral to Physical Therapy Referral Routine POTS (postural orthostatic tachycardia syndrome) Autonomic dysfunction Ordered: 12/20/2021 documented as of this encounter Goals Goal Patient Goal Type Associated Problems Recent Progress Patient-Stated? Author Patient will return to prior living situation and remain independent in ADLs upon discharge from [facility] General No Phyllis Law RN documented as of this encounter Visit Diagnoses Diagnosis POTS (postural orthostatic tachycardia syndrome)- Primary Tachycardia, unspecified Autonomic dysfunction Unspecified disorder of autonomic nervous system documented in this encounter Additional Health Concerns Assessment Noted Time PHQ-9 Depression Total Score: 2 03/02/20 21 2:17 PM CURRENCY MACHINE OPERATOR documented as of this encounter Care Teams Manager Golf Relationship Specialty Start Date End Date eDstini Garcia FNP [address] [place] [address] PCP - General Nurse Practitioner Family 11/21/20 documented as of this encounter
--- OUTSIDE RECORDS SUMMARY | 2024-07-26 17:12 | XMS_ITS | Encounter Summary ---
Author Organization [facility] Facility Care Team Providers Care Schedule Announcer Name Role Phone Molian Francisco MD Primary Care Provider + Dana Silva MD Unavailable [phone]- [phone] Destini Garcia NP Primary Care Provider [phone] Encounter Details Date Type Department Care Team (Latest Contact Info) Description 01/25/2018 Orders Only MMG CLINCONV Provider, MD Cornell [address] [place] [address] Social History Tobacco Use Types Packs/Day [...] Comments SCAN - LABS 02/27/2018 12:00 AM ADMISSIONS MANAGER RN CARDIOLOGY REPORT 02/27/2018 12: 00 AM ADMISSIONS MANAGER RN documented in this encounter Results * SCAN - LABS (02/27/2018 12:00 AM ADMISSIONS MANAGER RN) Narrative 02/27/2018 12:00 AM ADMISSIONS MANAGER RN Ordered by an unspecified provider. Historical Provider Final Res ult * CARDIOLOGY REPORT (02/27/2018 12:00 AM ADMISSIONS MANAGER RN) Anatomical Region Laterality Modality Other Narrative 02/27/2018 12:00 AM ADMISSIONS MANAGER RN Ordered by an unspecified provider. us Historical Provider CV CARDIAC SERVICES KALIN TORRES Final Result documented in this encounter Visit Diagnoses Not on filedocumented in this encounter Additional Health Concerns Infection Onset Date Last Indicated Resolved Time COVID: Suspected 04/18/2020 04/18/2020 04/20/2020 4:44 AM ADMISSIONS MANAGER RN COVID19 04/18/2020 04/18/2020 05/02/2020 3:07 AM ADMISSIONS MANAGER RN COVID: Recovered Comment:Added based on recent COVID infection. 05/02/2020 05/02/2020 08/30/2020 3:05 AM C DT COVID: Suspected 10/07/2020 10/07/2020 10/08/2020 12:36 AM CDT COVID: Suspected 03/04/2021 03/04/2021 03/05/2021 5:34 AM ADMISSIONS MANAGER RN documented as of this encounter Care Teams Schedule Announcer Relationship Specialty Start Date End Date Molina Francisco MD [address] [place] [address] PCP - General Internal Medicine 12/06/17 06/01/21 Destini Garcia NP [address] [place] [address] PCP - General Nurse Practitioner 06/02/21 Dana Silva MD [address] [place] [address] Fellow Neurology 05/15/21 documented as of this encounter
--- OUTSIDE RECORDS SUMMARY | 2024-07-26 17:13 | XMS_ITS | Encounter Summary ---
Author Organization [facility] Address [address] [place] [address] Care Team Providers Care Procurement Accountant Name Role Phone Destini Garcia HEYDI Primary Care Provider Encounter Details Date Type Department Care Team (Late st Contact Info) Description 08/18/2023 MyChart Message Enc [facility] Medical Group Multispecialty Care - [facility] 3 [facility], [address] [place] [address] Alyssa Quintero MD [address] [place] [address] Emgality Refill Social History Tobacco Use Types [...] Sex Assigned at Female 06/18/2024 10:56 AM INTERFACE ENGINEER Legal Sex Female 7:31 PM CDT Gender Identity Female 04/07/2021 9:13 AM INTERFACE ENGINEER Sexual Orientation Choose not to disclose 2024 [...] Author Status No 02/12/2021 4:50 PM CDT Mirain De León RN Active * Because of [...] 1:20 PM CDT Office Visit [facility] Medical Group Family & Internal Medicine [address] [address] Destini Garcia [address] [address] 09/29/2024 1:15 PM CDT Office Visit [facility], [facility] [address] [place], [place] [phone] Franky Wallace MD [facility]. [facility] [address] [place], [place] [phone] documented as of this encounter Goals Goal [...] Depression Total Score: 11 023 9:14 AM INTERFACE ENGINEER documented as of this encounter Care Teams Procurement Accountant Relationship Specialty Start Date End Date Destini Garcia FNP [address] [place] [address] PCP - General Nurse Practitioner Family 11/21/20 documented as of this encounter
--- OUTSIDE RECORDS SUMMARY | 2024-07-26 17:13 | XMS_ITS | Encounter Summary ---
Author Organization [facility] Address [address] [place] [address] Care Team Providers Care Customizer Name Role Phone Jose Destini HEYDI Primary Care Provider [phone] Encounter Details Date Type Department Care Team (Late st Contact Info) Description 06/01/2024 MyChart Message Enc [facility] Medical Group Multispecialty Care - [facility] 3 [facility], [address] [place] [phone] Alyssa Quintero MD [address] [place], [place] [phone] Emgality Prior Auth with New insurance Social [...] Sex Assigned at Female 06/18/2024 10:56 AM FRONT END SPECIALIST Legal Sex Female 7:31 PM CDT Gender Identity Female 04/07/2021 9:13 AM FRONT END SPECIALIST Sexual Orientation Choose not to disclose 2024 [...] Description 08/18/2024 1:20 PM CDT Office Visit [facility] Medical Group Family & Internal Medicine [address] [address] Destini Garcia FNP [address] [place] [address] 09/29/2024 1:15 PM CDT Office Visit [facility], [facility] [address] [place], [place] [phone] Franky Wallace MD [facility]. [facility] [address] [place] [address] documented as of this encounter Goals Goal [...] documented as of this encounter Care Teams Customizer Relationship Specialty Start Date End Date Destini Garcia FNP [address] [place] [address] PCP - General Nurse Practitioner Family 11/21/20 documented as of this encounter
--- OUTSIDE RECORDS SUMMARY | 2024-07-26 17:13 | XMS_ITS | Encounter Summary ---
Author Organization [facility] Address [address] [place] [address] Care Team Providers Care Printed Circuit Board Preassembler Name Role Phone Destini Garcia HEYDI Primary Care Provider [phone] Encounter Details Date Type Department Care Team (Late st Contact Info) Description 08/12/2023 Panzura Message Enc [facility] [place] [facility], MAXX [address] [place], [place] [phone] Franky Wallace MD Three [facility]. [address] [place], [place] [phone] Refill Nadolol Social History Tobacco Use Types [...] Sex Assigned at Female 06/18/2024 10:56 AM COLOR STRIPPER Legal Sex Female 7:31 PM CDT Gender Identity Female 04/07/2021 9:13 AM COLOR STRIPPER Sexual Orientation Choose not to disclose 2024 [...] Description 08/18/2024 1:20 PM CDT Office Visit [facility] Medical Group Family & Internal Medicine [place] [address] [place] [address] [facility] [place] [address] 09/29/2024 1:15 PM CDT Office Visit [facility], [facility] [address] [place], [place] [phone] Franky Wallace MD [facility]. [facility] [address] [place], [place] [phone] documented as of this encounter Goals Goal Patient Goal Type Associated Problems Recent Progress Patient-Stated? Author Patient will return to prior living situation and remain independent in ADLs upon discharge from [facility] General No Thanh, Phyllis K, RN documented as of this encounter Visit Diagnoses Not on filedocumented in this encounter Additional Health Concerns Assessment Noted Time PHQ-9 Depression Total Score: 11 023 9:14 AM COLOR STRIPPER documented as of this encounter Care Teams Printed Circuit Board Preassembler Relationship Specialty Start Date End Date Destini Garcia FNP [address] [place] [address] PCP - General Nurse Practitioner Family 11/21/20 documented as of this encounter
--- OUTSIDE RECORDS SUMMARY | 2024-07-26 17:13 | XMS_ITS | Referral Summary ---
Author Organization [facility] Address [address] [place] [id number] Care Team Providers Care Nail Technician Teacher Name Role Phone Dana Silva MD Unavailable [phone]- [phone] Destini Garcia NP Primary Care Provider [phone] Encounters Date Type Department Care Team Description 07/22/2024 11:00 AM CDT Telemedicine [address] [address] Kevin Sanabria MD 07/06/[address] [address] Kevin Sanabria MD Med Refill (Focalin xr) 05/31/2024 Orders Only [address] [address] Kevin Sanabria MD 05/06/2024 8:00 AM PROCEDURES NURSE Office Visit [facility] Neuro Muscle [address] [facility] 6th [place] [address] [place] [address] Cleopatra Red NP Autonomic dysfunction (Primary Dx); POTS (postural orthostatic tachycardia syndrome) 04/27/2024 3:15 PM PROCEDURES NURSE Telemedicine [address] [address] Kevin Sanabria MD Persistent depressive disorder (Primary Dx); PHAN (generalized anxiety disorder); ADHD, adult residual type from Last 3 Months Allergies Active Allergy Reactions Criticality Noted Date Comments Adhesive Itching Low 04/24/2022 Requires skin prep before dressings are placed. Doxycycline Hives,Itching,Rash Medium 01/11/2021 Medications rizatriptan HEAD PASTRY CHEF (MAXALT-HEAD PASTRY CHEF) 10 mg disintegrating tabletIndications :Migraine Take 1 [...] 12/13/2021 Assessment & Plan (06/22/2022 8:41 AM PROCEDURES NURSE): No episodes of self-harm in > 6 mos. Praise provided. Relates that anxiety and depression have improved - and that has been helpful + has been able to cope with situations better. Assessment & Plan (04/23/2022 1:31 PM PROCEDURES NURSE): Chronic condition, currently stable. None at this time. Briefly discussed rationale today. See notes. Continue to see therapist. Continue to monitor. Assessment & Plan (03/09/2022 9:08 AM PROCEDURES NURSE): Chronic condition, currently stable. Does not endorse [...] know. Can J Psychiatry. 2014 Nov;59(11):565-8. doi: 10.1177/[id number]. PMID: 58340084; PMCID: [id number]. Assessment & Plan (01/15/2022 11:36 AM CDT): Last cut last week. Was trying to restrict - ate and got mad about it. Continue to see therapist. Assessment & Plan (12/13/2021 9:28 AM CDT): Chronic condition, persistent symptoms, continue with therapy. Continue to monitor. [place] 10/03/2021 Obesity due to excess calories 10/03/2021 ADHD 08/01/2021 Trauma in childhood 07/31/2021 Assessment & Plan (06/22/2022 8:44 AM PROCEDURES NURSE): Continue therapy - weekly still - focused on trauma. Reports that her therapist has suggested cPTSD. Has been going back in time and going through traumatic events focusing on each individual trauma as it comes about in the discussion. Assessment & Plan (07/31/2021 9:27 AM CDT): Working on these issues in therapy. Insomnia 06/19/2021 Assessment & Plan (03/16/2024 6:25 AM PROCEDURES NURSE): Chronic condition, currently stable. Focus on sleep [...] time. Assessment & Plan (06/16/2023 11:46 AM PROCEDURES NURSE): Chronic condition, currently stable. Advised the patient to focus on sleep hygiene. The patient does not report any worsening sleep-related difficulties at this time. Supportive, insight-oriented counseling provided. No change to treatment regimen at this time. Assessment & Plan (04/11/2023 7:12 PM PROCEDURES NURSE): Chronic condition, currently stable. Advised the patient to focus on sleep hygiene. The patient does not report any worsening sleep-related difficulties at this time. Supportive, insight-oriented counseling provided. No change to treatment regimen at this time. Assessment & Plan (02/22/2023 9:27 AM PROCEDURES NURSE): Chronic condition, currently stable. Advised the patient [...] monitor. Assessment & Plan (06/22/2022 8:45 AM PROCEDURES NURSE): Chronic condition, currently stable. Rates as fair - waking up a few times per night - but usually able to fall back asleep. Advised the patient to focus on sleep hygiene. The patient does not report any worsening sleep-related difficulties at this time. Supportive, insight-oriented counseling provided. No change to treatment regimen at this time. Assessment & Plan (04/23/2022 1:32 PM PROCEDURES NURSE): Chronic condition, currently stable. Advised the patient to focus on sleep hygiene. The patient does not report any worsening sleep-related difficulties at this time. Supportive, insight-oriented counseling provided. No longer taking Seroquel. Trazodone effective. No change to treatment regimen at this time. Assessment & Plan (03/09/2022 9:09 AM PROCEDURES NURSE): Chronic condition, currently stable. Continue to focus [...] 03/04/20 Assessment & Plan (03/04/2021 10:35 AM PROCEDURES NURSE): -send for covid testing -albuterol inhaler to [...] 12/14/2020 Assessment & Plan (05/11/2024 5:23 AM PROCEDURES NURSE): Chronic, persistent symptoms of inattention, distractibility, inability [...] discussed. Assessment & Plan (03/16/2024 6:25 AM PROCEDURES NURSE): Chronic, persistent symptoms of inattention, distractibility, inability [...] discussed. Assessment & Plan (06/16/2023 11:46 AM PROCEDURES NURSE): Chronic, persistent symptoms of inattention, distractibility, inability [...] discussed. Assessment & Plan (04/11/2023 2:12 PM PROCEDURES NURSE): Chronic, persistent symptoms of inattention, distractibility, inability [...] discussed. Assessment & Plan (02/22/2023 9:14 AM PROCEDURES NURSE): Chronic, persistent symptoms of inattention, distractibility, inability [...] discussed. Assessment & Plan (06/22/2022 8:47 AM PROCEDURES NURSE): Chronic, persistent symptoms of inattention, distractibility, inability [...] discussed. Assessment & Plan (04/23/2022 2:18 PM PROCEDURES NURSE): Chronic, persistent symptoms of inattention, distractibility, inability [...] discussed. Assessment & Plan (03/09/2022 9:10 AM PROCEDURES NURSE): Chronic, persistent symptoms of inattention, distractibility, inability [...] discussed. Assessment & Plan (06/19/2021 11:01 AM PROCEDURES NURSE): Chronic, persistent symptoms of inattention, distractibility, inability [...] prescribed. Assessment & Plan (05/19/2021 11:22 AM PROCEDURES NURSE): Chronic, persistent symptoms of inattention, distractibility, inability [...] discussed. Assessment & Plan (05/09/2021 1:44 PM PROCEDURES NURSE): Acute, persistent, but having some symptoms that may be related Vyvanse. Discussed at length. Agreed to decrease the dose. Assessment & Plan (04/10/2021 12:41 PM PROCEDURES NURSE): Chronic, persistent, but Vyvanse seems to help. Insurance deductible cost high - Discontinue Vyvanse - anticipated cost. Plan to switch to Concerta ER 18 mg daily. Assessment & Plan (04/23/2021 1:23 PM PROCEDURES NURSE): Chronic, persistent. Complaining of some palpitations. Communicated with patrol police sergeant. Decrease Vyvanse to 20 mg daily Assessment [...] 72. Assessment & Plan (05/26/2020 1:58 PM PROCEDURES NURSE): Check echo in 3 week event monitor Assessment & Plan (05/09/2020 2:36 PM PROCEDURES NURSE): Sinus tachycardia. More frequent episodes affecting daily function. Will try to increase propranolol, 10 mg 2 tans in am and 1 tab at night. Monitor BP, if will be more lightheaded go back to original dose of 10 mg twice a day. COVID-19 virus infection 04/21/2020 Assessment & Plan (05/09/2020 3:29 PM PROCEDURES NURSE): Having shortness of breath since acquiring it 3 weeks ago. No respiratory distress, coughing or wheezing. Will check x-ray to rule out possible pneumonia. Will do short-term, low-dose prednisone to alleviate symptoms. Assessment & Plan (04/21/2020 5:52 PM PROCEDURES NURSE): Acute, positive test on 04/18/2020. Symptoms include shortness of breath-no visible respiratory distress via telemedicine, fatigue, myalgias and 1 episode of fever. Mild at this point in time. Push fluids. Get plenty of rest. If symptoms worsen, go to ER. Polypharmacy 04/09/2020 Assessment & Plan (04/09/2020 2:43 PM PROCEDURES NURSE): Unfortunately, her medication regimen is complex and [...] had normal Pap I year ago. 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 Persistent depressive disorder 03/30/2020 Assessment & Plan (05/11/2024 5:23 AM PROCEDURES NURSE): Acute on chronic, persistent. Depressive symptoms are partially controlled on current medication regimen. Tolerating medications without any reported side effects. The patient denies active suicidal and homicidal ideation. The following changes were made at today's appointment: See below Reevaluate treatment/symptoms at interval per scheduled appointment. Assessment & Plan (03/16/2024 6:25 AM PROCEDURES NURSE): Acute on chronic, persistent. Depressive symptoms are [...] appointment. Assessment & Plan (06/16/2023 11:46 AM PROCEDURES NURSE): Acute on chronic, persistent. Depressive symptoms are less than optimally controlled on current medication regimen. Tolerating medications without any reported side effects. The patient denies active suicidal and homicidal ideation. The following changes were made at today's appointment: Trial of lamotrigine 25 mg daily Reevaluate treatment/symptoms at interval per scheduled appointment. Assessment & Plan (04/11/2023 1:55 PM PROCEDURES NURSE): Acute on chronic, persistent. Depressive symptoms are [...] appointment. Assessment & Plan (02/22/2023 9:26 AM PROCEDURES NURSE): Acute on chronic, persistent. Depressive symptoms are [...] appointment. Assessment & Plan (02/22/2023 9:14 AM PROCEDURES NURSE): Chronic, persistent. Depressive symptoms are reasonably well [...] appointment. Assessment & Plan (06/22/2022 8:42 AM PROCEDURES NURSE): Chronic, stable. Depressive symptoms are well controlled [...] appointment. Assessment & Plan (04/23/2022 2:18 PM PROCEDURES NURSE): Chronic, stable. Depressive symptoms are reasonably well controlled on current medication regimen. Tolerating medications without any reported side effects. The patient denies active suicidal and homicidal ideation. The following changes were made at today's appointment: none Reevaluate treatment/symptoms at interval per scheduled appointment. Assessment & Plan (03/09/2022 9:12 AM PROCEDURES NURSE): Chronic condition, persistent symptoms, but functioning at [...] appointment. Assessment & Plan (06/19/2021 11:01 AM PROCEDURES NURSE): Chronic, persistent, but functioning at or close [...] discussed. Assessment & Plan (05/19/2021 11:22 AM PROCEDURES NURSE): Chronic, stable. Depressive symptoms are well controlled on current medication regimen. Tolerating medications without any reported side effects. The patient denies active suicidal and homicidal ideation. The following changes were made at today's appointment: none Reevaluate treatment/symptoms at interval per scheduled appointment. Assessment & Plan (05/09/2021 1:44 PM PROCEDURES NURSE): Chronic, stable. Denies any active suicidal ideation. No change from standpoint of treatment of depression. Assessment & Plan (05/04/2021 9:01 AM PROCEDURES NURSE): Chronic, persistent. Denies any active suicidal ideation. Continue current management. Continue to monitor. Assessment & Plan (04/23/2021 1:24 PM PROCEDURES NURSE): Chronic, stable. Depressive symptoms are reasonably well controlled on current medication regimen. Tolerating medications without any reported side effects. The patient denies active suicidal and homicidal ideation. The following changes were made at today's appointment: None. Reevaluate treatment/symptoms at interval per scheduled appointment. Assessment & Plan (04/10/2021 1:33 PM PROCEDURES NURSE): Chronic, persistent, but functioning at or close [...] Grew up together. Crisis line [facility] at [phone]) Assessment & Plan (12/15/2020 8:35 AM CDT): [...] makeda. Assessment & Plan (04/21/2020 5:52 PM PROCEDURES NURSE): Chronic, stable with medication changes. Denies any active suicidal ideation. With polypharmacy, will reduce medications further. See orders below. Continue to monitor. Assessment & Plan (04/09/2020 2:44 PM PROCEDURES NURSE): Chronic, persistent, but functioning at or close [...] Topamax. Assessment & Plan (04/23/2019 3:07 PM PROCEDURES NURSE): Continue Topamax Assessment & Plan (08/28/2018 1:50 PM CDT): Pt is planning to see neurologist, Dr. Bates. Pt also sees process mechanic, will discuss with her to stop lithium [...] Florinef. Assessment & Plan (04/22/2019 11:31 AM PROCEDURES NURSE): Stable on midodrine and Florinef Assessment & [...] observing. Assessment & Plan (03/30/2020 10:53 AM PROCEDURES NURSE): Chronic and worsening. Upon review of her [...] mg a day. She has thi with process mechanic in 3 days. I advised pt to [...] neurologist. Assessment & Plan (04/22/2019 11:28 AM PROCEDURES NURSE): Stable on Topamax Assessment & Plan (08/05/2018 4:15 AM CDT): Continue topiramate 25 mg b.i.d. Personality disorder, unspecified 02/21/2018 Severe episode of recurrent major depressive disorder, without psychotic features 02/06/2018 Assessment & Plan (09/20/2020 10:25 AM CDT): Presently active. No suicidal thoughts. Cont care with psychiatrist. Assessment & Plan (03/30/2020 10:48 AM PROCEDURES NURSE): Recent history of suicidal attempt with overdose of clomipramine. Patient was admitted to [facility] 03/18-03/21. Currently attending outpatient treatment at [facility]. Sees psychiatrist, . Denied suicidal thoughts today. I encouraged patient to continue medical treatment and psychiatric care. Assessment & Plan (04/22/2019 11:31 AM PROCEDURES NURSE): Stable on Rexulti, venlafaxine, Seroquel, and clomipramine Assessment & Plan (10/08/2018 1:39 PM CDT): Stable on Rexulti, venlafaxine, Seroquel, and lithium. Being followed by psychiatrist Assessment & Plan (08/08/2018 3:45 PM CDT): Improving. Patient sees psychiatric nurse practitioner on regular basis. PHAN (generalized anxiety disorder) 02/06/2018 Assessment & Plan (05/11/2024 5:23 AM PROCEDURES NURSE): Chronic condition with persistent symptoms. Medication changes today: See below Insight-oriented, supportive counseling provided. Continued management as discussed Assessment & Plan (03/16/2024 6:25 AM PROCEDURES NURSE): Chronic condition with persistent symptoms. Medication changes [...] discussed Assessment & Plan (06/16/2023 11:45 AM PROCEDURES NURSE): Chronic condition with persistent symptoms. +confounded by stress related to finances, housing, school, work Medication changes today: None Insight-oriented, supportive counseling provided. Continued management as discussed Assessment & Plan (04/11/2023 2:11 PM PROCEDURES NURSE): Chronic condition with persistent symptoms. 04/11/2023: anxiety 12/23 Medication changes today: Clomipramine 150 mg HS Insight-oriented, supportive counseling provided. Continued management as discussed Assessment & Plan (02/22/2023 9:24 AM PROCEDURES NURSE): Chronic condition with persistent symptoms. Better overall - since last appointment. Medication changes today: None Insight-oriented, supportive counseling provided. Continued management as discussed Assessment & Plan (02/22/2023 9:13 AM PROCEDURES NURSE): Chronic condition with persistent symptoms. Better overall [...] monitor. Assessment & Plan (06/22/2022 8:43 AM PROCEDURES NURSE): Chronic condition with persistent, but more stable symptoms. Medication changes today: none Insight-oriented, supportive counseling provided. Continued management as discussed Assessment & Plan (04/23/2022 2:19 PM PROCEDURES NURSE): Chronic condition with persistent symptoms. She appears to be functioning at baseline at this time. Medication changes today: none Insight-oriented, supportive counseling provided. Continued management as discussed Assessment & Plan (03/09/2022 9:12 AM PROCEDURES NURSE): Chronic condition with persistent symptoms. The patient [...] recommended. Assessment & Plan (06/19/2021 11:01 AM PROCEDURES NURSE): Chronic condition, persistent but stable symptoms. Medication changes today: None Continue management as discussed. Support provided. Assessment & Plan (05/19/2021 11:22 AM PROCEDURES NURSE): Chronic condition, currently stable. The patient does [...] recommended. Assessment & Plan (05/09/2021 1:44 PM PROCEDURES NURSE): Chronic, stable. No change to treatment. Assessment & Plan (05/04/2021 9:00 AM PROCEDURES NURSE): Chronic condition, persistent but stable symptoms. Medication changes today: None Continue management as discussed. Support provided. Assessment & Plan (04/23/2021 1:25 PM PROCEDURES NURSE): Chronic condition, persistent but stable symptoms. Medication changes today: None Continue management as discussed. Support provided. Assessment & Plan (04/10/2021 1:34 PM PROCEDURES NURSE): Chronic condition, persistent but stable symptoms. Medication [...] paxil Assessment & Plan (04/21/2020 5:53 PM PROCEDURES NURSE): Chronic, persistent, but functioning at or close to baseline. See orders. Assessment & Plan (04/09/2020 2:44 PM PROCEDURES NURSE): Chronic, persistent, agreed to increased frequency of benzodiazepine-but do not wish to maintain at this level for very long period of time. May use hydroxyzine for moderate anxiety. Continue to monitor. Continued admission to the intensive outpatient treatment program. Needs to rely on skills for dealing with anxiety. Encouraged her to utilize exercise. Assessment & Plan (04/22/2019 11:32 AM PROCEDURES NURSE): Stable on clonazepam Pelvic pain 12/18/2017 Female [...] Due to POTS. Patient was evaluated by patrol police sergeant, 48 hour Holter and echo were unremarkable. Will increase midodrine, stress well hydration at all times. Assessment & Plan (05/26/2020 2:35 PM PROCEDURES NURSE): Likely some component of POTS. Check 48 [...] well. Assessment & Plan (02/23/2019 10:50 AM PROCEDURES NURSE): Autonomic insufficiency. Continue Florinef and midodrine. Encouraged exercise. Assessment & Plan (08/05/2018 4:11 AM CDT): Chronic and recurring she does follow with a patrol police sergeant -there is some suggestion of lone tachycardia and possible prolonged QT intervals -admitted for 2nd opinion -placed on telemetry -will need records from [facility], PCP, patrol police sergeant, and mental health provider -continue Florinef and [...] Comments Blood Pressure 128/82 05/06/2024 7:54 AM PROCEDURES NURSE Pulse 82 05/06/2024 7:54 AM PROCEDURES NURSE Temperature 36.2 C (97.1 F) 11/29/2023 8:00 AM CDT Respiratory Rate 18 11/29/2023 8:00 AM CDT Oxygen Saturation 100% 11/29/2023 8:00 AM CDT Inhaled Oxygen Concentration - - Weight 87.5 kg (193 lb) 05/06/2024 7:54 AM PROCEDURES NURSE Height 162.6 cm (5' 4 ) 05/06/2024 7:54 AM PROCEDURES NURSE Body Mass Index 33.13 05/06/2024 7:54 AM PROCEDURES NURSE Plan of Treatment Not on file Insurance [employer] [facility] HMO/PPO Address: [address] [address] [facility] PPO ANTHEM ACCESS CHOICE Advance Directives For more information, please contact: [phone] * Full Code (Latest Code Status on File) Date Activated Date Inactivated Comments 12/06/2022 8:32 AM 12/07/2022 5:22 AM * Full Code Date Activated Date Inactivated Comments 02/27/2022 12:43 PM 02/28/2022 5:26 AM * Full Code Date Activated Date Inactivated Comments 08/05/2018 4:43 AM 08/06/2018 12:56 AM Care Teams Nail Technician Teacher Relationship Specialty Start Date End Date Destini Garcia NP [address] [place] [address] [phone] PCP - General Nurse Practitioner 06/02/21 Dana Silva MD Fellow Neurology 05/15/21
--- OUTSIDE RECORDS SUMMARY | 2024-07-26 17:13 | XMS_ITS | Clinical Summary ---
Author Organization [facility] Address [address] [place] [address] Phone Care Team Providers Care Hot Bread Baker Name Role Phone Molina Francisco MD Primary Care Provider [phone] Allergies No known active allergies Medications midodrine [...] Industry Job Start Date Job End Date [employer] Not on file Not on file Not [...] d or Tdap) 09/18/2027 09/17/2017, 10/05/2008 Insurance [employer] BLUE ACCESS/TRUE BLUE PPO [employer]UE PPO Advance Directives For more information, please contact: [phone] Documents on File Type Date Recorded 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
--- OUTSIDE RECORDS SUMMARY | 2024-07-26 17:13 | XMS_ITS | Clinical Summary ---
Author Organization [facility] Address [address] [place] [address] Care Team Providers Care Critical Systems Technician Name Role Phone Dana Silva MD Unavailable [phone] Destini Garcia NP Primary Care Provider + [phone] Allergies Active Allergy Reactions Criticality Noted Date Comments Adhesive Itching Low 04/24/2022 Requires skin prep before dressings are placed. Doxycycline Hives,Itching,Rash Medium 01/11/2021 Medications rizatriptan DIE TURNER (MAXALT-DIE TURNER) 10 mg disintegrating tabletIndications :Migraine Take 1 [...] 12/13/2021 Assessment & Plan (06/22/2022 8:41 AM ELECTRONIC SPECIALIST): No episodes of self-harm in > 6 mos. Praise provided. Relates that anxiety and depression have improved - and that has been helpful + has been able to cope with situations better. Assessment & Plan (04/23/2022 1:31 PM ELECTRONIC SPECIALIST): Chronic condition, currently stable. None at this time. Briefly discussed rationale today. See notes. Continue to see therapist. Continue to monitor. Assessment & Plan (03/09/2022 9:08 AM ELECTRONIC SPECIALIST): Chronic condition, currently stable. Does not endorse any active nonsuicidal self-injurious behaviors. Does not endorse any active suicidal ideation. Continue with therapy. Continue to monitor. Reference: NSSI and suicidal behaviours have often been found to co-occur in both community and psychiatric populations. Moreover, a growing body of literature suggests that NSSI may be an especially important risk factor for suicidal behaviour. iBju et al found NSSI to be more [...] know. Can J Psychiatry. 2014 Nov;59(11):565-8. doi: 10.1177/230884045522005993. PMID: 46015572; PMCID: UIA5693764. Assessment & Plan (01/15/2022 11:36 AM CDT): Last cut last week. Was trying to restrict - ate and got mad about it. Continue to see therapist. Assessment & Plan (12/13/2021 9:28 AM CDT): Chronic condition, persistent symptoms, continue with therapy. Continue to monitor. [place] 10/03/2021 Obesity due to excess calories 10/03/2021 ADHD 08/01/2021 Trauma in childhood 07/31/2021 Assessment & Plan (06/22/2022 8:44 AM ELECTRONIC SPECIALIST): Continue therapy - weekly still - focused on trauma. Reports that her therapist has suggested cPTSD. Has been going back in time and going through traumatic events focusing on each individual trauma as it comes about in the discussion. Assessment & Plan (07/31/2021 9:27 AM CDT): Working on these issues in therapy. Insomnia 06/19/2021 Assessment & Plan (03/16/2024 6:25 AM ELECTRONIC SPECIALIST): Chronic condition, currently stable. Focus on sleep [...] time. Assessment & Plan (06/16/2023 11:46 AM ELECTRONIC SPECIALIST): Chronic condition, currently stable. Advised the patient to focus on sleep hygiene. The patient does not report any worsening sleep-related difficulties at this time. Supportive, insight-oriented counseling provided. No change to treatment regimen at this time. Assessment & Plan (04/11/2023 7:12 PM ELECTRONIC SPECIALIST): Chronic condition, currently stable. Advised the patient to focus on sleep hygiene. The patient does not report any worsening sleep-related difficulties at this time. Supportive, insight-oriented counseling provided. No change to treatment regimen at this time. Assessment & Plan (02/22/2023 9:27 AM ELECTRONIC SPECIALIST): Chronic condition, currently stable. Advised the patient [...] monitor. Assessment & Plan (06/22/2022 8:45 AM ELECTRONIC SPECIALIST): Chronic condition, currently stable. Rates as fair - waking up a few times per night - but usually able to fall back asleep. Advised the patient to focus on sleep hygiene. The patient does not report any worsening sleep-related difficulties at this time. Supportive, insight-oriented counseling provided. No change to treatment regimen at this time. Assessment & Plan (04/23/2022 1:32 PM ELECTRONIC SPECIALIST): Chronic condition, currently stable. Advised the patient to focus on sleep hygiene. The patient does not report any worsening sleep-related difficulties at this time. Supportive, insight-oriented counseling provided. No longer taking Seroquel. Trazodone effective. No change to treatment regimen at this time. Assessment & Plan (03/09/2022 9:09 AM ELECTRONIC SPECIALIST): Chronic condition, currently stable. Continue to focus [...] 03/04/20 Assessment & Plan (03/04/2021 10:35 AM ELECTRONIC SPECIALIST): -send for covid testing -albuterol inhaler to [...] 12/14/2020 Assessment & Plan (05/11/2024 5:23 AM ELECTRONIC SPECIALIST): Chronic, persistent symptoms of inattention, distractibility, inability [...] discussed. Assessment & Plan (03/16/2024 6:25 AM ELECTRONIC SPECIALIST): Chronic, persistent symptoms of inattention, distractibility, inability [...] discussed. Assessment & Plan (06/16/2023 11:46 AM ELECTRONIC SPECIALIST): Chronic, persistent symptoms of inattention, distractibility, inability [...] discussed. Assessment & Plan (04/11/2023 2:12 PM ELECTRONIC SPECIALIST): Chronic, persistent symptoms of inattention, distractibility, inability [...] discussed. Assessment & Plan (02/22/2023 9:14 AM ELECTRONIC SPECIALIST): Chronic, persistent symptoms of inattention, distractibility, inability [...] discussed. Assessment & Plan (06/22/2022 8:47 AM ELECTRONIC SPECIALIST): Chronic, persistent symptoms of inattention, distractibility, inability [...] discussed. Assessment & Plan (04/23/2022 2:18 PM ELECTRONIC SPECIALIST): Chronic, persistent symptoms of inattention, distractibility, inability [...] discussed. Assessment & Plan (03/09/2022 9:10 AM ELECTRONIC SPECIALIST): Chronic, persistent symptoms of inattention, distractibility, inability [...] discussed. Assessment & Plan (06/19/2021 11:01 AM ELECTRONIC SPECIALIST): Chronic, persistent symptoms of inattention, distractibility, inability [...] prescribed. Assessment & Plan (05/19/2021 11:22 AM ELECTRONIC SPECIALIST): Chronic, persistent symptoms of inattention, distractibility, inability [...] discussed. Assessment & Plan (05/09/2021 1:44 PM ELECTRONIC SPECIALIST): Acute, persistent, but having some symptoms that may be related Vyvanse. Discussed at length. Agreed to decrease the dose. Assessment & Plan (04/10/2021 12:41 PM ELECTRONIC SPECIALIST): Chronic, persistent, but Vyvanse seems to help. Insurance deductible cost high - Discontinue Vyvanse - anticipated cost. Plan to switch to Concerta ER 18 mg daily. Assessment & Plan (04/23/2021 1:23 PM ELECTRONIC SPECIALIST): Chronic, persistent. Complaining of some palpitations. Communicated with community outreach coordinator. Decrease Vyvanse to 20 mg daily Assessment [...] 72. Assessment & Plan (05/26/2020 1:58 PM ELECTRONIC SPECIALIST): Check echo in 3 week event monitor Assessment & Plan (05/09/2020 2:36 PM ELECTRONIC SPECIALIST): Sinus tachycardia. More frequent episodes affecting daily function. Will try to increase propranolol, 10 mg 2 tans in am and 1 tab at night. Monitor BP, if will be more lightheaded go back to original dose of 10 mg twice a day. COVID-19 virus infection 04/21/2020 Assessment & Plan (05/09/2020 3:29 PM ELECTRONIC SPECIALIST): Having shortness of breath since acquiring it 3 weeks ago. No respiratory distress, coughing or wheezing. Will check x-ray to rule out possible pneumonia. Will do short-term, low-dose prednisone to alleviate symptoms. Assessment & Plan (04/21/2020 5:52 PM ELECTRONIC SPECIALIST): Acute, positive test on 04/18/2020. Symptoms include shortness of breath-no visible respiratory distress via telemedicine, fatigue, myalgias and 1 episode of fever. Mild at this point in time. Push fluids. Get plenty of rest. If symptoms worsen, go to ER. Polypharmacy 04/09/2020 Assessment & Plan (04/09/2020 2:43 PM ELECTRONIC SPECIALIST): Unfortunately, her medication regimen is complex and [...] had normal Pap I year ago. Sees photographer. Persistent depressive disorder 03/30/2020 Assessment & Plan (05/11/2024 5:23 AM ELECTRONIC SPECIALIST): Acute on chronic, persistent. Depressive symptoms are partially controlled on current medication regimen. Tolerating medications without any reported side effects. The patient denies active suicidal and homicidal ideation. The following changes were made at today's appointment: See below Reevaluate treatment/symptoms at interval per scheduled appointment. Assessment & Plan (03/16/2024 6:25 AM ELECTRONIC SPECIALIST): Acute on chronic, persistent. Depressive symptoms are [...] appointment. Assessment & Plan (06/16/2023 11:46 AM ELECTRONIC SPECIALIST): Acute on chronic, persistent. Depressive symptoms are less than optimally controlled on current medication regimen. Tolerating medications without any reported side effects. The patient denies active suicidal and homicidal ideation. The following changes were made at today's appointment: Trial of lamotrigine 25 mg daily Reevaluate treatment/symptoms at interval per scheduled appointment. Assessment & Plan (04/11/2023 1:55 PM ELECTRONIC SPECIALIST): Acute on chronic, persistent. Depressive symptoms are [...] appointment. Assessment & Plan (02/22/2023 9:26 AM ELECTRONIC SPECIALIST): Acute on chronic, persistent. Depressive symptoms are [...] appointment. Assessment & Plan (02/22/2023 9:14 AM ELECTRONIC SPECIALIST): Chronic, persistent. Depressive symptoms are reasonably well [...] appointment. Assessment & Plan (06/22/2022 8:42 AM ELECTRONIC SPECIALIST): Chronic, stable. Depressive symptoms are well controlled [...] appointment. Assessment & Plan (04/23/2022 2:18 PM ELECTRONIC SPECIALIST): Chronic, stable. Depressive symptoms are reasonably well controlled on current medication regimen. Tolerating medications without any reported side effects. The patient denies active suicidal and homicidal ideation. The following changes were made at today's appointment: none Reevaluate treatment/symptoms at interval per scheduled appointment. Assessment & Plan (03/09/2022 9:12 AM ELECTRONIC SPECIALIST): Chronic condition, persistent symptoms, but functioning at [...] appointment. Assessment & Plan (06/19/2021 11:01 AM ELECTRONIC SPECIALIST): Chronic, persistent, but functioning at or close [...] discussed. Assessment & Plan (05/19/2021 11:22 AM ELECTRONIC SPECIALIST): Chronic, stable. Depressive symptoms are well controlled on current medication regimen. Tolerating medications without any reported side effects. The patient denies active suicidal and homicidal ideation. The following changes were made at today's appointment: none Reevaluate treatment/symptoms at interval per scheduled appointment. Assessment & Plan (05/09/2021 1:44 PM ELECTRONIC SPECIALIST): Chronic, stable. Denies any active suicidal ideation. No change from standpoint of treatment of depression. Assessment & Plan (05/04/2021 9:01 AM ELECTRONIC SPECIALIST): Chronic, persistent. Denies any active suicidal ideation. Continue current management. Continue to monitor. Assessment & Plan (04/23/2021 1:24 PM ELECTRONIC SPECIALIST): Chronic, stable. Depressive symptoms are reasonably well controlled on current medication regimen. Tolerating medications without any reported side effects. The patient denies active suicidal and homicidal ideation. The following changes were made at today's appointment: None. Reevaluate treatment/symptoms at interval per scheduled appointment. Assessment & Plan (04/10/2021 1:33 PM ELECTRONIC SPECIALIST): Chronic, persistent, but functioning at or close [...] Grew up together. Crisis line [facility] at [phone] ([phone]) Assessment & Plan (12/15/2020 8:35 AM CDT): [...] makeda. Assessment & Plan (04/21/2020 5:52 PM ELECTRONIC SPECIALIST): Chronic, stable with medication changes. Denies any active suicidal ideation. With polypharmacy, will reduce medications further. See orders below. Continue to monitor. Assessment & Plan (04/09/2020 2:44 PM ELECTRONIC SPECIALIST): Chronic, persistent, but functioning at or close [...] Topamax. Assessment & Plan (04/23/2019 3:07 PM ELECTRONIC SPECIALIST): Continue Topamax Assessment & Plan (08/28/2018 1:50 PM CDT): Pt is planning to see neurologist, Dr. Bates. Pt also sees whipped topping mixer, will discuss with her to stop lithium [...] Florinef. Assessment & Plan (04/22/2019 11:31 AM ELECTRONIC SPECIALIST): Stable on midodrine and Florinef Assessment & [...] observing. Assessment & Plan (03/30/2020 10:53 AM ELECTRONIC SPECIALIST): Chronic and worsening. Upon review of her [...] mg a day. She has thi with whipped topping mixer in 3 days. I advised pt to [...] neurologist. Assessment & Plan (04/22/2019 11:28 AM ELECTRONIC SPECIALIST): Stable on Topamax Assessment & Plan (08/05/2018 4:15 AM CDT): Continue topiramate 25 mg b.i.d. Personality disorder, unspecified 02/21/2018 Severe episode of recurrent major depressive disorder, without psychotic features 02/06/2018 Assessment & Plan (09/20/2020 10:25 AM CDT): Presently active. No suicidal thoughts. Cont care with psychiatrist. Assessment & Plan (03/30/2020 10:48 AM ELECTRONIC SPECIALIST): Recent history of suicidal attempt with overdose of clomipramine. Patient was admitted to [facility] 03/18-03/21. Currently attending outpatient treatment at [facility]. Sees psychiatrist, . Denied suicidal thoughts today. I encouraged patient to continue medical treatment and psychiatric care. Assessment & Plan (04/22/2019 11:31 AM ELECTRONIC SPECIALIST): Stable on Rexulti, venlafaxine, Seroquel, and clomipramine Assessment & Plan (10/08/2018 1:39 PM CDT): Stable on Rexulti, venlafaxine, Seroquel, and lithium. Being followed by psychiatrist Assessment & Plan (08/08/2018 3:45 PM CDT): Improving. Patient sees psychiatric nurse practitioner on regular basis. PHAN (generalized anxiety disorder) 02/06/2018 Assessment & Plan (05/11/2024 5:23 AM ELECTRONIC SPECIALIST): Chronic condition with persistent symptoms. Medication changes today: See below Insight-oriented, supportive counseling provided. Continued management as discussed Assessment & Plan (03/16/2024 6:25 AM ELECTRONIC SPECIALIST): Chronic condition with persistent symptoms. Medication changes [...] discussed Assessment & Plan (06/16/2023 11:45 AM ELECTRONIC SPECIALIST): Chronic condition with persistent symptoms. +confounded by stress related to finances, housing, school, work Medication changes today: None Insight-oriented, supportive counseling provided. Continued management as discussed Assessment & Plan (04/11/2023 2:11 PM ELECTRONIC SPECIALIST): Chronic condition with persistent symptoms. 04/11/2023: anxiety 12/23 Medication changes today: Clomipramine 150 mg HS Insight-oriented, supportive counseling provided. Continued management as discussed Assessment & Plan (02/22/2023 9:24 AM ELECTRONIC SPECIALIST): Chronic condition with persistent symptoms. Better overall - since last appointment. Medication changes today: None Insight-oriented, supportive counseling provided. Continued management as discussed Assessment & Plan (02/22/2023 9:13 AM ELECTRONIC SPECIALIST): Chronic condition with persistent symptoms. Better overall [...] monitor. Assessment & Plan (06/22/2022 8:43 AM ELECTRONIC SPECIALIST): Chronic condition with persistent, but more stable symptoms. Medication changes today: none Insight-oriented, supportive counseling provided. Continued management as discussed Assessment & Plan (04/23/2022 2:19 PM ELECTRONIC SPECIALIST): Chronic condition with persistent symptoms. She appears to be functioning at baseline at this time. Medication changes today: none Insight-oriented, supportive counseling provided. Continued management as discussed Assessment & Plan (03/09/2022 9:12 AM ELECTRONIC SPECIALIST): Chronic condition with persistent symptoms. The patient [...] recommended. Assessment & Plan (06/19/2021 11:01 AM ELECTRONIC SPECIALIST): Chronic condition, persistent but stable symptoms. Medication changes today: None Continue management as discussed. Support provided. Assessment & Plan (05/19/2021 11:22 AM ELECTRONIC SPECIALIST): Chronic condition, currently stable. The patient does [...] recommended. Assessment & Plan (05/09/2021 1:44 PM ELECTRONIC SPECIALIST): Chronic, stable. No change to treatment. Assessment & Plan (05/04/2021 9:00 AM ELECTRONIC SPECIALIST): Chronic condition, persistent but stable symptoms. Medication changes today: None Continue management as discussed. Support provided. Assessment & Plan (04/23/2021 1:25 PM ELECTRONIC SPECIALIST): Chronic condition, persistent but stable symptoms. Medication changes today: None Continue management as discussed. Support provided. Assessment & Plan (04/10/2021 1:34 PM ELECTRONIC SPECIALIST): Chronic condition, persistent but stable symptoms. Medication [...] paxil Assessment & Plan (04/21/2020 5:53 PM ELECTRONIC SPECIALIST): Chronic, persistent, but functioning at or close to baseline. See orders. Assessment & Plan (04/09/2020 2:44 PM ELECTRONIC SPECIALIST): Chronic, persistent, agreed to increased frequency of benzodiazepine-but do not wish to maintain at this level for very long period of time. May use hydroxyzine for moderate anxiety. Continue to monitor. Continued admission to the intensive outpatient treatment program. Needs to rely on skills for dealing with anxiety. Encouraged her to utilize exercise. Assessment & Plan (04/22/2019 11:32 AM ELECTRONIC SPECIALIST): Stable on clonazepam Pelvic pain 12/18/2017 Female [...] (12/06/2023): Dysmenorrhea, unspecified; Progress: Stable Added By: aCss Hair Add to Current Problems: NO ProblemStatus: [...] Due to POTS. Patient was evaluated by community outreach coordinator, 48 hour Holter and echo were unremarkable. Will increase midodrine, stress well hydration at all times. Assessment & Plan (05/26/2020 2:35 PM ELECTRONIC SPECIALIST): Likely some component of POTS. Check 48 [...] well. Assessment & Plan (02/23/2019 10:50 AM ELECTRONIC SPECIALIST): Autonomic insufficiency. Continue Florinef and midodrine. Encouraged exercise. Assessment & Plan (08/05/2018 4:11 AM CDT): Chronic and recurring she does follow with a community outreach coordinator -there is some suggestion of lone tachycardia and possible prolonged QT intervals -admitted for 2nd opinion -placed on telemetry -will need records from [facility], PCP, community outreach coordinator, and mental health provider -continue Florinef and [...] Team Description 07/22/2024 11:00 AM CDT Telemedicine [address] [phone] Kevin Sanabria MD 07/06/[address] [phone] Kevin Sanabria MD Med Refill (Focalin xr) 05/31/2024 Orders Only [address] [phone] Kevin Sanabria MD 05/06/2024 8:00 AM ELECTRONIC SPECIALIST Office Visit [facility] Neuro Muscle [address] [facility] 6th Floor [address] [phone] Cleopatra Red NP Autonomic dysfunction (Primary Dx); POTS (postural orthostatic tachycardia syndrome) 04/27/2024 3:15 PM ELECTRONIC SPECIALIST Telemedicine [address] [phone] Kevin Sanabria MD Persistent depressive disorder (Primary [...] Comments Blood Pressure 128/82 05/06/2024 7:54 AM ELECTRONIC SPECIALIST Pulse 82 05/06/2024 7:54 AM ELECTRONIC SPECIALIST Temperature 36.2 C (97.1 F) 11/29/2023 8:00 AM CDT Respiratory Rate 18 11/29/2023 8:00 AM CDT Oxygen Saturation 100% 11/29/2023 8:00 AM CDT Inhaled Oxygen Concentration - - Weight 87.5 kg (193 lb) 05/06/2024 7:54 AM ELECTRONIC SPECIALIST Height 162.6 cm (5' 4 ) 05/06/2024 7:54 AM ELECTRONIC SPECIALIST Body Mass Index 33.13 05/06/2024 7:54 AM ELECTRONIC SPECIALIST Plan of Treatment Health Maintenance Due Date [...] patient's age to complete this topic Insurance [address] ANTHEM ACCESS CHOICE Advance Directives For more information, please contact: [phone] * Full Code (Latest Code Status on File) Date Activated Date Inactivated Comments 12/06/2022 8:32 AM 12/07/2022 5:22 AM * Full Code Date Activated Date Inactivated Comments 02/27/2022 12:43 PM 02/28/2022 5:26 AM * Full Code Date Activated Date Inactivated Comments 08/05/2018 4:43 AM 08/06/2018 12:56 AM Care Teams Critical Systems Technician Relationship Specialty Start Date End Date Destini Garcia NP [address] [place] [address] PCP - General Nurse Practitioner 06/02/21 Dana Silva MD Fellow Neurology 05/15/21
--- OUTSIDE RECORDS SUMMARY | 2024-07-26 17:13 | XMS_ITS | Encounter Summary ---
Author Organization [facility] Address [address] [place] [id number] Care Team Providers Care Mattress Packer Name Role Phone Destini Garcia HEYDI Primary Care Provider [phone] Reason for Visit * Reason Onset Date Comments Information 07/21/2021 Encounter Details Date Type Department Care Team (Late st Contact Info) Description 07/21/2021 [employer] Message [facility], [facility] [address] [place], [place] [address] Franky Wallace MD [facility]. [facility] [address] [place] [address] Order Social History Tobacco Use [...] Sex Assigned at Female 06/18/2024 10:56 AM ETHNOARCHAEOLOGY PROFESSOR Legal Sex Female 7:31 PM CDT Gender Identity Female 04/07/2021 9:13 AM ETHNOARCHAEOLOGY PROFESSOR Sexual Orientation Choose not to disclose 2024 [...] order to be faxed to their department. [place] notified and will send a new order. * Shabana Mullen - 07/25/2021 9:47 AM CDT New order faxed to [phone] * Carole Whatley RN - 07/21/2021 1:51 PM CDT Just two more sessions. Above message from Dr. Wallace. Message to the field secretary. * Carole Whatley RN - 07/21/2021 11:45 [...] 07/21/2021 11:32 AM CDT I sent a [facility] message to the patient that IV therapy was ordered for one month - a letter was sent to the infusion center last month. Message to Jaida SALGADO. documented in this encounter Plan of Treatment Upcoming Encounters Date Type Department Care Team (Late st Contact Info) Description 08/18/2024 1:20 PM CDT Office Visit [facility] Family & Internal Medicine - [address] [phone] Destini Garcia FNP [address] [place] [phone] 09/29/2024 1:15 PM CDT Office Visit [facility], [facility] [address] [place] [address] Franky Wallace MD [facility]. [facility] [address] [place] [address] documented as of this encounter Goals Goal [...] Total Score: 2 03/02/20 21 2:17 PM ETHNOARCHAEOLOGY PROFESSOR documented as of this encounter Care Teams Mattress Packer Relationship Specialty Start Date End Date Destini Garcia FNP [facility] [place] [address] PCP - General Nurse Practitioner Family 11/21/20 documented as of this encounter
--- OUTSIDE RECORDS SUMMARY | 2024-07-26 17:13 | XMS_ITS | Clinical Summary ---
Author Organization [facility] Address [address] [place] [address] Care Team Providers Care Integration Engineer Name Role Phone Destini Garcia APRMAGEN Primary Care Provider [phone] Source Comments [facility],non-owned Affiliates and Associated Physician Practices is amultiple site organization consisting of ambulatory clinics and hospital sitesin [place], [place], [place]. This disclosure is being madepursuant to the Care Everywhere program and may not contain all information available regarding this patient. 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 Not on file Not on file Not on file Last Filed Vital Signs Vital Sign Reading Time Taken Comments Blood Pressure 115/91 05/01/2022 9:35 AM SOCIAL WORK SPECIALIST Pulse 93 05/01/2022 9:35 AM SOCIAL WORK SPECIALIST Temperature 36.8 C (98.3 F) 02/22/2016 4:26 PM SOCIAL WORK SPECIALIST Respiratory Rate 20 02/22/2016 4:26 PM SOCIAL WORK SPECIALIST Oxygen Saturation 99% 05/01/2022 9:29 AM SOCIAL WORK SPECIALIST Inhaled Oxygen Concentration - - Weight 87.5 kg (193 lb) 05/01/2022 9:29 AM SOCIAL WORK SPECIALIST Height 162.6 cm (5' 4 ) 05/01/2022 9:29 AM SOCIAL WORK SPECIALIST Body Mass Index 33.13 05/01/2022 9:29 AM SOCIAL WORK SPECIALIST Plan of Treatment Health Maintenance Due [...] patient's age to complete this topic Insurance [facility] Care Teams Integration Engineer Relationship Specialty Start Date End Date Destini Garcia APRN-MAGDY [address] [place] [address] PCP - General Nurse Practitioner 09/05/21
--- OUTSIDE RECORDS SUMMARY | 2024-07-26 17:13 | XMS_ITS | Encounter Summary ---
Author Organization [facility] Address [address] [place] [address] Care Team Providers Care Despatching And Receiving Clerk Name Role Phone Jose Destini HEYDI Primary Care Provider [phone] Encounter Details Date Type Department Care Team (Late st Contact Info) Description 06/20/2021 MyChart Message Enc [facility] Medical Group Multispecialty Care - [facility] 3 [facility], [address] [place] [phone] Dana Silva MD [address] [place] [address] Emgality Social History Tobacco Use Types Packs/Day [...] Sex Assigned at Female 06/18/2024 10:56 AM AIRCRAFT ORDNANCE SYSTEMS MECHANIC Legal Sex Female 7:31 PM CDT Gender Identity Female 04/07/2021 9:13 AM AIRCRAFT ORDNANCE SYSTEMS MECHANIC Sexual Orientation Choose not to disclose 2024 8:31 AM CDT COVID-19 Exposure Response Date Recorded In the last 10 days, have trey u been in contact with someone who was confirmed or suspected to have Coronavirus/COVID-19? No / Unsure 06/23/2021 8:41 AM AIRCRAFT ORDNANCE SYSTEMS MECHANIC documented as of this encounter Functional Status [...] Medical Group Family & Internal Medicine - [address] [address] [address] 09/29/2024 1:15 PM CDT Office Visit [facility], [facility] [address] [place] [address] Franky Wallace MD [facility] [address] [place] [address] documented as of this encounter Goals Goal Patient Goal Type Associated Problems Recent Progress Patient-Stated? Author Patient will return to prior living situation and remain independent in ADLs upon discharge from [facility] Phyllis Nieto RN documented as of this encounter Visit Diagnoses Not on filedocumented in this encounter Additional Health Concerns Assessment Noted Time PHQ-9 Depression Total Score: 2 03/02/20 21 2:17 PM AIRCRAFT ORDNANCE SYSTEMS MECHANIC documented as of this encounter Care Teams Despatching And Receiving Clerk Relationship Specialty Start Date End Date Destini Garcia FNP [address] [place] [address] PCP - General Nurse Practitioner Family 11/21/20 documented as of this encounter
--- OUTSIDE RECORDS SUMMARY | 2024-07-26 17:13 | XMS_ITS | Encounter Summary ---
Author Organization [facility] Address [address] [place] [address] Phone Care Team Providers Care Parking Lot Manager Name Role Phone Dana Silva MD Unavailable [phone] Destini Garcia NP Primary Care Provider [phone] Encounter Details Date Type Department Care Team [...] on filedocumented in this encounter Care Teams Parking Lot Manager Relationship Specialty Start Date End Date Destini Garcia DECAL TRANSFERRER [address] [place] [address] PCP - General Nurse Practitioner 06/02/21 Dana Silva MD Fellow Neurology 05/15/21 documented as of this encounter
--- OUTSIDE RECORDS SUMMARY | 2024-07-26 17:13 | XMS_ITS | Clinical Summary ---
Author Organization [facility] Address [address] [place] [address] Care Team Providers Care Automotive Salesperson Name Role Phone Destini Garcia Primary Care Provider [phone] Allergies Active Allergy Reactions Criticality Noted Date [...] 180 tablet 2 02/13/20 24 Active rizatriptan (MAXALT-ARCHITECTURAL DRAFTSMAN) 10 MG disintegrating tabletIndications: Migraine without aura, [...] 09/23/2023 Folic acid deficiency 09/23/2023 Nonsuicidal self-harm ([facility]) 12/14/19 22 Overview (04/25/2022): Last Assessment & [...] of breast 02/16/2021 LOC (loss of consciousness) ([facility]) Dizziness 02/16/2021 Recurrent syncope 02/12/2021 Chronic abdominal [...] episodes. Continue Topamax. Personality disorder, unspec ified ([facility]) 02/21/2018 07/31/2023 MDD (major depressive disorder) 09/14/2015 11/23/2020 Encounters Date Type Department Care Team Description 07/17/2024 Telephone [facility], [facility] [address] [place] [address] Jeanie Su CMA Prior Authorization (midodrine) 07/16/2024 MyCAnaCatum Design Message Enc [facility], [facility] [address] [place] [address] Nelly Stern PA Midodrine 06/18/2024 Misc Documentation [facility] Medical [facility] Multispecialty [facility] - [address], [address] [place] [address] Alyssa Quintero MD 06/17/2024 MyChart Message [facility] - [address] [place] [phone] Alyssa Quintero MD Emgality 06/10/2024 Orders Only [facility] Multispecialty Care - [facility] 3 [facility], [address] [place] [phone] Alyssa Quintero MD 06/05/2024 MyChart Message Enc [facility] THREE [facility], [facility] [address] [place] [address] Nelly Stern PA Corlanor PA 06/01/2024 MyChart Message [facility] 3 [facility], [address] [place] [address] Alyssa Quintero MD Emgality Prior Auth with New insurance 06/01/2024 Orders Only [facility] 3 [facility], [address] [place] [phone] Alyssa Quitnero MD from Last 3 Months Immunizations Immunization [...] Sex Assigned at Female 06/18/2024 10:56 AM OPTHALMIC TECH Legal Sex Female 7:31 PM CDT Gender Identity Female 04/07/2021 9:13 AM OPTHALMIC TECH Sexual Orientation Choose not to disclose 2024 8:31 AM CDT Last Filed Vital Signs Vital Sign Reading Time Taken Comments Blood Pressure 104/64 04/07/2024 9:14 AM OPTHALMIC TECH Pulse 74 04/07/2024 9:14 AM OPTHALMIC TECH Temperature 36.7 C (98.1 F) 04/07/2024 9:14 AM OPTHALMIC TECH Respiratory Rate 14 04/07/2024 9:14 AM OPTHALMIC TECH Oxygen Saturation 98% 04/07/2024 9:14 AM OPTHALMIC TECH Inhaled Oxygen Concentration - - Weight 87.5 kg (193 lb) 04/07/2024 9:14 AM OPTHALMIC TECH Height 162.6 cm (5' 4 ) 04/07/2024 9:14 AM OPTHALMIC TECH Body Mass Index 33.13 04/07/2024 9:14 AM OPTHALMIC TECH Plan of Treatment Upcoming Encounters Date Type Department Care Team (Late st Contact Info) Description 08/18/2024 1:20 PM CDT Office Visit [facility] Medical Group Family & Internal Medicine - [address] [phone] Destini Garcia FNP [address] [place] [address] 09/29/2024 1:15 PM CDT Office Visit [facility] THREE [facility], [address] [place], [place] [phone] Franky Wallace MD Three [facility]. [address] [place], [place] [phone] Health Maintenance Due Date Last Done Comments Cervical Cancer Screening Pap Smear (Age 21 to 29) Every 3 Years 1997 Cervical Cancer Screening 1997 Hepatitis C 10/03/2015 Hepatitis B Vaccines (1 of 3 - 19+ 3-dose series) 2016 PHQ-2 (Physician [place]) 04/15/2024 03/31/2024 Annual Physical 04/07/2025 04/07/2024 COVID-19 [...] from hospital General Phyllis Nieto, RN Insurance [facility] Advance Directives * Full Code (Latest Code Status on File) Date Activated Date Inactivated Comments 02/12/2021 6:05 PM 02/13/2021 5:30 PM Care Teams Automotive Salesperson Relationship Specialty Start Date End Date Destini Garcia FNP [address] [place] [address] PCP - General Nurse Practitioner Family 11/21/20
--- OUTSIDE RECORDS SUMMARY | 2024-07-26 17:13 | XMS_ITS | Encounter Summary ---
Author Organization [facility] Address [address] [place] [address] Care Team Providers Care Barrel Loader And Cleaner Name Role Phone Jillduy Destini HEYDI Primary Care Provider Encounter Details Date Type Department Care Team (Latest Contact Info) Description 03/20/2021 OROSt Message Enc [facility] Medical Group Multispecialty Care - [facility] 3 [facility] [address] [place] [address] Jf Puentes MD 3 [facility] [address] [place], [place] [phone] Colonoscopy scheduled Social History Tobacco Use Types [...] Sex Assigned at Female 06/18/2024 10:56 AM DIGITAL MANAGER Legal Sex Female 7:31 PM CDT Gender Identity Female 04/07/2021 9:13 AM DIGITAL MANAGER Sexual Orientation Choose not to disclose 2024 8:31 AM CDT COVID-19 Exposure Response Date Recorded In the last month, have you been in contact with someone who was confirmed or suspected to have Coronavirus / COVID-19? No / Unsure 03/22/2021 10:16 AM DIGITAL MANAGER documented as of this encounter Functional Status [...] Description 08/18/2024 1:20 PM CDT Office Visit [facility] Medical Group Family & Internal Medicine - [address] [phone] Destini Garcia [address] [address] 09/29/2024 1:15 PM CDT Office Visit [facility] [address] [address] Franky Wallace MD [facility] [address] [place] [address] documented as of this encounter Goals Goal Patient Goal Type Associated Problems Recent Progress Patient-Stated? Author Patient will return to prior living situation and remain independent in ADLs [facility] General No Phyllis Law RN documented as of this encounter Visit Diagnoses Not on filedocumented in this encounter Additional Health Concerns Assessment Noted Time PHQ-9 Depression Total Score: 2 03/02/20 21 2:17 PM DIGITAL MANAGER documented as of this encounter Care Teams Barrel Loader And Cleaner Relationship Specialty Start Date End Date Destini Garcia FNP [address] [place] [address] PCP - General Nurse Practitioner Family 11/21/20 documented as of this encounter
--- OUTSIDE RECORDS SUMMARY | 2024-07-26 17:13 | XMS_ITS | Encounter Summary ---
Author Organization [facility] Address [address] [place] [address] Care Team Providers Care Cashier Associate Name Role Phone Jose Destini HEYDI Primary Care Provider [phone] Encounter Details Date Type Department Care Team (Late st Contact Info) Description 03/20/2021 Therapy Plan [facility] Infusion Services [address] [place], [place] [phone] Franky Wallace MD Three [facility]. [address] [place], [place] [phone] Social History Tobacco Use Types Packs/Day Years [...] Sex Assigned at Female 06/18/2024 10:56 AM MATHEMATICS FACULTY MEMBER Legal Sex Female 7:31 PM CDT Gender Identity Female 04/07/2021 9:13 AM MATHEMATICS FACULTY MEMBER Sexual Orientation Choose not to disclose 2024 8:31 AM CDT COVID-19 Exposure Response Date Recorded In the last month, have you been in contact with someone who was confirmed or suspected to have Coronavirus / COVID-19? No / Unsure 03/22/2021 10:16 AM MATHEMATICS FACULTY MEMBER documented as of this encounter Functional Status [...] Description 08/18/2024 1:20 PM CDT Office Visit [facility] Medical Group Family & Internal Medicine - [place] [address] [place] [address] Destini Garcia FNP [address] [place] [address] 09/29/2024 1:15 PM CDT Office Visit [facility] THREE [facility], [facility] [address] [place], [place] [phone] Franky Wallace MD Three [facility]. [address] [place], [place] [phone] documented as of this encounter Goals Goal Patient Goal Type Associated Problems Recent Progress Patient-Stated? Author Patient will return to prior living situation and remain independent in ADLs upon discharge from [facility] Phyllis Law RN documented as of this encounter Visit Diagnoses Diagnosis Syncope, unspecified syncope type- Primary POTS (postural orthostatic tachycardia syndrome) Tachycardia, unspecified documented in this encounter Additional Health Concerns Assessment Noted Time PHQ-9 Depression Total Score: 2 03/02/20 21 2:17 PM MATHEMATICS FACULTY MEMBER documented as of this encounter Care Teams Cashier Associate Relationship Specialty Start Date End Date Destini Garcia FNP [address] [place] [address] PCP - General Nurse Practitioner Family 11/21/20 documented as of this encounter
[2024-07-26 17:21] VITALS: BP 128/83; PULSE 67; RESP 12; TEMP 36.7; O2SAT 99
[2024-07-26 18:01] VITALS: BP 115/76; PULSE 72; RESP 26; TEMP 36.7; O2SAT 98
[2024-07-26 18:34] VITALS: BP 115/76; PULSE 79; RESP 20; TEMP 36.7; O2SAT 99
== END 2024-07-26 18:34 | disposition home or self-care (01) ==
PROVIDERS: Emergency Provider Emergency Medicine; PCP Nurse Practitioner Family
DX: R55 Syncope and collapse (principal); G90.A Postural orthostatic tachycardia syndrome [POTS]; F41.9 Anxiety disorder, unspecified; F31.9 Bipolar disorder, unspecified; Z79.899 Other long term (current) drug therapy
CPT/HCPCS: 70450; 99284